=== PATIENT | female | born 1940 | race Caucasian/White ===

== ENCOUNTER → 2016-08-05 | Outpatient (CLI) | payer BC ==
[~2016-08-05] MED LIST: ACETYLCYST PO; ACTNUNK PO; ATOR-24 PO; ATV5 PO; CLTP PO; CNT PO; IMD/2 PO; LOSARTAN-HCTZ PO; METO25TA3 PO; PANT40TA PO; PRED-301 PO; [UNRECOGNIZED DRUG - CODE] PO
[2016-08-05 12:51] LABS: BASO % 0.4 %; BASO ABS # 0.04 K/uL (0-0.2); COMPLETE YES; EOS % 2.9 %; HEMATOCRIT 35.8 % (37-47); IG% 0.2 %; LYMPH % 19.2 %; LYMPH ABS # 1.79 K/uL (1.2-3.4); MEAN CELL VOLUME 85.9 fL (80-100); MEAN CORPUSCULAR HEMOGLOBIN 29.7 pg (25-34); MEAN CORPUSCULAR HGB CONC 34.6 g/dl (32-36); MEAN PLATELET VOLUME 13.8 fL (7.4-10.4); MONO % 13.2 %; NEUT % 64.1 %; PLATELET COUNT 218 K/uL (130-400); RED BLOOD COUNT 4.17 M/uL (4.2-5.4); WHITE BLOOD COUNT 9.31 K/uL (4.8-10.8)
[2016-08-05 13:30] LABS: ESTIMATED AVERAGE GLUCOSE 126 mg/dl; HA1C FLAG Normal (Normal)
[2016-08-05 13:44] LABS: ALT/SGPT 25 U/L (12-78); AST/SGOT 27 U/L (15-37); BLOOD UREA NITROGEN 14 mg/dl (7-18); BUN/CREATININE RATIO 13.7 (10-20); CARBON DIOXIDE 27 mmol/L (21-32); CHLORIDE 94 mmol/L (98-107); CHOLESTEROL 136 mg/dl (0-200); GLUCOSE 96 mg/dl (70-99); SODIUM 132 mmol/L (136-145); TRIGLYCERIDES 71 mg/dl (0-150); VERY LOW DENSITY LIPOPROT CALC 14 mg/dl
[2016-08-05 13:55] LABS: CHOLESTEROL/HDL RATIO 2.2; HDL CHOLESTEROL 62 mg/dl; LDL CHOLESTEROL CALCULATED 60 mg/dl
--- NOTE | 2016-08-11 10:27 | CODING QUERY MEDICAL NECESSITY ---
SUPPORTING DIAGNOSIS NEEDED Young PA, A supporting diagnosis is required for the test/procedure performed on this patient in order for us to be reimbursed by the patient's insurance. Please provide a supporting diagnosis for the following test/procedure listed below next to the test name along with your signature. *If there is no additional diagnosis for this patient that would support the following test/procedure please document that below next to the test/procedure. Test(s)/Procedure(s) that require a supporting diagnosis: * [id number] GLYCATED HEMOGLOBIN DIAGNOSIS: DATE OF SERVICE: 08/05/16 Provider Signature: Date: Thank you Rick Wyatt [facility] Information Management Once completed, please kindly fax back to [phone] For questions please call [phone]
== END | disposition home or self-care (01) ==
LOC: C.LABBFT 08:34
PROVIDERS: ATTEND Physician Assistant
DX: E78.5 Hyperlipidemia, unspecified (principal); Z13.1 Encounter for screening for diabetes mellitus

== ENCOUNTER → 2017-02-06 | Outpatient (CLI) | payer BC ==
[2017-02-06 13:03] LABS: BASO % 0.6 %; BASO ABS # 0.04 K/uL (0-0.2); COMPLETE YES; EOS % 4.8 %; HEMATOCRIT 35.8 % (37-47); IG% 0.1 %; LYMPH % 24.6 %; LYMPH ABS # 1.65 K/uL (1.2-3.4); MEAN CELL VOLUME 90.9 fL (80-100); MEAN CORPUSCULAR HEMOGLOBIN 31.5 pg (25-34); MEAN CORPUSCULAR HGB CONC 34.6 g/dl (32-36); MEAN PLATELET VOLUME 13.1 fL (7.4-10.4); NEUT % 53.9 %; PLATELET COUNT 242 K/uL (130-400); RED BLOOD COUNT 3.94 M/uL (4.2-5.4)
[2017-02-06 13:13] LABS: ALT/SGPT 32 U/L (12-78); AST/SGOT 28 U/L (15-37); BLOOD UREA NITROGEN 17 mg/dl (7-18); BUN/CREATININE RATIO 17.3 (10-20); CALCIUM 8.5 mg/dl (8.5-10.1); CARBON DIOXIDE 25 mmol/L (21-32); CHLORIDE 99 mmol/L (98-107); GLUCOSE 100 mg/dl (70-99); POTASSIUM 3.3 mmol/L (3.5-5.1); SODIUM 134 mmol/L (136-145)
[2017-02-06 13:23] LABS: CHOLESTEROL 125 mg/dl (0-200); CHOLESTEROL/HDL RATIO 2.3; HDL CHOLESTEROL 54 mg/dl; LDL CHOLESTEROL CALCULATED 55 mg/dl; TRIGLYCERIDES 81 mg/dl (0-150); VERY LOW DENSITY LIPOPROT CALC 16 mg/dl
== END | disposition home or self-care (01) ==
LOC: C.LABBFT 08:08
PROVIDERS: ATTEND Physician Assistant
DX: E78.5 Hyperlipidemia, unspecified (principal); N28.9 Disorder of kidney and ureter, unspecified; E03.9 Hypothyroidism, unspecified

== ENCOUNTER → 2017-03-09 | Outpatient (CLI) | payer BC ==
--- NOTE | 2017-03-09 11:24 | DIAGNOSTIC IMAGING REPORT ---
(CHEST) THORAX WITHOUT CLINICAL HISTORY: 77 years-old Female presenting with LUNG CA, follow-up, history of left apical pulmonary nodule stable since 2008. TECHNIQUE: Multidetector CT imaging of the chest was performed without the use of intravenous contrast. IV contrast: None. A dose lowering technique was used consistent with the principles of ALARA (as low as reasonably achievable). COMPARISON: 03/11/2016. CT DOSE (mGy.cm): The estimated cumulative dose is 218.17 mGy.cm. FINDINGS: Brass Reclaimer topogram: Unremarkable. On soft tissue windows, normal thyroid and thoracic inlet. Calcification noted in the breasts. Scattered subcentimeter mediastinal lymph nodes, some of which are calcified. Calcified hilar lymph nodes also noted, evidence of prior granulomatous infection. Evaluation of the dinesh is limited due to lack of intravenous contrast. Atherosclerosis of the aorta. Coronary artery calcification. Top normal heart size. Trace pericardial effusion. No pleural effusion. Moderate pancreatic parenchymal atrophy. Normal liver density. Calcification in the spleen likely suggests prior granulomatous infection. On lung windows, respiratory artifact mildly degrades evaluation of the lungs. Subpleural reticulation and groundglass opacity dependently in the lungs with a basilar predominance, most prominently in the right lower lobe, not significantly changed from most recent prior though slightly increased since 2011. Immediate subpleural sparing also noted. Biapical scarring noted. Calcified granulomas noted. Stable appearance of the solid 4 mm nodule in the left upper lobe (series 4 image 87), unchanged since 2008. Postsurgical changes of left lower lobectomy. Mild bronchial wall thickening suggested. Allowing for respiratory motion, no gross evidence of a new pulmonary nodule or infiltrate. On bone windows, normal osseous structures. IMPRESSION: 1. Stable postsurgical changes of left lower lobectomy and stable 4 mm left upper lobe nodule. No new nodule or new infiltrate. 2. Chronic subpleural fibrotic changes with a basilar predominance and the immediate subpleural sparing, which can be seen in the setting of nonspecific interstitial pneumonia. These findings demonstrate very slow interval progression over time. 3. Evidence of prior granulomatous infection. Electronically signed by: Jon Morris M.D. 03/09/2017 11:23 AM Dictated Date/Time: 03/09/2017 11:10 AM
== END | disposition home or self-care (01) ==
LOC: C.CTS 10:49
PROVIDERS: ATTEND Internal Medicine Hematology
DX: C34.32 Malignant neoplasm of lower lobe, left bronchus or lung (principal); Z90.2 Acquired absence of lung [part of]; R91.1 Solitary pulmonary nodule; R91.8 Other nonspecific abnormal finding of lung field

== ENCOUNTER → 2017-08-12 | Outpatient (CLI) | payer BC ==
[~2017-08-12] MED LIST changes: -METO25TA3 PO; +METO25TA4 PO
[2017-08-12 12:52] LABS: BASO % 0.8 %; BASO ABS # 0.07 K/uL (0-0.2); EOS % 10.1 %; EOS ABS # 0.88 K/uL (0-0.5); HEMATOCRIT 36.9 % (37-47); HEMOGLOBIN 12.4 g/dL (12.0-16.0); IG# 0.02 K/uL (0.00-0.02); LYMPH % 17.7 %; LYMPH ABS # 1.54 K/uL (1.2-3.4); MEAN CELL VOLUME 92.9 fL (80-100); MEAN CORPUSCULAR HEMOGLOBIN 31.2 pg (25-34); MEAN CORPUSCULAR HGB CONC 33.6 g/dl (32-36); MEAN PLATELET VOLUME 12.8 fL (7.4-10.4); MONO % 9.5 %; MONO ABS # 0.83 K/uL (0.11-0.59); NEUT % 61.7 %; NEUT ABS # 5.38 K/uL (1.4-6.5); PLATELET COUNT 222 K/uL (130-400); RED CELL DISTRIBUTION WIDTH CV 15.1 % (11.5-14.5); RED CELL DISTRIBUTION WIDTH SD 50.9 fL (36.4-46.3); WHITE BLOOD COUNT 8.72 K/uL (4.8-10.8)
[2017-08-12 13:15] LABS: HEMOGLOBIN A1C 5.6 % (4.5-5.6)
[2017-08-12 13:29] LABS: ALT/SGPT 38 U/L (12-78); AST/SGOT 31 U/L (15-37); BLOOD UREA NITROGEN 19 mg/dl (7-18); CALCIUM 8.9 mg/dl (8.5-10.1); CARBON DIOXIDE 31 mmol/L (21-32); CHOLESTEROL 139 mg/dl (0-200); CREATININE 1.02 mg/dl (0.60-1.20); GLUCOSE 91 mg/dl (70-99); LDL CHOLESTEROL CALCULATED 65 mg/dl; POTASSIUM 3.8 mmol/L (3.5-5.1); SODIUM 130 mmol/L (136-145)
== END | disposition home or self-care (01) ==
LOC: C.LABBFT 08:31
PROVIDERS: ATTEND Physician Assistant
DX: I10 Essential (primary) hypertension (principal); N28.9 Disorder of kidney and ureter, unspecified; E03.9 Hypothyroidism, unspecified; E78.5 Hyperlipidemia, unspecified

== ENCOUNTER 2024-03-30 20:49 | Inpatient (IN) ==
--- NOTE | 2024-03-30 21:17 | Emergency Department Note ---
Impression & Plan Fall, Closed pelvic fracture, Closed left radial fracture, Multiple skin tears ED Provider Note Provider: Sea Fan MD CHIEF COMPLAINT: Fall HISTORY OF PRESENT ILLNESS: Patient is a 84-year-old female on baby aspirin presenting here today after a fall at home. Patient states that she has fallen in the past and uses a walker. Was going to the bathroom and parked her walker just outside the bathroom and she went and lost her balance and fell and struck her left head on the side of the wall and went to the floor. Could not get up and used her emergency alert button. Patient complains of some pain to her left hand. Had a scrape there as well as on her right knee. Denies significant headache. Denies loss of conscious to recollection. Denies significant chest pain or shortness of breath. Does relay a little bit of nausea but she states that from the ambulance ride. Some soreness to the left leg reported with lifting. Denies new numbness or tingling. PAST MEDICAL HISTORY: As noted above MEDICATIONS:Reviewed home medications includes aspirin SOCIAL HISTORY: Lives by herself PHYSICAL EXAM: GENERAL: alert and oriented in no acute distress on stretcher c-collar in place without midline cervical tenderness Head: Patient with a 6 x 8 cm contusion over the left restoration/forehead region. No crepitus. No bleeding. EYES: No injection, discharge or icterus. PERRL, EOMI. NECK: Trachea midline. Supple no posterior midline tenderness ENT: Mucous membranes pink and moist. LUNGS: Airway patent. No retractions. Breath sounds clear with good air entry bilaterally. HEART: Regular rate and rhythm. No chest wall tenderness ABDOMEN: Soft and non-tender, without guarding or rebound. Stable pelvis. SKIN: Acyanotic, warm, dry, with some scattered various aged ecchymosis on the upper and lower extremities. EXTREMITIES: Without swelling on exam with good passive range of motion of the upper and lower extremities. Some pain with flexion into the left hip and pelvic region however. Some mild tenderness and skin tear the third MCP on the right hand on the dorsal side as well as a skin tear to the right knee just laterally. Some scattered ecchymosis on all extremities again noted. NEUROLOGICAL: No focal deficits. No aphasia. No facial droop or slurred speech. Normal strength and tone in the extremities. Sensation to gross touch normal. EK bpm sinus rhythm with future supraventricular complexes. No ST segment elevation with nonspecific T wave changes. QTc 481. CONTINUOUS CARDIAC MONITORING: was ordered and showed a heart rate of 80s-90s bpm in sinus rhythm occasional PACs GCS 15. Patient's laboratory studies and imaging reviewed. Differential includes Fracture, dislocation, contusion, intra-abdominal, pneumothorax, intrathoracic, intracranial, neurologic, compartment syndrome, rhabdomyolysis, as well as other pathologies. IMPRESSION/MEDICAL DECISION MAKING: Little bit of nausea she states from the ride given some Zofran. Denies severe pain. No confusion or syncope reported. Basic blood work EKG and imaging obtained here. Good range of motion lower suspicion for hip fracture or knee fracture but x-ray of the right knee and left hand are obtained given the small wounds here. Doubt open joints. Skin is very frail and thin and these are not amenable to closure. Cleaned and bandaged Xeroform over the knee as there is a little bit of exposed subcutaneous fat. Patient on aspirin. Ecchymosis to the left head but no LOC. CT beaver scan obtained. Blood work here without significant anemia leukocytosis. Normal platelet count. No significant acute renal dysfunction with mild hypernatremia of 130 and hypokalemia 3.2. No significant transaminitis or lipase elevation. No CK elevation and a normal troponin here. CT scan reports per radiology without evidence of acute intercranial bleed or cervical spine fracture. CT of the chest abdomen pelvis by report with some interstitial lung disease findings but an inferior and superior left pubic rami fracture. X-rays show evidence of a distal right radial fracture. Will place in a short volar splint for support and stabilization here. Will bring in for further care given the pelvic fracture. Given some IV Tylenol initially for pain. DIAGNOSIS: Fall, left head contusion, left hand skin tear, right knee skin tear, left distal radial fracture, pelvic fracture DISPOSITION: Hospitalist will evaluate Patient was agreeable with this plan. PROCEDURE: splint placement Indications for procedure: Distal left radial fracture Description of the procedure: Short Ortho-Glass volar splint was placed on the patient's left upper extremity. Neurovascular status was intact after placement of the splint. PATIENT CONDITION AFTER PROCEDURE: good Past Med/Surg History Problem List (Updated 03/31/24 @ 00:19 by Sea T Mita, M.D.) Multiple skin tears (Acute) Closed left radial fracture (Acute) Closed pelvic fracture (Acute) Fall (Acute) Pre-syncope Anemia (Chronic) Wrist pain, left (Acute) Rheumatoid arthritis (Chronic) Chronic renal insufficiency (Chronic) PAD (peripheral artery disease) (Chronic) Hypertension (Chronic) Medical History Abnormal CT scan, chest Pulmonary nodules Lung cancer, lower lobe Surgical History S/P lobectomy of lung H/O: hysterectomy Family History Other Family history non-contributory Social History Smoking Status: Former smoker Feels Safe at Home: Yes Allergies Allergies Allergy/AdvReac Type Severity Reaction Status Date / Time tetracycline Allergy Severe COULDN'T Verified 01/01/24 15:26 BREATHE Cephalosporins Allergy Intermediate HIVES Verified 01/01/24 15:26 clindamycin Allergy Mild RASH Verified 01/01/24 15:26 Penicillins Allergy Mild HIVES Verified 01/01/24 15:26 Sulfa (Sulfonamide Allergy Mild RED AND Verified 01/01/24 15:26 Antibiotics) SWEATING SILVIA Inhibitors Allergy Unknown Unknown Verified 03/31/24 00:16 aspartame Allergy Unknown Unknown Verified 01/01/24 15:26 cefazolin Allergy Unknown Unknown Verified 01/01/24 15:26 cephalexin Allergy Unknown Unknown Verified 01/01/24 15:26 doxycycline Allergy Unknown Unknown Verified 01/01/24 15:26 hydrochlorothiazide Allergy Unknown Unknown Unverified 01/01/24 15:26 lidocaine Allergy Unknown Unknown Verified 03/31/24 00:16 lisinopril Allergy Unknown Unknown Unverified 01/01/24 15:26 yellow dye Allergy Unknown Unknown Verified 01/01/24 15:26 prednisone AdvReac Mild HIGH BP Verified 01/01/24 15:26 preservatives AdvReac bleeding Uncoded 03/31/24 00:16 bowels Home Meds Home Medications Medication Instructions Recorded Confirmed acetaminophen 500 mg tablet 500 mg PO Q6H PRN Pain 03/29/18 03/31/24 (Tylenol Extra Strength) albuterol sulfate 90 mcg/actuation 2 puff inhalation Q4H PRN 03/29/18 03/31/24 aerosol inhaler (Ventolin HFA) Shortness Of Breath aspirin 81 mg tablet,delayed 81 mg PO QAM 03/29/18 03/31/24 release (Bernie Low Dose Aspirin) folic acid 1 mg tablet 2 mg PO DAILY 03/29/18 01/01/24 furosemide 20 mg tablet 20 mg PO DAILY 03/29/18 01/01/24 metoprolol succinate 50 mg 50 mg PO DAILY 03/29/18 01/01/24 tablet,extended release 24 hr (Toprol XL) famotidine 20 mg tablet 20 mg PO DAILY 10/17/19 01/01/24 levothyroxine 50 mcg tablet 25 mcg PO DAILYBB 10/17/19 03/31/24 methotrexate sodium 2.5 mg tablet 10 mg PO WK 10/17/19 01/01/24 risedronate 150 mg tablet 150 mg PO MONTHLY 08/14/20 01/01/24 losartan 100 mg tablet 100 mg PO QAM 03/31/24 Results & Data (ED) Vital Signs Vital Signs - 24 hr 03/30/24 20:59 03/30/24 21:06 03/30/24 21:27 Temperature 36.5 C Temperature Source Oral Pulse Rate 87 86 Pulse Rate [Apical] 83 Respiratory Rate 22 22 Respiratory Effort / Characteristics Non-Labored Spontaneous Non-Labored Spontaneous Respiratory Depth Normal Normal Blood Pressure 148/89 H Blood Pressure [Left Arm] 147/68 H Blood Pressure Mean 108 Blood Pressure Mean [Left Arm] 94 Blood Pressure Position [Left Arm] Pulse Oximetry 98 98 Oxygen Delivery Method Room Air Room Air Sepsis Recent Fever Within 48 Hours No Sepsis New/Unexplained Change in Mental Status No Sepsis Action Taken by Nursing No Action Required 03/30/24 21:27 03/30/24 23:00 Temperature Temperature Source Pulse Rate Pulse Rate [Apical] 86 Respiratory Rate 18 Respiratory Effort / Characteristics Respiratory Depth Blood Pressure Blood Pressure [Left Arm] 131/96 Blood Pressure Mean Blood Pressure Mean [Left Arm] 107 Blood Pressure Position [Left Arm] Semi-fowlers Pulse Oximetry 97 Oxygen Delivery Method Room Air Room Air Sepsis Recent Fever Within 48 Hours Sepsis New/Unexplained Change in Mental Status Sepsis Action Taken by Nursing Laboratory Data 03/30/24 21:09 03/30/24 21:09 Lab Results 03/30/24 03/30/24 Range/Units 21:09 21:14 WBC 8.21 (4.8-10.8) K/ul RBC 3.85 L (4.20-5.40) M/uL Hgb 12.1 (12.0-16.0) g/dl POC Hgb 12.2 (12.0-16.0) g/dl Hct 35.0 L (37.0-47.0) % POC Hct 36 L (37-47) % MCV 90.9 (80.0-100.0) fL MCH 31.4 (25.0-34.0) pg MCHC 34.6 (32.0-36.0) g/dL RDW Std Deviation 49.7 H (36.4-46.3) fL RDW Coeff of Zee 15.5 H (11.5-14.5) % Plt Count 199 (130-400) K/uL MPV 12.1 (9.4-12.4) fL Immature Gran % (Auto) 2.9 % Neut % (Auto) 60.2 % Lymph % (Auto) 27.3 % [place] % (Auto) 7.8 % Eos % (Auto) 1.3 % Baso % (Auto) 0.5 % Neut # (Auto) 4.94 (1.40-6.50) K/uL Lymph # (Auto) 2.24 (1.20-3.40) K/uL [place] # (Auto) 0.64 H (0.11-0.59) K/uL Eos # (Auto) 0.11 (0.00-0.50) K/uL Baso # (Auto) 0.04 (0.00-0.20) K/uL Immature Gran # (Auto) 0.24 H (0.01-0.20) K/uL PT 10.4 (9.0-12.0) Seconds INR 1.0 (0.9-1.1) APTT 23 (21-31) Seconds PTT Ratio 0.9 POC Sodium 130 L (135-144) mmol/L Sodium 130 L (136-145) mmol/L POC Potassium 3.1 L (3.3-5.0) mmol/L Potassium 3.2 L (3.5-5.1) mmol/L POC Chloride 95 L (101-112) mmol/L Chloride 95 L (98-107) mmol/L Carbon Dioxide 25 (21-32) mmol/L POC Total CO2 22 L (24-31) mmol/L Anion Gap 10 (3-11) POC Anion Gap 18.0 (16-25) mmol/L POC BUN 19 H (7-18) mg/dl BUN 21 (6-23) mg/dl Creatinine 0.85 (0.6-1.2) mg/dl POC Creatinine 1.0 (0.6-1.3) mg/dl Est Cr Clr Drug Dosing 41.6 ml/min eGFR 67.10 BUN/Creatinine Ratio 24.7 H (10-20) Glucose 171 H (70-99(Fasting)) mg/dl POC Glucose (other) 167 H (70-99) mg/dl Calcium 9.0 (8.6-10.3) mg/dl POC Ioniz Calcium Navi 1.06 L (1.12-1.32) mmol/l Total Bilirubin 0.5 (0.2-1.0) mg/dl AST 27 (13-39) U/L ALT 23 (7-52) U/L Alkaline Phosphatase 66 (34-104) U/L Total Creatine Kinase 108 (26-192) U/L Troponin I High Sens 6.8 (0-14) pg/ml Total Protein 6.8 (6.0-8.3) gm/dl Albumin 3.9 (3.4-5.0) gm/dl Globulin 2.9 (2.5-4.0) gm/dl Albumin/Globulin Ratio 1.3 (0.9-2) Lipase 31 (11-82) U/L Administered Medications Discontinued Medications Acetaminophen (Ofirmev) 1,000 mg in 100 mls @ 400 mls/hr IV NOW STA Stop: 03/31/24 00:05 Last Admin: 03/31/24 00:03 Dose: 400 mls/hr Documented By: ELIZABET Ondansetron HCl (Ondansetron Inj 2 Mg/Ml 2 Ml Vial) Confirm Administered Dose 4 mg .ROUTE .STK-MED ONE Stop: 03/30/24 21:22 Last Admin: 03/30/24 21:24 Dose: Not Given Documented By: KAMAR Ondansetron HCl (Ondansetron Inj 2 Mg/Ml 2 Ml Vial) 4 mg IV NOW STA Stop: 03/30/24 21:22 Last Admin: 03/30/24 21:23 Dose: 4 mg Documented By: KAMAR Ondansetron HCl (Ondansetron Inj 2 Mg/Ml 2 Ml Vial) 4 mg IV NOW STA Stop: 03/30/24 22:44 Last Admin: 03/30/24 22:45 Dose: 4 mg Documented By: KAMAR Imaging Data Radiologist's Impression: Abdomen/Pelvis CT 03/30/24 20:59 Exam(s): CT ABDOMEN + PELVIS Without Contrast EXAM: CT Abdomen and Pelvis Without Intravenous Contrast CLINICAL HISTORY: Trauma. TECHNIQUE: Axial computed tomography images of the abdomen and pelvis without intravenous contrast. CTDI is 19.25 mGy and DLP is 415.66 mGy-cm. Automated exposure control was utilized for the study. A dose lowering technique was utilized adhering to the principles of ALARA. COMPARISON: No relevant prior studies available. FINDINGS: Lung bases: Unremarkable. No mass. No consolidation. ABDOMEN: Liver: Unremarkable. Gallbladder and bile ducts: Unremarkable. No calcified stones. No ductal dilation. Pancreas: Unremarkable. No ductal dilation. Spleen: Unremarkable. No splenomegaly. Adrenals: Unremarkable. No mass. Kidneys and ureters: Unremarkable. No obstructing stones. No hydronephrosis. Stomach and bowel: Diverticulosis. No obstruction. No mucosal thickening. PELVIS: Appendix: No findings to suggest acute appendicitis. Bladder: Unremarkable. No stones. Reproductive: Unremarkable as visualized. ABDOMEN and PELVIS: Intraperitoneal space: Unremarkable. No free air. No significant fluid collection. Bones/joints: Age indeterminant severe T11 and L1 compression fracture is in addition to mild T12 and L2 compression fractures. Comminuted mildly displaced fractures of the left inferior and superior pubic rami. 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 No dislocation. Soft tissues: Unremarkable. Vasculature: Moderate atherosclerosis. There are stents of the distal aorta and common iliac arteries. No abdominal aortic aneurysm. Lymph nodes: Unremarkable. No enlarged lymph nodes. IMPRESSION: 1. Comminuted mildly displaced fractures of the left inferior and superior pubic rami. 2. Age indeterminant severe T11 and L1 compression fractures in addition to mild T12 and L2 compression fractures. 3. Diverticulosis. Electronically signed by: Wendi Fabian MD 03/30/24 23:[address] 03/30/24 20:59 Exam(s): CT C SPINE EXAM: CT Cervical Spine Without Intravenous Contrast CLINICAL HISTORY: Trauma. TECHNIQUE: Axial computed tomography images of the cervical spine without intravenous contrast. CTDI is 9.75 mGy and DLP is 602.45 mGy-cm. Automated exposure control was utilized for the study. A dose lowering technique was utilized adhering to the principles of ALARA. COMPARISON: No relevant prior studies available. FINDINGS: Vertebrae: Degenerative changes of the cervical spine are noted. No acute finding of the cervical spine. Discs/spinal canal/neural foramina: No acute findings. No spinal canal stenosis. Soft tissues: Unremarkable. IMPRESSION: No acute finding of the cervical spine. Electronically signed by: Wendi Fabian MD 03/30/24 23:[address] 03/30/24 20:59 Exam(s): CT CHEST Without Contrast EXAM: CT Chest Without Intravenous Contrast CLINICAL HISTORY: Trauma. TECHNIQUE: Axial computed tomography images of the chest without intravenous contrast. CTDI is 19.25 mGy and DLP is 416.55 mGy-cm. Automated exposure control was utilized for the study. A dose lowering technique was utilized adhering to the principles of ALARA. COMPARISON: CT chest 08/07/2020 FINDINGS: Lungs: Bilateral airspace opacities of the lung periphery favor interstitial lung disease. 8 mm left upper lobe pulmonary nodule. This is mildly increased in size, and previously measured 6 mm. Pleural space: Unremarkable. No pneumothorax. No significant effusion. Heart: Coronary artery calcifications are present. No cardiomegaly. No significant pericardial effusion. Bones/joints: Age indeterminant severe T12 compression fracture. Degenerative change of the spine are noted. No dislocation. Soft tissues: Unremarkable. Vasculature: There is ectasia of the ascending aorta measuring 3.6 cm. Moderate atherosclerosis. Lymph nodes: Unremarkable. No enlarged lymph nodes. IMPRESSION: 1. Age indeterminant severe T12 compression fracture. 2. Bilateral airspace opacities of the lung periphery favor interstitial lung disease. Cannot exclude pulmonary edema. 3. There is ectasia of the ascending aorta measuring 3.6 cm. 4. 8 mm left upper lobe pulmonary nodule. This is mildly increased in size, and previously measured 6 mm. Fleischner Society Guidelines for low-risk or high-risk patients suggest a follow-up chest CT at 6-12 months. If unchanged, recommend an additional follow-up CT at 18-24 months due to the morphologic appearance of this nodule. Electronically signed by: Wendi Fabian MD 03/30/24 23:42 PM Chest X-Ray 03/30/24 20:59 Exam(s): XR CXR 1 VIEW EXAM: XR Chest, 1 View CLINICAL HISTORY: Trauma. TECHNIQUE: Frontal view of the chest. COMPARISON: No relevant prior studies available. FINDINGS: Lungs: Bilateral airspace opacities are present. Pleural space: Small left pleural effusion. No pneumothorax. Heart: Unremarkable. No cardiomegaly. Mediastinum: Unremarkable. Normal mediastinal contour. Bones/joints: There are degenerative changes of the spine. No acute fracture. IMPRESSION: 1. Bilateral airspace opacities may represent pulmonary edema and/or atypical infection. 2. Small left pleural effusion. Electronically signed by: Wendi Fabian MD 03/30/24 23:46 PM Hand X-Ray 03/30/24 20:59 Exam(s): XR LEFT HAND, 3 views EXAM: XR Left Hand Complete, 3 or More Views CLINICAL HISTORY: Injury. TECHNIQUE: Frontal, lateral and oblique views of the left hand. COMPARISON: No relevant prior studies available. FINDINGS: Bones/joints: Nondisplaced fracture of the distal radial metaphysis. Degenerative changes are most prominent of the radiocarpal joint, first carpometacarpal joint and interphalangeal joints. No dislocation. Soft tissues: Nonspecific soft tissue swelling of the wrist. No radiopaque foreign body. IMPRESSION: 1. Nondisplaced fracture of the distal radial metaphysis. 2. Nonspecific soft tissue swelling of the wrist. 3. Degenerative changes are most prominent of the radiocarpal joint, first carpometacarpal joint and interphalangeal joints. This favors osteoarthritis. Electronically signed by: Wendi Fabian MD 03/30/24 23:[address] 03/30/24 20:59 Exam(s): CT HEAD Without Contrast EXAM: CT Head Without Intravenous Contrast CLINICAL HISTORY: Trauma. TECHNIQUE: Axial computed tomography images of the head/brain without intravenous contrast. CTDI is 37.87 mGy and DLP is 624.41 mGy-cm. Automated exposure control was utilized for the study. A dose lowering technique was utilized adhering to the principles of ALARA. COMPARISON: MRI brain 08/14/2020 FINDINGS: Brain: No intracranial hemorrhage, mass-effect or midline shift. No abnormal extra axial fluid. No evidence of acute infarct. Mild periventricular white matter hypodensities are most consistent with chronic microangiopathy. Ventricles: Unremarkable. No ventriculomegaly. Bones/joints: Unremarkable. No acute fracture. Soft tissues: Unremarkable. Sinuses: Unremarkable as visualized. No acute sinusitis. Mastoid air cells: Unremarkable as visualized. No mastoid effusion. IMPRESSION: No acute intracranial finding. Electronically signed by: Wendi Fabian MD 03/30/24 23:22 PM Knee X-Ray 03/30/24 21:00 Exam(s): XR RIGHT KNEE, 1-2 views EXAM: XR Right Knee, 1 or 2 Views CLINICAL HISTORY: Fall. TECHNIQUE: Frontal and/or lateral views of the right knee. COMPARISON: No relevant prior studies available. FINDINGS: Bones/joints: Degenerative changes of all three compartments are noted. No acute fracture. No dislocation. Soft tissues: There is edema of Hoffa's fat pad. Nonspecific soft tissue swelling. IMPRESSION: 1. There is edema of Hoffa's fat pad. This could relate occult injury. Consider further evaluation with MRI. 2. Nonspecific soft tissue swelling. Electronically signed by: Wendi Fabian MD 03/30/24 23:48 PM Discharge Plan Visit Data Chief Complaint: Fall Stated Complaint: Fall, Neck Pain, Laceration L Hand ED Provider: Sea Fan Discharge Problem: Fall, Closed pelvic fracture, Closed left radial fracture, Multiple skin tears Patient Disposition: Being Evaluated by Hospitalist Forms Stand Alone Forms: [facility] Prescriptions Prescriptions: No Action famotidine 20 mg tablet 20 mg PO DAILY methotrexate sodium 2.5 mg tablet 10 mg PO WK levothyroxine 50 mcg tablet 25 mcg PO DAILYBB aspirin [Bernie Low Dose Aspirin] 81 mg Tablet,Delayed Release (Dr/Ec) 81 mg PO QAM acetaminophen [Tylenol Extra Strength] 500 mg Tablet 500 mg PO Q6H PRN (Reason: Pain) folic acid 1 mg tablet 2 mg PO DAILY furosemide 20 mg tablet 20 mg PO DAILY albuterol sulfate [Ventolin HFA] 90 mcg/actuation Hfa Aerosol Inhaler 2 puff INHALATION Q4H PRN (Reason: Shortness Of Breath) metoprolol succinate [Toprol XL] 50 mg Tablet Extended Release 24 Hr 50 mg PO DAILY risedronate 150 mg tablet 150 mg PO MONTHLY losartan 100 mg tablet 100 mg PO QAM Referrals Referrals: Edna Neal MD [Primary Care Provider] - Discharge Problem: Fall Qualifiers: Encounter type: initial encounter Qualified Code(s): W19.XXXA - Unspecified fall, initial encounter Closed pelvic fracture Qualifiers: Encounter type: initial encounter Laterality: left Closed left radial fracture Qualifiers: Encounter type: initial encounter Radius location: distal
[2024-03-30] MEDS: ONDANSETRON INJ 2 MG/ML 2 ML VIAL IV STA ×2 (21:23→22:45)
[2024-03-30] MEDS: ONDANSETRON INJ 2 MG/ML 2 ML VIAL ONE (21:24)
[2024-03-30 21:27] LABS: iSTAT Hemoglobin 12.2 g/dl (12.0-16.0); iSTAT Ionized Calcium 1.06 mmol/l (1.12-1.32); iSTAT Potassium 3.1 mmol/L (3.3-5.0)
[2024-03-30 21:30] LABS: Basophils # (auto) 0.04 K/uL (0.00-0.20); Basophils % (auto) 0.5 %; Eosinophils # (auto) 0.11 K/uL (0.00-0.50); Eosinophils % (auto) 1.3 %; Hemoglobin 12.1 g/dl (12.0-16.0); Immature Granulocytes # (auto) 0.24 K/uL (0.01-0.20); Immature Granulocytes % (auto) 2.9 %; Lymphocytes # (auto) 2.24 K/uL (1.20-3.40); Lymphocytes % (auto) 27.3 %; Mean Corpuscular Hemoglobin 31.4 pg (25.0-34.0); Mean Corpuscular Hgb Conc 34.6 g/dL (32.0-36.0); Mean Corpuscular Volume 90.9 fL (80.0-100.0); Mean Platelet Volume 12.1 fL (9.4-12.4); Monocytes # (auto) 0.64 K/uL (0.11-0.59); Monocytes % (auto) 7.8 %; Neutrophils # (auto) 4.94 K/uL (1.40-6.50); Neutrophils % (auto) 60.2 %; Platelet Count 199 K/uL (130-400); RDW Coefficient of Variation 15.5 % (11.5-14.5); RDW Standard Deviation 49.7 fL (36.4-46.3); Red Blood Count 3.85 M/uL (4.20-5.40); White Blood Count 8.21 K/ul (4.8-10.8)
[2024-03-30 21:38] LABS: Albumin Globulin Ratio 1.3 (0.9-2); Albumin Level 3.9 gm/dl (3.4-5.0); BUN Creatinine Ratio 24.7 (10-20); Bilirubin,Total 0.5 mg/dl (0.2-1.0); Creatinine Clr Calc Pharmacy 41.6 ml/min; Globulin 2.9 gm/dl (2.5-4.0); Potassium 3.2 mmol/L (3.5-5.1); Total Protein 6.8 gm/dl (6.0-8.3)
[2024-03-30 21:44] LABS: Troponin I High Sensitivity 6.8 pg/ml (0-14)
[2024-03-30 21:56] LABS: Partial Thromboplastin Ratio 0.9; Partial Thromboplastin Time 23 Seconds (21-31); Prothrombin Time 10.4 Seconds (9.0-12.0)
--- NOTE | 2024-03-30 23:23 | CT Scan Report ---
Exam(s): CT C SPINE EXAM: CT Cervical Spine Without Intravenous Contrast CLINICAL HISTORY: Trauma. TECHNIQUE: Axial computed tomography images of the cervical spine without intravenous contrast. CTDI is 9.75 mGy and DLP is 602.45 mGy-cm. Automated exposure control was utilized for the study. A dose lowering technique was utilized adhering to the principles of ALARA. COMPARISON: No relevant prior studies available. FINDINGS: Vertebrae: Degenerative changes of the cervical spine are noted. No acute finding of the cervical spine. Discs/spinal canal/neural foramina: No acute findings. No spinal canal stenosis. Soft tissues: Unremarkable. IMPRESSION: No acute finding of the cervical spine. Electronically signed by: Wendi Fabian MD 03/30/24 23:22 PM
--- NOTE | 2024-03-30 23:23 | CT Scan Report ---
Exam(s): CT HEAD Without Contrast EXAM: CT Head Without Intravenous Contrast CLINICAL HISTORY: Trauma. TECHNIQUE: Axial computed tomography images of the head/brain without intravenous contrast. CTDI is 37.87 mGy and DLP is 624.41 mGy-cm. Automated exposure control was utilized for the study. A dose lowering technique was utilized adhering to the principles of ALARA. COMPARISON: MRI brain 08/14/2020 FINDINGS: Brain: No intracranial hemorrhage, mass-effect or midline shift. No abnormal extra axial fluid. No evidence of acute infarct. Mild periventricular white matter hypodensities are most consistent with chronic microangiopathy. Ventricles: Unremarkable. No ventriculomegaly. Bones/joints: Unremarkable. No acute fracture. Soft tissues: Unremarkable. Sinuses: Unremarkable as visualized. No acute sinusitis. Mastoid air cells: Unremarkable as visualized. No mastoid effusion. IMPRESSION: No acute intracranial finding. Electronically signed by: Wendi Fabian MD 03/30/24 23:22 PM
--- NOTE | 2024-03-30 23:34 | CT Scan Report ---
Exam(s): CT ABDOMEN + PELVIS Without Contrast EXAM: CT Abdomen and Pelvis Without Intravenous Contrast CLINICAL HISTORY: Trauma. TECHNIQUE: Axial computed tomography images of the abdomen and pelvis without intravenous contrast. CTDI is 19.25 mGy and DLP is 415.66 mGy-cm. Automated exposure control was utilized for the study. A dose lowering technique was utilized adhering to the principles of ALARA. COMPARISON: No relevant prior studies available. FINDINGS: Lung bases: Unremarkable. No mass. No consolidation. ABDOMEN: Liver: Unremarkable. Gallbladder and bile ducts: Unremarkable. No calcified stones. No ductal dilation. Pancreas: Unremarkable. No ductal dilation. Spleen: Unremarkable. No splenomegaly. Adrenals: Unremarkable. No mass. Kidneys and ureters: Unremarkable. No obstructing stones. No hydronephrosis. Stomach and bowel: Diverticulosis. No obstruction. No mucosal thickening. PELVIS: Appendix: No findings to suggest acute appendicitis. Bladder: Unremarkable. No stones. Reproductive: Unremarkable as visualized. ABDOMEN and PELVIS: Intraperitoneal space: Unremarkable. No free air. No significant fluid collection. Bones/joints: Age indeterminant severe T11 and L1 compression fracture is in addition to mild T12 and L2 compression fractures. Comminuted mildly displaced fractures of the left inferior and superior pubic rami. 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 No dislocation. Soft tissues: Unremarkable. Vasculature: Moderate atherosclerosis. There are stents of the distal aorta and common iliac arteries. No abdominal aortic aneurysm. Lymph nodes: Unremarkable. No enlarged lymph nodes. IMPRESSION: 1. Comminuted mildly displaced fractures of the left inferior and superior pubic rami. 2. Age indeterminant severe T11 and L1 compression fractures in addition to mild T12 and L2 compression fractures. 3. Diverticulosis. Electronically signed by: Wendi Fabian MD 03/30/24 23:33 PM
--- NOTE | 2024-03-30 23:44 | CT Scan Report ---
Exam(s): CT CHEST Without Contrast EXAM: CT Chest Without Intravenous Contrast CLINICAL HISTORY: Trauma. TECHNIQUE: Axial computed tomography images of the chest without intravenous contrast. CTDI is 19.25 mGy and DLP is 416.55 mGy-cm. Automated exposure control was utilized for the study. A dose lowering technique was utilized adhering to the principles of ALARA. COMPARISON: CT chest 08/07/2020 FINDINGS: Lungs: Bilateral airspace opacities of the lung periphery favor interstitial lung disease. 8 mm left upper lobe pulmonary nodule. This is mildly increased in size, and previously measured 6 mm. Pleural space: Unremarkable. No pneumothorax. No significant effusion. Heart: Coronary artery calcifications are present. No cardiomegaly. No significant pericardial effusion. Bones/joints: Age indeterminant severe T12 compression fracture. Degenerative change of the spine are noted. No dislocation. Soft tissues: Unremarkable. Vasculature: There is ectasia of the ascending aorta measuring 3.6 cm. Moderate atherosclerosis. Lymph nodes: Unremarkable. No enlarged lymph nodes. IMPRESSION: 1. Age indeterminant severe T12 compression fracture. 2. Bilateral airspace opacities of the lung periphery favor interstitial lung disease. Cannot exclude pulmonary edema. 3. There is ectasia of the ascending aorta measuring 3.6 cm. 4. 8 mm left upper lobe pulmonary nodule. This is mildly increased in size, and previously measured 6 mm. Fleischner Society Guidelines for low-risk or high-risk patients suggest a follow-up chest CT at 6-12 months. If unchanged, recommend an additional follow-up CT at 18-24 months due to the morphologic appearance of this nodule. Electronically signed by: Wendi Fabian MD 03/30/24 23:42 PM
--- NOTE | 2024-03-30 23:47 | XRay Report ---
Exam(s): XR CXR 1 VIEW EXAM: XR Chest, 1 View CLINICAL HISTORY: Trauma. TECHNIQUE: Frontal view of the chest. COMPARISON: No relevant prior studies available. FINDINGS: Lungs: Bilateral airspace opacities are present. Pleural space: Small left pleural effusion. No pneumothorax. Heart: Unremarkable. No cardiomegaly. Mediastinum: Unremarkable. Normal mediastinal contour. Bones/joints: There are degenerative changes of the spine. No acute fracture. IMPRESSION: 1. Bilateral airspace opacities may represent pulmonary edema and/or atypical infection. 2. Small left pleural effusion. Electronically signed by: Wendi Fabian MD 03/30/24 23:46 PM
--- NOTE | 2024-03-30 23:48 | XRay Report ---
Exam(s): XR LEFT HAND, 3 views EXAM: XR Left Hand Complete, 3 or More Views CLINICAL HISTORY: Injury. TECHNIQUE: Frontal, lateral and oblique views of the left hand. COMPARISON: No relevant prior studies available. FINDINGS: Bones/joints: Nondisplaced fracture of the distal radial metaphysis. Degenerative changes are most prominent of the radiocarpal joint, first carpometacarpal joint and interphalangeal joints. No dislocation. Soft tissues: Nonspecific soft tissue swelling of the wrist. No radiopaque foreign body. IMPRESSION: 1. Nondisplaced fracture of the distal radial metaphysis. 2. Nonspecific soft tissue swelling of the wrist. 3. Degenerative changes are most prominent of the radiocarpal joint, first carpometacarpal joint and interphalangeal joints. This favors osteoarthritis. Electronically signed by: Wendi Fabian MD 03/30/24 23:47 PM
--- NOTE | 2024-03-30 23:49 | XRay Report ---
Exam(s): XR RIGHT KNEE, 1-2 views EXAM: XR Right Knee, 1 or 2 Views CLINICAL HISTORY: Fall. TECHNIQUE: Frontal and/or lateral views of the right knee. COMPARISON: No relevant prior studies available. FINDINGS: Bones/joints: Degenerative changes of all three compartments are noted. No acute fracture. No dislocation. Soft tissues: There is edema of Hoffa's fat pad. Nonspecific soft tissue swelling. IMPRESSION: 1. There is edema of Hoffa's fat pad. This could relate occult injury. Consider further evaluation with MRI. 2. Nonspecific soft tissue swelling. Electronically signed by: Wendi Fabian MD 03/30/24 23:48 PM
[2024-03-31] MEDS: ACETAMINOPHEN 1,000 MG/100 ML VIAL IV STA (00:03)
[2024-03-31 01:16] LABS: Thyroid Stimulating Hormone 7.231 uIu/ml (0.300-4.500)
--- NOTE | 2024-03-31 01:18 | History & Physical Report ---
Date of Service March 31, 2024 Assessment & Plan (1) SOB (shortness of breath): Plan: SOB Underlying COPD as per records. Not in acute exacerbation Traumatic pelvic fracture Traumatic left radial fracture Underlying osteoporosis valvular heart disease (moderate MR/AR, borderline MVP) PAF not on anticoagulation secondary to fall risk/PSVT PVD status post surgery hypertension, slight elevated Left lung nodule, some enlargement recent imaging squamous cell lung cancer status post surgery hypothyroidism, TSH slightly elevated prediabetes, hemoglobin A1c of 5.10 May 2023 hx rheumatoid arthritis, on methotrexate chronic hyponatremia past tobacco abuse OBS Medical telemetry Orthopedics consult Re: Traumatic pelvic fracture and left frontal fracture Anticipate nonoperative management Hold aspirin for now given multiple contusions Resume when H&H stable Outpatient pulmonology follow-up for enlarging SPN, history lung cancer PT OT eval DVT prophylaxis. Teds RE multiple contusions, SCDs contraindicated with history PVD Full code Patient requests for daughters to be given updates regarding care. Ms. Marylou Jeter, contact #[phone] Ms. Castro Romelia, [phone]. Text document was generated using [employer] voice recognition software. It may contain grammatical or spelling errors. Kindly contact undersigned for clarification of any documentation item in question. History of Present Illness Chief Complaint: Fall Primary Care Provider: Edna Neal MD History obtained from patient and records. Medical history significant for valvular heart disease (moderate MR/AR, borderline MVP), PAF not on anticoagulation secondary to fall risk, PSVT, PVD status post surgery, hypertension, COPD, squamous cell lung cancer status post surgery, hypothyroidism, prediabetes, rheumatoid arthritis, chronic hyponatremia, migraine, osteoporosis, history of MRSA as per records, past history C. difficile, past tobacco abuse. Last confinement 2007 for C. difficile colitis. Patient fell at home last night after tripping on her walker. Left side of the head hitting a wall before falling down. Achy facial pain, left forearm pain, pelvic pain. No chest pain, no syncope. Some SOB which patient attributes to humidity without unusual cough symptoms. Denies fluid retention. Actually losing weight. Medical History as above Surgical History : Hysterectomy, left lower lobe lobectomy, vascular procedures Family History : Alcoholism, liver cancer, endometrial cancer, heart disease, DM, DVT Personal/Social history : Past tobacco abuse, no EtOH intake, retired [employer] Allergies Allergy/AdvReac Type Severity Reaction Status Date / Time tetracycline Allergy Severe COULDN'T Verified 03/31/24 00:22 BREATHE Cephalosporins Allergy Intermediate HIVES Verified 03/31/24 00:22 clindamycin Allergy Mild RASH Verified 03/31/24 00:22 Penicillins Allergy Mild HIVES Verified 03/31/24 00:22 Sulfa (Sulfonamide Allergy Mild RED AND Verified 03/31/24 00:22 Antibiotics) SWEATING SILVIA Inhibitors Allergy Unknown Unknown Verified 03/31/24 00:22 aspartame Allergy Unknown Unknown Verified 03/31/24 00:22 cefazolin Allergy Unknown Unknown Verified 03/31/24 00:22 cephalexin Allergy Unknown Unknown Verified 03/31/24 00:22 doxycycline Allergy Unknown Unknown Verified 03/31/24 00:22 hydrochlorothiazide Allergy Unknown Unknown Unverified 03/31/24 00:22 lidocaine Allergy Unknown Unknown Verified 03/31/24 00:22 lisinopril Allergy Unknown Unknown Unverified 03/31/24 00:22 yellow dye Allergy Unknown Unknown Verified 03/31/24 00:22 prednisone AdvReac Mild HIGH BP Verified 03/31/24 00:22 Home Medications Medication Instructions Recorded Confirmed Type acetaminophen 500 mg tablet 500 mg PO Q6H PRN Pain 03/29/18 03/31/24 History (Tylenol Extra Strength) albuterol sulfate 90 mcg/actuation 2 puff inhalation Q4H PRN 03/29/18 03/31/24 History aerosol inhaler (Ventolin HFA) Shortness Of Breath aspirin 81 mg tablet,delayed 81 mg PO QAM 03/29/18 03/31/24 History release (Bernie Low Dose Aspirin) folic acid 1 mg tablet 2 mg PO QAM 03/29/18 03/31/24 History furosemide 20 mg tablet 20 mg PO AMPM PRN swelling 03/29/18 03/31/24 History famotidine 20 mg tablet 20 mg PO AMPM 10/17/19 03/31/24 History levothyroxine 50 mcg tablet 25 mcg PO DAILYBB 10/17/19 03/31/24 History methotrexate sodium 2.5 mg tablet 10 mg PO WK 10/17/19 03/31/24 History risedronate 150 mg tablet 150 mg PO MONTHLY 08/14/20 03/31/24 History losartan 100 mg tablet 100 mg PO QAM 03/31/24 03/31/24 History metoprolol succinate 25 mg 25 mg PO QAM 03/31/24 03/31/24 History tablet,extended release 24 hr [id number] 8 mg-folic 400 1 tab PO QAM 03/31/24 03/31/24 History mcg-K 50 mcg-lutein 300 mcg tablet (Centrum Silver Women) prednisone 5 mg tablet 5 mg PO UD PRN arthritis pain 03/31/24 03/31/24 History Past Med/Surg History Problem List (Updated 03/31/24 @ 03:40 by Chin Blair MD) SOB (shortness of breath) Multiple skin tears (Acute) Closed left radial fracture (Acute) Closed pelvic fracture (Acute) Fall (Acute) Pre-syncope Anemia (Chronic) Wrist pain, left (Acute) Rheumatoid arthritis (Chronic) Chronic renal insufficiency (Chronic) PAD (peripheral artery disease) (Chronic) Hypertension (Chronic) Medical History Abnormal CT scan, chest Pulmonary nodules Lung cancer, lower lobe Surgical History S/P lobectomy of lung H/O: hysterectomy Family History Other Family history non-contributory Social History Smoking Status: Former smoker Feels Safe at Home: Yes Review of Systems Review of Systems: As per HPI, all other systems reviewed and negative Physical Exam Physical Exam: GENERAL: Slightly anxious, slightly uncomfortable, slightly hard of hearing, no respiratory distress SKIN: Normal color, warm HEENT: Ecchymosis left face, pink palpebral conjunctivae, no ptosis, dry buccal mucosa NECK : Supple, no tenderness CHEST : Decreased breath sounds, no tenderness HEART : RRR, systolic murmur ABDOMEN: Some distention, nontender EXTREMITIES : LUE splint, minimal LE swelling with tenderness (chronic as per patient), no other conspicuous deformities noted NEUROLOGIC : Coherent, no facial asymmetry, slightly hard of hearing, gait and stance not assessed Results & Data Results & Data Vital Signs (Past 12 Hours) Vital Signs Temp Pulse Pulse Resp BP BP Pulse Ox 03/30/24 23:00 86 18 131/96 03/30/24 21:27 97 03/30/24 21:27 83 22 147/68 H 98 03/30/24 21:06 36.5 C 86 22 148/89 H 98 03/30/24 20:59 87 O2 Del Method 03/30/24 23:00 Room Air 03/30/24 21:27 Room Air 03/30/24 21:27 Room Air 03/30/24 21:06 Room Air 03/30/24 20:59 Laboratory Results Laboratory Results WBC 8.21 K/ul (4.8-10.8) 03/30/24 21:09 RBC 3.85 M/uL (4.20-5.40) L 03/30/24 21:09 Hgb 12.1 g/dl (12.0-16.0) 03/30/24 21:09 POC Hgb 12.2 g/dl (12.0-16.0) 03/30/24 21:14 Hct 35.0 % (37.0-47.0) L 03/30/24 21:09 POC Hct 36 % (37-47) L 03/30/24 21:14 MCV 90.9 fL (80.0-100.0) 03/30/24 21:09 MCH 31.4 pg (25.0-34.0) 03/30/24 21:09 MCHC 34.6 g/dL (32.0-36.0) 03/30/24 21:09 RDW Std Deviation 49.7 fL (36.4-46.3) H 03/30/24 21:09 RDW Coeff of Zee 15.5 % (11.5-14.5) H 03/30/24 21:09 Plt Count 199 K/uL (130-400) 03/30/24 21:09 MPV 12.1 fL (9.4-12.4) 03/30/24 21:09 Immature Gran % (Auto) 2.9 % 03/30/24 21:09 Neut % (Auto) 60.2 % 03/30/24 21:09 Lymph % (Auto) 27.3 % 03/30/24 21:09 [place] % (Auto) 7.8 % 11/27/24 21:09 Eos % (Auto) 1.3 % 03/30/24 21:09 Baso % (Auto) 0.5 % 03/30/24 21:09 Neut # (Auto) 4.94 K/uL (1.40-6.50) 03/30/24 21:09 Lymph # (Auto) 2.24 K/uL (1.20-3.40) 03/30/24 21:09 [place] # (Auto) 0.64 K/uL (0.11-0.59) H 03/30/24 21:09 Eos # (Auto) 0.11 K/uL (0.00-0.50) 03/30/24 21:09 Baso # (Auto) 0.04 K/uL (0.00-0.20) 03/30/24 21:09 Immature Gran # (Auto) 0.24 K/uL (0.01-0.20) H 03/30/24 21:09 PT 10.4 Seconds (9.0-12.0) 03/30/24 21:09 INR 1.0 (0.9-1.1) 03/30/24 21:09 APTT 23 Seconds (21-31) 03/30/24 21:09 PTT Ratio 0.9 03/30/24 21:09 POC Sodium 130 mmol/L (135-144) L 03/30/24 21:14 Sodium 130 mmol/L (136-145) L 03/30/24 21:09 POC Potassium 3.1 mmol/L (3.3-5.0) L 03/30/24 21:14 Potassium 3.2 mmol/L (3.5-5.1) L 03/30/24 21:09 POC Chloride 95 mmol/L (101-112) L 03/30/24 21:14 Chloride 95 mmol/L (98-107) L 03/30/24 21:09 Carbon Dioxide 25 mmol/L (21-32) 03/30/24 21:09 POC Total CO2 22 mmol/L (24-31) L 03/30/24 21:14 Anion Gap 10 (3-11) 03/30/24 21:09 POC Anion Gap 18.0 mmol/L (16-25) 03/30/24 21:14 POC BUN 19 mg/dl (7-18) H 03/30/24 21:14 BUN 21 mg/dl (6-23) 03/30/24 21:09 Creatinine 0.85 mg/dl (0.6-1.2) 03/30/24 21:09 POC Creatinine 1.0 mg/dl (0.6-1.3) 03/30/24 21:14 Est Cr Clr Drug Dosing 41.6 ml/min 03/30/24 21:09 eGFR 67.10 03/30/24 21:09 BUN/Creatinine Ratio 24.7 (10-20) H 03/30/24 21:09 Glucose 171 mg/dl (70-99(Fasting)) H 03/30/24 21:09 POC Glucose (other) 167 mg/dl (70-99) H 03/30/24 21:14 Osmolality 279 mOsm/kg (280-300) L 03/30/24 21:09 Calcium 9.0 mg/dl (8.6-10.3) 03/30/24 21:09 POC Ioniz Calcium Navi 1.06 mmol/l (1.12-1.32) L 03/30/24 21:14 Magnesium 2.0 mg/dl (1.7-2.4) 03/30/24 21:09 Total Bilirubin 0.5 mg/dl (0.2-1.0) 03/30/24 21:09 AST 27 U/L (13-39) 03/30/24 21:09 ALT 23 U/L (7-52) 03/30/24 21:09 Alkaline Phosphatase 66 U/L (34-104) 03/30/24 21:09 Total Creatine Kinase 108 U/L (26-192) 03/30/24 21:09 Troponin I High Sens 6.8 pg/ml (0-14) 03/30/24 21:09 Total Protein 6.8 gm/dl (6.0-8.3) 03/30/24 21:09 Albumin 3.9 gm/dl (3.4-5.0) 03/30/24 21:09 Globulin 2.9 gm/dl (2.5-4.0) 03/30/24 21:09 Albumin/Globulin Ratio 1.3 (0.9-2) 03/30/24 21:09 Lipase 31 U/L (11-82) 03/30/24 21:09 TSH 7.231 uIu/ml (0.300-4.500) H 03/30/24 21:09 Impressions Abdomen/Pelvis CT 03/30/24 20:59 Exam(s): CT ABDOMEN + PELVIS Without Contrast EXAM: CT Abdomen and Pelvis Without Intravenous Contrast CLINICAL HISTORY: Trauma. TECHNIQUE: Axial computed tomography images of the abdomen and pelvis without intravenous contrast. CTDI is 19.25 mGy and DLP is 415.66 mGy-cm. Automated exposure control was utilized for the study. A dose lowering technique was utilized adhering to the principles of ALARA. COMPARISON: No relevant prior studies available. FINDINGS: Lung bases: Unremarkable. No mass. No consolidation. ABDOMEN: Liver: Unremarkable. Gallbladder and bile ducts: Unremarkable. No calcified stones. No ductal dilation. Pancreas: Unremarkable. No ductal dilation. Spleen: Unremarkable. No splenomegaly. Adrenals: Unremarkable. No mass. Kidneys and ureters: Unremarkable. No obstructing stones. No hydronephrosis. Stomach and bowel: Diverticulosis. No obstruction. No mucosal thickening. PELVIS: Appendix: No findings to suggest acute appendicitis. Bladder: Unremarkable. No stones. Reproductive: Unremarkable as visualized. ABDOMEN and PELVIS: Intraperitoneal space: Unremarkable. No free air. No significant fluid collection. Bones/joints: Age indeterminant severe T11 and L1 compression fracture is in addition to mild T12 and L2 compression fractures. Comminuted mildly displaced fractures of the left inferior and superior pubic rami. 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 No dislocation. Soft tissues: Unremarkable. Vasculature: Moderate atherosclerosis. There are stents of the distal aorta and common iliac arteries. No abdominal aortic aneurysm. Lymph nodes: Unremarkable. No enlarged lymph nodes. IMPRESSION: 1. Comminuted mildly displaced fractures of the left inferior and superior pubic rami. 2. Age indeterminant severe T11 and L1 compression fractures in addition to mild T12 and L2 compression fractures. 3. Diverticulosis. Electronically signed by: Wendi Fabian MD 03/30/24 23:[address] 03/30/24 20:59 Exam(s): CT C SPINE EXAM: CT Cervical Spine Without Intravenous Contrast CLINICAL HISTORY: Trauma. TECHNIQUE: Axial computed tomography images of the cervical spine without intravenous contrast. CTDI is 9.75 mGy and DLP is 602.45 mGy-cm. Automated exposure control was utilized for the study. A dose lowering technique was utilized adhering to the principles of ALARA. COMPARISON: No relevant prior studies available. FINDINGS: Vertebrae: Degenerative changes of the cervical spine are noted. No acute finding of the cervical spine. Discs/spinal canal/neural foramina: No acute findings. No spinal canal stenosis. Soft tissues: Unremarkable. IMPRESSION: No acute finding of the cervical spine. Electronically signed by: Wendi Fabian MD 03/30/24 23:[address] 03/30/24 20:59 Exam(s): CT CHEST Without Contrast EXAM: CT Chest Without Intravenous Contrast CLINICAL HISTORY: Trauma. TECHNIQUE: Axial computed tomography images of the chest without intravenous contrast. CTDI is 19.25 mGy and DLP is 416.55 mGy-cm. Automated exposure control was utilized for the study. A dose lowering technique was utilized adhering to the principles of ALARA. COMPARISON: CT chest 08/07/2020 FINDINGS: Lungs: Bilateral airspace opacities of the lung periphery favor interstitial lung disease. 8 mm left upper lobe pulmonary nodule. This is mildly increased in size, and previously measured 6 mm. Pleural space: Unremarkable. No pneumothorax. No significant effusion. Heart: Coronary artery calcifications are present. No cardiomegaly. No significant pericardial effusion. Bones/joints: Age indeterminant severe T12 compression fracture. Degenerative change of the spine are noted. No dislocation. Soft tissues: Unremarkable. Vasculature: There is ectasia of the ascending aorta measuring 3.6 cm. Moderate atherosclerosis. Lymph nodes: Unremarkable. No enlarged lymph nodes. IMPRESSION: 1. Age indeterminant severe T12 compression fracture. 2. Bilateral airspace opacities of the lung periphery favor interstitial lung disease. Cannot exclude pulmonary edema. 3. There is ectasia of the ascending aorta measuring 3.6 cm. 4. 8 mm left upper lobe pulmonary nodule. This is mildly increased in size, and previously measured 6 mm. Fleischner Society Guidelines for low-risk or high-risk patients suggest a follow-up chest CT at 6-12 months. If unchanged, recommend an additional follow-up CT at 18-24 months due to the morphologic appearance of this nodule. Electronically signed by: Wendi Fabian MD 03/30/24 23:42 PM Chest X-Ray 03/30/24 20:59 Exam(s): XR CXR 1 VIEW EXAM: XR Chest, 1 View CLINICAL HISTORY: Trauma. TECHNIQUE: Frontal view of the chest. COMPARISON: No relevant prior studies available. FINDINGS: Lungs: Bilateral airspace opacities are present. Pleural space: Small left pleural effusion. No pneumothorax. Heart: Unremarkable. No cardiomegaly. Mediastinum: Unremarkable. Normal mediastinal contour. Bones/joints: There are degenerative changes of the spine. No acute fracture. IMPRESSION: 1. Bilateral airspace opacities may represent pulmonary edema and/or atypical infection. 2. Small left pleural effusion. Electronically signed by: Wendi Fabian MD 03/30/24 23:46 PM Hand X-Ray 03/30/24 20:59 Exam(s): XR LEFT HAND, 3 views EXAM: XR Left Hand Complete, 3 or More Views CLINICAL HISTORY: Injury. TECHNIQUE: Frontal, lateral and oblique views of the left hand. COMPARISON: No relevant prior studies available. FINDINGS: Bones/joints: Nondisplaced fracture of the distal radial metaphysis. Degenerative changes are most prominent of the radiocarpal joint, first carpometacarpal joint and interphalangeal joints. No dislocation. Soft tissues: Nonspecific soft tissue swelling of the wrist. No radiopaque foreign body. IMPRESSION: 1. Nondisplaced fracture of the distal radial metaphysis. 2. Nonspecific soft tissue swelling of the wrist. 3. Degenerative changes are most prominent of the radiocarpal joint, first carpometacarpal joint and interphalangeal joints. This favors osteoarthritis. Electronically signed by: Wendi Fabian MD 03/30/24 23:[address] 03/30/24 20:59 Exam(s): CT HEAD Without Contrast EXAM: CT Head Without Intravenous Contrast CLINICAL HISTORY: Trauma. TECHNIQUE: Axial computed tomography images of the head/brain without intravenous contrast. CTDI is 37.87 mGy and DLP is 624.41 mGy-cm. Automated exposure control was utilized for the study. A dose lowering technique was utilized adhering to the principles of ALARA. COMPARISON: MRI brain 08/14/2020 FINDINGS: Brain: No intracranial hemorrhage, mass-effect or midline shift. No abnormal extra axial fluid. No evidence of acute infarct. Mild periventricular white matter hypodensities are most consistent with chronic microangiopathy. Ventricles: Unremarkable. No ventriculomegaly. Bones/joints: Unremarkable. No acute fracture. Soft tissues: Unremarkable. Sinuses: Unremarkable as visualized. No acute sinusitis. Mastoid air cells: Unremarkable as visualized. No mastoid effusion. IMPRESSION: No acute intracranial finding. Electronically signed by: Wendi Fabian MD 03/30/24 23:22 PM Knee X-Ray 03/30/24 21:00 Exam(s): XR RIGHT KNEE, 1-2 views EXAM: XR Right Knee, 1 or 2 Views CLINICAL HISTORY: Fall. TECHNIQUE: Frontal and/or lateral views of the right knee. COMPARISON: No relevant prior studies available. FINDINGS: Bones/joints: Degenerative changes of all three compartments are noted. No acute fracture. No dislocation. Soft tissues: There is edema of Hoffa's fat pad. Nonspecific soft tissue swelling. IMPRESSION: 1. There is edema of Hoffa's fat pad. This could relate occult injury. Consider further evaluation with MRI. 2. Nonspecific soft tissue swelling. Electronically signed by: Wendi Fabian MD 03/30/24 23:48 PM Diagnostic Findings EKG as per my interpretation :Rate 80, NSR, LAD, LAFB, T wave abnormalities septal leads
[2024-03-31] MEDS ORDERED: PROMETHAZINE 6.25 MG/50.25 ML BAG IV PRN (01:21)
[2024-03-31] MEDS ORDERED: oxyCODONE HCL IR 5 MG TAB (IMMEDIATE RELEASE) PO PRN (01:21)
[2024-03-31] MEDS: FAMOTIDINE 20 MG TAB PO STA (01:52)
[2024-03-31 01:56] LABS: T4 Free Thyroxine 1.3 ng/dl (0.61-1.60)
[2024-03-31] MEDS: ALBUT/IPRATROP 3MG/0.5MG NEB 3 ML VIAL NEB STA (02:01)
[2024-03-31] MEDS: ALBUTEROL HFA 8 GM INHALER INH ONE (02:14)
[2024-03-31] MEDS: POTASSIUM CHLORIDE CRTAB 20 MEQ TABCR PO STA (03:23)
[2024-03-31] MEDS: SODIUM CHLORIDE 0.9% 1,000 ML IV ONE (03:47)
[2024-03-31 05:10] LABS: Adenovirus PCR Not Detected (NotDetected); Bordetella parapertussis PCR Not Detected (NotDetected); Bordetella pertussis PCR Not Detected (NotDetected); Chlamydia pneumoniae PCR Not Detected (NotDetected); Coronavirus 229E PCR Not Detected (NotDetected); Coronavirus CoV-2 (COVID19)PCR Not Detected (NotDetected); Coronavirus HKU1 PCR Not Detected (NotDetected); Coronavirus NL63 PCR Not Detected (NotDetected); Coronavirus OC43PCR Not Detected (NotDetected); Human Metapneumovirus PCR Not Detected (NotDetected); Influenza A PCR Not Detected (NotDetected); Influenza B PCR Not Detected (NotDetected); Mycoplasma pneumoniae PCR Not Detected (NotDetected); Parainfluenza Virus 1 PCR Not Detected (NotDetected); Parainfluenza Virus 2 PCR Not Detected (NotDetected); Parainfluenza Virus 3 PCR Not Detected (NotDetected); Parainfluenza Virus 4 PCR Not Detected (NotDetected); Respiratory Syncytial VirusPCR Not Detected (NotDetected); Rhinovirus/Enterovirus PCR Not Detected (NotDetected)
[2024-03-31] MEDS: LEVOTHYROXINE SODIUM 25 MCG TABLET PO SCH (06:24)
[2024-03-31 07:24] LABS: Appearance Urine Clear (Clear); Bacteria Urine Automated None Seen (None Seen); Bilirubin Urine Negative (Negative); Blood Urine Negative (Negative); Cast Urine Automated 0-2 /lpf (0-2); Color Urine Yellow; Epithelial Cell Urine Auto 0-2 /hpf (0-2); Glucose Urine UA Negative (Negative); Ketones Urine Negative (Negative); Leukocyte Esterase Urine Trace (Negative); Nitrite Urine Negative (Negative); Protein Urine Negative (Negative); RBC Urine Automated 0-2 /hpf (0-2); Specific Gravity Urine 1.016 (1.000-1.030); Urobilinogen Urine Negative (Negative); WBC Urine Automated 0-5 /hpf (0-5)
[2024-03-31 07:25] LABS: Basophils # (auto) 0.03 K/uL (0.00-0.20); Basophils % (auto) 0.2 %; Eosinophils # (auto) 0.02 K/uL (0.00-0.50); Eosinophils % (auto) 0.1 %; Hematocrit (blood only) 33.3 % (37.0-47.0); Hemoglobin 11.4 g/dl (12.0-16.0); Immature Granulocytes # (auto) 0.06 K/uL (0.01-0.20); Immature Granulocytes % (auto) 0.4 %; Lymphocytes # (auto) 0.67 K/uL (1.20-3.40); Lymphocytes % (auto) 4.5 %; Mean Corpuscular Hemoglobin 31.6 pg (25.0-34.0); Mean Corpuscular Hgb Conc 34.2 g/dL (32.0-36.0); Mean Corpuscular Volume 92.2 fL (80.0-100.0); Mean Platelet Volume 12.4 fL (9.4-12.4); Monocytes % (auto) 5.4 %; Neutrophils # (auto) 13.25 K/uL (1.40-6.50); Neutrophils % (auto) 89.4 %; Platelet Count 164 K/uL (130-400); RDW Coefficient of Variation 15.6 % (11.5-14.5); Red Blood Count 3.61 M/uL (4.20-5.40); White Blood Count 14.83 K/ul (4.8-10.8)
[2024-03-31] MEDS: METOPROLOL SUCC 25MG EXT REL TAB PO SCH (07:28)
[2024-03-31] MEDS: LOSARTAN POTASSIUM 50 MG TAB PO SCH (07:28)
[2024-03-31] MEDS: ALBUTEROL HFA 8 GM INHALER INH PRN (07:28)
[2024-03-31] MEDS: FAMOTIDINE 20 MG TAB PO SCH (07:29)
[2024-03-31 07:37] LABS: Calcium 8.3 mg/dl (8.6-10.3); Creatinine Clr Calc Pharmacy 40.7 ml/min; Potassium 4.2 mmol/L (3.5-5.1)
--- NOTE | 2024-03-31 08:56 | Orthopedic Consultation ---
Date of Service March 31, 2024 Assessment & Plan (1) Closed left radial fracture: 84-year-old female with multiple medical comorbidities status post a fall with: 1. Left mildly angulated distal radius metaphyseal fracture with underlying CMC joint arthritis and a skin tear in her second webspace. 2. Stable left superior and inferior pubic rami fractures. There is no signs of more concerning hip or intertrochanteric fracture on x-ray/CT scan. Plan: I am going to remove the splint and placed a sterile bandage on this skin tear area. We can do a close reduction of her wrist today. Will put her in a short arm plaster cast. She will be in a sling after that. With respect to the pelvis and hip but this is a stable fracture and she can weight-bear as tolerated. Her pain tolerance seems pretty low so I think it is good to be difficult mobilizing her. She will likely need a rehab stay somewhere. She can fully weight-bear as tolerated. I am going to get a single pelvis film and make sure the intertrochanteric region is okay. Any orthopedic questions can be directed to me at 8 1 4-5 so 1-2 040. (2) Closed pelvic fracture: She can weight-bear as tolerated on the stable pelvis fracture. (3) Rheumatoid arthritis: (4) Chronic renal insufficiency: (5) PAD (peripheral artery disease): (6) Hypertension: History of Present Illness Reason for Consultation: . #1 left hip pain with underlying pelvis fracture. 2. Left wrist fracture. Requesting Physician: . Attending Physician: Giuliano Khalil MD . The patient is an 84-year-old [id number] female who sustained a fall yesterday. She uses a walker to ambulate. She kind of stumbled and tripped over her walker last evening and fell. Acute onset of pain and discomfort. She is brought to emergency room. She has been admitted by the medicine service. She has been diagnosed with a pelvis fracture as well as a left distal radius fracture. She denies any head injury. As she is got no pain at all while just resting. As she have significant left hip pain with any type of movement. She is got a bandage on her right knee. She got some pain in her wrist and a splint in place. She got finger swelling. She got bruising throughout including her left orbital area and her left hand. She is got a skin tear of her left hand. Allergies Allergy/AdvReac Type Severity Reaction Status Date / Time tetracycline Allergy Severe COULDN'T Verified 03/31/24 00:22 BREATHE Cephalosporins Allergy Intermediate HIVES Verified 03/31/24 00:22 clindamycin Allergy Mild RASH Verified 03/31/24 00:22 Penicillins Allergy Mild HIVES Verified 03/31/24 00:22 Sulfa (Sulfonamide Allergy Mild RED AND Verified 03/31/24 00:22 Antibiotics) SWEATING SILVIA Inhibitors Allergy Unknown Unknown Verified 03/31/24 00:22 aspartame Allergy Unknown Unknown Verified 03/31/24 00:22 cefazolin Allergy Unknown Unknown Verified 03/31/24 00:22 cephalexin Allergy Unknown Unknown Verified 03/31/24 00:22 doxycycline Allergy Unknown Unknown Verified 03/31/24 00:22 hydrochlorothiazide Allergy Unknown Unknown Unverified 03/31/24 00:22 lidocaine Allergy Unknown Unknown Verified 03/31/24 00:22 lisinopril Allergy Unknown Unknown Unverified 03/31/24 00:22 yellow dye Allergy Unknown Unknown Verified 03/31/24 00:22 prednisone AdvReac Mild HIGH BP Verified 03/31/24 00:22 Home Medications Medication Instructions Recorded Confirmed Type acetaminophen 500 mg tablet 500 mg PO Q6H PRN Pain 03/29/18 03/31/24 History (Tylenol Extra Strength) albuterol sulfate 90 mcg/actuation 2 puff inhalation Q4H PRN 03/29/18 03/31/24 History aerosol inhaler (Ventolin HFA) Shortness Of Breath aspirin 81 mg tablet,delayed 81 mg PO QAM 03/29/18 03/31/24 History release (Bernie Low Dose Aspirin) folic acid 1 mg tablet 2 mg PO QAM 03/29/18 03/31/24 History furosemide 20 mg tablet 20 mg PO AMPM PRN swelling 03/29/18 03/31/24 History famotidine 20 mg tablet 20 mg PO AMPM 10/17/19 03/31/24 History levothyroxine 50 mcg tablet 25 mcg PO DAILYBB 10/17/19 03/31/24 History methotrexate sodium 2.5 mg tablet 10 mg PO WK 10/17/19 03/31/24 History risedronate 150 mg tablet 150 mg PO MONTHLY 08/14/20 03/31/24 History losartan 100 mg tablet 100 mg PO QAM 03/31/24 03/31/24 History metoprolol succinate 25 mg 25 mg PO QAM 03/31/24 03/31/24 History tablet,extended release 24 hr [id number]-[id number] 8 mg-folic 400 1 tab PO QAM 03/31/24 03/31/24 History mcg-K 50 mcg-lutein 300 mcg tablet (Centrum Silver Women) prednisone 5 mg tablet 5 mg PO UD PRN arthritis pain 03/31/24 03/31/24 History Past Med/Surg History Problem List SOB (shortness of breath) Multiple skin tears (Acute) Closed left radial fracture (Acute) Closed pelvic fracture (Acute) Fall (Acute) Pre-syncope Anemia (Chronic) Wrist pain, left (Acute) Rheumatoid arthritis (Chronic) Chronic renal insufficiency (Chronic) PAD (peripheral artery disease) (Chronic) Hypertension (Chronic) Medical History Abnormal CT scan, chest 08/20- notes presence of lung nodules. Pulmonary nodules Lung cancer, lower lobe Surgical History S/P lobectomy of lung LLL H/O: hysterectomy Family History Other Family history non-contributory Social History Smoking Status: Former smoker Smoking End Date: 40 years ago; Hx Alcohol Use: No Hx Substance Use: No Preferred Language: American Communication Ability: Effective Medical Claims Specialist Required: No Beliefs That Will Affect Care: None Current Living Situation: Alone Feels Safe at Home: Yes Safety Concerns: Feels Safe At This Time Assistive Devices: Glasses and Walker Review of Systems All systems reviewed & are unremarkable except as noted in HPI & below. Physical Exam . Physical examination of the left arm with the splint removed reveals a skin tear in the second webspace. Looks clean. She got a minimal deformity to her distal radius. She got some bruising and moderate swelling. She is tender. She got diffuse finger swelling and bruising. No elbow pain. She is neurologically intact. Examination of the pelvis and hip reveals no visible deformity. Her leg lengths are equal. As she got marked pain with any type of hip motion. Describes pain in her groin. She is neurologically intact. Leg lengths are equal. Results & Data Results & Data Laboratory Results . Diagnostic Findings . Multiple imaging studies were reviewed.: X-rays of the left knee were reviewed. Shows diffuse osteopenia. Minimal arthritic change. No signs of fracture. No hemarthrosis or joint effusion. X-rays of the left hand were reviewed. It shows a slightly angulated distal radius fracture in the metaphyseal region. She got advanced CMC joint arthritis. CT scan of the pelvis reveals a superior-inferior pubic rami fracture. There is no signs of fracture in the femoral neck or intertrochanteric area. PG Care Time/CCT Total # of Minutes Spent Total Time Spent with Patient: Total time spent is greater than 50% in coordination of care (as documented) at patient's floor/unit and/or counseling patient: Coding Level of Care Code 75439 OFFICE CONSULT LVL M Diagnoses Closed left radial fracture S52.92XA Encounter type: initial encounter Radius location: distal Closed pelvic fracture S32.9XXA Encounter type: initial encounter Laterality: left Rheumatoid arthritis M06.9 Chronic renal insufficiency N18.9 PAD (peripheral artery disease) I73.9 Hypertension I10 (1) Closed left radial fracture Encounter type: initial encounter Radius location: distal (2) Closed pelvic fracture Encounter type: initial encounter Laterality: left
--- NOTE | 2024-03-31 10:07 | XRay Report ---
EXAM: Radiographs of the Pelvis 1 View INDICATION: Fracture. TECHNIQUE: Frontal view of the pelvis. COMPARISON: No relevant prior studies available. FINDINGS: Limitations: None. Bones/joints: Artifact limits assessment of the superior pubic ramus. Fracture not excluded. Bilateral iliac stents present. The pelvis is rotated slightly to the right. Degenerative changes present in the lower lumbar segments. Soft tissues: No abnormality noted. No radiopaque foreign body noted. IMPRESSION: Artifact limits assessment of the superior pubic ramus. Fracture not excluded. ACT 112: Negative or not required by law. Electronically signed by Jackie Andrews 03-31-2024 10:07 AM
--- NOTE | 2024-03-31 10:10 | XRay Report ---
EXAM: Radiographs of the Left Wrist 2 Views INDICATION: Reduction. TECHNIQUE: Frontal and lateral views of the left wrist. COMPARISON: No relevant prior studies available. FINDINGS: Plaster material significantly obscures underlying bony detail. Gross anatomic alignment. No displaced fracture identified. Degenerative changes noted at the base of the first metacarpal. IMPRESSION: Plaster material limits significantly limits osseous assessment. Alignment anatomic. ACT 112: Negative or not required by law. Electronically signed by Jackie Andrews 03-31-2024 10:09 AM
--- NOTE | 2024-03-31 11:48 | Electrocardiogram Report ---
Test Reason : Blood Pressure : */* mmHG Vent. Rate : 82 BPM Atrial Rate : 82 BPM P-R Int : 186 ms QRS Dur : 88 ms QT Int : 412 ms P-R-T Axes : 73 -20 42 degrees QTcB Int : 481 ms Sinus rhythm with Premature supraventricular complexes Cannot rule out Anterior infarct , age undetermined Abnormal ECG When compared with ECG of 14-Aug-2020 10:34, Premature supraventricular complexes are now Present Questionable change in QRS axis Confirmed by Kendrick Colbert ([id number]) on 03/31/2024 11:48:01 AM Referred By: REFERRED SELF Confirmed By: Kendrick Colbert
--- OUTSIDE RECORDS SUMMARY | 2024-03-31 12:14 | External Medical Summary ---
Author Name Unknown Address Unknown Organization K09:[facility] [address] [place] [address] Laboratory Report Ordering Provider Test Date Status HILARIA LIRIANO 03/02/2024 14:31:31 Final Observation Date Value Abnormality Reference (Units ) Status BUN 03/02/2024 14:31:31 17 6-20 (mg/dL) Final Creatinine 03/02/2024 14:31:31 1.0 0.5-1.0 (mg/dL) Final Glomerular filtration rate/1.73 sq M.predicted [Volume Rate/Area] in Serum, Plasma or Blood by Creatinine-based formula (CKD-EPI) 03/02/2024 14:31:31 56 Below low normal >=60 (mL/min) Final eGFR is calculated based on the CKD-EPI 2020 equation. Sodium 03/02/2024 14:31:31 133 Below low normal 135 -146 (mmol/L) Final Potassium 03/02/2024 14:31:31 4.2 3.5-5.1 (m mol/L) Final Cl 03/02/2024 14:31:31 95 Below low normal 98- 107 (mmol/L) Final CO2 03/02/2024 14:31:31 26 22-32 (mmo l/L) Final Anion gap 03/02/2024 14:31:31 12 7-15 (mmol /L) Final Glucose 03/02/2024 14:31:31 108 70-120 (mg /dL) Final Albumin 03/02/2024 14:31:31 4.0 3.8-5.0 (g /dL) Final AST (Aspartate aminotransferase) 03/02/2024 14:31:31 17 10-35 (U/L) Fin al Alk Phos 03/02/2024 14:31:31 86 35-130 (U/ L) Final Bilirubin, Total 03/02/2024 14:31:31 0.4 <=1 .2 (mg/dL) Final Calcium 03/02/2024 14:31:31 9.3 8.4-10.2 ( mg/dL) Final Protein 03/02/2024 14:31:31 6.6 6.0-8.3 (g /dL) Final ALT (Alanine aminotransferase) 03/02/2024 14:31:31 15 10-35 (U/L) Troy hester Performing Location [facility] [place] [address]
--- OUTSIDE RECORDS SUMMARY | 2024-03-31 12:14 | External Medical Summary ---
Author Name Unknown Address Unknown Organization K09:[facility] [address] [place] [address] Laboratory Report Ordering Provider Test Date Status HILARIA LIRIANO 03/02/2024 14:31:31 Final Observation Date Value Abnormality Reference (Units ) Status SYNC LEUKOCYTES IN BLOOD BY AUTOMATED COUNT 03/02/2024 14:31:31 11.15 Above high normal 4.00-10.80 (K/uL) Final Segs 03/02/2024 14:31:31 63.8 40.0-75.0 (%) Final Lymphs % 03/02/2024 14:31:31 23.6 18.0-42.0 (%) Final Monos 03/02/2024 14:31:31 10.0 1.0-11.0 (%) Final Eosinophils 03/02/2024 14:31:31 2.2 0.0-6.0 (%) Final Basos 03/02/2024 14:31:31 0.4 0.0-2.0 (%) Final Absolute Segs 03/02/2024 14:31:31 7.12 1.80-7.70 (K/uL) Final Lymphs, absolute 03/02/2024 14:31:31 2.63 1.00-4.80 (K/ul) Final Monos, Abs 03/02/2024 14:31:31 1.12 Above high normal 0.00-1.10 (K/uL) Final Eos, Abs 03/02/2024 14:31:31 0.24 0.00-0.70 (K/uL) Final Basos, Abs 03/02/2024 14:31:31 0.04 0.00-0.20 (K/uL) Final Performing Location [facility] [place] [address]
--- OUTSIDE RECORDS SUMMARY | 2024-03-31 12:14 | External Medical Summary | Summary of Care ---
Author Name Unknown Organization [facility] Address [address] [facility] [place] [address] Phone [phone] Care Team Providers Care Orthodontist Assistant Name Role Phone Edna Neal MD Primary Care Provider + Reason for Visit * Reason Onset Date Comments Medication Refill 02/09/2024 Encounter Details Date Type Department Care Team (Late st Contact Info) Description 02/09/2024 Telephone Rheumatology [place] [phone] [place] [id number] Julio César Gunter MD [email or web address] [place] [address] Medication Refill Allergies Active Allergy Reactions Criticality Noted Date Comments Tobin Inhibitors Edema face/lips/tongue High 06/17/2007 Cefazolin Sodium Hives High 02/22/2009 Trouble breathing, red rash Clindamycin Hcl Rash High 01/31/2010 Trouble breathing, red rash Doxycycline Hives High 11/01/1998 Trouble breathing, red rash Iodinated Contrast Media 06/08/2019 Lidocaine 01/08/2012 Injectable, feel funny, makes her spacy, doped, elev BP Panixine Disperdose Hives High 08/11/2007 Trouble breathing, red rash Penicillins Hives High 11/01/1998 Trouble breathing, red rash Sulfa Antibiotics Hives High 11/01/1998 Trouble breathing, red rash documented as of this encounter (statuses as of 02/09/2024) Medications Medication Sig Dispensed Refills Start Date End Date Status Misc. Devices ([employer] ROLLING WALKER PREMIUM) [facility] [place] Rolling walker with seat that folds up 1 Each 02/24/2017 Active Zoster Vac Recomb Adjuvanted 50 MCG/0.5ML Intramuscular Suspension Reconstituted (Shingrix)Indications: Need for vaccination for zoster Inject 0.5 mL into a large muscle now and repeat dose in 60 to 180 days 1 Each 1 03/13/2022 Active Melatonin 5 MG Oral Capsule Take 1 Capsule by mouth at bedtime. Active Aspirin 81 MG Oral Tablet Delayed Release Take 1 Tablet by mouth every other day. Active Losartan Potassium 100 MG Oral Tablet (Cozaar) Take 1 Tablet by mouth in the morning. 90 Tablet 3 01/13/2023 Active Folic Acid 1 MG Oral Tablet TAKE 2 TABLETS DAILY. 180 Tablet 2 06/25/2023 Active Famotidine 20 MG Oral Tablet (Pepcid) TAKE 1 TABLET BY MOUTH IN THE MORNING AND 1 TABLET BEFORE BEDTIME 180 Tablet 3 06/24/2023 Active Albuterol Sulfate HFA 108 (90 Base) MCG/ACT Inhalation Aerosol SolutionIndications:CO PD, mild (HCC) INHALE 2 PUFFS BY MOUTH IN THE MORNING, 2 PUFFS AT NOON, 2 PUFFS IN THE EVENING AND 2 PUFFS BEFORE BEDTIME 25.5 g 1 08/13/2023 Active Levothyroxine Sodium 50 MCG Oral Tablet (Levoxyl)Indications:A cquired hypothyroidism TAKE 1/2 TABLET BY MOUTH; ALTERNATING WITH 1 WHOLE TABLET 68 Tablet 2 09/22/2023 Active Furosemide 20 MG Oral Tablet (Lasix)Indications:Per ipheral vascular disease (HCC),Chronic kidney disease, stage 3a (HCC) Take 2 Tablets by mouth in the morning. May take extra one pill if weight gain of 3 pounds with swealling in legs.. 200 Tablet 3 11/03/2023 Active Risedronate Sodium 150 MG Oral Tablet (Actonel) TAKE 1 TABLET BY MOUTH EVERY 30 DAYS 3 Tablet 2 12/16/2023 Active Methotrexate Sodium 2.5 MG Oral Tablet TAKE 4 TABLETS BY MOUTH ONCE A WEEK 48 Tablet 1 12/16/2023 Active Metoprolol Succinate ER 25 MG Oral Tablet Extended Release 24 Hour (toPROL XL)Indications:PSVT (paroxysmal supraventricular tachycardia) (HCC) TAKE 1 TABLET BY MOUTH DAILY IN THE MORNING 90 Tablet 2 12/16/2023 Active predniSONE 5 MG Oral Tablet (Deltasone) Take 1 to 2 tabs a day for RA flares 60 Tablet 2 02/09/2024 Active documented as of this encounter (statuses as of 02/09/2024) Active Problems Problem Noted Date Diagnosed Date PSVT (paroxysmal supraventricular tachycardia) 0 09/25/2022 History of lung cancer 12/05/2021 COPD, mild 09/05/2021 Compression fracture of L2 lumbar vertebra 07/04 Compression fracture of L1 lumbar vertebra 07/04 Trochanteric bursitis of both hips 06/11/2021 Moderate mitral regurgitation 06/10/2021 Senile osteoporosis 04/04/2021 Chronic kidney disease, stage 3a 03/11/2021 Overview: Per CKD protocol Encounter for long-term (current) use of medicat ions 11/25/2016 Hypothyroidism due to acquired atrophy of thyroi d 10/18/2016 Impingement syndrome of both shoulders 6 Rheumatoid arthritis involvi ng multiple sites with positive rheumatoid factor 12/05/2015 Chronic pain of both shoulders 03/22/2014 Elevated liver enzymes 10/19/2012 HTN, goal below 140/90 12/20/2010 DYSLIPIDEMIA, GOAL LDL BELOW 100 04/12/2009 Overview: Per Lipid Taxonomy. Peripheral vascular disease 01/12/2007 ADVANCE DIRECTIVE INFORMATION 09/17/2006 Overview: Yes, Copy scanned at patient level in the electronic medical record.(Go to Action, Patient File to view) Patient aware they must notify their healthcare provider of changes. CLASSICAL MIGRAINE WITH INTRACTABLE MIGRAINE, SO STATED 01/17/2000 Esophageal reflux 01/17/2000 Diverticulosis of colon Anemia of chronic disease documented as of this encounter (statuses as of 02/09/2024) Resolved Problems Problem Noted Date Diagnosed Date Resolved Date Prediabetes 10/13/2022 10/15/2023 Overview: Per Prediabetes protocol High risk for fracture due t o osteoporosis by DEXA scan 11/16/2017 05/01/2023 Trochanteric bursitis, right hip 08/26/2017 12/01/2023 Prediabetes 06/16/2017 09/24/2017 Overview: Per Prediabetes protocol #1 Impingement syndrome, shoulder 12/05/2015 06/23/2018 Trochanteric bursitis, right hip 12/05/2015 10/18/2016 RA (rheumatoid arthritis) 03/28/2015 Kidney disease, chronic, sta ge III (GFR 30-59 ml/min) 08/14/2014 03/14/2021 Overview: Per CKD protocol #1 Rib pain on left side 03/22/20142016 Renal insufficiency 10/19/2012 04/05/20 21 Edema 10/14/2012 01/23/2014 PALINDROMIC RHEUMATISM SITE UNSPECIFIED 07/14/2011 09/23/2016 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 Need for prophylactic hormon e replacement therapy (postmenopausal) 01/17/2000 01/23/2014 Other osteoporosis without c urrent pathological fracture 12/25/2011 Overview: ICD-10 update of inactive term Rheumatoid arthritis 017 documented as of this encounter (statuses as of 02/09/2024) Immunizations Name Administration Dates Next Due COVID-19 mRNA, LNP-s, No Pre serve, 2-Dose Series ([facility]) 01/02/2021,06/30/2020,06/09/2020 Pneumococcal Conjugate Vacc, 13 Valent (Prevnar) 12/14/2019,09/17/2015 Pneumococcal Polysaccharide PPV23 (Pneumovax) 06/03/2018,12/30/2012,12/01/2005 Seasonal Influenza Vac., MDV , IM, 0.5 mL (Fluzone) 01/12/2020,01/22/2015,01/18/2014,01/21,02/26/2012,01/16/2011,02/13/2010 ,02/02/2009,03/14/2008,02/22/2007,02/02 Seasonal Influenza, Quadriva lent Hd (Fluzone Hd) 03/02/2023,03/13/2022 Seasonal Influenza, Quadriva lent Hd, 65+ Yrs 02/05/2021,01/12/2020 Seasonal Influenza, Quadriva lent, No Preserve, IM 02/26/2018,02/16/2017,01/29/2016 Seasonal Influenza, Trivalen t, Adjuvanted, 65+ YRS, PF, (Fluad) 02/01/2019 TD, Preservative Free 03/24/2022 TDAP (age 10 and older)(Boostrix) 12/25/2011 Varicella Zoster Vaccine (Adult) 11/14/2013 documented as of this encounter Social History Tobacco Use Types Packs/Day Years Used Date Smoking Tobacco: Former Cigarettes 1 30 0 05/04/1976 - 05/04/2006 Smokeless Tobacco: Never Alcohol Use Standard Drinks/Week Comments No 0 (1 standard drink = 0.6 oz pur e alcohol) PHQ-2 Answer Date Recorded PHQ Adult Total Score 0 09/25/2022 Utilities Answer Date Recorded Do you have trouble paying y our heating, water, or electric bill? (Adult - for ages 18 years and over) Not on file 10/20/2023 Is your family able to pay t he heat, water, or electric bill? (Household - for ages 0-17 years) Not on file 10/20/2023 Does your family have access to good internet? (Household - for ages 0-17 years) Not on file 10/20/2023 Social Connections Answer Date Recorded How often do you feel lonely or isolated from those around you? (Adult - for ages 18 years and over) Not on file 10/20/2023 Sex and Gender Information Value Date Recorded Sex Assigned at Female 09/01/2023 12:39 PM EDT Gender Identity Female 09/01/2023 12:39 PM EDT Sexual Orientation Straight 09/01/2023 12 :39 PM EDT Job Start Date Occupation Industry Not on file Not on file Not on file documented as of this encounter Miscellaneous Notes * Telephone Encounter - Julio César Gunter MD - 02/09/2024 2:33 PM EDT I spoke with Karoline - will send in pred to use for flares * Telephone Encounter - Yvette Sims PHARM Tech - 02/09/2024 8:14 AM EDT Patient requesting refills for Prednisone. Upon chart review, medication is listed as discontinued,with discontinuation reason as "03 of 005 fills dispensed". Please advise if you wish to continue this therapy for the patient. Thank you, Yvette Sims Help Desk Assistant [facility] 02/09/2024,8:14 AM documented in this encounter Plan of Treatment Upcoming Encounters Date Type Department Care Team (Late st Contact Info) Description 03/02/2024 3:40 PM EDT Office Visit Rheumatology [place] [phone] [place] [address] Julio César Gunter MD [facility] [address] [place], [place] [address] 05/26/2024 1:40 PM EST Office Visit General Internal Medicine [facility] [place] [address] [place] [address] Edna Neal MD [address] [place] [address] 06/03/2024 10:20 AM EST Office Visit Rheumatology [facility] [address] [place] [address] Julio César Gunter MD [address] [place] [address] 08/30/2024 11:00 AM EDT Office Visit Nephrology, [facility] [address] [place] [address] Luis F Hansen MD [address] [place], [place] [address] 09/05/2024 1:20 PM EDT Office Visit Rheumatology [address] [place], [place] [address] Julio César Gunter MD [facility] [place], [place] [address] 09/07/2024 1:30 PM EDT Office Visit Cardiology, [facility] [address] [facility] [address] Debra Cowart PA-C [address] [facility] [address] 12/14/2024 1:20 PM EDT Office Visit Rheumatology [address] [place], [place] [address] Julio César Gunter MD [facility] [place], [place] [address] Health Maintenance Due Date Last Done Comments Alpha-1 Antitrypsin 1957 Zoster Vaccines (1 of 2) 01/09/2014 11/14/2013 Adult Wellness Visit 11/16/2018 11/16/2017 DXA Scan 01/09/2023 01/09/2021, 12/02, 08/31/2014, Additional history exists Albumin/Creatinine Ratio 03/13/2023 03/13/2022, 07/04 Depression Screening 09/26/2023 09/25/2022 COVID-19 Vaccine ( season) 2024 01/02/2021, 06/30/2020, 06/09/2020 Influenza Vaccine (FLU shot) (#1) 2024 03/02/2023, 03/13/2022, 02/05/2021, Additional history exists GFR 03/17/2024 09/15/2023, 08/04, 06/02/2023, Additional history exists TSH 06/02/2024 06/02/2023, 03/04, 04/04/2021, Additional history exists CKD HGB USE SMARTSET 34788 09/14/202409/14, 09/01/2023, 09/01/2023, Additional history exists CKD PHOS USE SMARTSET 20004 09/14/202409/01, 09/25/2022, 10/09/2021, Additional history exists O2 ASSESSMENT COMPLETED IN PAST YEAR FOR COPD 09/14/2024 09/15/2023 DTap/Tdap Vaccines (3 - Td or Tdap) 03/24/2032 03/24/2022, 12/25/2011, 08/02/1992 Pneumococcal Vaccine: 65+ Years Completed 12/14/2019, 06/03/2018, 09/17/2015, Additional history exists VITAMIN D LEVEL ONCE IN A LIFETIME-USE SMARTSET# 67845 Completed 09/01/2023, 01/24/2022, 11/14/2020, Additional history exists HPV (Gardasil) Vaccine Aged Out No lo nger eligible based on patient's age to complete this topic Hepatitis B Vaccine Aged Out No longe r eligible based on patient's age to complete this topic MENINGOCOCCAL (MENACTRA/MENVEO) Aged Out No longer eligible based on patient's age to complete this topic documented as of this encounter Medical Devices Not on filedocumented as of this encounter Care Teams Orthodontist Assistant Relationship Specialty Start Date End Date Edna Neal MD [address] [place] [address] PCP - General Internal Medicine 03/05/21 documented as of this encounter
--- OUTSIDE RECORDS SUMMARY | 2024-03-31 12:14 | External Medical Summary | Summary of Care ---
Author Name Unknown Organization [facility] Address [address] [facility] [address] Phone [phone] Care Team Providers Care Distribution Engineer Name Role Phone Edna Neal MD Primary Care Provider + Reason for Visit * Reason Comments Outpatient Testing Encounter Details Date Type Department Care Team (Late st Contact Info) Description 03/02/2024 2:30 PM EDT Laboratory Laboratory [facility] Raul Rodrigues [address] [place] [address] [place], [address] [place] [address] Rheumatoid arthritis involving multiple sites with positive rheumatoid factor (HCC); Encounter for long-term (current) use of medications Allergies Active Allergy Reactions Criticality Noted Date [...] as of this encounter (statuses as of 03/02/2024) Medications Medication Sig Dispensed Refills Start Date End Date [place] [facility] [place] RO[employer]ING W[employer] PREMIUM[place] [facility] [place] [...] Tablet by mouth every other day. Active Folic Acid 1 MG Oral Tablet [...] RA flares 60 Tablet 2 02/09/2024 Active Losartan Potassium 100 MG Oral Tablet (Cozaar) TAKE 1 TABLET BY MOUTH IN THE MORNING 90 Tablet 1 02/19/2024 Active documented as of this encounter (statuses as of 03/02/2024) Active Problems Problem Noted Date Diagnosed Date [...] as of this encounter (statuses as of 03/02/2024) Resolved Problems Problem Noted Date Diagnosed Date [...] as of this encounter (statuses as of 03/02/2024) Immunizations Name Administration Dates Next Due COVID-19 mRNA, LNP-s, No Pre serve, 2-Dose Series (Pfizer) 01/02/2021,06/30/2020,06/09/2020 Pneumococcal Conjugate Vacc, 13 Valent (Prevnar) [...] on file documented as of this encounter Plan of Treatment Upcoming Encounters Date Type Department Care Team (Late st Contact Info) Description 03/02/2024 3:40 PM EDT Office Visit Rheumatology [place] [phone] [place] [address] Julio César Gunter MD [facility] [place] [address] 05/26/2024 1:40 PM EST Office Visit General Internal Medicine [facility] [address] [place] [address] Edna Neal MD [address] [place] [address] 06/03/2024 10:20 AM EST Office Visit Rheumatology [place] [phone] [place] [address] Julio César Gunter MD [facility] [address] [place], [place] [address] 08/30/2024 11:00 AM EDT Office Visit Nephrology, [facility] [address] [place], [place] [address] Luis F Hansen MD [address] [place] [address] 09/05/2024 1:20 PM EDT Office Visit Rheumatology [place] [phone] [place], [place] [address] Julio César Gunter MD [facility] [address] [place], [place] [address] 09/20/2024 11:00 AM EDT Office Visit Cardiology, [facility] [address] [place] [phone] Debra Cowart [place]ell [address] [address] 12/14/2024 1:20 PM EDT Office Visit Rheumatology [place] [phone] [place] [address] Julio César Gunter MD [address] [place] [address] Health Maintenance Due Date Last Done Comments [...] Additional history exists CKD HGB USE SMARTSET 56904 09/14/202403/02, 03/02/2024, 09/15/2023, Additional history exists CKD PHOS USE SMARTSET 82232 09/14/202409/01, 09/25/2022, 10/09/2021, Additional history exists O2 ASSESSMENT COMPLETED IN PAST YEAR FOR COPD 09/14/2024 09/15/2023 DTap/Tdap Vaccines (3 - Td or Tdap) 03/24/2032 03/24/2022, 12/25/2011, 08/02/1992 Pneumococcal Vaccine: 65+ Years Completed 12/14/2019, 06/03/2018, 09/17/2015, Additional history exists VITAMIN D LEVEL ONCE IN A LIFETIME-USE SMARTSET# 57048 Completed 09/01/2023, 01/24/2022, 11/14/2020, Additional history exists [...] Not on filedocumented as of this encounter Procedures Procedure Name Priority Date/Time Associated Diagnosis Comments DIFFERENTIAL, AUTOMATED Routine 03/02/2024 2:31 PM EDT Rheumatoid arthritis involving multiple sites with positive rheumatoid factor (HCC) Encounter for long-term (current) use of medications CBC Routine 03/02/2024 2:31 PM EDT Rheumatoid arthritis involving multiple sites with positive rheumatoid factor (HCC) Encounter for long-term (current) use of medications CBC Routine 03/02/2024 2:31 PM EDT Rheumatoid arthritis involving multiple sites with positive rheumatoid factor (HCC) Encounter for long-term (current) use of medications documented in this encounter Results * (ABNORMAL) DIFFERENTIAL, AUTOMATED (03/02/2024 2:31 PM EDT) WBC 11.15(H) 4.00 - 10.80 K/uL 03/02/2024 2:39 PM EDT [facility] 56-02 Neutrophils % 63.8 40.0 - 75.0 % 03/02/2024 2:39 PM EDT [facility] 56-02 Lymphocytes % 23.6 18.0 - 42.0 % 03/02/2024 2:39 PM EDT [facility] 56-02 Monocytes % 10.0 1.0 - 11.0 % 03/02/2024 2:39 PM EDT [facility] 56-02 Eosinophils % 2.2 0.0 - 6.0 % 03/02/2024 2:39 PM EDT [facility] 56-02 Basophils % 0.4 0.0 - 2.0 % 03/02/2024 2:39 PM EDT [facility] Absolute Neutrophils 7.12 1.80 - 7.70 K/uL 03/02/2024 2:39 PM EDT [facility] Absolute Lymphocytes 2.63 1.00 - 4.80 K/ul 03/02/2024 2:39 PM EDT [facility] Absolute Monocytes 1.12(H) 0.00 - 1.10 K/uL 03/02/2024 2:39 PM EDT [facility] Absolute Eosinophils 0.24 0.00 - 0.70 K/uL 03/02/2024 2:39 PM EDT [facility] Absolute Basophils 0.04 0.00 - 0.20 K/uL 03/02/2024 2:39 PM EDT [facility] Blood Venous blood specimen / Unknown Venipuncture / Unknown 03/02/2024 2:31 PM EDT 03/02/2024 2:31 PM EDT Julio César Gunter MD LAB BLOOD ORDERABLE S [facility] [address] [place] [address] * (ABNORMAL) CBC (03/02/2024 2:31 PM EDT) WBC 11.15(H) 4.00 - 10.80 K/uL 03/02/2024 2:39 PM EDT [facility] RBC 3.92 3.85 - 5.15 M/uL 03/02/2024 2:39 PM EDT [facility] HGB 12.3 12.0 - 15.3 g/dL 03/02/2024 2:39 PM EDT [facility] HCT 37.1 36.0 - 45.2 % 03/02/2024 2:39 PM EDT [facility] MCV 94.6 81.5 - 97.5 fL 03/02/2024 2:39 PM EDT [facility] MCH 31.4 27.0 - 34.0 pg 03/02/2024 2:39 PM EDT [facility] MCHC 33.2 32.0 - 36.0 g/dL 03/02/2024 2:39 PM EDT [facility] RDW 16.3 11.5 - 15.5 % 03/02/2024 2:39 PM EDT [facility] PLT 219 140 - 400 K/uL 03/02/2024 2:39 PM EDT [facility] MPV 12.4 6.6 - 11.1 fL 03/02/2024 2:39 PM EDT [facility] Blood Venous blood specimen / Unknown Venipuncture / Unknown 03/02/2024 2:31 PM EDT 03/02/2024 2:31 PM EDT Julio César Gunter MD LAB BLOOD ORDERABLE S [facility] [address] [facility] [address] documented in this encounter Visit Diagnoses Diagnosis Rheumatoid arthritis involving multiple sites with positive rheumatoid factor (HCC) Encounter for long-term (current) use of medications Encounter for long-term (current) use of other medications documented in this encounter Care Teams Distribution Engineer Relationship Specialty Start Date End Date Edna Neal MD [address] [facility] [address] PCP - General Internal Medicine 03/05/21 documented as of this encounter
--- OUTSIDE RECORDS SUMMARY | 2024-03-31 12:14 | External Medical Summary | Summary of Care ---
Author Name Unknown Organization [facility] Address [address] [facility] [place] [address] Phone [phone] Care Team Providers Care Auto Suspension And Steering Mechanic Name Role Phone Edna Neal MD Primary Care Provider + Reason for Visit * Reason Comments eRx-Medication Refill Encounter Details Date Type Department Care Team (Late st Contact Info) Description 02/18/2024 Refill General Internal Medicine [facility] [address] [facility] [place] [address] Edna Neal MD 200 [place] [address] Allergies Active Allergy Reactions Criticality Noted Date [...] as of this encounter (statuses as of 02/19/2024) Medications Medication Sig Dispensed Refills Start Date End Date Status Misc. Devices (AARON ROLLING WALKER PREMIUM) MISC Rolling walker with seat that folds up 1 Each 7 Active Zoster Vac Recomb Adjuvanted 50 MCG/0.5ML Intramuscular Suspension Reconstituted (Shingrix)Indication s:Need for vaccination for zoster Inject 0.5 mL into a large muscle now and repeat dose in 60 to 180 days 1 Each 1 2 Active Melatonin 5 MG Oral Capsule Take 1 Capsule by mouth at bedtime. Active Aspirin 81 MG Oral Tablet Delayed Release Take 1 Tablet by mouth every other day. Active Folic Acid 1 MG Oral Tablet TAKE 2 TABLETS DAILY. 180 Tablet 2 4 Active Famotidine 20 MG Oral Tablet (Pepcid) TAKE 1 TABLET BY MOUTH IN THE MORNING AND 1 TABLET BEFORE BEDTIME 180 Tablet 3 4 Active Albuterol Sulfate HFA 108 (90 Base) MCG/ACT Inhalation Aerosol SolutionIndications: COPD, mild (HCC) INHALE 2 PUFFS BY MOUTH IN THE MORNING, 2 PUFFS AT NOON, 2 PUFFS IN THE EVENING AND 2 PUFFS BEFORE BEDTIME 25.5 g 1 4 Active Levothyroxine Sodium 50 MCG Oral Tablet (Levoxyl)Indications :Acquired hypothyroidism TAKE 1/2 TABLET BY MOUTH; ALTERNATING WITH 1 WHOLE TABLET 68 Tablet 2 4 Active Furosemide 20 MG Oral Tablet (Lasix)Indications:P eripheral vascular disease (HCC),Chronic kidney disease, stage 3a (HCC) Take 2 Tablets by mouth in the morning. May take extra one pill if weight gain of 3 pounds with swealling in legs.. 200 Tablet 3 4 Active Risedronate Sodium 150 MG Oral Tablet (Actonel) TAKE 1 TABLET BY MOUTH EVERY 30 DAYS 3 Tablet 2 4 Active Methotrexate Sodium 2.5 MG Oral Tablet TAKE 4 TABLETS BY MOUTH ONCE A WEEK 48 Tablet 1 4 Active Metoprolol Succinate ER 25 MG Oral Tablet Extended Release 24 Hour (toPROL XL)Indications:PSVT (paroxysmal supraventricular tachycardia) (HCC) TAKE 1 TABLET BY MOUTH DAILY IN THE MORNING 90 Tablet 2 4 Active predniSONE 5 MG Oral Tablet (Deltasone) Take 1 to 2 tabs a day for RA flares 60 Tablet 2 4 Active Losartan Potassium 100 MG Oral Tablet (Cozaar) TAKE 1 TABLET BY MOUTH IN THE MORNING 90 Tablet 1 4 Active Losartan Potassium 100 MG Oral Tablet (Cozaar) Take 1 Tablet by mouth in the morning. 90 Tablet 3 3 024 Discontinued documented as of this encounter (statuses as of 02/19/2024) Active Problems Problem Noted Date Diagnosed Date [...] as of this encounter (statuses as of 02/19/2024) Resolved Problems Problem Noted Date Diagnosed Date [...] as of this encounter (statuses as of 02/19/2024) Immunizations Name Administration Dates Next Due COVID-19 mRNA, LNP-s, No Pre serve, 2-Dose Series (123people) 01/02/2021,06/30/2020,06/09/2020 Pneumococcal Conjugate Vacc, 13 Valent (Prevnar) [...] encounter Miscellaneous Notes * Telephone Encounter - Reymundo Enrique [facility] - 02/19/2024 3:00 PM EDTSigned Prescriptions: Disp Refills Losartan Potassium 100 MG Oral Tablet (Coz*90 Tab*1 Sig: TAKE 1 TABLET BY MOUTH IN THE MORNINGAuthorizing Provider: EDNA NEAL User: [email or web address] ENRIQUE documented in this encounter Plan of Treatment Upcoming Encounters Date Type Department Care Team (Late st Contact Info) Description 03/02/2024 3:40 PM EDT Office Visit Rheumatology [place] [id number] [place] [address] [facility] [address] [facility] [place] [address] 05/26/2024 1:40 PM EST Office Visit General Internal Medicine [facility] [address] [place] [address] Edna Neal MD [address] [facility] [place] [address] 06/03/2024 10:20 AM EST Office Visit Rheumatology [place] [address] [place] [address] Julio César Gunter MD [facility] [place] [address] 08/30/2024 11:00 AM EDT Office Visit Nephrology, [facility] [address] [place] [address] Luis F Hansen MD [address] [place] [address] 09/05/2024 1:20 PM EDT Office Visit Rheumatology [address] [place], [place] [address] Julio César Gunter MD [facility] [place], [place] [address] 09/20/2024 11:00 AM EDT Office Visit Cardiology, [facility] [address] [place] [address] Debra Cowart PA-C [address] [place] [address] 12/14/2024 1:20 PM EDT Office Visit Rheumatology [address] [place], [place] [address] Julio César Gunter MD [address] [place] [address] [place] [address] Health Maintenance Due Date Last Done Comments Alpha-1 Antitrypsin 1957 Zoster Vaccines (1 of 2) 01/09/2014 11/14/2013 Adult Wellness Visit 11/16/2018 11/16/2017 DXA Scan 01/09/2023 01/09/2021, 12/02, 08/31/2014, Additional history exists Albumin/Creatinine Ratio 03/13/2023 03/13/2022, /05/2014 Depression Screening 09/26/2023 09/25/2022 COVID-19 Vaccine ( season) 2024 01/02/2021, 06/30/2020, 06/09/2020 Influenza Vaccine (FLU shot) (#1) 2024 03/02/2023, 03/13/2022, 02/05/2021, Additional history exists GFR 03/17/2024 09/15/2023, 08/04, 06/02/2023, Additional history exists TSH 06/02/2024 06/02/2023, 03/04, 04/04/2021, Additional history exists CKD HGB USE SMARTSET 49075 09/14/202409/14, 09/01/2023, 09/01/2023, Additional history exists CKD PHOS USE SMARTSET 41142 09/14/202409/01, 09/25/2022, 10/09/2021, Additional history exists O2 ASSESSMENT COMPLETED IN PAST YEAR FOR COPD 09/14/2024 09/15/2023 DTap/Tdap Vaccines (3 - Td or Tdap) 03/24/2032 03/24/2022, 12/25/2011, 08/02/1992 Pneumococcal Vaccine: 65+ Years Completed 12/14/2019, 06/03/2018, 09/17/2015, Additional history exists VITAMIN D LEVEL ONCE IN A LIFETIME-USE SMARTSET# 74350 Completed 09/01/2023, 01/24/2022, 11/14/2020, Additional history exists [...] filedocumented as of this encounter Care Teams Auto Suspension And Steering Mechanic Relationship Specialty Start Date End Date Edna Neal MD [address] [place] [address] PCP - General Internal Medicine 03/05/21 documented as of this encounter
--- OUTSIDE RECORDS SUMMARY | 2024-03-31 12:14 | External Medical Summary | Summary of Care ---
Author Name Unknown Organization [facility] Address [address] [facility] [place] [address] Phone [phone] Care Team Providers Care Rn X Ray Name Role Phone Edna Neal MD Primary Care Provider + Reason for Visit * Reason Onset Date Comments Medication Administration 03/02/2024 Flu an d/or Pneumo Inj Rheum Follow Up Follow up - bila teral shoulder, bilateral hips Encounter Details Date Type Department Care Team (Late st Contact Info) Description 03/02/2024 3:40 PM EDT Office Visit Rheumatology [place] [address] [address] [place] [address] Julio César Gunter MD [facility] [place] [address] Impingement syndrome of both shoulders*; Need for prophylactic vaccination and inoculation against influenza; Trochanteric bursitis of both hips Allergies Active Allergy Reactions Criticality Noted Date [...] Dispensed Refills Start Date End Date Status [facility] Devices (AARON ROLLING WALKER PREMIUM) [facility] Rolling walker with seat that folds up [...] 24 Hour (toPROL XL)Indications:PSVT (paroxysmal supraventricular tachycardia) ([facility]) TAKE 1 TABLET BY MOUTH DAILY IN THE MORNING 90 Tablet 2 12/16/2023 Active predniSONE 5 MG Oral Tablet (Deltasone) Take 1 to 2 tabs a day for RA flares 60 Tablet 2 02/09/2024 Active Losartan Potassium 100 MG Oral Tablet (Cozaar) TAKE 1 TABLET BY MOUTH IN THE MORNING 90 Tablet 1 02/19/2024 Active Hospital, Clinic, or Other Facility Administered Medication Ordered Dose Route Frequency Start Date End Date Status methylPREDNISolone acetate (Depo-Medrol) 40 MG/ML inj 40 mgIndications:Impingement syndrome of both shoulders 40 mg IX ONCE 03/02/2024 4 Ended methylPREDNISolone acetate (Depo-Medrol) 40 MG/ML inj 40 mgIndications:Impingement syndrome of both shoulders 40 mg IX ONCE 03/02/2024 4 Ended methylPREDNISolone acetate (Depo-Medrol) 40 MG/ML inj 40 mgIndications:Trochanteric bursitis of both hips 40 mg IX ONCE 03/02/2024 03/02/2024 End ed methylPREDNISolone acetate (Depo-Medrol) 40 MG/ML inj 40 mgIndications:Trochanteric bursitis of both hips 40 mg IX ONCE 03/02/2024 03/02/2024 End ed documented as of this encounter (statuses as [...] 0.5 mL (Fluzone) 01/12/2020,01/22/2015,01/18/2014,01/21,02/26/2012,01/16/2011,02/13/2010 ,02/02/2009,03/14/2008,02/22/2007,02/02 Seasonal Influenza, High Dos e, Trivalent, PF, IM (Fluzone HD) 03/02/2024 Seasonal Influenza, Quadriva lent Hd (Fluzone Hd) [...] 0 05/04/1976 - 05/04/2006 Smokeless Tobacco: Never Tobacco Cessation:Counseling Given: Not Answered Alcohol Use Standard Drinks/Week Comments No 0 [...] on file documented as of this encounter Last Filed Vital Signs Vital Sign Reading Time Taken Comments Blood Pressure - - Pulse - - Temperature 36.5 C (97.7 F) 03/02/2024 3:38 PM ED T Respiratory Rate - - Oxygen Saturation - - Inhaled Oxygen Concentration - - Weight 57.2 kg (126 lb) 03/02/2024 3:38 PM EDT Height - - Body Mass Index 21.63 11/03/2023 1:25 PM EDT documented in this encounter Patient Instructions * Patient Instructions* Yessica Kim LPN - 03/02/2024 3:36 PM EDT ~~PATIENT INSTRUCTIONS FOR FLU SHOT~~ Possible side effects of influenza vaccine, (flu shot), are usually mild and include: 1. Soreness or redness at injection site 2. Low grade fever 3. Body aches You may use Tylenol/Acetaminophen as needed for these symptoms. LET YOUR DOCTOR KNOW IMMEDIATELY IF YOU HAVE DIFFICULTY BREATHING OR SWALLOWING, EXPERIENCE ITCHINGOF FEET OR HANDS, HAVE SWELLING OF EYES, FACE OR INSIDE OF NOSE. documented in this encounter Progress Notes * Julio César Gunter MD - 03/02/2024 3:56 PM EDTAssociated Order(s): LG Joint Inj/Arthro: bilateral subacromial bursa; LG Joint Inj/Arthro: bilateral greater trochanteric bursa Post-Procedure Diagnose(s): Impingement syndrome of both shoulders; Trochanteric bursitis of both hips Karoline León is a 83 year old female patient. ICD-10-CM 1. 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 LG Joint Inj/Arthro: bilateral subacromial bursa on 03/02/2024 3:57 PM Indications: pain Details: 25 G needle, posterior approach Medications (Right): (40 mg of Depo-Medrol) Medications (Left): (40 mg of Depo-Medrol) Outcome: tolerated well, no immediate complications Procedure, treatment alternatives, risks and benefits explained, specific risks discussed. Consent was given by the patient. Immediately prior to procedure a time out was called to verify the correctpatient, procedure, equipment, unit support representative and site/side marked as required. Patient was prepped and draped in the usual sterile fashion. LG Joint Inj/Arthro: bilateral greater trochanteric bursa on 03/02/2024 3:58 PM Indications: pain Details: 25 G needle, lateral approach Medications (Right): (40 mg of Depo-Medrol) Medications (Left): (40 mg of Depo-Medrol) Outcome: tolerated well, no immediate complications Procedure, treatment alternatives, risks and benefits explained, specific risks discussed. Consent was given by the patient. Immediately prior to procedure a time out was called to verify the correctpatient, procedure, equipment, unit support representative and site/side marked as required. Patient was prepped and draped in the usual sterile fashion. Julio César Gunter MD 03/02/2024 * Yessica Kim LPN - 03/02/2024 3:35 PM EDT PRE - ADMINISTRATION DOCUMENTATION Are you experiencing any cold symptoms or fever? No Have you had Guillain-[place] Syndrome (an illness that causes paralysis) within the last 6 weeks? No Have you had the flu shot in the past? YES Have you ever had a reaction to the flu shot? No Yessica Kim LPN, 03/02/2024 3:35 PM Immunization Administration Documentation Time Out Procedure Performed: Yes Patient Identified (Ask Name/Date of ): Yes Does the patient have a fever greater than 101 degrees today? No Patient allergic to latex? No VFC Stock: No Immunization(s) verified: Yes, Immunization Name: Flu, VIS Sheet(s) given: Yes Verified Side and Site: Yes Verified Shot(s) with Parent(s)/Patient: Yes documented in this encounter Nursing Notes * Yessica Kim LPN - 03/02/2024 3:38 PM EDT Chief Complaint Patient presents with Medication Administration Flu and/or Pneumo Inj Rheum Follow Up Follow up - bilateral shoulder, bilateral hips documented in this encounter Plan of Treatment Upcoming Encounters Date Type Department Care Team (Late st Contact Info) Description 05/26/2024 1:40 PM EST Office Visit General Internal Medicine [facility] [address] [place], [place] [address] Edna Neal MD 200 [facility] [place] [address] 06/03/2024 10:20 AM EST Office Visit Rheumatology [address] [place] [address] Julio César Gunter MD [address] [place] [address] [place] [address] 08/30/2024 11:00 AM EDT Office Visit Nephrology, [facility] 200 [facility] [address] Luis F Hansen MD 200 [facility] [address] 09/05/2024 1:20 PM EDT Office Visit Rheumatology [address] [place] [address] Julio César Gunter MD [address] [place] [address], [place] [address] 09/20/2024 11:00 AM EDT Office Visit Cardiology, [facility] [address] [facility] [place] [address] Debra Cowart PA-C [address] [facility] [place] [address] 12/14/2024 1:20 PM EDT Office Visit Rheumatology [address] [place] [address] Julio César Gunter MD [address] [place] [address], [place] [address] Health Maintenance Due Date Last Done Comments Alpha-1 Antitrypsin 1957 Zoster Vaccines (1 of 2) 01/09/2014 11/14/2013 Adult Wellness Visit 11/16/2018 11/16/2017 DXA Scan 01/09/2023 01/09/2021, 12/02, 08/31/2014, Additional history exists Albumin/Creatinine Ratio 03/13/2023 03/13/2022, 07/04 Depression Screening 09/26/2023 09/25/2022 COVID-19 Vaccine ( season) 2024 01/02/2021, 06/30/2020, 06/09/2020 GFR 03/17/2024 09/15/2023, 08/04, 06/02/2023, Additional history exists TSH 06/02/2024 06/02/2023, 03/04, 04/04/2021, Additional history exists CKD PHOS USE SMARTSET 07928 09/14/202409/01, 09/25/2022, 10/09/2021, Additional history exists O2 ASSESSMENT COMPLETED IN PAST YEAR FOR COPD 09/14/2024 09/15/2023 CKD HGB USE SMARTSET 19763 03/02/202503/02, 03/02/2024, 09/15/2023, Additional history exists DTap/Tdap Vaccines (3 - Td or Tdap) 03/24/2032 03/24/2022, 12/25/2011, 08/02/1992 Pneumococcal Vaccine: 65+ Years Completed 12/14/2019, 06/03/2018, 09/17/2015, Additional history exists VITAMIN D LEVEL ONCE IN A LIFETIME-USE SMARTSET# [id number] Completed 09/01/2023, 01/24/2022, 11/14/2020, Additional history exists Influenza Vaccine (FLU shot) Completed , 03/02/2023, 03/13/2022, Additional history exists HPV (Gardasil) Vaccine Aged [...] Procedure Name Priority Date/Time Associated Diagnosis Comments CA ARTHROCENTESIS ASPIR&/INJ MAJOR JT/BURSA W/O US Routine 03/02/2024 3:58 PM EDT Trochanteric bursitis of both hips CA ARTHROCENTESIS ASPIR&/INJ MAJOR JT/BURSA W/O US Routine 03/02/2024 3:57 PM EDT Impingement syndrome of both shoulders documented in this encounter Results * CA ARTHROCENTESIS ASPIR&/INJ MAJOR JT/BURSA W/O US (03/02/2024 3:58 PM EDT) Julio César Centeno MD - 03/02/2024 3:58 PM EDT Julio César Gunter MD 03/02/2024 4:36 PM LG Joint Inj/Arthro: bilateral greater trochanteric bursa on 03/02/2024 3:58 PM Indications: pain Details: 25 G needle, lateral approach Medications (Right): (40 mg of Depo-Medrol) Medications (Left): (40 mg of Depo-Medrol) Outcome: tolerated well, no immediate complications Procedure, treatment alternatives, risks and benefits explained, specific risks discussed. Consent was given by the patient. Immediately prior to procedure a time out was called to verify the correct patient, procedure, equipment, unit support representative and site/side marked as required. Patient was prepped and draped in the usual sterile fashion. Julio César Gunter MD PROCDOC FORM * CA ARTHROCENTESIS ASPIR&/INJ MAJOR JT/BURSA W/O US (03/02/2024 3:57 PM EDT) Julio César Centeno MD - 03/02/2024 3:57 PM EDT Julio César Gunter MD 03/02/2024 4:36 PM LG Joint Inj/Arthro: bilateral subacromial bursa on 03/02/2024 3:57 PM Indications: pain Details: 25 G needle, posterior approach Medications (Right): (40 mg of Depo-Medrol) Medications (Left): (40 mg of Depo-Medrol) Outcome: tolerated well, no immediate complications Procedure, treatment alternatives, risks and benefits explained, specific risks discussed. Consent was given by the patient. Immediately prior to procedure a time out was called to verify the correct patient, procedure, equipment, unit support representative and site/side marked as required. Patient was prepped and draped in the usual sterile fashion. Julio César Gunter MD PROCDOC FORM documented in this encounter Visit Diagnoses Diagnosis Impingement syndrome of both shoulders- Primary Other affections of shoulder region, not elsewhere classified Need for prophylactic vaccination and inoculation against influenza Trochanteric bursitis of both hips Enthesopathy of hip region documented in this encounter Administered Medications Inactive Administered Medications - up to 3 most recent administrations Medication Order MAR Action Action Date Dose Rate Site methylPREDNISolone acetate (Depo-Medrol) 40 MG/ML inj 40 mg 40 mg, Intra-Articular, ONCE, On Thu03/02/24 at 1630, For 1 dose Given 03/02/2024 3:57 PM EDT 40 mg H ip Right methylPREDNISolone acetate (Depo-Medrol) 40 MG/ML inj 40 mg 40 mg, Intra-Articular, ONCE, On Thu03/02/24 at 1630, For 1 dose Given 03/02/2024 3:57 PM EDT 40 mg S iávnulder Left methylPREDNISolone acetate (Depo-Medrol) 40 MG/ML inj 40 mg 40 mg, Intra-Articular, ONCE, On Thu03/02/24 at 1630, For 1 dose Given 03/02/2024 3:58 PM EDT 40 mg S houlder Right methylPREDNISolone acetate (Depo-Medrol) 40 MG/ML inj 40 mg 40 mg, Intra-Articular, ONCE, On Thu03/02/24 at 1630, For 1 dose Given 03/02/2024 3:57 PM EDT 40 mg H ip Left documented in this encounter Care Teams Rn X Ray Relationship Specialty Start Date End Date Edna Neal MD 200 [facility] [place] [address] PCP - General Internal Medicine 03/05/21 documented as of this encounter
--- OUTSIDE RECORDS SUMMARY | 2024-03-31 12:14 | External Medical Summary ---
Author Name Unknown Address Unknown Organization K09[facility] [place] [address] Laboratory Report Ordering Provider Test Date Status HILARIA LIRIANO 03/02/2024 14:31:31 Final Observation Date Value Abnormality Reference (Units ) Status WBC, Total 03/02/2024 14:31:31 11.15 Above high normal 4 .00-10.80 (K/uL) Final RBC 03/02/2024 14:31:31 3.92 3.85-5.15 (M/uL) Final Hemoglobin 03/02/2024 14:31:31 12.3 12.0-15.3 (g/dL) Final HCT 03/02/2024 14:31:31 37.1 36.0-45.2 (%) Final MCV 03/02/2024 14:31:31 94.6 81.5-97.5 (fL) Final MCH 03/02/2024 14:31:31 31.4 27.0-34.0 (pg) Final MCHC 03/02/2024 14:31:31 33.2 32.0-36.0 (g/dL) Final RDW 03/02/2024 14:31:31 16.3 11.5-15.5 (%) Final Platelets 03/02/2024 14:31:31 219 140-400 (K /uL) Final MPV 03/02/2024 14:31:31 12.4 6.6-11.1 ( fL) Final Performing Location [facility] [place] [address]
--- OUTSIDE RECORDS SUMMARY | 2024-03-31 12:15 | External Medical Summary | Summary of Care ---
Author Name Unknown Organization [facility] Address [address] [facility] [place] [address] Phone [phone] Care Team Providers Care Drug Safety Assistant Name Role Phone Edna Neal MD Primary Care Provider + Reason for Visit * Reason Onset Date Comments FYI 01/01/2024 Encounter Details Date Type Department Care Team (Late st Contact Info) Description 01/01/2024 Telephone General Internal Medicine [facility] [place] [address] [place] [address] Edna Neal MD [address] [place] [address] FYI Allergies Active Allergy Reactions Criticality Noted Date [...] as of this encounter (statuses as of 01/02/2024) Medications Medication Sig Dispensed Refills Start Date End Date Status Misc. Devices (AARON ROLLING WALKER PREMIUM) [facility] Rolling walker with seat that folds up [...] THE MORNING 90 Tablet 2 12/16/2023 Active documented as of this encounter (statuses as of 01/02/2024) Active Problems Problem Noted Date Diagnosed Date [...] as of this encounter (statuses as of 01/02/2024) Resolved Problems Problem Noted Date Diagnosed Date [...] as of this encounter (statuses as of 01/02/2024) Immunizations Name Administration Dates Next Due COVID-19 mRNA, LNP-s, No Pre serve, 2-Dose Series (Pfizer) 01/02/2021,06/30/2020,06/09/2020 Pneumococcal Conjugate Vacc, 13 Valent (Prevnar) 12/14/2019,09/17/2015 Pneumococcal Polysaccharide PPV23 (Pneumovax) 06/03/2018,12/30/2012,12/01/2005 Seasonal Influenza, Quadriva lent Hd (Fluzone Hd) 03/02/2023,03/13/2022 Seasonal Influenza, Quadriva lent Hd, 65+ Yrs 02/05/2021,01/12/2020 Seasonal Influenza, Quadriva lent, No Preserve, IM 02/26/2018,02/16/2017,01/29/2016 Seasonal Influenza, Trivalen t, (IIV3), with Preserv, (Fluzone) 01/12/2020,01/22/2015,01/18/2014,01/21,02/26/2012,01/16/2011,02/13/2010 ,02/02/2009,03/14/2008,02/22/2007,02/02 Seasonal Influenza, Trivalen t, Adjuvanted, 65+ YRS, [...] encounter Miscellaneous Notes * Telephone Encounter - Snehal Barr LPN - 01/02/2024 1:50 PM EDT Per other documentation, patient was directed to seek care at a different urgent care. * Telephone Encounter - Rosey Ortez OSA - 01/01/2024 2:35 PM EDT Pt walked in asking if they could be seen for a wound they recently got. They stated the wound needed to be cleaned out & a flap of skin needs to be placed back down as well. (Loose skin from thewound). Then they would like it to be wrapped back up. The wound is currently wrapped w/ gauze & medical tape. The pt went to urgent care but the placed was closed. I made the pt aware we may or may not be able to have a nurse or provider see them due to having a fully booked day. They are a walk in. Let me know thru the chat . I have them in E2 for the time being. Thank you documented in this encounter Plan of Treatment Upcoming Encounters Date Type Department Care Team (Late st Contact Info) Description 01/07/2024 1:30 PM EDT Office Visit Cardiology, [facility] [address] [facility] [place] [address] Debra Cowart PA-C [address] [place] [address] 01/11/2024 11:00 AM EDT Office Visit [place] [address] [place] [address] [address] Luis F Hansen MD [address] [place] [address] [address] 03/02/2024 3:40 PM EDT Office Visit Rheumatology [place] [id number] [facility] [place] [address] Julio César Gunter MD [facility] [place] [address] 05/26/2024 1:40 PM EST Office Visit General Internal Medicine [facility] [address] [place] [address] Edna Neal MD [address] [facility] [place] [address] 06/03/2024 10:20 AM EST Office Visit Rheumatology [place] [address] [place] [address] Julio César Gunter MD [address] [place] [address] [place] [address] 09/05/2024 1:20 PM EDT Office Visit Rheumatology [place] [address] [place] [address] Julio César Gunter MD [facility] [place] [address] 12/14/2024 1:20 PM EDT Office Visit Rheumatology [place] [address] [place] [address] Julio César Gunter MD [address] [place] [address] [place] [address] Health Maintenance Due Date Last Done Comments Alpha-1 Antitrypsin 1958 Zoster Vaccines (1 of 2) 01/09/2014 11/14/2013 Adult Wellness Visit 11/16/2018 11/16/2017 COVID-19 Vaccine ( season) 2023 01/02/2021, 06/30/2020, 06/09/2020 DXA Scan 01/09/2023 01/09/2021, 12/02, 08/31/2014, Additional history exists Albumin/Creatinine Ratio 03/13/2023 03/13/2022, 07/04 Depression Screening 09/26/2023 09/25/2022 Influenza Vaccine (FLU shot) (#1) 2024 03/02/2023, 03/13/2022, 02/05/2021, Additional history exists GFR 03/17/2024 09/15/2023, 08/04, 06/02/2023, Additional history exists TSH 06/02/2024 06/02/2023, 03/04, 04/04/2021, Additional history exists CKD HGB USE SMARTSET 66412 09/14/202409/14, 09/01/2023, 09/01/2023, Additional history exists CKD PHOS USE SMARTSET 10226 09/14/202409/01, 09/25/2022, 10/09/2021, Additional history exists O2 ASSESSMENT COMPLETED IN PAST YEAR FOR COPD 09/14/2024 09/15/2023 DTap/Tdap Vaccines (3 - Td or Tdap) 03/24/2032 03/24/2022, 12/25/2011, 08/02/1992 Pneumococcal Vaccine: 65+ Years Completed 12/14/2019, 06/03/2018, 09/17/2015, Additional history exists VITAMIN D LEVEL ONCE IN A LIFETIME-USE SMARTSET# 64394 Completed 09/01/2023, 01/24/2022, 11/14/2020, Additional history exists [...] filedocumented as of this encounter Care Teams Drug Safety Assistant Relationship Specialty Start Date End Date Edna Neal MD [address] [facility] [place] [address] PCP - General Internal Medicine 03/05/21 documented as of this encounter
--- OUTSIDE RECORDS SUMMARY | 2024-03-31 12:15 | External Medical Summary | Summary of Care ---
Author Name Unknown Organization [facility] Address [address] [facility] [place] [address] Phone [phone] Care Team Providers Care Boiler Inspector Name Role Phone Edna Neal MD Primary Care Provider + Reason for Visit * Reason Onset Date Comments Medication Refill 02/09/2024 Encounter Details Date Type Department Care Team (Late st Contact Info) Description 02/09/2024 Refill Rheumatology [place] [id number] [employer] [place] [address] Julio César Gunter MD [facility] [employer] [place] [address] Allergies Active Allergy Reactions Criticality Noted Date [...] Status Misc. Devices (AARON ROLLING WALKER PREMIUM) [facility] Rolling walker with [...] encounter Miscellaneous Notes * Telephone Encounter - Corazon Daigle, fermenter wine - 02/09/2024 8:12 AM EDT Patient calling for a refill on methotrexate and deltasone. This was last prescribed by rheumatology. Transfer to specialty refill line. Thank you, Corazon Daigle Enterprise Manager [facility] 02/09/2024,8:12 AM documented in this encounter Plan of Treatment Upcoming Encounters Date Type Department Care Team (Late st Contact Info) Description 03/02/2024 3:40 PM EDT Office Visit Rheumatology [place] [address] [place] [address] Julio César Gunter MD [facility] [address] [place] [address] 05/26/2024 1:40 PM EST Office Visit General Internal Medicine [facility] [address] [place] [address] Edna Neal MD [address] [place] [address] 06/03/2024 10:20 AM EST Office Visit Rheumatology [place] [address] [place] [address] Julio César Gunter MD [facility] [place] [address] [place] [address] 08/30/2024 11:00 AM EDT Office Visit Nephrology, [facility] [address] [place] [address] Luis F Hansen MD [address] [place] [address] 09/05/2024 1:20 PM EDT Office Visit Rheumatology [place] [address] [place] [address] Julio César Gunter MD [facility] [address] [place] [address] 09/07/2024 1:30 PM EDT Office Visit Cardiology, [facility] [address] [place] [address] Debra Cowart PA-C [address] [place] [address] 12/14/2024 1:20 PM EDT Office Visit Rheumatology [facility] [address] [employer] [place] [address] Julio César Gunter MD [address] [employer] [place] [address] Health Maintenance Due Date Last Done Comments [...] Additional history exists CKD HGB USE SMARTSET 51563 09/14/202409/14, 09/01/2023, 09/01/2023, Additional history exists CKD PHOS USE SMARTSET 31249 09/14/202409/014, 09/25/2022, 10/09/2021, Additional history exists O2 ASSESSMENT COMPLETED IN PAST YEAR FOR COPD 09/14/2024 09/15/2023 DTap/Tdap Vaccines (3 - Td or Tdap) 03/24/2032 03/24/2022, 12/25/2011, 08/02/1992 Pneumococcal Vaccine: 65+ Years Completed 12/14/2019, 06/03/2018, 09/17/2015, Additional history exists VITAMIN D LEVEL ONCE IN A LIFETIME-USE SMARTSET# 93325 Completed 09/01/2023, 01/24/2022, 11/14/2020, Additional history exists [...] filedocumented as of this encounter Care Teams Boiler Inspector Relationship Specialty Start Date End Date Edna Neal MD [address] [place] [address] PCP - General Internal Medicine 03/05/21 documented as of this encounter
--- OUTSIDE RECORDS SUMMARY | 2024-03-31 12:15 | External Medical Summary | Summary of Care ---
Author Name Unknown Organization [facility] Address [address] [facility] [place] [address] Phone [phone] Care Team Providers Care Air Hole Driller Name Role Phone Edna Neal MD Primary Care Provider + Reason for Visit * Reason Onset Date Comments Test Results 01/21/2024 Encounter Details Date Type Department Care Team (Late st Contact Info) Description 01/21/2024 Telephone Cardiology, [facility] [address] [place] [address] Debra Cowart PA-C [address] [place] [address] Test Results Allergies Active Allergy Reactions Criticality Noted Date [...] as of this encounter (statuses as of 01/21/2024) Medications Medication Sig Dispensed Refills Start Date End Date Status [facility]. Devices (AARON ROLLING WALKER PREMIUM) [facility] Rolling walker with seat that folds up [...] as of this encounter (statuses as of 01/21/2024) Active Problems Problem Noted Date Diagnosed Date [...] as of this encounter (statuses as of 01/21/2024) Resolved Problems Problem Noted Date Diagnosed Date [...] as of this encounter (statuses as of 01/21/2024) Immunizations Name Administration Dates Next Due COVID-19 [...] encounter Miscellaneous Notes * Telephone Encounter - Vasiliy Gomez LPN - 01/21/2024 4:21 PM EDT Called patient and informed of Debra's message. Patient verbalized understanding. ----- Message from Debra Cowart sent at 01/21/2024 4:18 PM EDT ----- Monitor results reviewed. Normal sinus rhythm noted. Short intervals of SVT vs atrial tach possible atrial fib. Longest episode lasted 22 seconds. No symptoms reported. No pauses or high degree AV block that would correlate with syncope. Continue metoprolol 25 mg daily Patient has not been on anticoagulation in the past due to bleeding risks/fall risk documented in this encounter Plan of Treatment Upcoming Encounters Date Type Department Care Team (Late st Contact Info) Description 03/02/2024 3:40 PM EDT Office Visit Rheumatology [place] [address] [place] [address] Julio César Gunter MD [facility] [place] [address] 05/26/2024 1:40 PM EST Office Visit General Internal Medicine [facility] [address] [place] [address] [address] Edna Neal MD [address] [facility] [place] [address] 06/03/2024 10:20 AM EST Office Visit Rheumatology [place] [address] [place] [address] Julio César Gunter MD [facility] [place] [address] 08/30/2024 11:00 AM EDT Office Visit Nephrology, [facility] [address] [place] [address] [address] Luis F Hansen MD [address] [facility] [place] [address] 09/05/2024 1:20 PM EDT Office Visit Rheumatology [address] [place] [address] Julio César Gunter MD [address] [place] [address] [place] [address] 09/07/2024 1:30 PM EDT Office Visit Cardiology, [facility] [address] [place] [address] Debra Cowart PA-C [address] [place] [address] 12/14/2024 1:20 PM EDT Office Visit Rheumatology [address] [place] [address] Julio César Gunter MD [address] [place] [address] [place], [place] [address] Health Maintenance Due Date Last Done Comments [...] Additional history exists CKD HGB USE SMARTSET 95500 09/14/202409/14, 09/01/2023, 09/01/2023, Additional history exists CKD PHOS USE SMARTSET 89675 09/14/202409/01, 09/25/2022, 10/09/2021, Additional history exists O2 ASSESSMENT COMPLETED IN PAST YEAR FOR COPD 09/14/2024 09/15/2023 DTap/Tdap Vaccines (3 - Td or Tdap) 03/24/2032 03/24/2022, 12/25/2011, 08/02/1992 Pneumococcal Vaccine: 65+ Years Completed 12/14/2019, 06/03/2018, 09/17/2015, Additional history exists VITAMIN D LEVEL ONCE IN A LIFETIME-USE SMARTSET# 44184 Completed 09/01/2023, 01/24/2022, 11/14/2020, Additional history exists [...] filedocumented as of this encounter Care Teams Air Hole Driller Relationship Specialty Start Date End Date Edna Neal MD [address] [place] [address] PCP - General Internal Medicine 03/05/21 documented as of this encounter
--- OUTSIDE RECORDS SUMMARY | 2024-03-31 12:15 | External Medical Summary | Summary of Care ---
Author Name Unknown Organization [facility] Address [address] [facility] [place] [address] Phone [phone] Care Team Providers Care Director Public Service Name Role Phone Edna Neal MD Primary Care Provider + Reason for Visit * Reason Comments Follow Up Encounter Details Date Type Department Care Team (Latest Contact Info) Description 01/07/2024 1:30 PM EDT Office Visit Cardiology, [facility] [address] [place] [address] Debra Cowart PA-C [address] [place] [address] PAF (paroxysmal atrial fibrillation) ([facility])*; PSVT (paroxysmal supraventricular tachycardia) ([facility]); Syncope, unspecified syncope type; HTN, goal below 140/90 Allergies Active Allergy Reactions Criticality Noted Date [...] Dispensed Refills Start Date End Date Status [facility]. Devices ([employer] ROLLING W[employer]MIUM) [facility] [...] mRNA, LNP-s, No Pre serve, 2-Dose Series ([employer]) 01/02/2021,06/30/2020,06/09/2020 Pneumococcal Conjugate Vacc, 13 Valent (Prevnar) [...] Sign Reading Time Taken Comments Blood Pressure 168/94 01/07/2024 1:35 PM EDT Pulse 68 01/07/2024 1:35 PM EDT Temperature - - Respiratory Rate 12 01/07/2024 1:35 PM EDT Oxygen Saturation - - Inhaled Oxygen Concentration - - Weight 57.6 kg (127 lb) 01/07/2024 1:35 PM EDT Height - - Body Mass Index 21.8 11/03/2023 1:25 PM EDT documented in this encounter Progress Notes * Debra Cowart PA-C - 01/07/2024 1:42 PM EDT Cardiology F/U: HPI: Patient is an 83 year old female Here today for routine cardiology follow- up. Last clinic evaluation approximately [address] Loco. History includes: 1. PAF on metoprolol. Not anticoagulated in the past due to fall risk and maintaining NSR 2. Remote history of lung cancer and lower lobe lung resection 3. Peripheral vascular disease 4. Treated hypothyroidism 5. Hypertension 6. GERD 7. Dyslipidemia Since last visit patient had a questionable syncopal spell. No injuries. Does not recall events specifically. Currently in the office feeling well. Denies dizziness or lightheadedness. No chest pain or dyspnea. Taking meds as prescribed. BP elevated on arrival but improved on my repeat. No chest pain, shortness of breath, palpitations, dizziness. No orthopnea, PND, or increased lower extremity edema. No fever, chills, cough, hematochezia, melena, or hemoptysis. Review of Systems: See HPI for pertinent positives. All others negative, other than those noted in HPI. Patient Active Problem List Diagnosis CLASSICAL MIGRAINE WITH INTRACTABLE MIGRAINE, SO STATED Esophageal reflux ADVANCE DIRECTIVE INFORMATION Peripheral vascular disease (HCC) Diverticulosis of colon DYSLIPIDEMIA, GOAL LDL BELOW 100 HTN, goal below 140/90 Elevated liver enzymes Chronic pain of both shoulders Rheumatoid arthritis involving multiple sites with positive rheumatoid factor (HCC) Impingement syndrome of both shoulders Anemia of chronic disease Hypothyroidism due to acquired atrophy of thyroid Encounter for long-term (current) use of medications Chronic kidney disease, stage 3a (HCC) Senile osteoporosis Moderate mitral regurgitation Trochanteric bursitis of both hips Compression fracture of L2 lumbar vertebra (HCC) Compression fracture of L1 lumbar vertebra (HCC) COPD, mild (HCC) History of lung cancer PSVT (paroxysmal supraventricular tachycardia) (HCC) Past Surgical History: Procedure Laterality Date COLONOSCOPY W/ BIOPSY (RECTUM) 11/17/06 follow up GI clinic COLONOSCOPY W/ BIOPSY (RECTUM) 05/14/09 diverticulosis & int. hemorrhoids/no inflammation or colitis MISCELLANEOUS ORDER ([facility] ONLY) 02-02-2012 stent placement in bilat groins RADICAL HYSTERECTOMY SINGLE LOBECTOMY, LUNG 2008 left lower lobe Family History Problem Relation Name Age of Onset Cancer Mother 40 endometrial Cancer Father 83 liver Heart Disorder Grandmother (Maternal) 60's Heart Disorder Grandfather (Maternal) 60's Diabetes Brother age 59 Alcohol and Other Disorders Associated Brother age 59 Cancer Brother skin Social History Tobacco Use Smoking status: Former Current packs/day: 0.00 Average packs/day: 1 pack/day for 30.0 years (30.0 ttl pk-yrs) Types: Cigarettes Start date: 05/04/1976 Quit date: 05/04/2006 Years since quittin.6 Smokeless tobacco: Never Vaping Use Vaping status: Never Used Substance Use Topics Alcohol use: No Drug use: No Review of patient's allergies indicates: Allergen Reactions Tobin Inhibitors Edema face/lips/tongue Ancef [Cefazolin Sodium] Hives Trouble breathing, red rash Clindamycin Hcl Rash Trouble breathing, red rash Doxycycline Hives Trouble breathing, red rash Panixine Disperdose Hives Trouble breathing, red rash Penicillins Hives Trouble breathing, red rash Sulfa Antibiotics Hives Trouble breathing, red rash Iodinated Contrast Media Lidocaine Injectable, feel funny, makes her spacy, doped, elev BP Current Outpatient Medications Medication Sig Dispense Refill Melatonin 5 MG Oral Capsule Take 1 Capsule by mouth at bedtime. Aspirin 81 MG Oral Tablet Delayed Release Take 1 Tablet by mouth every other day. Losartan Potassium 100 MG Oral Tablet (Cozaar) Take 1 Tablet by mouth in the morning. 90 Tablet 3 Folic Acid 1 MG Oral Tablet TAKE 2 TABLETS DAILY. 180 Tablet 2 Famotidine 20 MG Oral Tablet (Pepcid) TAKE 1 TABLET BY MOUTH IN THE MORNING AND 1 TABLET BEFORE BEDTIME 180 Tablet 3 Albuterol Sulfate HFA 108 (90 Base) MCG/ACT Inhalation Aerosol Solution INHALE 2 PUFFS BY MOUTH IN THE MORNING, 2 PUFFS AT NOON, 2 PUFFS IN THE EVENING AND 2 PUFFS BEFORE BEDTIME 25.5 g 1 Levothyroxine Sodium 50 MCG Oral Tablet (Levoxyl) TAKE 1/2 TABLET BY MOUTH; ALTERNATING WITH 1 WHOLE TABLET 68 Tablet 2 Furosemide 20 MG Oral Tablet (Lasix) Take 2 Tablets by mouth in the morning. May take extra one pill if weight gain of 3 pounds with swealling in legs.. 200 Tablet 3 Risedronate Sodium 150 MG Oral Tablet (Actonel) TAKE 1 TABLET BY MOUTH EVERY 30 DAYS 3 Tablet 2 Methotrexate Sodium 2.5 MG Oral Tablet TAKE 4 TABLETS BY MOUTH ONCE A WEEK 48 Tablet 1 Metoprolol Succinate ER 25 MG Oral Tablet Extended Release 24 Hour (toPROL XL) TAKE 1 TABLET BY MOUTH DAILY IN THE MORNING 90 Tablet 2 Misc. Devices ([employer]ip ROLLING WALKER PREMIUM) MISC Rolling walker with seat that folds up 1 Each 0 Zoster Vac Recomb Adjuvanted 50 MCG/0.5ML Intramuscular Suspension Reconstituted (Shingrix) Inject 0.5 mL into a large muscle now and repeat dose in 60 to 180 days 1 Each 1 No current facility-administered medications for this visit. PHYSICAL EXAMINATION BP 168/94 | Pulse 68 | Resp 12 | Wt 57.6 kg (127 lb) | BMI 21.80 kg/m | BSA 1.61 m Body mass index is 21.8 kg/m. On my repeat 138/78 General: no acute distress and stated age Head: normocephalic, no masses, lesions, tenderness or abnormalities Eyes: conjunctiva are pink and non-injected, sclera clear Neck: supple, no adenopathy, no bruits, normal jugular venous pulse, no hepatojugular reflux Chest: normal shape and normal respiratory effort Lungs: clear to auscultation and percussion Cardiac Exam: - regular rate & rhythm, no murmurs gallops or rubs - normal S1, normal S2 Pulses: 2(+) throughout Abdomen: abdomen soft, non-tender, no abnormal masses and no hepatosplenomegaly Musculoskeletal: no gait disturbance, no joint inflammation, no deforming arthritis Extremities: no edema and no cyanosis Neuro: grossly normal exam Cardiac studies/labs: EKG performed today and reviewed personally: Normal sinus rhythm Possible Anterior infarct , age undetermined Abnormal ECG When compared with ECG of 15-Jul-2023 13:28, Sinus rhythm has replaced Ectopic atrial rhythm Echo report reviewed dated Jun 2021: Interpretation Summary The examination is adequate to evaluate the referral indication. The left ventricular cavity size is normal. The LV wall thickness is normal. The left ventricular wall motion is normal. The qualitative LV ejection fraction is 65-69% (normal). Moderate aortic valve sclerosis is present. There is focal thickening of the non coronary cusp There is coox-yf-dsfjqoik aortic insufficiency The mitral valve leaflets thickness is mildly increased. There is borderline posterior mitral leaflet prolapse. Moderate mitral regurgitation is present. Impression: 83 year old female ICD-10-CM 1. PAF (paroxysmal atrial fibrillation) ([facility]) I48.0 2. PSVT (paroxysmal supraventricular tachycardia) ([facility]) I47.10 3. Syncope, unspecified syncope type R55 Plan: ZIO monitor requested to R/O arrhythmias BP elevated on arrival but improved on my repeat. The patient is to continue all current medications as listed above. No changes were made at today'svisit. ER for recurrent syncope or near syncope. Further recommendations after review of monitor. Patient to call with new or worsening symptoms Patient is being evaluated in the cardiology office for ongoing care/risk management for PAF; HTN. I spent a total of 30 minutes on the date of service in preparation, delivery, and documentation ofthe care provided to Karoline León excluding any time spent in the performance of separately billed services. The patient agrees to the above plan and will call with additional questions or concerns. ER with all emergencies advised. Follow-up: Return in about 6 months (around 07/06/2024). | Check-out note: 7 day ZIO done today 6 month follow up Debra Cowart PA-C Department of Cardiology This chart was completed in part utilizing [employer] Speech Voice Recognition Software. Grammatical errors, random word insertions, prounoun errors, and incomplete sentences are an occasional consequence of this system due to software limitations, ambient noise, and hardware issues. Any formal questions or concerns about the content, text, or information contained within the body of this dictation should be directly addressed to the provider for clarification. documented in this encounter Nursing Notes * Mita Cervantes CMA - 01/07/2024 1:22 PM EDT Examination Room: 1 Name: Karoline León Date of : (1940). Reason for Visit: Follow up Interim Hospitalization(s): denies Problems/Concerns: denies cardiac concerns, says she knows her limitations pretty well Chest Pain/SOB: denies [facility] Discussed: Yes [facility] is a way you can talk to your provider online through e-mail. Would you like to sign up? I can activate it for you? ALREADY ACTIVE Patient was instructed to not get up on the exam table until directed and assisted by their provider; patient is to remain seated in the chair/ wheelchair/ exam table for fall prevention and safety reasons. Patient is aware to have assistance to step down off exam table with personnel. Patient voiced full comprehension of instructions. documented in this encounter Plan of Treatment Upcoming Encounters Date Type Department Care Team (Late st Contact Info) Description 03/02/2024 3:40 PM EDT Office Visit Rheumatology [facility] [place] [address] Julio César Gunter MD [address] [place] [address] 05/26/2024 1:40 PM EST Office Visit General Internal Medicine [facility] [place] [address] [place] [address] Edna Neal MD [address] [place] [address] 06/03/2024 10:20 AM EST Office Visit Rheumatology [facility] [address] [place] [address] Juli oCésar Gunter MD [address] [place] [address] 08/30/2024 11:00 AM EDT Office Visit Nephrology, [facility] [address] [place] [address] Luis F [place] MD [address] [place] [address] 09/05/2024 1:20 PM EDT Office Visit Rheumatology [place] [address] [facility] [place], [place] [address] Julio César Gunter MD [facility] [place], [place] [address] 09/07/2024 1:30 PM EDT Office Visit Cardiology, [facility] [address] [place] [address] Debra Cowart PA-C [address] [place] [address] 12/14/2024 1:20 PM EDT Office Visit Rheumatology [address] [place], [place] [address] Julio César Gunter MD [address] [place] [address] [place], [place] [address] Health Maintenance Due Date Last Done Comments [...] Additional history exists CKD HGB USE SMARTSET 02754 09/14/202409/14, 09/01/2023, 09/01/2023, Additional history exists CKD PHOS USE SMARTSET 27335 09/14/202409/01, 09/25/2022, 10/09/2021, Additional history exists O2 ASSESSMENT COMPLETED IN PAST YEAR FOR COPD 09/14/2024 09/15/2023 DTap/Tdap Vaccines (3 - Td or Tdap) 03/24/2032 03/24/2022, 12/25/2011, 08/02/1992 Pneumococcal Vaccine: 65+ Years Completed 12/14/2019, 06/03/2018, 09/17/2015, Additional history exists VITAMIN D LEVEL ONCE IN A LIFETIME-USE SMARTSET# [id number] Completed 09/01/2023, 01/24/2022, 11/14/2020, Additional history exists [...] Not on filedocumented as of this encounter Results * EKG (01/07/2024 2:16 PM EDT) 01/07/2024 2:16 PM EDT Narrative Procedure Note Manpreet Henry MD - 01/07/2024 2:16 PM EDT REASON FOR STUDY: syncope; PAF;syncope; PAF CONCLUSIONS: Normal sinus rhythm Possible Anterior infarct , age undetermined Abnormal ECG When compared with ECG of 15-Jul-2023 13:28, Sinus rhythm has replaced Ectopic atrial rhythm Ventricular Rate: 63 Atrial Rate: 63 HI Interval: 160 QRS Duration: 82 QT/QTc: 454/464 ms P-R-T [place]: 39 : 20 : 24 degrees Debra Cowart PA-C EKG Performing Organization Address [facility] de Phone Number [facility] * EXTERNAL EKG 2 TO 7 DAYS (01/07/2024 12:00 AM EDT) 01/07/2024 Narrative Procedure Note Manpreet Henry MD - 01/07/2024 12:00 AM EDT REASON FOR STUDY: PAF; syncope CONCLUSIONS: Final Interpretation Indications: Paroxysmal atrial fibrillation Duration: 6 days CONCLUSIONS: Preliminary Findings Prepared by Gee Neves , 01/18/24 Patient had a min HR of 49 bpm, max HR of 179 bpm, and avg HR of 65 bpm. Predominant underlying rhythm was Sinus Rhythm. 211 Supraventricular Tachycardia /atrial fibrillation runs occurred, the runwith the fastest interval lasting 4 beats with a max rate of 179 bpm, the longest lastingwas atrial fibrillation 22.0 secs with an avg rate of 96 bpm. Isolated SVEs were occasional (4.4%, [id number]), SVE Couplets were rare (<1.0%, 2144), and SVE Triplets were rare (<1.0%, 418). Isolated VEs were rare (<1.0%), and no VE Couplets or VE Triplets were present. No patient marker or diary entries were recorded Impression: Sinus rhythm, average rate of 65 beats per minute withoccasional atrial ectopic beats and short runs of atrial tachycardia aswell as paroxysmal atrial fibrillation. No sustained high rate episodes nopauses Refer to rhythm strips available for review under the MUSE link foradditional detail Debra Cowart PA-C HOLTER Performing Organization Address [facility] Co de Phone Number [facility] documented in this encounter Visit Diagnoses Diagnosis PAF (paroxysmal atrial fibrillation) ([facility])- Primary Atrial fibrillation PSVT (paroxysmal supraventricular tachycardia) (HCC) Paroxysmal supraventricular tachycardia Syncope, unspecified syncope type HTN, goal below 140/90 Unspecified essential hypertension PSVT (paroxysmal supraventricular tachycardia) (HCC) Paroxysmal supraventricular tachycardia PAF (paroxysmal atrial fibrillation) (HCC) Atrial fibrillation Syncope, unspecified syncope type PSVT (paroxysmal supraventricular tachycardia) (HCC) Paroxysmal supraventricular tachycardia PAF (paroxysmal atrial fibrillation) (HCC) Atrial fibrillation Syncope, unspecified syncope type documented in this encounter Care Teams Director Public Service Relationship Specialty Start Date End Date Edna Neal MD [address] [place] [id number] PCP - General Internal Medicine 03/05/21 documented as of this encounter"
--- NOTE | 2024-03-31 12:38 | Hospitalist Progress Note ---
Date of Service March 31, 2024 Assessment & Plan (1) SOB (shortness of breath): Plan: Closed left radial fracture S/P Plaster cast Closed pelvic fracture Nondisplaced fracture of the base of the right long finger Secondary to fall after tripping on her walker Chronic T11, L1 complaints fractures, mild T12, L2 compression fractures Underlying osteoporosis Ambulatory dysfunction --CT Head:No acute intracranial finding. --CT Neck:No acute finding of the cervical spine. --CT:Comminuted mildly displaced fractures of the left inferior and superior pubic rami. --Left Hand X ray:Nondisplaced fracture of the distal radial metaphysis. Nonspecific soft tissue swelling of the wrist. Degenerative changes are most prominent of the radiocarpal joint, first carpometacarpal joint and interphalangeal joints. This favors osteoarthritis. Conservative management Appreciate orthopedics input Fall precautions PT OT as able Pain control May need rehab placement Chronic hyponatremia Hypokalemia Replete electrolytes as needed Monitor Chronic dyspnea intermittently Left upper lobe lung nodule H/O squamous cell lung cancer S/P surgery H/O COPD --CT Chest:Bilateral airspace opacities of the lung periphery favor interstitial lung disease. Cannot exclude pulmonary edema. There is ectasia of the ascending aorta measuring 3.6 cm. 8 mm left upper lobe pulmonary nodule. This is mildly increased in size, and previously measured 6 mm. 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, borderline MVP) PVD status post surgery Prediabetes: HbA1C 5.10 May 2023 H/O Rheumatoid arthritis, on methotrexate Past tobacco abuse Continue home medications as able --Plan to resume aspirin as able DVT Px: Teds for now Consider adding anticoagulation if hemoglobin stable tomorrow Code Status Full code Admission and Anticipated Discharge Date Admission Date: March 31, 2024 Subjective Patient is seen and examined at bedside States having left upper extremity, pelvic pain especially with movement States feeling tired today Reports chronic back pain which she attributes to prior fractures Denies any chest pain, dyspnea, nausea, vomiting, abdominal pain No other complaints Review of Systems Review of Systems: All systems reviewed & are unremarkable except as noted in Subjective Physical Exam Physical Exam: Physical Exam: Vitals signs as noted above General Appearance:Moderately built and nourished, no apparent distress, Elderly Head: normocephalic, Atraumatic Eyes: normal inspection, EOMI Neck: supple, Trachea midline Respiratory/Chest: Decreased breath sounds, CTA, No accessory muscle use Cardiovascular: S1, S2, + murmur Abdomen/GI:Soft, Non tender, Bowel sounds present Extremities/Musculoskeletal:normal inspection, 1+LE edema, Lue in pladter cast Neurologic/Psych:AAOX3, grossly no focal neurological deficits,+decreased hearing Skin: normal color, warm, +Multiple Ecchymosis on extremities, left facial region Results & Data Results & Data Vital Signs (Past 12 Hours) Vital Signs Temp Pulse Pulse Pulse Resp BP BP 03/31/24 11:27 37.0 C 79 18 03/31/24 07:51 36.6 C 84 22 03/31/24 05:45 92 H 03/31/24 03:03 91 H 03/31/24 03:01 03/31/24 03:00 36.6 C 88 16 96/60 L 03/31/24 02:29 89 20 133/65 03/31/24 02:19 84 20 133/65 03/31/24 01:04 89 03/31/24 01:00 90 16 157/66 H BP Pulse Ox Pulse Ox O2 Del Method O2 Del Method 03/31/24 11:27 128/74 94 Room Air 03/31/24 07:51 116/72 99 Room Air 03/31/24 05:45 124/62 03/31/24 03:03 03/31/24 03:01 94 Room Air 03/31/24 03:00 94 Room Air 03/31/24 02:29 93 Room Air 03/31/24 02:19 93 Room Air 03/31/24 01:04 03/31/24 01:00 95 Room Air Laboratory Results Short CBC 03/30/24 03/31/24 Range/Units 21:09 06:44 WBC 8.21 14.83 H (4.8-10.8) K/ul Hgb 12.1 11.4 L (12.0-16.0) g/dl Hct 35.0 L 33.3 L (37.0-47.0) % Plt Count 199 164 (130-400) K/uL BMP 03/30/24 03/31/24 21:09 06:44 Sodium 130 L 132 L Potassium 3.2 L 4.2 D Chloride 95 L 101 Carbon Dioxide 25 25 BUN 21 16 Creatinine 0.85 0.80 Glucose 171 H 124 H Calcium 9.0 8.3 L Cardiac Enzymes 03/30/24 Range/Units 21:09 Total Creatine Kinase 108 (26-192) U/L Liver Function 03/30/24 Range/Units 21:09 Total Bilirubin 0.5 (0.2-1.0) mg/dl AST 27 (13-39) U/L ALT 23 (7-52) U/L Alkaline Phosphatase 66 (34-104) U/L Albumin 3.9 (3.4-5.0) gm/dl Urine 03/31/24 Range/Units 06:30 Urine Color Yellow Urine Appearance Clear (Clear) Urine pH 7.0 (4.5-7.5) Ur Specific Barnhart 1.016 (1.000-1.030) Urine Protein Negative (Negative) Urine Glucose (UA) Negative (Negative)
[2024-03-31] MEDS: CEROVITE ADV FORMULA TAB PO SCH (13:11)
[2024-03-31] MEDS: FOLIC ACID 1 MG TAB PO SCH (13:11)
--- NOTE | 2024-03-31 14:01 | Communication Note ---
Date of Service: March 31, 2024 Patient noted to have urinary retention Will place Sylvester catheter for now
[2024-03-31] MEDS: ACETAMINOPHEN 325 MG TAB PO STA (23:15)
[2024-03-31] MEDS: METOPROLOL TARTRATE 25 MG TAB PO STA (23:31)
[2024-03-31 23:36] LABS: Appearance Urine Clear (Clear); Bacteria Urine Automated 4+ (None Seen); Bilirubin Urine Negative (Negative); Blood Urine Trace (Negative); Cast Urine Automated 0-2 /lpf (0-2); Color Urine Yellow; Epithelial Cell Urine Auto 0-2 /hpf (0-2); Glucose Urine UA Negative (Negative); Ketones Urine 2+ (Negative); Leukocyte Esterase Urine 1+ (Negative); Nitrite Urine Positive (Negative); Protein Urine 1+ (Negative); Specific Gravity Urine 1.021 (1.000-1.030); Urobilinogen Urine Negative (Negative); pH Urine 6.5 (4.5-7.5)
--- NOTE | 2024-04-01 04:36 | Communication Note ---
Date of Service: April 01, 2024 Made aware by RN of paroxysmal atrial tachycardia overnight HR 109, BP 161/112, 98%RA, T 38.9, Patient without abdominal or flank pain complaints. UA WBC esterase, nitrite positive WBC 14 (03/31) AP Sepsis secondary to complicated UTI Changed to full admission Urine CS, Azactam
[2024-04-01] MEDS: AZTREONAM 2,000 MG in DEXTROSE 5% MINI-B 100 ML IV SCH (05:02)
[2024-04-01 06:33] LABS: Hematocrit (blood only) 32.6 % (37.0-47.0); Hemoglobin 10.8 g/dl (12.0-16.0); Mean Corpuscular Hgb Conc 33.1 g/dL (32.0-36.0); Mean Corpuscular Volume 93.7 fL (80.0-100.0); Mean Platelet Volume 12.4 fL (9.4-12.4); Platelet Count 134 K/uL (130-400); RDW Standard Deviation 53.4 fL (36.4-46.3); Red Blood Count 3.48 M/uL (4.20-5.40); White Blood Count 10.19 K/ul (4.8-10.8)
[2024-04-01 07:02] LABS: Calcium 8.1 mg/dl (8.6-10.3); Magnesium 1.9 mg/dl (1.7-2.4); Potassium 3.8 mmol/L (3.5-5.1)
[2024-04-01 07:08] LABS: BUN Creatinine Ratio 18.1 (10-20); Creatinine Clr Calc Pharmacy 45.2 ml/min
--- NOTE | 2024-04-01 07:56 | Orthopedic Progress Note ---
Date of Service April 01, 2024 Assessment & Plan (1) Closed pelvic fracture: Plan: 84-year-old female with stable pelvis fracture, left distal radius fracture status post closed reduction in a cast, and left long finger proximal phalanx fracture nondisplaced. Patient is doing pretty well this morning. The cast feels and a little bit snug but the wrist is well aligned. Moderate swelling but nothing concerning. She can flex extend her fingers appropriately. No signs of compartment issues. Plan: From the orthopedic standpoint she can weight-bear as tolerated. She can be pretty painful weightbearing for the first couple weeks. The cast is fitting well. She does need to elevate her hand. Were just going to treat the finger fracture conservatively due to the surrounding abrasion. A cast will need to be on for 6 weeks. Should elevate is much as possible. He is okay for discharge anytime medically stable.'s likely she will need a rehab stay. I did see her about about a month. Any orthopedic questions can be recommend [phone]. (2) Closed left radial fracture: (3) Phalanx, proximal fracture of finger: Admission and Anticipated Discharge Date Admission Date: April 01, 2024 Subjective 84-year-old female admitted status post a fall with a left distal radius fracture, left long finger proximal phalanx fracture and a stable pelvis fracture. She is doing okay this morning. She feels the cast is a little bit on the snug side. Denies much in way of pain as long she does not move. Physical Exam Physical Exam: Physical nation is a pleasant elderly female. That she is lying in bed looks pretty comfortable. Examination of the hips and pelvis reveals no visible deformity. Leg lengths are equal. She does have pain with any type of hip motion. She is neurologically intact. Examination left arm reveals the cast be fitting well. She does have some moderate digital swelling. No malalignment of the fingers but multiple fingers are swollen. Her abrasion is covered and looks stable. She can flex and extend her fingers appropriately. The cast is not too tight. Results & Data Vital Signs (Past 12 Hours) Vital Signs Temp Pulse Pulse Resp BP Pulse Ox O2 Del Method 04/01/24 07:45 36.5 C 78 18 163/63 H 91 Room Air 04/01/24 07:08 73 04/01/24 03:29 36.6 C 75 18 171/70 H 95 Room Air 03/31/24 22:47 65 03/31/24 22:38 36.6 C 85 18 139/75 91 Room Air (1) Closed pelvic fracture Encounter type: initial encounter Laterality: left (2) Closed left radial fracture Encounter type: initial encounter Radius location: distal
--- NOTE | 2024-04-01 16:08 | Hospitalist Progress Note ---
Date of Service April 01, 2024 Assessment & Plan (1) SOB (shortness of breath): Plan: Closed left radial fracture S/P Plaster cast Closed pelvic fracture Nondisplaced fracture of the base of the right long finger Secondary to fall after tripping on her walker Chronic T11, L1 complaints fractures, mild T12, L2 compression fractures Underlying osteoporosis Ambulatory dysfunction --CT Head:No acute intracranial finding. --CT Neck:No acute finding of the cervical spine. --CT:Comminuted mildly displaced fractures of the left inferior and superior pubic rami. --Left Hand X ray:Nondisplaced fracture of the distal radial metaphysis. Nonspecific soft tissue swelling of the wrist. Degenerative changes are most prominent of the radiocarpal joint, first carpometacarpal joint and interphalangeal joints. This favors osteoarthritis. Conservative management Appreciate orthopedics input Fall precautions PT OT as able Pain control Weightbearing as tolerated per Ortho Elevate hand to help with swelling Plan to continue the cast for 6 weeks Needs follow-up with orthopedics on discharge PT recommends acute rehab Adamantly refuses rehab placement Case management to help with discharge planning Urinary retention UTI Continue Sylvester catheter for now Urine culture growing E. coli Blood culture pending Empirically on IV Azactam Consider voiding trial prior to discharge PATs Asymptomatic Monitor and replete electrolytes as needed Consider increasing metoprolol dose if frequent Chronic hyponatremia Hypokalemia Replete electrolytes as needed Monitor Chronic dyspnea intermittently Left upper lobe lung nodule H/O squamous cell lung cancer S/P surgery H/O COPD --CT Chest:Bilateral airspace opacities of the lung periphery favor interstitial lung disease. Cannot exclude pulmonary edema. There is ectasia of the ascending aorta measuring 3.6 cm. 8 mm left upper lobe pulmonary nodule. This is mildly increased in size, and previously measured 6 mm. 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, borderline MVP) PVD status post surgery Prediabetes: HbA1C 5.10 May 2023 H/O Rheumatoid arthritis, on methotrexate Past tobacco abuse Continue home medications as able --Plan to resume aspirin as able DVT Px: Teds Heparin SQ Code Status Full code Admission and Anticipated Discharge Date Admission Date: April 01, 2024 Subjective Patient is seen and examined at bedside Denies any significant pain today PAT's and monitor Adamantly refuses rehab placement No other complaints today Denies any chest pain, dyspnea, nausea, vomiting, abdominal pain Review of Systems Review of Systems: All systems reviewed & are unremarkable except as noted in Subjective Physical Exam Physical Exam: Physical Exam: Vitals signs as noted above General Appearance:Moderately built and nourished, no apparent distress, Elderly Head: normocephalic, Atraumatic Eyes: normal inspection, EOMI Neck: supple, Trachea midline Respiratory/Chest: Decreased breath sounds, CTA, No accessory muscle use Cardiovascular: S1, S2, + murmur Abdomen/GI:Soft, Non tender, Bowel sounds present Extremities/Musculoskeletal:normal inspection, 1+LE edema, Lue in pladter cast Neurologic/Psych:AAOX3, grossly no focal neurological deficits,+decreased hearing Skin: normal color, warm, +Multiple Ecchymosis on extremities, left facial region Results & Data Results & Data Vital Signs (Past 12 Hours) Vital Signs Temp Pulse Pulse Resp BP Pulse Ox O2 Del Method 04/01/24 16:01 37.3 C 82 18 152/70 H 92 Room Air 04/01/24 13:52 87 04/01/24 11:21 36.5 C 78 18 151/79 H 95 Room Air 04/01/24 07:45 36.5 C 78 18 163/63 H 91 Room Air 04/01/24 07:08 73 Laboratory Results Short CBC 04/01/24 Range/Units 06:04 WBC 10.19 (4.8-10.8) K/ul Hgb 10.8 L (12.0-16.0) g/dl Hct 32.6 L (37.0-47.0) % Plt Count 134 (130-400) K/uL BMP 04/01/24 06:04 Sodium 131 L Potassium 3.8 Chloride 102 Carbon Dioxide 25 BUN 13 Creatinine 0.72 Glucose 115 H Calcium 8.1 L Urine 03/31/24 Range/Units 23:25 Urine Color Yellow Urine Appearance Clear (Clear) Urine pH 6.5 (4.5-7.5) Ur Specific [place] 1.021 (1.000-1.030) Urine Protein 1+ H (Negative) Urine Glucose (UA) Negative (Negative)
[2024-04-01] MEDS: ACETAMINOPHEN 325 MG TAB PO PRN (16:56)
[2024-04-01] MEDS: HEPARIN SOD 5,000 UNIT/0.5 ML VIAL SQ SCH (21:09)
[2024-04-02 06:21] LABS: Hematocrit (blood only) 32.5 % (37.0-47.0); Hemoglobin 11.1 g/dl (12.0-16.0); Mean Corpuscular Hemoglobin 31.7 pg (25.0-34.0); Mean Corpuscular Hgb Conc 34.2 g/dL (32.0-36.0); Mean Corpuscular Volume 92.9 fL (80.0-100.0); Mean Platelet Volume 12.5 fL (9.4-12.4); Platelet Count 133 K/uL (130-400); RDW Coefficient of Variation 15.9 % (11.5-14.5); RDW Standard Deviation 53.5 fL (36.4-46.3); White Blood Count 7.57 K/ul (4.8-10.8)
[2024-04-02 06:42] LABS: BUN Creatinine Ratio 19.4 (10-20); Calcium 8.1 mg/dl (8.6-10.3); Creatinine Clr Calc Pharmacy 45.2 ml/min; Magnesium 1.9 mg/dl (1.7-2.4)
--- NOTE | 2024-04-02 14:26 | Hospitalist Progress Note ---
Date of Service April 02, 2024 Assessment & Plan (1) SOB (shortness of breath): Plan: Closed left radial fracture S/P Plaster cast Closed pelvic fracture Nondisplaced fracture of the base of the right long finger Secondary to fall after tripping on her walker Chronic T11, L1 complaints fractures, mild T12, L2 compression fractures Underlying osteoporosis Ambulatory dysfunction --CT Head:No acute intracranial finding. --CT Neck:No acute finding of the cervical spine. --CT:Comminuted mildly displaced fractures of the left inferior and superior pubic rami. --Left Hand X ray:Nondisplaced fracture of the distal radial metaphysis. Nonspecific soft tissue swelling of the wrist. Degenerative changes are most prominent of the radiocarpal joint, first carpometacarpal joint and interphalangeal joints. This favors osteoarthritis. Conservative management Appreciate orthopedics input Fall precautions PT OT as able Pain control Weightbearing as tolerated per Orth[facility] Elevate hand to help with swelling Plan to continue the cast for 6 weeks Needs follow-up with orthopedics on discharge PT recommends acute rehab Initially refused rehab placement, currently plans to go to rehab Plan to discharge once placement available Urinary retention UTI Continue Sylvester catheter for now Urine culture grew E. coli Blood culture: Negative to date Currently on IV Azactam Consider voiding trial prior inpatient versus at rehab facility Transition to oral antibiotics as able PATs Asymptomatic Monitor and replete electrolytes as needed Consider increasing metoprolol dose if frequent Chronic hyponatremia due to SIADH Hypokalemia Replete electrolytes as needed Continue fluid restriction Monitor Chronic dyspnea intermittently Left upper lobe lung nodule H/O squamous cell lung cancer S/P surgery H/O COPD --CT Chest:Bilateral airspace opacities of the lung periphery favor interstitial lung disease. Cannot exclude pulmonary edema. There is ectasia of the ascending aorta measuring 3.6 cm. 8 mm left upper lobe pulmonary nodule. This is mildly increased in size, and previously measured 6 mm. 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, borderline MVP) PVD status post surgery Prediabetes: HbA1C 5.10 May 2023 H/O Rheumatoid arthritis, on methotrexate Past tobacco abuse Continue home medications as able -- Resume aspirin tomorrow DVT Px: Teds Heparin SQ Code Status Full code Disposition Rehab when accepted Admission and Anticipated Discharge Date Admission Date: April 01, 2024 Subjective Patient is seen and examined at bedside Reports having soreness in multiple sites Otherwise no complaints Denies any chest pain, dyspnea, nausea, vomiting, abdominal pain Initially refused rehab placement currently interested Review of Systems Review of Systems: All systems reviewed & are unremarkable except as noted in Subjective Physical Exam Physical Exam: Physical Exam: Vitals signs as noted above General Appearance:Moderately built and nourished, no apparent distress, Elderly Head: normocephalic, Atraumatic Eyes: normal inspection, EOMI Neck: supple, Trachea midline Respiratory/Chest: Decreased breath sounds, CTA, No accessory muscle use Cardiovascular: S1, S2, + murmur Abdomen/GI:Soft, Non tender, Bowel sounds present Extremities/Musculoskeletal:normal inspection, 1+LE edema, Lue in pladter cast Neurologic/Psych:AAOX3, grossly no focal neurological deficits,+decreased hearing Skin: normal color, warm, +Multiple Ecchymosis on extremities, left facial region Results & Data Results & Data Vital Signs (Past 12 Hours) Vital Signs Temp Pulse Pulse Resp BP Pulse Ox O2 Del Method 04/02/24 11:22 36.7 C 86 17 163/74 H 96 Room Air 04/02/24 08:19 36.6 C 84 18 160/79 H 97 Room Air 04/02/24 07:22 76 04/02/24 04:28 162/89 H 04/02/24 04:00 37 C 72 18 174/74 H 95 Room Air Laboratory Results Short CBC 04/02/24 Range/Units 05:28 WBC 7.57 (4.8-10.8) K/ul Hgb 11.1 L (12.0-16.0) g/dl Hct 32.5 L (37.0-47.0) % Plt Count 133 (130-400) K/uL BMP 04/02/24 05:28 Sodium 131 L Potassium 4.0 Chloride 103 Carbon Dioxide 23 BUN 14 Creatinine 0.72 Glucose 103 H Calcium 8.1 L
[2024-04-03 07:01] LABS: Hematocrit (blood only) 34.2 % (37.0-47.0); Hemoglobin 11.6 g/dl (12.0-16.0); Mean Corpuscular Hemoglobin 31.6 pg (25.0-34.0); Mean Corpuscular Hgb Conc 33.9 g/dL (32.0-36.0); Mean Corpuscular Volume 93.2 fL (80.0-100.0); Mean Platelet Volume 12.5 fL (9.4-12.4); Platelet Count 152 K/uL (130-400); RDW Coefficient of Variation 15.7 % (11.5-14.5); Red Blood Count 3.67 M/uL (4.20-5.40); White Blood Count 7.38 K/ul (4.8-10.8)
[2024-04-03 07:23] LABS: BUN Creatinine Ratio 24.2 (10-20); Calcium 8.3 mg/dl (8.6-10.3); Creatinine Clr Calc Pharmacy 49.3 ml/min; Potassium 3.7 mmol/L (3.5-5.1)
[2024-04-03] MEDS: ASPIRIN 81 MG ECTAB PO SCH (08:51)
[2024-04-03] MEDS ORDERED: OXYMETAZOLINE 0.05% 30 ML BTL PRN (12:53)
[2024-04-03] MEDS: SODIUM CHLORIDE 0.65% NA SOLN 45 ML (OCEAN) PRN (13:01)
--- NOTE | 2024-04-03 13:33 | Hospitalist Progress Note ---
Date of Service April 03, 2024 Assessment & Plan (1) SOB (shortness of breath): Plan: Closed left radial fracture S/P Plaster cast Closed pelvic fracture Nondisplaced fracture of the base of the right long finger Secondary to fall after tripping on her walker Chronic T11, L1 complaints fractures, mild T12, L2 compression fractures Underlying osteoporosis Ambulatory dysfunction --CT Head:No acute intracranial finding. --CT Neck:No acute finding of the cervical spine. --CT:Comminuted mildly displaced fractures of the left inferior and superior pubic rami. --Left Hand X ray:Nondisplaced fracture of the distal radial metaphysis. Nonspecific soft tissue swelling of the wrist. Degenerative changes are most prominent of the radiocarpal joint, first carpometacarpal joint and interphalangeal joints. This favors osteoarthritis. Conservative management Appreciate orthopedics input Fall precautions PT OT as able Pain control Weightbearing as tolerated per [facility] hand to help with swelling Plan to continue the cast for 6 weeks Needs follow-up with orthopedics on discharge PT recommends acute rehab Initially refused rehab placement, currently plans to go to rehab Case management to help with discharge planning Urinary retention UTI Continue Sylvester catheter for now Urine culture grew E. coli Blood culture: Negative to date Currently on IV Azactam Consider voiding trial prior inpatient versus at rehab facility Transition to oral antibiotics as able Transient epistaxis Afrin as needed Hold anticoagulation if recurrent PATs Asymptomatic Monitor and replete electrolytes as needed Consider increasing metoprolol dose if frequent Chronic hyponatremia due to SIADH Hypokalemia Replete electrolytes as needed Continue fluid restriction Monitor Sodium 131 today Chronic dyspnea intermittently Left upper lobe lung nodule H/O squamous cell lung cancer S/P surgery H/O COPD --CT Chest:Bilateral airspace opacities of the lung periphery favor interstitial lung disease. Cannot exclude pulmonary edema. There is ectasia of the ascending aorta measuring 3.6 cm. 8 mm left upper lobe pulmonary nodule. This is mildly increased in size, and previously measured 6 mm. 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/AR, borderline MVP) PVD status post surgery Prediabetes: HbA1C 5.10 May 2023 H/O Rheumatoid arthritis, on methotrexate Past tobacco abuse Continue home medications as able -- Resume aspirin as able DVT Px: Teds Heparin SQ Code Status Full code Disposition Rehab when accepted Admission and Anticipated Discharge Date Admission Date: April 01, 2024 Subjective Patient is seen and examined at bedside Generalized pain improving Had transient epistaxis noted by RN Offers no other complaints today Denies any chest pain, dyspnea, nausea, vomiting, abdominal pain Agrees to go to rehab facility Review of Systems Review of Systems: All systems reviewed & are unremarkable except as noted in Subjective Physical Exam Physical Exam: Physical Exam: Vitals signs as noted above General Appearance:Moderately built and nourished, no apparent distress, Elderly Head: normocephalic, Atraumatic Eyes: normal inspection, EOMI Neck: supple, Trachea midline Respiratory/Chest: Decreased breath sounds, CTA, No accessory muscle use Cardiovascular: S1, S2, + murmur Abdomen/GI:Soft, Non tender, Bowel sounds present Extremities/Musculoskeletal:normal inspection, 1+LE edema, Lue in pladter cast Neurologic/Psych:AAOX3, grossly no focal neurological deficits,+decreased hearing Skin: normal color, warm, +Multiple Ecchymosis on extremities, left facial region Results & Data Results & Data Vital Signs (Past 12 Hours) Vital Signs Temp Pulse Pulse Resp BP BP Pulse Ox 04/03/24 11:41 36.6 C 88 16 181/80 H 92 04/03/24 08:02 36.8 C 74 20 156/82 H 96 04/03/24 06:42 76 04/03/24 03:44 36.6 C 97 H 18 184/73 H 94 O2 Del Method 04/03/24 11:41 Room Air 04/03/24 08:02 Room Air 04/03/24 06:42 04/03/24 03:44 Room Air Laboratory Results Short CBC 04/03/24 Range/Units 06:23 WBC 7.38 (4.8-10.8) K/ul Hgb 11.6 L (12.0-16.0) g/dl Hct 34.2 L (37.0-47.0) % Plt Count 152 (130-400) K/uL BMP 04/03/24 06:23 Sodium 131 L Potassium 3.7 Chloride 100 Carbon Dioxide 24 BUN 16 Creatinine 0.66 Glucose 106 H Calcium 8.3 L
[2024-04-03] MEDS: amLODIPine BESYLATE 5 MG TAB PO SCH (14:37)
--- NOTE | 2024-04-04 13:22 | Hospitalist Progress Note ---
Date of Service April 04, 2024 Assessment & Plan (1) SOB (shortness of breath): Plan: Closed left radial fracture S/P Plaster cast Closed pelvic fracture Nondisplaced fracture of the base of the right long finger Secondary to fall after tripping on her walker Chronic T11, L1 complaints fractures, mild T12, L2 compression fractures Underlying osteoporosis Ambulatory dysfunction --CT Head:No acute intracranial finding. --CT Neck:No acute finding of the cervical spine. --CT:Comminuted mildly displaced fractures of the left inferior and superior pubic rami. --Left Hand X ray:Nondisplaced fracture of the distal radial metaphysis. Nonspecific soft tissue swelling of the wrist. Degenerative changes are most prominent of the radiocarpal joint, first carpometacarpal joint and interphalangeal joints. This favors osteoarthritis. Conservative management Appreciate orthopedics input Fall precautions PT OT as able Pain control Weightbearing as tolerated per [facility] hand to help with swelling Plan to continue the cast for 6 weeks Needs follow-up with orthopedics on discharge PT recommends acute rehab Initially refused rehab placement, currently plans to go to rehab Stable for discharge waiting for placement Urinary retention UTI Continue Sylvester catheter for now Urine culture grew E. coli Blood culture: Negative to date Currently on IV Azactam>> transition to Cipro Consider voiding trial prior inpatient versus at rehab facility Transient epistaxis Afrin as needed Hold anticoagulation if recurrent No recurrence currently PATs Asymptomatic Monitor and replete electrolytes as needed Consider increasing metoprolol dose if frequent Chronic hyponatremia due to SIADH Hypokalemia Replete electrolytes as needed Continue fluid restriction Monitor Sodium 131 today Chronic dyspnea intermittently Left upper lobe lung nodule H/O squamous cell lung cancer S/P surgery H/O COPD --CT Chest:Bilateral airspace opacities of the lung periphery favor interstitial lung disease. Cannot exclude pulmonary edema. There is ectasia of the ascending aorta measuring 3.6 cm. 8 mm left upper lobe pulmonary nodule. This is mildly increased in size, and previously measured 6 mm. -- Saturating well on room air Advised to follow-up with oncology as outpatient for further evaluation Advised to get repeat CT in 6 to 12 months for evaluation of lung nodule Continue home inhalers as needed Paroxysmal atrial fibrillation Continue metoprolol Not on anticoagulation due to fall risk Hypertension Continue losartan, metoprolol Will add amlodipine 2.5 mg daily for better BP control Monitor blood pressure and adjust medications as needed Hypothyroidism Continue levothyroxine Other Chronic conditions: Valvular heart disease (moderate MR/AR, borderline MVP) PVD status post surgery Prediabetes: HbA1C 5.10 May 2023 H/O Rheumatoid arthritis, on methotrexate Past tobacco abuse Continue home medications as able -- Resume aspirin as able DVT Px: Teds Heparin SQ Code Status Full code Disposition Rehab when accepted Admission and Anticipated Discharge Date Admission Date: April 01, 2024 Subjective Patient is seen and examined at bedside Sitting in chair comfortably during my encounter Offers no new complaint Waiting for placement No recurrence of epistaxis Denies any chest pain, dyspnea, nausea, vomiting, abdominal pain Review of Systems Review of Systems: All systems reviewed & are unremarkable except as noted in Subjective Physical Exam Physical Exam: Physical Exam: Vitals signs as noted above General Appearance:Moderately built and nourished, no apparent distress, Elderly Head: normocephalic, Atraumatic Eyes: normal inspection, EOMI Neck: supple, Trachea midline Respiratory/Chest: Decreased breath sounds, CTA, No accessory muscle use Cardiovascular: S1, S2, + murmur Abdomen/GI:Soft, Non tender, Bowel sounds present Extremities/Musculoskeletal:normal inspection, 1+LE edema, Lue in pladter cast Neurologic/Psych:AAOX3, grossly no focal neurological deficits,+decreased hearing Skin: normal color, warm, +Multiple Ecchymosis on extremities, left facial region Results & Data Results & Data Vital Signs (Past 12 Hours) Vital Signs Temp Pulse Pulse Resp BP BP Pulse Ox 04/04/24 11:03 36.7 C 86 18 110/69 97 04/04/24 08:20 04/04/24 07:41 36.5 C 67 18 130/74 04/04/24 07:00 81 04/04/24 04:37 36.4 C L 92 H 18 150/71 H 95 O2 Del Method 04/04/24 11:03 Room Air 04/04/24 08:20 Room Air 04/04/24 07:41 Room Air 04/04/24 07:00 04/04/24 04:37 Room Air
[2024-04-04] MEDS: CIPROFLOXACIN 250 MG TAB PO SCH (13:51)
[2024-04-04] MEDS ORDERED: CALCIUM CARBONATE 500 MG CHEWABLE TAB PO PRN (20:05)
[2024-04-05] MEDS: ADVANCED PROBIOTIC 625 MG CAPSULE PO SCH (13:46)
--- NOTE | 2024-04-05 16:26 | Hospitalist Progress Note ---
Date of Service April 05, 2024 Assessment & Plan (1) SOB (shortness of breath): Plan: Closed left radial fracture S/P Plaster cast Closed pelvic fracture Nondisplaced fracture of the base of the right long finger Secondary to fall after tripping on her walker Chronic T11, L1 complaints fractures, mild T12, L2 compression fractures Underlying osteoporosis Ambulatory dysfunction --CT Head:No acute intracranial finding. --CT Neck:No acute finding of the cervical spine. --CT:Comminuted mildly displaced fractures of the left inferior and superior pubic rami. --Left Hand X ray:Nondisplaced fracture of the distal radial metaphysis. Nonspecific soft tissue swelling of the wrist. Degenerative changes are most prominent of the radiocarpal joint, first carpometacarpal joint and interphalangeal joints. This favors osteoarthritis. Conservative management Appreciate orthopedics input Fall precautions PT OT as able Pain control Weightbearing as tolerated per [facility] hand to help with swelling Plan to continue the cast for 6 weeks Needs follow-up with orthopedics on discharge PT recommends rehab Initially refused rehab placement, currently plans to go to rehab Plan to discharge to rehab facility tomorrow Urinary retention UTI Continue Sylvester catheter for now Urine culture grew E. coli Blood culture: Negative to date Currently on IV Azactam>> transition to Cipro Voiding trial at rehab facility Transient epistaxis Afrin as needed Hold anticoagulation if recurrent No recurrence PATs Asymptomatic Monitor and replete electrolytes as needed Consider increasing metoprolol dose if frequent Chronic hyponatremia due to SIADH Hypokalemia Replete electrolytes as needed Continue fluid restriction Monitor Sodium 131 today Chronic dyspnea intermittently Left upper lobe lung nodule H/O squamous cell lung cancer S/P surgery H/O COPD --CT Chest:Bilateral airspace opacities of the lung periphery favor interstitial lung disease. Cannot exclude pulmonary edema. There is ectasia of the ascending aorta measuring 3.6 cm. 8 mm left upper lobe pulmonary nodule. This is mildly increased in size, and previously measured 6 mm. -- Saturating well on room air Advised to follow-up with oncology as outpatient for further evaluation Advised to get repeat CT in 6 to 12 months for evaluation of lung nodule Continue home inhalers as needed Paroxysmal atrial fibrillation Continue metoprolol Not on anticoagulation due to fall risk Hypertension Continue losartan, metoprolol Will add amlodipine 2.5 mg daily for better BP control Blood pressure stable Adjust medications as needed Hypothyroidism Continue levothyroxine Other Chronic conditions: Valvular heart disease (moderate MR/AR, borderline MVP) PVD status post surgery Prediabetes: HbA1C 5.10 May 2023 H/O Rheumatoid arthritis, on methotrexate Past tobacco abuse Continue home medications as able DVT Px: Teds Heparin SQ Code Status Full code Disposition Rehab tomorrow Admission and Anticipated Discharge Date Admission Date: April 01, 2024 Subjective Patient is seen and examined at bedside Doing well today States having some loose BM today No other complaints Pain is well-controlled Denies any chest pain, dyspnea, nausea, vomiting, abdominal pain Waiting for rehab placement Review of Systems Review of Systems: All systems reviewed & are unremarkable except as noted in Subjective Physical Exam Physical Exam: Physical Exam: Vitals signs as noted above General Appearance:Moderately built and nourished, no apparent distress, Elderly Head: normocephalic, Atraumatic Eyes: normal inspection, EOMI Neck: supple, Trachea midline Respiratory/Chest: Decreased breath sounds, CTA, No accessory muscle use Cardiovascular: S1, S2, + murmur Abdomen/GI:Soft, Non tender, Bowel sounds present Extremities/Musculoskeletal:normal inspection, 1+LE edema, Lue in pladter cast Neurologic/Psych:AAOX3, grossly no focal neurological deficits,+decreased hearing Skin: normal color, warm, +Multiple Ecchymosis on extremities, left facial region Results & Data Results & Data Vital Signs (Past 12 Hours) Vital Signs Temp Pulse Pulse Resp BP BP Pulse Ox 04/05/24 16:02 36.6 C 76 17 112/72 99 04/05/24 15:00 90 04/05/24 11:38 36.2 C L 87 17 117/70 99 04/05/24 08:00 04/05/24 07:54 36.5 C 89 18 130/71 98 04/05/24 07:00 78 O2 Del Method 04/05/24 16:02 Room Air 04/05/24 15:00 04/05/24 11:38 Room Air 04/05/24 08:00 Room Air 04/05/24 07:54 Room Air 04/05/24 07:00
[2024-04-06 06:19] LABS: Hematocrit (blood only) 31.5 % (37.0-47.0); Hemoglobin 10.8 g/dl (12.0-16.0)
[2024-04-06 06:43] LABS: BUN Creatinine Ratio 43.5 (10-20); Calcium 8.6 mg/dl (8.6-10.3); Creatinine Clr Calc Pharmacy 47.1 ml/min; Potassium 4.2 mmol/L (3.5-5.1)
--- NOTE | 2024-04-06 19:55 | Hospitalist Progress Note ---
Date of Service April 06, 2024 Assessment & Plan (1) SOB (shortness of breath): Plan: Closed left radial fracture S/P Plaster cast Closed pelvic fracture Nondisplaced fracture of the base of the right long finger Secondary to fall after tripping on her walker Chronic T11, L1 complaints fractures, mild T12, L2 compression fractures Underlying osteoporosis Ambulatory dysfunction --CT Head:No acute intracranial finding. --CT Neck:No acute finding of the cervical spine. --CT:Comminuted mildly displaced fractures of the left inferior and superior pubic rami. --Left Hand X ray:Nondisplaced fracture of the distal radial metaphysis. Nonspecific soft tissue swelling of the wrist. Degenerative changes are most prominent of the radiocarpal joint, first carpometacarpal joint and interphalangeal joints. This favors osteoarthritis. Conservative management Appreciate orthopedics input Fall precautions PT OT as able Pain control Weightbearing as tolerated per Ortho Elevate hand to help with swelling Plan to continue the cast for 6 weeks Needs follow-up with orthopedics on discharge PT recommends rehab Initially refused rehab placement, currently plans to go to rehab Plan to discharge to rehab/ snf facility Urinary retention UTI Continue Sylvesetr catheter for now Urine culture grew E. coli Blood culture: Negative to date Currently on IV Azactam>> transitioned to Cipro Voiding trial at rehab facility Transient epistaxis Afrin as needed Hold anticoagulation if recurrent No recurrence PATs Asymptomatic Monitor and replete electrolytes as needed Consider increasing metoprolol dose if frequent Chronic hyponatremia due to SIADH Hypokalemia Replete electrolytes as needed Continue fluid restriction Monitor Sodium 132 today Chronic dyspnea intermittently Left upper lobe lung nodule H/O squamous cell lung cancer S/P surgery H/O COPD --CT Chest:Bilateral airspace opacities of the lung periphery favor interstitial lung disease. Cannot exclude pulmonary edema. There is ectasia of the ascending aorta measuring 3.6 cm. 8 mm left upper lobe pulmonary nodule. This is mildly increased in size, and previously measured 6 mm. -- Saturating well on room air Advised to follow-up with oncology as outpatient for further evaluation Advised to get repeat CT in 6 to 12 months for evaluation of lung nodule Continue home inhalers as needed Paroxysmal atrial fibrillation Continue metoprolol Not on anticoagulation due to fall risk Hypertension Continue losartan, metoprolol Will add amlodipine 2.5 mg daily for better BP control Blood pressure stable Adjust medications as needed Hypothyroidism Continue levothyroxine Other Chronic conditions: Valvular heart disease (moderate MR/AR, borderline MVP) PVD status post surgery Prediabetes: HbA1C 5.10 May 2023 H/O Rheumatoid arthritis, on methotrexate Past tobacco abuse Continue home medications as able DVT Px: Teds Heparin SQ Code Status Full code Disposition Rehab/ snf Admission and Anticipated Discharge Date Admission Date: April 01, 2024 Subjective Patient is seen in follow up Doing well today Pain is well-controlled Denies any chest pain, dyspnea, nausea, vomiting, abdominal pain Waiting for snf placement, communicated w/ CM Review of Systems Review of Systems: All systems reviewed & are unremarkable except as noted in Subjective Physical Exam Physical Exam: General Appearance:Moderately built and nourished, no apparent distress, Elderly Head: normocephalic, Atraumatic Eyes: normal inspection, EOMI Neck: supple Respiratory/Chest: Decreased breath sounds, CTA, No accessory muscle use Cardiovascular: S1, S2, + murmur Abdomen/GI:Soft, Non tender, Bowel sounds present Extremities/Musculoskeletal:normal inspection, 1+LE edema, Lue in plaster cast Neurologic/Psych:AAOX3, grossly no focal neurological deficits,+decreased hearing Skin: normal color, warm, +Multiple Ecchymosis on extremities, left facial region Results & Data Results & Data Vital Signs (Past 12 Hours) Vital Signs Temp Pulse Pulse Resp BP BP Pulse Ox 04/06/24 19:18 86 18 124/70 96 04/06/24 15:26 36.8 C 87 18 113/71 94 04/06/24 15:12 87 04/06/24 14:54 86 16 98 04/06/24 14:31 96 04/06/24 11:46 36.5 C 81 18 108/65 97 04/06/24 08:02 36.4 C L 94 H 17 146/79 H 99 O2 Del Method 04/06/24 19:18 Room Air 04/06/24 15:26 Room Air 04/06/24 15:12 04/06/24 14:54 Room Air 04/06/24 14:31 Room Air 04/06/24 11:46 Room Air 04/06/24 08:02 Room Air Laboratory Results 04/06/24 Range/Units 05:32 Hgb 10.8 L (12.0-16.0) g/dl Hct 31.5 L (37.0-47.0) % Sodium 132 L (136-145) mmol/L Potassium 4.2 (3.5-5.1) mmol/L Chloride 104 (98-107) mmol/L Carbon Dioxide 21 (21-32) mmol/L Anion Gap 7 (3-11) BUN 30 H (6-23) mg/dl Creatinine 0.69 (0.6-1.2) mg/dl Est Cr Clr Drug Dosing 47.1 ml/min eGFR 84.99 BUN/Creatinine Ratio 43.5 H (10-20) Glucose 94 (70-99(Fasting)) mg/dl Calcium 8.6 (8.6-10.3) mg/dl Medications Administered Current Inpatient Medications Acetaminophen (Acetaminophen 325 Mg Tab) 650 mg PO QID PRN PRN Reason: pain/fever Stop: 04/30/24 01:20 Last Admin: 04/06/24 15:03 Dose: 650 mg Albuterol (Albuterol Hfa 8 Gm Inhaler) 2 puffs INH Q4H PRN PRN Reason: Shortness Of Breath Stop: 04/30/24 01:57 Last Admin: 04/06/24 14:53 Dose: 2 puffs Amlodipine Besylate (Amlodipine Besylate 5 Mg Tab) 2.5 mg PO [facility] Stop: 05/03/24 13:29 Last Admin: 04/06/24 09:19 Dose: 2.5 mg Aspirin (Aspirin 81 Mg Ectab) [facility] Stop: 05/03/24 08:59 Last Admin: 04/06/24 09:20 Dose: 81 mg Calcium Carbonate (Calcium Carbonate 500 Mg Chewable Tab) 500 mg PO QID PRN PRN Reason: heartburn Stop: 05/04/24 20:04 Ciprofloxacin (Ciprofloxacin 250 Mg Tab) 250 mg PO Q12 [facility]; Protocol Stop: 04/07/24 21:01 Last Admin: 04/06/24 09:20 Dose: 250 mg Famotidine (Famotidine 20 Mg Tab) 20 mg PO BID [facility] Stop: 04/30/24 08:59 Last Admin: 04/06/24 09:20 Dose: 20 mg Folic Acid (Folic Acid 1 Mg Tab) [facility] [place] Stop: 04/30/24 08:59 Last Admin: 04/06/24 09:20 Dose: 2 mg Heparin Sodium (Porcine) (Heparin Sod 5,000 Unit/0.5 Ml Vial) 5,000 units SQ Q12 [facility] Stop: 05/01/24 20:59 Last Admin: 04/06/24 09:28 Dose: 5,000 units Promethazine HCl (Phenergan) 6.25 mg in 50.25 mls @ 201 mls/hr IV Q6H PRN PRN Reason: Nausea And Vomiting Stop: 04/30/24 01:20 Lactobacillus Acidophilus (Advanced Probiotic 625 Mg Capsule) 1,250 mg PO DAILY [facility] Stop: 05/05/24 13:14 Last Admin: 04/06/24 09:20 Dose: 1,250 mg Levothyroxine Sodium (Levothyroxine Sodium 25 Mcg Tablet) [facility] Stop: 04/30/24 06:29 Last Admin: 04/06/24 06:26 Dose: 25 mcg Losartan Potassium (Losartan Potassium 50 Mg Tab) 100 mg PO QAM [facility] Stop: 04/30/24 08:59 Last Admin: 04/06/24 09:20 Dose: 100 mg Metoprolol Succinate (Metoprolol Succ 25mg Ext Rel Tab) [facility] [place] Stop: 04/30/24 08:59 Last Admin: 04/06/24 09:20 Dose: 25 mg Multivitamins/Minerals (Cerovite Adv Formula Tab) 1 tab PO QAM [facility] Stop: 04/30/24 08:59 Last Admin: 04/06/24 09:20 Dose: 1 tab Oxycodone HCl (Oxycodone Hcl Ir 5 Mg Tab (Immediate Release)) 5 mg PO Q4H PRN PRN Reason: Pain Stop: 04/14/24 01:20 Oxymetazoline HCl (Oxymetazoline 0.05% 30 Ml Btl) 1 sprays NA Q6H PRN PRN Reason: epistaxis Stop: 05/03/24 12:52 Sodium Chloride (Sodium Chloride 0.65% Na Soln 45 Ml ([place])) 2 sprays NA NOW PRN PRN Reason: Dryness Stop: 05/03/24 12:37 Last Admin: 04/03/24 13:01 Dose: 2 sprays
[2024-04-07 07:53] LABS: Hematocrit (blood only) 32.3 % (37.0-47.0)
[2024-04-07 08:16] LABS: BUN Creatinine Ratio 40.3 (10-20); Calcium 8.6 mg/dl (8.6-10.3); Creatinine Clr Calc Pharmacy 48.6 ml/min; Phosphorus 3.3 mg/dl (2.5-4.9); Potassium 3.8 mmol/L (3.5-5.1)
[2024-04-07 11:41] VITALS: RESP 18
--- NOTE | 2024-04-07 17:20 | Hospitalist Progress Note ---
Date of Service April 07, 2024 Assessment & Plan (1) SOB (shortness of breath): Plan: Closed left radial fracture S/P Plaster cast Closed pelvic fracture Nondisplaced fracture of the base of the right long finger Secondary to fall after tripping on her walker Chronic T11, L1 complaints fractures, mild T12, L2 compression fractures Underlying osteoporosis Ambulatory dysfunction --CT Head:No acute intracranial finding. --CT Neck:No acute finding of the cervical spine. --CT:Comminuted mildly displaced fractures of the left inferior and superior pubic rami. --Left Hand X ray:Nondisplaced fracture of the distal radial metaphysis. Nonspecific soft tissue swelling of the wrist. Degenerative changes are most prominent of the radiocarpal joint, first carpometacarpal joint and interphalangeal joints. This favors osteoarthritis. Conservative management Appreciate orthopedics input- Fall precautions PT OT as able Pain control Per orthopedic surgeon (Dr. Andres) - From the orthopedic standpoint she can weight-bear as tolerated. She can be pretty painful weightbearing for the first couple weeks. The cast is fitting well. She does need to elevate her hand. Were just going to treat the finger fracture conservatively due to the surrounding abrasion. A cast will need to be on for 6 weeks. Should elevate is much as possible. I will see her in a about a month. Any orthopedic questions can be recommend [phone]. Weightbearing as tolerated per Ortho Elevate hand to help with swelling Plan to continue the cast for 6 weeks Needs follow-up with orthopedics on discharge PT recommends rehab Initially refused rehab placement, currently plans to go to rehab Plan to discharge to rehab/ snf facility Urinary retention UTI Continue Sylvester catheter for now Urine culture grew E. coli Blood culture: Negative to date Currently on IV Azactam>> transitioned to Cipro Voiding trial at rehab facility Transient epistaxis Afrin as needed Hold anticoagulation if recurrent No recurrence PATs Asymptomatic Monitor and replete electrolytes as needed Consider increasing metoprolol dose if frequent Chronic hyponatremia due to SIADH Hypokalemia Replete electrolytes as needed Continue fluid restriction Monitor Sodium 132 today Chronic dyspnea intermittently Left upper lobe lung nodule H/O squamous cell lung cancer S/P surgery H/O COPD --CT Chest:Bilateral airspace opacities of the lung periphery favor interstitial lung disease. Cannot exclude pulmonary edema. There is ectasia of the ascending aorta measuring 3.6 cm. 8 mm left upper lobe pulmonary nodule. This is mildly increased in size, and previously measured 6 mm. -- Saturating well on room air Advised to follow-up with oncology as outpatient for further evaluation Advised to get repeat CT in 6 to 12 months for evaluation of lung nodule Continue home inhalers as needed Paroxysmal atrial fibrillation Continue metoprolol Not on anticoagulation due to fall risk Hypertension Continue losartan, metoprolol added amlodipine 2.5 mg daily for better BP control Blood pressure stable Adjust medications as needed Hypothyroidism Continue levothyroxine Other Chronic conditions: Valvular heart disease (moderate MR/AR, borderline MVP) PVD status post surgery Prediabetes: HbA1C 5.10 May 2023 H/O Rheumatoid arthritis, on methotrexate Past tobacco abuse Continue home medications as able DVT Px:Teds, Heparin SQ Admission and Anticipated Discharge Date Admission Date: April 01, 2024 Subjective Patient is seen in follow up Doing well today Pain is well-controlled Denies any chest pain, dyspnea, nausea, vomiting, abdominal pain Waiting for snf placement, communicated w/ CM Plan was for DC today however because of issues with transportation, will have to wait to DC tmrw instead Review of Systems Review of Systems: All systems reviewed & are unremarkable except as noted in Subjective Physical Exam Physical Exam: General Appearance:Moderately built and nourished, no apparent distress, Elderly Head: normocephalic, Atraumatic Eyes: normal inspection, EOMI Neck: supple Respiratory/Chest: Decreased breath sounds, CTA, No accessory muscle use Cardiovascular: S1, S2, + murmur Abdomen/GI:Soft, Non tender, Bowel sounds present Extremities/Musculoskeletal:normal inspection, 1+LE edema, Lue in plaster cast Neurologic/Psych:AAOX3, grossly no focal neurological deficits,+decreased hearing Skin: normal color, warm, +Multiple Ecchymosis on extremities, left facial region Results & Data Results & Data Vital Signs (Past 12 Hours) Vital Signs Temp Pulse Pulse Resp BP BP Pulse Ox 04/07/24 13:51 36.5 C 88 18 127/74 103/66 97 04/07/24 11:40 36.5 C 88 18 103/66 97 04/07/24 10:25 81 14 96 04/07/24 08:00 04/07/24 08:00 86 04/07/24 07:55 36.7 C 84 18 137/82 96 O2 Del Method 04/07/24 13:51 04/07/24 11:40 Room Air 04/07/24 10:25 Room Air 04/07/24 08:00 Room Air 04/07/24 08:00 04/07/24 07:55 Room Air Laboratory Results 04/07/24 Range/Units 07:33 Hgb 11.0 L (12.0-16.0) g/dl Hct 32.3 L (37.0-47.0) % Sodium 132 L (136-145) mmol/L Potassium 3.8 (3.5-5.1) mmol/L Chloride 102 (98-107) mmol/L Carbon Dioxide 23 (21-32) mmol/L Anion Gap 7 (3-11) BUN 27 H (6-23) mg/dl Creatinine 0.67 (0.6-1.2) mg/dl Est Cr Clr Drug Dosing 48.6 ml/min eGFR 85.60 BUN/Creatinine Ratio 40.3 H (10-20) Glucose 105 H (70-99(Fasting)) mg/dl Calcium 8.6 (8.6-10.3) mg/dl Phosphorus 3.3 (2.5-4.9) mg/dl Magnesium 2.0 (1.7-2.4) mg/dl Medications Administered Current Inpatient Medications Acetaminophen (Acetaminophen 325 Mg Tab) 650 mg PO QID PRN PRN Reason: pain/fever Stop: 04/30/24 01:20 Last Admin: 04/07/24 09:48 Dose: 650 mg Albuterol (Albuterol Hfa 8 Gm Inhaler) 2 puffs INH Q4H PRN PRN Reason: Shortness Of Breath Stop: 04/30/24 01:57 Last Admin: 04/07/24 14:22 Dose: 2 puffs Amlodipine Besylate (Amlodipine Besylate 5 Mg Tab) 2.5 mg PO [facility] Stop: 05/03/24 13:29 Last Admin: 04/07/24 09:50 Dose: 2.5 mg Aspirin (Aspirin 81 Mg Ectab) [facility] Stop: 05/03/24 08:59 Last Admin: 04/07/24 09:51 Dose: 81 mg Calcium Carbonate (Calcium Carbonate 500 Mg Chewable Tab) 500 mg PO QID PRN PRN Reason: heartburn Stop: 05/04/24 20:04 Ciprofloxacin (Ciprofloxacin 250 Mg Tab) 250 mg PO Q12 [facility]; Protocol Stop: 04/07/24 21:01 Last Admin: 04/07/24 09:51 Dose: 250 mg Famotidine (Famotidine 20 Mg Tab) 20 mg PO BID [facility] Stop: 04/30/24 08:59 Last Admin: 04/07/24 09:53 Dose: 20 mg Folic Acid (Folic Acid 1 Mg Tab) 2 mg PO QAM [facility] Stop: 04/30/24 08:59 Last Admin: 04/07/24 09:53 Dose: 2 mg Heparin Sodium (Porcine) (Heparin Sod 5,000 Unit/0.5 Ml Vial) 5,000 units SQ Q12 [facility] Stop: 05/01/24 20:59 Last Admin: 04/07/24 10:36 Dose: 5,000 units Promethazine HCl (Phenergan) 6.25 mg in 50.25 mls @ 201 mls/hr IV Q6H PRN PRN Reason: Nausea And Vomiting Stop: 04/30/24 01:20 Lactobacillus Acidophilus (Advanced Probiotic 625 Mg Capsule) 1,250 mg PO DAILY [facility] Stop: 05/05/24 13:14 Last Admin: 04/07/24 09:54 Dose: 1,250 mg Levothyroxine Sodium (Levothyroxine Sodium 25 Mcg Tablet) [facility] Stop: 04/30/24 06:29 Last Admin: 04/07/24 05:54 Dose: 25 mcg Losartan Potassium (Losartan Potassium 50 Mg Tab) [facility] [place] Stop: 04/30/24 08:59 Last Admin: 04/07/24 09:54 Dose: 100 mg Metoprolol Succinate (Metoprolol Succ 25mg Ext Rel Tab) 25 [facility] [place] Stop: 04/30/24 08:59 Last Admin: 04/07/24 09:54 Dose: 25 mg Multivitamins/Minerals (Cerovite Adv Formula Tab) 1 tab [facility] [place] Stop: 04/30/24 08:59 Last Admin: 04/07/24 09:54 Dose: 1 tab Oxycodone HCl (Oxycodone Hcl Ir 5 Mg Tab (Immediate Release)) 5 mg PO Q4H PRN PRN Reason: Pain Stop: 04/14/24 01:20 Oxymetazoline HCl (Oxymetazoline 0.05% 30 Ml Btl) 1 sprays NA Q6H PRN PRN Reason: epistaxis Stop: 05/03/24 12:52 Sodium Chloride (Sodium Chloride 0.65% Na Soln 45 Ml ([place])) 2 sprays NA NOW PRN PRN Reason: Dryness Stop: 05/03/24 12:37 Last Admin: 04/03/24 13:01 Dose: 2 sprays
[2024-04-08 07:38] VITALS: BP 148/75; PULSE 73; TEMP 97.5; O2SAT 97
--- NOTE | 2024-04-08 08:52 | Discharge Summary ---
Date of Service April 08, 2024 Admission HPI Per Admitting Provider History obtained from patient and records. Medical history significant for valvular heart disease (moderate MR/AR, borderline MVP), PAF not on anticoagulation secondary to fall risk, PSVT, PVD status post surgery, hypertension, COPD, squamous cell lung cancer status post surgery, hypothyroidism, prediabetes, rheumatoid arthritis, chronic hyponatremia, migraine, osteoporosis, history of MRSA as per records, past history C. difficile, past tobacco abuse. Last confinement 2007 for C. difficile colitis. Patient fell at home last night after tripping on her walker. Left side of the head hitting a wall before falling down. Achy facial pain, left forearm pain, pelvic pain. No chest pain, no syncope. Some SOB which patient attributes to humidity without unusual cough symptoms. Denies fluid retention. Actually losing weight. Medical History as above Surgical History : Hysterectomy, left lower lobe lobectomy, vascular procedures Family History : Alcoholism, liver cancer, endometrial cancer, heart disease, DM, DVT Personal/Social history : Past tobacco abuse, no EtOH intake, retired [employer] Admission Exam Per Admitting Provider GENERAL: Slightly anxious, slightly uncomfortable, slightly hard of hearing, no respiratory distress SKIN: Normal color, warm HEENT: Ecchymosis left face, pink palpebral conjunctivae, no ptosis, dry buccal mucosa NECK : Supple, no tenderness CHEST : Decreased breath sounds, no tenderness HEART : RRR, systolic murmur ABDOMEN: Some distention, nontender EXTREMITIES : LUE splint, minimal LE swelling with tenderness (chronic as per patient), no other conspicuous deformities noted NEUROLOGIC : Coherent, no facial asymmetry, slightly hard of hearing, gait and stance not assessed Principal Diagnosis Stable Pelvis Fracture Left Distal Radius Fracture Left Long Finger Fracture UTI, urinary retention Discharge Exam General Appearance:Moderately built and nourished, no apparent distress, Elderly Head: normocephalic, Atraumatic Eyes: normal inspection, EOMI Neck: supple Respiratory/Chest: Decreased breath sounds, CTA, No accessory muscle use Cardiovascular: S1, S2, + murmur Abdomen/GI:Soft, Non tender, Bowel sounds present Extremities/Musculoskeletal:normal inspection, 1+LE edema, Lue in plaster cast Neurologic/Psych:AAOX3, grossly no focal neurological deficits,+decreased hearing Skin: normal color, warm, +Multiple Ecchymosis on extremities, left facial region Discharge Data Allergies Allergy/AdvReac Type Severity Reaction Status Date / Time tetracycline Allergy Severe COULDN'T Verified 03/31/24 00:22 BREATHE Cephalosporins Allergy Intermediate HIVES Verified 03/31/24 00:22 clindamycin Allergy Mild RASH Verified 03/31/24 00:22 Penicillins Allergy Mild HIVES Verified 03/31/24 00:22 Sulfa (Sulfonamide Allergy Mild RED AND Verified 03/31/24 00:22 Antibiotics) SWEATING SILVIA Inhibitors Allergy Unknown Unknown Verified 03/31/24 00:22 aspartame Allergy Unknown Unknown Verified 03/31/24 00:22 cefazolin Allergy Unknown Unknown Verified 03/31/24 00:22 cephalexin Allergy Unknown Unknown Verified 03/31/24 00:22 doxycycline Allergy Unknown Unknown Verified 03/31/24 00:22 hydrochlorothiazide Allergy Unknown Unknown Unverified 03/31/24 00:22 lidocaine Allergy Unknown Unknown Verified 03/31/24 00:22 lisinopril Allergy Unknown Unknown Unverified 03/31/24 00:22 yellow dye Allergy Unknown Unknown Verified 03/31/24 00:22 prednisone AdvReac Mild HIGH BP Verified 03/31/24 00:22 Consultations 03/30/24 23:58 ED Decision to Admit Stat 03/31/24 01:24 Consult Orthopedic Surgery Routine Ordered Studies 03/30/24 20:59 CT abd pelvis wo con Stat IMPRESSION: 1. Comminuted mildly displaced fractures of the left inferior and superior pubic rami. 2. Age indeterminant severe T11 and L1 compression fractures in addition to mild T12 and L2 compression fractures. 3. Diverticulosis. CT cervical spine wo con Stat IMPRESSION: No acute finding of the cervical spine. CT chest diagnostic wo con Stat IMPRESSION: 1. Age indeterminant severe T12 compression fracture. 2. Bilateral airspace opacities of the lung periphery favor interstitial lung disease. Cannot exclude pulmonary edema. 3. There is ectasia of the ascending aorta measuring 3.6 cm. 4. 8 mm left upper lobe pulmonary nodule. This is mildly increased in size, and previously measured 6 mm. Fleischner Society Guidelines for low-risk or high-risk patients suggest a follow-up chest CT at 6-12 months. If unchanged, recommend an additional follow-up CT at 18-24 months due to the morphologic appearance of this nodule. CT head/brain wo con Stat IMPRESSION: No acute intracranial finding. Hospital Course (1) SOB (shortness of breath): Closed left radial fracture S/P Plaster cast Closed pelvic fracture Nondisplaced fracture of the base of the right long finger Secondary to fall after tripping on her walker Chronic T11, L1 complaints fractures, mild T12, L2 compression fractures Underlying osteoporosis Ambulatory dysfunction --CT Head:No acute intracranial finding. --CT Neck:No acute finding of the cervical spine. --CT:Comminuted mildly displaced fractures of the left inferior and superior pubic rami. --Left Hand X ray:Nondisplaced fracture of the distal radial metaphysis. Nonspecific soft tissue swelling of the wrist. Degenerative changes are most prominent of the radiocarpal joint, first carpometacarpal joint and interphalangeal joints. This favors osteoarthritis. Conservative management Appreciate orthopedics input- Fall precautions PT OT as able Pain control Per orthopedic surgeon (Dr. Andres) - From the orthopedic standpoint she can weight-bear as tolerated. She can be pretty painful weightbearing for the first couple weeks. The cast is fitting well. She does need to elevate her hand. Were just going to treat the finger fracture conservatively due to the surrounding abrasion. A cast will need to be on for 6 weeks. Should elevate is much as possible. I will see her in a about a month. Any orthopedic questions can be recommend [phone]. Weightbearing as tolerated per Ortho Elevate hand to help with swelling Plan to continue the cast for 6 weeks Needs follow-up with orthopedics on discharge PT recommends rehab Initially refused rehab placement, currently plans to go to rehab Plan to discharge to rehab/ snf facility Urinary retention UTI Continue Sylvester catheter for now Urine culture grew E. coli Blood culture: Negative to date Currently on IV Azactam>> transitioned to Cipro Voiding trial at rehab facility Transient epistaxis Afrin as needed Hold anticoagulation if recurrent No recurrence PATs Asymptomatic Monitor and replete electrolytes as needed Consider increasing metoprolol dose if frequent Chronic hyponatremia due to SIADH Hypokalemia Replete electrolytes as needed Continue fluid restriction Monitor Sodium 132 today Chronic dyspnea intermittently Left upper lobe lung nodule H/O squamous cell lung cancer S/P surgery H/O COPD --CT Chest:Bilateral airspace opacities of the lung periphery favor interstitial lung disease. Cannot exclude pulmonary edema. There is ectasia of the ascending aorta measuring 3.6 cm. 8 mm left upper lobe pulmonary nodule. This is mildly increased in size, and previously measured 6 mm. -- Saturating well on room air Advised to follow-up with oncology as outpatient for further evaluation Advised to get repeat CT in 6 to 12 months for evaluation of lung nodule Continue home inhalers as needed Paroxysmal atrial fibrillation Continue metoprolol Not on anticoagulation due to fall risk Hypertension Continue losartan, metoprolol added amlodipine 2.5 mg daily for better BP control Blood pressure stable Adjust medications as needed Hypothyroidism Continue levothyroxine Other Chronic conditions: Valvular heart disease (moderate MR/AR, borderline MVP) PVD status post surgery Prediabetes: HbA1C 5.10 May 2023 H/O Rheumatoid arthritis, on methotrexate Past tobacco abuse Continue home medications as able DVT Px:Teds, Heparin SQ Total Time Total Time Spent Total Time Spent (In Minutes): 40 Discharge Plan Discharge Items Patient Disposition: Transfer Senior Living Fac Reason For Visit: COMP UTI,SEPSIS Discharge Diagnosis: Stable Pelvis Fracture Left Distal Radius Fracture Left Long Finger Fracture UTI, urinary retention Activity: Per Instructions section Activity Comment: Weightbear as tolerated. Elevate Left Wrist/Hand as much as possible. Non-emergency contact: Primary Care Provider, Surgeon and Specialist Call non-emergency contact if: you have any medication questions and your symptoms worsen Follow-up/Referrals: Osman Andres MD [Physician] - (Orthopedic Follow-up in 1 month) Edna Neal MD [Primary Care Provider] - Diet: Heart Healthy Fluids: 1500ml (6 cups) Addtl Attending Provider Instructions: Follow up with primary care physician and orthopedic surgeon (Dr. Andres). Finish antibiotic treatment for UTI. Per orthopedic surgeon - Elevate Left Hand at all times. Weight bear as tolerated Follow up with orthopedic surgeon in 1 month. Pending Studies at Discharge: No Stand-Alone Forms: [facility] [email or web address] Skilled Items Patient informed of condition?: Yes DNR: No Discharge Level of Care: Skilled Communicable Disease: No Discharge Prognosis: Stable Lines: None Urinary Catheter: Yes Medications and DC Order Prescriptions: New ciprofloxacin HCl 250 mg Tablet 250 mg PO Q12 2 Days Qty: 4 0RF amlodipine [Norvasc] 5 mg Tablet 2.5 mg PO QAM Qty: 10 0RF Advanced Probiotic 625 mg (10 billion cell) Capsule 1 cap PO DAILY Qty: 10 0RF Continued famotidine 20 mg tablet 20 mg PO AMPM methotrexate sodium 2.5 mg tablet 10 mg PO WK Rx Instructions: fridays levothyroxine 50 mcg tablet 25 mcg PO DAILYBB aspirin [Bernie Low Dose Aspirin] 81 mg Tablet,Delayed Release (Dr/Ec) 81 mg PO QAM acetaminophen [Tylenol Extra Strength] 500 mg Tablet 500 mg PO Q6H PRN (Reason: Pain) folic acid 1 mg tablet 2 mg PO QAM furosemide 20 mg tablet 20 mg PO AMPM PRN (Reason: swelling) albuterol sulfate [Ventolin HFA] 90 mcg/actuation Hfa Aerosol Inhaler 2 puff INHALATION Q4H PRN (Reason: Shortness Of Breath) risedronate 150 mg tablet 150 mg PO MONTHLY losartan 100 mg tablet 100 mg PO QAM metoprolol succinate 25 mg tablet extended release 24 hr 25 mg PO QAM prednisone 5 mg tablet 5 mg PO UD PRN (Reason: arthritis pain) Centrum Silver Women 8 mg iron-400 mcg-50 mcg Tablet 1 tab PO QAM Discharge Orders: Discharge Order (Routine); Ordered 04/08/24 Ordered By: Justo Millan Admission Data Admit Date/Time: 04/01/24 04:48 Attending Provider: Justo Millan Admit Provider: Chin Blair Primary Care Provider: Edna Neal Other Providers: Chin Blair; Osman Andres; [facility]; Elias Romo [facility]; Martin,[facility]; Giuliano Khalil Other Interventions: Discharge Summary Assessment (RN) Last Done: 04/07/24 13:51
--- NOTE | 2024-04-10 16:49 | Coding Query ---
To promote full compliance with coding requirements relating to patient care, provider participation is requested in all cases of database marketing specialist uncertainty. Please assist us with the question(s) below: 04/01-OBS to IP order-comp uti, sepsis 04/01 COMMUNICATION report- sepsis secondary to complicated UTI Coding Question(s): The diagnosis(es) below was documented in the (database marketing specialist fill out source document ie H&P, progress notes, etc.) then subsequently fell off all further documentation. Please indicate if it is still a possible diagnosis or ruled out. Physician's Response(s): SEPSIS ( ) Diagnosed and POA ( x ) Diagnosed and not POA ( ) Ruled out/SIRS only ( ) Other (please specify) Sincerely, Allison Chávez, VLADIMIRP, [facility] Inpatient Mess Attendant [email or web address]
== END 2024-04-08 10:28 | DRG 872 ==
LOC: ED 20:49 → 2N 20:49 → SUATTDRO 04-01 04:48

== ENCOUNTER 2025-01-02 16:46 | Inpatient (IN) ==
--- NOTE | 2025-01-02 17:09 | Emergency Department Note ---
Impression & Plan Severe sepsis, Acute renal failure with oliguria, Acidosis, lactic, Closed loop obstruction of intestine, Atrial fibrillation with rapid ventricular response ED Provider Note NAME: PAXTON MEJIA AGE: 84 SEX: F : 1940 ARRIVES VIA: Ambulance INFORMANT: Patient, EMS, family members ED PROVIDER(S): John Rider DO CHIEF COMPLAINT: abdominal pain HPI: This is a 84-year-old female with the PMHx of HTN, PAD, chronic renal insufficiency, and anemia presenting to [facility] for further evaluation of abdominal pain with significant nausea and vomiting. Patient is accompanied by EMS and family who provide additional history. The patient has been ill over the past 2 to 3 days but has been reluctant to come to the hospital. Patient was evaluated by a neighbor today who recommended that she report to the emergency department. Patient has had significant nausea and vomiting. She has noted that her abdomen is swollen and painful. Patient is unsure of her last bowel movement. When asked if the patient has abdominal surgery, she states that she did not. When I ask her if she has an appendix or gallbladder she reports that these were both removed. Abdominal surgical history is positive for appendectomy, cholecystectomy and total abdominal hysterectomy. They deny fever or chills. No cough or congestion. Denies chest pain or palpitations. No shortness of breath. Noted to have dark urine and decreased output. No recent changes in bowel movements. Patient denies recent changes in medications or OTC supplements. Patient offers no other complaints, today. Discussed with family members outside the room following my initial evaluation. They report that patient is stubborn and has been severely ill over the last few days. They note that she has had significant nausea and vomiting. No appetite since because of her symptoms. They note that she has had some abdominal surgical history. They state that one of their neighbors evaluated her and recommended that she come to the emergency department. ADDITIONAL HISTORY OBTAINED: Per HPI Chronic Medical/Social Conditions Affecting Care: Per HPI PAST MEDICAL HISTORY: See Below PAST SURGICAL HISTORY: See Below FAMILY HISTORY: See Below SOCIAL HISTORY: See Below HOME MEDICATIONS: See Below ALLERGIES: See Below VITALS: See Below PHYSICAL EXAMINATION: GENERAL: Sitting up in bed, alert, well appearing, well nourished, no distress, non-toxic EYE EXAM: normal conjunctiva. PERRL and EOM's grossly intact. OROPHARYNX: no exudate, no erythema, lips, buccal mucosa, and tongue normal and mucous membranes are dry NECK: supple, no nuchal rigidity, no adenopathy, non-tender LUNGS: Clear to auscultation. Normal chest wall mechanics HEART: no murmurs, tachycardic rate, irregular rhythm ABDOMEN: patient has an acute surgical abdomen. She is distended with severe tenderness to palpation as well as rebound and guarding. BACK: Back is symmetrical on inspection and there is no deformity, no midline tenderness, no CVA tenderness. SKIN: Fragile skin with numerous areas of ecchymoses in various stages of healing UPPER EXTREMITIES: upper extremities are grossly normal. LOWER EXTREMITIES: No pitting edema. NEURO EXAM: Normal sensorium, GCS 15, normal speech, no gross weakness of arms, no gross weakness of legs. MEDICAL DECISION MAKING: Differential diagnoses includes but not limited to ischemic bowel, sepsis, bacteremia, appendicitis, bowel obstruction, complicated diverticulitis, malignancy, nephrolithiasis, gastroenteritis, ACS, PNA, pancreatitis, hepatobiliary disease, UTI In summary, this is a 84 year old female who presented with abdominal pain. Differential as above. Nursing notes and pertinent past medical records reviewed. Vital signs reviewed and the patient is borderline hypoxic and hypotensive as well as tachycardic and tachypneic. Patient is afebrile. History and presentation revealed ongoing illness over the last few days now with vital signs concerning for possible sepsis. Physical examination revealed acute surgical abdomen. As a result of my initial evaluation, patient arrives to the ED with nausea and vomiting as well as abdominal pain over the last 2 days. Patient is tachycardic as well as borderline hypotensive. Patient has an acute surgical abdomen on physical examination. Suspect the patient is likely septic from an intra-abdominal source. Patient states that she has had a history of diverticulitis and this is felt similar. Do feel that the patient could have a small bowel obstruction as she has had numerous abdominal surgical history including cholecystectomy, appendectomy and total abdominal hysterectomy. Plan for septic workup as well as CT abdomen/pelvis for further characterization of the patient's peritonitis. Diagnostics interpreted by me include EKG and cardiac monitoring as listed below: -Cardiac Monitoring: An order was placed for continuous cardiac monitoring. The monitor shows a rate of 120-180s with irregular rhythm. -ECG: EKG independently interpreted by me reveals atrial fibrillation with RVR at [address] segment changes to suggest STEMI. Will not aggressively rate control as the patient is likely reactive to her infection and acute surgical abdomen. Patient completed laboratory studies and imaging. CXR independently interpreted by me reveals no evidence of focal consolidation to suggest pna. No large pneumothorax or pleural effusion. The patient was managed with broad-spectrum antibiotics with IV meropenem after discussion with the ED pharmacist. The patient remains borderline hypotensive and tachycardic. Laboratory evaluation shows a leukocytosis. Patient does have a lactic acidosis and acute renal failure. Plan for Borrego placement. Procalcitonin is significantly elevated. Slight elevation in total bilirubin. LFTs are otherwise unremarkable. Slight troponin leak likely secondary to the patient's sepsis. Given patient's acute renal failure, will proceed with dry scan of the abdomen. Urinalysis does not show significant evidence of UTI. Feel that her source is more likely to be intra-abdominal. Given the patient's critical illness, I discussed CODE STATUS with her at the bedside. The patient is to remain a full code. She would only be interested in surgeries if this would be a life or situation. She is agreeable to aggressive measures as well as likely intensive care unit. I independently reviewed the patient's CAT scan that was concerning for small bowel obstruction with ischemia. Patient does have distention of the stomach. I recommended NG tube placement and she was agreeable to this. After placement of NG tube, I independently reviewed the patient's KUB which shows the NG tube tip within the stomach. Patient had NG tube at 2 intermittent suction with approximately 100mL of gastric contents out. SBO present but concerns for closed loop per radiology. Bowels are edematous and concerning for ischemia. Dr. Means paged and discussed. He will be in to see the patient. The patient's BP has remained stable. Her atrial fibrillation with RVR is reactive to her hypoperfusion and severe sepsis with end organ dysfunction. Her YAHIR is oliguric and approximately 150 mL of urine out since borrego placement. Discussed with Dr. Chun at 1927 for admission with ICU consultation. Meche STOUT CCM at 1930 and discussed at 1958. Plan for Albumin and IV Magnesium. Dr. Means agreeable to take to the OR but states patient needs to be further resuscitated by ICU. With surgical plan now in place, I will discuss with hospitalist and CCM team. The patient's lactic acidosis was improving. She was managed with a total of 2 L of crystalloid resuscitation as well as albumin. Ultimately, the decision was made to admit the patient for severe sepsis likely secondary to closed-loop bowel obstruction with ischemia and concerns for possible UTI. I discussed the case with the hospitalist service via telephone/[employer] and they are agreeable to admit the patient to their services. Based on the above, including the patient's age, coexisting illnesses, labs, imaging, and exam findings the decision to treat as an inpatient. I discussed the patient with the hospitalist team who recommended admission to their services. They received the medications, treatments, interventions indicated above and their condition []. I discussed my findings with the patient and their family and they understand and agree with the treatment plan. All patient / family questions were answered to their satisfaction. Consults/Care Managements Discussions: Per MDM ER treatment provided: See above Procedures:none Critical Care: I have personally spent 48 minutes of critical care time in direct management of this patient. This includes bedside care, interpretation of diagnostic studies, and testing, discussion with consultants, patient, and family members, and other require inpatient management activities. This 48 minutes is in excess of all separately billable procedures. The chart was completed utilizing [employer] Speech voice recognition software. Grammatical errors, random word insertions, pronoun errors, and incomplete sentences are an occasional consequence of this system due to software limitations, ambient noise, and hardware issues. Any formal questions or concerns about the content, text, or information contained within the body of this dictation should be directly addressed to the physician for clarification. Past Med/Surg History Problem List (Updated 01/02/25 @ 23:38 by John Rider DO) Atrial fibrillation with rapid ventricular response (Acute) Closed loop obstruction of intestine (Acute) Acidosis, lactic (Acute) Acute renal failure with oliguria (Acute) Severe sepsis (Acute) Encounter for pre-operative examination Abnormal CT scan, chest 08/20- notes presence of lung nodules. Phalanx, proximal fracture of finger SOB (shortness of breath) Multiple skin tears (Acute) Closed left radial fracture (Acute) Closed pelvic fracture (Acute) Fall (Acute) Pre-syncope Wrist pain, left (Acute) PAD (peripheral artery disease) (Chronic) Hypertension (Chronic) Medical History (Updated 01/02/25 @ 23:38 by John Rider DO) Paroxysmal atrial fibrillation with rapid ventricular response Peripheral vascular disease Acute on chronic renal insufficiency Chronic renal insufficiency Anemia Closed loop obstruction of intestine Rheumatoid arthritis Pulmonary nodules Lung cancer, lower lobe Surgical History S/P lobectomy of lung LLL H/O: hysterectomy Family History Other Family history non-contributory Social History Smoking Status: Never smoker Hx Alcohol Use: No Hx Substance Use: No Preferred Language: Malagasy Communication Ability: Effective Engineer Required: No Beliefs That Will Affect Care: None Current Living Situation: Alone Feels Safe at Home: Yes Assistive Devices: Walker Allergies Allergies Allergy/AdvReac Type Severity Reaction Status Date / Time tetracycline Allergy Severe COULDN'T Verified 03/31/24 00:22 BREATHE Cephalosporins Allergy Intermediate HIVES Verified 03/31/24 00:22 clindamycin Allergy Mild RASH Verified 03/31/24 00:22 Penicillins Allergy Mild HIVES Verified 03/31/24 00:22 Sulfa (Sulfonamide Allergy Mild RED AND Verified 03/31/24 00:22 Antibiotics) SWEATING SILVIA Inhibitors Allergy Unknown Unknown Verified 03/31/24 00:22 aspartame Allergy Unknown Unknown Verified 03/31/24 00:22 cefazolin Allergy Unknown Unknown Verified 03/31/24 00:22 cephalexin Allergy Unknown Unknown Verified 03/31/24 00:22 doxycycline Allergy Unknown Unknown Verified 03/31/24 00:22 hydrochlorothiazide Allergy Unknown Unknown Unverified 03/31/24 00:22 lidocaine Allergy Unknown Unknown Verified 03/31/24 00:22 lisinopril Allergy Unknown Unknown Unverified 03/31/24 00:22 yellow dye Allergy Unknown Unknown Verified 03/31/24 00:22 prednisone AdvReac Mild HIGH BP Verified 03/31/24 00:22 Home Meds Home Medications Medication Instructions Recorded Confirmed acetaminophen 500 mg tablet 500 mg PO Q6H PRN Pain 03/29/18 01/02/25 (Tylenol Extra Strength) albuterol sulfate 90 mcg/actuation 2 puff inhalation Q4H PRN 03/29/18 01/02/25 aerosol inhaler (Ventolin HFA) Shortness Of Breath aspirin 81 mg tablet,delayed 81 mg PO QAM 03/29/18 01/02/25 release (Bernie Low Dose Aspirin) folic acid 1 mg tablet 2 mg PO QAM 03/29/18 01/02/25 furosemide 20 mg tablet 20 mg PO AMPM PRN swelling 03/29/18 01/02/25 famotidine 20 mg tablet 20 mg PO AMPM 10/17/19 01/02/25 levothyroxine 50 mcg tablet 25 mcg PO DAILYBB 10/17/19 01/02/25 methotrexate sodium 2.5 mg tablet 10 mg PO WK 10/17/19 01/02/25 risedronate 150 mg tablet 150 mg PO MONTHLY 08/14/20 01/02/25 losartan 100 mg tablet 100 mg PO QAM 03/31/24 01/02/25 metoprolol succinate 25 mg 25 mg PO QAM 03/31/24 01/02/25 tablet,extended release 24 hr [id number] 8 mg-folic 400 1 tab PO QAM 03/31/24 01/02/25 mcg-K 50 mcg-lutein 300 mcg tablet (Centrum Silver Women) prednisone 5 mg tablet 5 mg PO UD PRN arthritis pain 03/31/24 01/02/25 Previous Rx's Medication Instructions Recorded L.acidop,casei,lactis,rham-B.lact,caroline 1 cap PO DAILY #10 caps 04/07/24 625 mg (10 billion cell) capsule (Advanced Probiotic) amlodipine 5 mg tablet (Norvasc) 2.5 mg (1/2 x 5 mg) PO QAM #10 tabs 04/07/24 Results & Data (ED) Vital Signs Vital Signs - 24 hr 01/02/25 16:57 01/02/25 17:05 01/02/25 17:06 Temperature Temperature Source Pulse Rate 178 H 136 H Pulse Rate from SpO2 Sensor 158 H 155 H Respiratory Rate 33 H 27 H Respiratory Effort / Characteristics Respiratory Depth Blood Pressure 110/82 Blood Pressure Mean 87 Pulse Oximetry 88 L 71 L Oxygen Delivery Method Sepsis Recent Fever Within 48 Hours Sepsis New/Unexplained Change in Mental Status Sepsis Action Taken by Nursing 01/02/25 17:10 01/02/25 17:18 01/02/25 17:24 Temperature 36.3 C L Temperature Source Oral Pulse Rate 165 H 125 H 155 H Pulse Rate from SpO2 Sensor Respiratory Rate 20 27 H Respiratory Effort / Characteristics Respiratory Depth Shallow Blood Pressure 94/54 L Blood Pressure Mean 67 Pulse Oximetry 90 Oxygen Delivery Method Room Air Sepsis Recent Fever Within 48 Hours No Sepsis New/Unexplained Change in Mental Status No Sepsis Action Taken by Nursing Physician Notified 01/02/25 17:26 01/02/25 17:26 01/02/25 17:27 Temperature Temperature Source Pulse Rate 164 H Pulse Rate from SpO2 Sensor Respiratory Rate 25 H Respiratory Effort / Characteristics Respiratory Depth Blood Pressure 91/55 L 91/55 L Blood Pressure Mean 66 66 Pulse Oximetry Oxygen Delivery Method Sepsis Recent Fever Within 48 Hours Sepsis New/Unexplained Change in Mental Status Sepsis Action Taken by Nursing 01/02/25 17:30 01/02/25 17:36 01/02/25 17:42 Temperature Temperature Source Pulse Rate 155 H 164 H Pulse Rate from SpO2 Sensor 163 H 157 H Respiratory Rate 25 H 23 Respiratory Effort / Characteristics Respiratory Depth Blood Pressure 111/72 Blood Pressure Mean 78 Pulse Oximetry 95 91 Oxygen Delivery Method Sepsis Recent Fever Within 48 Hours Sepsis New/Unexplained Change in Mental Status Sepsis Action Taken by Nursing 01/02/25 17:45 01/02/25 17:48 01/02/25 18:03 Temperature Temperature Source Pulse Rate 132 H Pulse Rate from SpO2 Sensor 168 H Respiratory Rate 20 Respiratory Effort / Characteristics Respiratory Depth Blood Pressure 87/62 L 90/72 L Blood Pressure Mean 74 83 Pulse Oximetry 93 Oxygen Delivery Method Sepsis Recent Fever Within 48 Hours Sepsis New/Unexplained Change in Mental Status Sepsis Action Taken by Nursing 01/02/25 18:03 01/02/25 18:15 01/02/25 18:30 Temperature Temperature Source Pulse Rate 153 H Pulse Rate from SpO2 Sensor 155 H Respiratory Rate 20 Respiratory Effort / Characteristics Respiratory Depth Blood Pressure 92/65 L 107/74 Blood Pressure Mean 77 78 Pulse Oximetry 97 Oxygen Delivery Method Sepsis Recent Fever Within 48 Hours Sepsis New/Unexplained Change in Mental Status Sepsis Action Taken by Nursing 01/02/25 18:33 01/02/25 18:45 01/02/25 18:45 Temperature Temperature Source Pulse Rate 145 H 131 H Pulse Rate from SpO2 Sensor 154 H 150 H Respiratory Rate 23 23 Respiratory Effort / Characteristics Respiratory Depth Blood Pressure 94/75 L Blood Pressure Mean 87 Pulse Oximetry 95 Oxygen Delivery Method Sepsis Recent Fever Within 48 Hours Sepsis New/Unexplained Change in Mental Status Sepsis Action Taken by Nursing 01/02/25 18:45 01/02/25 18:59 01/02/25 19:00 Temperature Temperature Source Pulse Rate Pulse Rate from SpO2 Sensor Respiratory Rate Respiratory Effort / Characteristics Non-Labored Non-Labored Respiratory Depth Normal Normal Blood Pressure 94/75 L Blood Pressure Mean 87 Pulse Oximetry Oxygen Delivery Method Sepsis Recent Fever Within 48 Hours Sepsis New/Unexplained Change in Mental Status Sepsis Action Taken by Nursing 01/02/25 19:00 01/02/25 19:00 01/02/25 19:06 Temperature Temperature Source Pulse Rate 130 H Pulse Rate from SpO2 Sensor Respiratory Rate 22 Respiratory Effort / Characteristics Respiratory Depth Blood Pressure 112/72 Blood Pressure Mean 86 Pulse Oximetry 93 Oxygen Delivery Method Room Air Sepsis Recent Fever Within 48 Hours Sepsis New/Unexplained Change in Mental Status Sepsis Action Taken by Nursing 01/02/25 19:06 01/02/25 19:07 01/02/25 19:12 Temperature Temperature Source Pulse Rate 126 H Pulse Rate from SpO2 Sensor 139 H Respiratory Rate 21 Respiratory Effort / Characteristics Non-Labored Respiratory Depth Normal Blood Pressure Blood Pressure Mean Pulse Oximetry 96 Oxygen Delivery Method Room Air Sepsis Recent Fever Within 48 Hours Sepsis New/Unexplained Change in Mental Status Sepsis Action Taken by Nursing 01/02/25 19:15 01/02/25 19:15 01/02/25 19:15 Temperature Temperature Source Pulse Rate Pulse Rate from SpO2 Sensor Respiratory Rate Respiratory Effort / Characteristics Respiratory Depth Blood Pressure 84/68 L 84/68 L 84/68 L Blood Pressure Mean 71 71 71 Pulse Oximetry Oxygen Delivery Method Sepsis Recent Fever Within 48 Hours Sepsis New/Unexplained Change in Mental Status Sepsis Action Taken by Nursing 01/02/25 19:15 01/02/25 19:24 01/02/25 19:24 Temperature Temperature Source Pulse Rate Pulse Rate from SpO2 Sensor 133 H 133 H Respiratory Rate 22 22 Respiratory Effort / Characteristics Respiratory Depth Blood Pressure 101/84 Blood Pressure Mean 89 Pulse Oximetry 90 94 Oxygen Delivery Method Sepsis Recent Fever Within 48 Hours Sepsis New/Unexplained Change in Mental Status Sepsis Action Taken by Nursing 01/02/25 19:30 01/02/25 19:30 01/02/25 19:30 Temperature Temperature Source Pulse Rate Pulse Rate from SpO2 Sensor Respiratory Rate Respiratory Effort / Characteristics Respiratory Depth Blood Pressure 81/67 L 81/67 L 81/67 L Blood Pressure Mean 69 69 69 Pulse Oximetry Oxygen Delivery Method Sepsis Recent Fever Within 48 Hours Sepsis New/Unexplained Change in Mental Status Sepsis Action Taken by Nursing 01/02/25 19:30 01/02/25 19:33 01/02/25 19:36 Temperature Temperature Source Pulse Rate Pulse Rate from SpO2 Sensor 143 H Respiratory Rate 25 H 30 H Respiratory Effort / Characteristics Respiratory Depth Blood Pressure 91/56 L Blood Pressure Mean 59 Pulse Oximetry 94 91 Oxygen Delivery Method Sepsis Recent Fever Within 48 Hours Sepsis New/Unexplained Change in Mental Status Sepsis Action Taken by Nursing 01/02/25 19:36 01/02/25 19:36 01/02/25 19:42 Temperature Temperature Source Pulse Rate 125 H Pulse Rate from SpO2 Sensor Respiratory Rate 24 Respiratory Effort / Characteristics Respiratory Depth Blood Pressure 91/56 L 91/56 L Blood Pressure Mean 59 59 Pulse Oximetry 94 Oxygen Delivery Method Sepsis Recent Fever Within 48 Hours Sepsis New/Unexplained Change in Mental Status Sepsis Action Taken by Nursing 01/02/25 19:45 01/02/25 19:45 01/02/25 19:55 Temperature Temperature Source Pulse Rate Pulse Rate from SpO2 Sensor Respiratory Rate Respiratory Effort / Characteristics Non-Labored Respiratory Depth Normal Blood Pressure 90/58 L 96/64 L Blood Pressure Mean 65 78 Pulse Oximetry Oxygen Delivery Method Sepsis Recent Fever Within 48 Hours Sepsis New/Unexplained Change in Mental Status Sepsis Action Taken by Nursing 01/02/25 19:55 01/02/25 19:57 01/02/25 20:00 Temperature Temperature Source Pulse Rate 157 H Pulse Rate from SpO2 Sensor 149 H Respiratory Rate 24 Respiratory Effort / Characteristics Respiratory Depth Blood Pressure 96/64 L 88/64 L Blood Pressure Mean 78 65 Pulse Oximetry 94 Oxygen Delivery Method Sepsis Recent Fever Within 48 Hours Sepsis New/Unexplained Change in Mental Status Sepsis Action Taken by Nursing 01/02/25 20:03 01/02/25 20:12 01/02/25 20:15 Temperature Temperature Source Pulse Rate 150 H 141 H Pulse Rate from SpO2 Sensor 157 H 157 H Respiratory Rate 26 H 24 Respiratory Effort / Characteristics Respiratory Depth Blood Pressure 102/62 Blood Pressure Mean 82 Pulse Oximetry Oxygen Delivery Method Sepsis Recent Fever Within 48 Hours Sepsis New/Unexplained Change in Mental Status Sepsis Action Taken by Nursing 01/02/25 20:15 01/02/25 20:15 01/02/25 20:15 Temperature Temperature Source Pulse Rate 145 H Pulse Rate from SpO2 Sensor 147 H Respiratory Rate 23 Respiratory Effort / Characteristics Respiratory Depth Blood Pressure 102/62 102/62 Blood Pressure Mean 82 82 Pulse Oximetry 95 Oxygen Delivery Method Sepsis Recent Fever Within 48 Hours Sepsis New/Unexplained Change in Mental Status Sepsis Action Taken by Nursing 01/02/25 20:18 Temperature Temperature Source Pulse Rate Pulse Rate from SpO2 Sensor Respiratory Rate Respiratory Effort / Characteristics Respiratory Depth Blood Pressure Blood Pressure Mean Pulse Oximetry Oxygen Delivery Method Room Air Sepsis Recent Fever Within 48 Hours Sepsis New/Unexplained Change in Mental Status Sepsis Action Taken by Nursing Laboratory Data 01/02/25 17:00 01/02/25 17:00 Lab Results 01/02/25 01/02/25 01/02/25 Range/Units 17:00 17:03 17:30 WBC 18.91 H (4.8-10.8) K/ul RBC 3.96 L (4.20-5.40) M/uL Hgb 12.6 (12.0-16.0) g/dl Hct 38.2 (37.0-47.0) % MCV 96.5 (80.0-100.0) fL MCH 31.8 (25.0-34.0) pg MCHC 33.0 (32.0-36.0) g/dL RDW Std Deviation 59.2 H (36.4-46.3) fL RDW Coeff of Zee 17.3 H (11.5-14.5) % Plt Count 209 (130-400) K/uL MPV 13.4 H (9.4-12.4) fL Immature Gran % (Auto) 0.5 % Neut % (Auto) 85.4 % Lymph % (Auto) 4.5 % [place] % (Auto) 9.1 % Eos % (Auto) 0.2 % Baso % (Auto) 0.3 % Neut # (Auto) 16.12 H (1.40-6.50) K/uL Lymph # (Auto) 0.86 L (1.20-3.40) K/uL [place] # (Auto) 1.73 H (0.11-0.59) K/uL Eos # (Auto) 0.04 (0.00-0.50) K/uL Baso # (Auto) 0.06 (0.00-0.20) K/uL Immature Gran # (Auto) 0.10 (0.01-0.20) K/uL Absolute Nucleated RBC 0.02 (0.00-0.12) K/uL Nucleated RBC % (auto) 0.1 % Anisocytosis Present PT 14.3 H (9.0-12.0) Seconds INR 1.4 H (0.9-1.1) APTT 24 (21-31) Seconds PTT Ratio 0.9 VBG pH 7.43 H (7.36-7.41) VBG pCO2 47 (38-50) mmHg VBG pO2 20 mmHg VBG HCO3 31 mmol/L VBG O2 Saturation < 60.0 % VBG Base Excess 5.9 mEq/L Sodium 137 (136-145) mmol/L Potassium 4.7 (3.5-5.1) mmol/L Chloride 94 L (98-107) mmol/L Carbon Dioxide 29 (21-32) mmol/L Anion Gap 14 H (3-11) BUN 49 H (6-23) mg/dl Creatinine 2.34 H (0.6-1.2) mg/dl Est Cr Clr Drug Dosing 13.9 ml/min eGFR 19.90 BUN/Creatinine Ratio 20.9 H (10-20) Glucose 100 H (70-99(Fasting)) mg/dl Lactate 4.3 H* (0.4-2.0) mmol/L Calcium 9.1 (8.6-10.3) mg/dl Magnesium 2.1 (1.7-2.4) mg/dl Total Bilirubin 2.7 H (0.2-1.0) mg/dl Direct Bilirubin 0.7 H (0-0.2) mg/dl AST 25 (13-39) U/L ALT 16 (7-52) U/L Alkaline Phosphatase 63 (34-104) U/L Troponin I High Sens 31.4 H (0-14) pg/ml Total Protein 7.0 (6.0-8.3) gm/dl Albumin 3.4 (3.4-5.0) gm/dl Procalcitonin 15.20 H (0-0.5) ng/ml Urine Color [place] Urine Appearance Clear (Clear) Urine pH 6.5 (4.5-7.5) Ur Specific [place] 1.019 (1.000-1.030) Urine Protein 1+ H (Negative) Urine Glucose (UA) Negative (Negative) Urine Ketones Trace H (Negative) Urine Blood Negative (Negative) Urine Nitrite Positive A (Negative) Urine Bilirubin 1+ H (Negative) Urine Urobilinogen Positive H (Negative) Ur Leukocyte Esterase 1+ H (Negative) Urine WBC (Auto) 0-5 (0-5) /hpf Urine RBC (Auto) 0-2 (0-2) /hpf U Hyaline Cast (Auto) 3-5 H (0-2) /lpf U Epithel Cells (Auto) 0-2 (0-2) /hpf Urine Bacteria (Auto) None Seen (None Seen) Urine Comment Adenovirus (PCR) (NotDetected) B. pertussis DNA (PCR) (NotDetected) B.parapertussis DNA PCR (NotDetected) C. pneumoniae DNA (PCR) (NotDetected) Coronavirus OC43 (PCR) (NotDetected) Coronavirus HKU1 (PCR) (NotDetected) Coronavirus 229E (PCR) (NotDetected) SARS-CoV-2 (PCR) (NotDetected) Coronavirus NL63 (PCR) (NotDetected) Human Metapneumovir PCR (NotDetected) Influenza Type A (PCR) (NotDetected) Influenza Type B (PCR) (NotDetected) M. pneumoniae (PCR) (NotDetected) Parainfluenza 1 (PCR) (NotDetected) Parainfluenza 2 (PCR) (NotDetected) Parainfluenza 3 (PCR) (NotDetected) Parainfluenza 4 (PCR) (NotDetected) RSV (PCR) (NotDetected) Entero/Rhino (PCR) (NotDetected) Blood Type Antibody Screen 01/02/25 01/02/25 01/02/25 Range/Units 17:33 18:00 19:26 WBC (4.8-10.8) K/ul RBC (4.20-5.40) M/uL Hgb (12.0-16.0) g/dl Hct (37.0-47.0) % MCV (80.0-100.0) fL MCH (25.0-34.0) pg MCHC (32.0-36.0) g/dL RDW Std Deviation (36.4-46.3) fL RDW Coeff of Zee (11.5-14.5) % Plt Count (130-400) K/uL MPV (9.4-12.4) fL Immature Gran % (Auto) % Neut % (Auto) % Lymph % (Auto) % [place] % (Auto) % Eos % (Auto) % Baso % (Auto) % Neut # (Auto) (1.40-6.50) K/uL Lymph # (Auto) (1.20-3.40) K/uL [place] # (Auto) (0.11-0.59) K/uL Eos # (Auto) (0.00-0.50) K/uL Baso # (Auto) (0.00-0.20) K/uL Immature Gran # (Auto) (0.01-0.20) K/uL Absolute Nucleated RBC (0.00-0.12) K/uL Nucleated RBC % (auto) % Anisocytosis PT (9.0-12.0) Seconds INR (0.9-1.1) APTT (21-31) Seconds PTT Ratio VBG pH (7.36-7.41) VBG pCO2 (38-50) mmHg VBG pO2 mmHg VBG HCO3 mmol/L VBG O2 Saturation % VBG Base Excess mEq/L Sodium (136-145) mmol/L Potassium (3.5-5.1) mmol/L Chloride (98-107) mmol/L Carbon Dioxide (21-32) mmol/L Anion Gap (3-11) BUN (6-23) mg/dl Creatinine (0.6-1.2) mg/dl Est Cr Clr Drug Dosing ml/min eGFR BUN/Creatinine Ratio (10-20) Glucose (70-99(Fasting)) mg/dl Lactate 2.9 H* (0.4-2.0) mmol/L Calcium (8.6-10.3) mg/dl Magnesium (1.7-2.4) mg/dl Total Bilirubin (0.2-1.0) mg/dl Direct Bilirubin (0-0.2) mg/dl AST (13-39) U/L ALT (7-52) U/L Alkaline Phosphatase (34-104) U/L Troponin I High Sens 21.8 H (0-14) pg/ml Total Protein (6.0-8.3) gm/dl Albumin (3.4-5.0) gm/dl Procalcitonin (0-0.5) ng/ml Urine Color Urine Appearance (Clear) Urine pH (4.5-7.5) Ur Specific [place] (1.000-1.030) Urine Protein (Negative) Urine Glucose (UA) (Negative) Urine Ketones (Negative) Urine Blood (Negative) Urine Nitrite (Negative) Urine Bilirubin (Negative) Urine Urobilinogen (Negative) Ur Leukocyte Esterase (Negative) Urine WBC (Auto) (0-5) /hpf Urine RBC (Auto) (0-2) /hpf U Hyaline Cast (Auto) (0-2) /lpf U Epithel Cells (Auto) (0-2) /hpf Urine Bacteria (Auto) (None Seen) Urine Comment Adenovirus (PCR) Not Detected (NotDetected) B. pertussis DNA (PCR) Not Detected (NotDetected) B.parapertussis DNA PCR Not Detected (NotDetected) C. pneumoniae DNA (PCR) Not Detected (NotDetected) Coronavirus OC43 (PCR) Not Detected (NotDetected) Coronavirus HKU1 (PCR) Not Detected (NotDetected) Coronavirus 229E (PCR) Not Detected (NotDetected) SARS-CoV-2 (PCR) Not Detected (NotDetected) Coronavirus NL63 (PCR) Not Detected (NotDetected) Human Metapneumovir PCR Not Detected (NotDetected) Influenza Type A (PCR) Not Detected (NotDetected) Influenza Type B (PCR) Not Detected (NotDetected) M. pneumoniae (PCR) Not Detected (NotDetected) Parainfluenza 1 (PCR) Not Detected (NotDetected) Parainfluenza 2 (PCR) Not Detected (NotDetected) Parainfluenza 3 (PCR) Not Detected (NotDetected) Parainfluenza 4 (PCR) Not Detected (NotDetected) RSV (PCR) Not Detected (NotDetected) Entero/Rhino (PCR) Not Detected (NotDetected) Blood Type A Positive Antibody Screen NEGATIVE Administered Medications Meropenem 500 mg/ Syringe 10 mls @ 2 mls/min IV Q6H NAWAF; Protocol Stop: 01/04/25 17:14 Last Admin: 01/02/25 18:28 Dose: 2 mls/min Documented By: JASE Discontinued Medications Cefoxitin Sodium (Cefoxitin Sod 1,000 Mg Vial) Confirm Administered Dose 1,000 mg .ROUTE .STK-MED ONE Stop: 01/02/25 20:23 Last Admin: 01/02/25 21:40 Dose: Not Given Documented By: CLAUDETTE Sodium Chloride (Nss) 1,000 mls @ 999 mls/hr IV .Q1H1M NAWAF Stop: 01/02/25 18:00 Last Infusion: 01/02/25 18:32 Dose: Infused Documented By: Admin: 01/02/25 17:21 Dose: 999 mls/hr Documented By: JASE Acetaminophen (Ofirmev) 1,000 mg in 100 mls @ 400 mls/hr IV NOW STA Stop: 01/02/25 17:12 Last Infusion: 01/02/25 17:58 Dose: Infused Documented By: Admin: 01/02/25 17:20 Dose: 400 mls/hr Documented By: JASE Parenteral Electrolytes (Plasma-Lyte A Ph 7.4) 1,000 mls @ 999 mls/hr IV .Q1H1M ONE Stop: 01/02/25 18:51 Last Admin: 01/02/25 18:02 Dose: 999 mls/hr Documented By: JASE Parenteral Electrolytes (Plasma-Lyte A Ph 7.4) 500 mls @ 999 mls/hr IV .Q31M ONE Stop: 01/02/25 19:59 Last Admin: 01/02/25 19:42 Dose: 999 mls/hr Documented By: JESSE Albumin Human (Albumin 5%) 250 mls @ 500 mls/hr IV ONE ONE Stop: 01/02/25 20:28 Last Admin: 01/02/25 20:06 Dose: 500 mls/hr Documented By: JESSE Ondansetron HCl (Ondansetron Inj 2 Mg/Ml 2 Ml Vial) 4 mg IV NOW STA Stop: 01/02/25 16:59 Last Admin: 01/02/25 17:19 Dose: 4 mg Documented By: JASE Imaging Data Radiologist's Impression: Abdomen/Pelvis CT 01/02/25 16:58 CT ABDOMEN and PELVIS without INTRAVENOUS CONTRAST HISTORY: Abdominal pain TECHNIQUE: CT abdomen and pelvis without contrast. IV CONTRAST: None ENTERIC CONTRAST: None. COMPARISON: None FINDINGS: LOWER CHEST: Cardiomegaly. Small pericardial fluid. Chronic interstitial lung changes. LIVER: No focal lesion identified in this noncontrast study. GALLBLADDER/BILIARY: Unremarkable gallbladder. No abnormal biliary dilatation. SPLEEN: Unremarkable. PANCREAS: Unremarkable. ADRENALS: Unremarkable. KIDNEYS: Kidneys are atrophic. No stones or hydronephrosis identified. PERITONEUM/RETROPERITONEUM. No lymphadenopathy by size criteria. No aortic aneurysm. Extensive atherosclerosis. Aortobiiliac stent. GASTROINTESTINAL: Multiple loops of the small bowel and the stomach are significantly fluid distended, through portions of the decompressed large bowel. This is consistent small bowel obstruction. Moreover, there appear to be 2 transition points in the left lower quadrant of the abdomen abutting each other (series 2, image 66) with the intervening loop of small bowel appearing inflamed. Colonic diverticulosis without evidence of diverticulitis. REPRODUCTIVE: Status post hysterectomy BONES: No acute findings. Old fracture of the left superior and inferior right pubic rami and chronic left sacral fractures. Chronic appearing compression fractures of T11-L2 vertebral bodies with mild retropulsion. IMPRESSION: Small bowel obstruction with high suspicion for a closed-loop bowel obstruction with transition points in the left lower quadrant of the abdomen as discussed Notification to clinician of alert: [facility] ED was notified about above findings by phone on January 02, 2025 at 6:50 PM by Dyllan Vicente MD. Electronically signed by Dyllan Vicente 01-02-2025 6:58 PM Chest X-Ray 01/02/25 16:59 Chest radiograph, one view History: Sepsis Comparison: 03/30/2024 Findings: Single AP view of the chest performed. No focal consolidation or pleural effusion. No pneumothorax. Scattered fibrotic changes, similar to prior. The cardiomediastinal silhouette is within normal limits. Prominent pulmonary vascularity. No evidence for lymphadenopathy. No visualized bony or soft tissue abnormality. Impression: Scattered fibrotic changes again seen, without evidence for acute superimposed process Electronically signed by Khai Lindsey 01-02-2025 6:04 PM KUB X-Ray 01/02/25 18:05 Clinical history: NG tube placement One view of the abdomen was obtained Findings: The bowel gas pattern appears unremarkable. No renal or ureteral calculi are seen. There is a feeding tube with its tip and side-port within the stomach. There are iliac vascular stents. There is lumbar scoliosis and degenerative disc disease. There are lumbar compression fractures There is a small left pleural effusion. There are bilateral lung base opacities that may be due to atelectasis Impression: Nasogastric tube with its tip within the stomach Electronically signed by Jeyson Charles 01-02-2025 7:17 PM Discharge Plan Visit Data Chief Complaint: Lethargic ED Provider: John Rider Discharge Problem: Severe sepsis, Acute renal failure with oliguria, Acidosis, lactic, Closed loop obstruction of intestine, Atrial fibrillation with rapid ventricular response Patient Disposition: Admitted As Inpatient Condition: Serious Discharge Instructions Interventions: ED Discharge Assessment Last Done: 01/02/25 20:18
[2025-01-02] MEDS: ONDANSETRON INJ 2 MG/ML 2 ML VIAL IV STA (17:19)
[2025-01-02] MEDS: ACETAMINOPHEN 1,000 MG/100 ML VIAL IV STA (17:20)
[2025-01-02] MEDS: SODIUM CHLORIDE 0.9% 1,000 ML IV SCH (17:21)
[2025-01-02 17:31] LABS: Appearance Urine Clear (Clear); Bacteria Urine Automated None Seen (None Seen); Epithelial Cell Urine Auto 0-2 /hpf (0-2); Glucose Urine UA Negative (Negative); RBC Urine Automated 0-2 /hpf (0-2); WBC Urine Automated 0-5 /hpf (0-5)
[2025-01-02 17:39] LABS: Alanine Aminotransferase 16.0 U/L (7-52); Albumin Level 3.4 gm/dl (3.4-5.0); Alkaline Phosphatase 63.0 U/L (34-104); Anion Gap 14.0 (3-11); Anisocytosis Present; Bilirubin,Total 2.7 mg/dl (0.2-1.0); Blood Urea Nitrogen 49.0 mg/dl (6-23); Calcium 9.1 mg/dl (8.6-10.3); Carbon Dioxide 29.0 mmol/L (21-32); Chloride 94.0 mmol/L (98-107); Creatinine Clr Calc Pharmacy 13.9 ml/min; Glucose 100.0 mg/dl (70-99(Fasting)); Hematocrit (blood only) 38.2 % (37.0-47.0); Hemoglobin 12.6 g/dl (12.0-16.0); Immature Granulocytes # (auto) 0.10 K/uL (0.01-0.20); Immature Granulocytes % (auto) 0.5 %; Magnesium 2.1 mg/dl (1.7-2.4); Mean Corpuscular Hemoglobin 31.8 pg (25.0-34.0); Mean Corpuscular Volume 96.5 fL (80.0-100.0); Platelet Count 209 K/uL (130-400); Potassium 4.7 mmol/L (3.5-5.1); RDW Standard Deviation 59.2 fL (36.4-46.3); Red Blood Count 3.96 M/uL (4.20-5.40); Sodium 137.0 mmol/L (136-145); Total Protein 7.0 gm/dl (6.0-8.3); White Blood Count 18.91 K/ul (4.8-10.8)
[2025-01-02 17:42] LABS: Base Excess VBG 5.9 mEq/L; HCO3 VBG 31 mmol/L; Oxygen Saturation VBG < 60.0 %; PCO2 VBG 47 mmHg (38-50); PO2 VBG 20 mmHg; pH VBG 7.43 (7.36-7.41)
[2025-01-02 17:57] LABS: INR 1.4 (0.9-1.1); Partial Thromboplastin Time 24 Seconds (21-31); Prothrombin Time 14.3 Seconds (9.0-12.0)
[2025-01-02] MEDS: PLASMA-LYTE A 1,000 ML IV ONE ×2 (18:02→23:00)
--- NOTE | 2025-01-02 18:04 | XRay Report ---
Chest radiograph, one view History: Sepsis Comparison: 03/30/2024 Findings: Single AP view of the chest performed. No focal consolidation or pleural effusion. No pneumothorax. Scattered fibrotic changes, similar to prior. The cardiomediastinal silhouette is within normal limits. Prominent pulmonary vascularity. No evidence for lymphadenopathy. No visualized bony or soft tissue abnormality. Impression: Scattered fibrotic changes again seen, without evidence for acute superimposed process Electronically signed by Khai Lindsey 01-02-2025 6:04 PM
[2025-01-02] MEDS: MEROPENEM 500 MG in SYRINGE 0 ML IV SCH (18:28)
--- NOTE | 2025-01-02 18:58 | CT Scan Report ---
CT ABDOMEN and PELVIS without INTRAVENOUS CONTRAST HISTORY: Abdominal pain TECHNIQUE: CT abdomen and pelvis without contrast. IV CONTRAST: None ENTERIC CONTRAST: None. COMPARISON: None FINDINGS: LOWER CHEST: Cardiomegaly. Small pericardial fluid. Chronic interstitial lung changes. LIVER: No focal lesion identified in this noncontrast study. GALLBLADDER/BILIARY: Unremarkable gallbladder. No abnormal biliary dilatation. SPLEEN: Unremarkable. PANCREAS: Unremarkable. ADRENALS: Unremarkable. KIDNEYS: Kidneys are atrophic. No stones or hydronephrosis identified. PERITONEUM/RETROPERITONEUM. No lymphadenopathy by size criteria. No aortic aneurysm. Extensive atherosclerosis. Aortobiiliac stent. GASTROINTESTINAL: Multiple loops of the small bowel and the stomach are significantly fluid distended, through portions of the decompressed large bowel. This is consistent small bowel obstruction. Moreover, there appear to be 2 transition points in the left lower quadrant of the abdomen abutting each other (series 2, image 66) with the intervening loop of small bowel appearing inflamed. Colonic diverticulosis without evidence of diverticulitis. REPRODUCTIVE: Status post hysterectomy BONES: No acute findings. Old fracture of the left superior and inferior right pubic rami and chronic left sacral fractures. Chronic appearing compression fractures of T11-L2 vertebral bodies with mild retropulsion. IMPRESSION: Small bowel obstruction with high suspicion for a closed-loop bowel obstruction with transition points in the left lower quadrant of the abdomen as discussed Notification to clinician of alert: [facility] was notified about above findings by phone on January 02, 2025 at 6:50 PM by Dyllan Vicente MD. Electronically signed by Dyllan Vicente 01-02-2025 6:58 PM
--- NOTE | 2025-01-02 19:17 | XRay Report ---
Clinical history: NG tube placement One view of the abdomen was obtained Findings: The bowel gas pattern appears unremarkable. No renal or ureteral calculi are seen. There is a feeding tube with its tip and side-port within the stomach. There are iliac vascular stents. There is lumbar scoliosis and degenerative disc disease. There are lumbar compression fractures There is a small left pleural effusion. There are bilateral lung base opacities that may be due to atelectasis Impression: Nasogastric tube with its tip within the stomach Electronically signed by Jeyson Charles 01-02-2025 7:17 PM
[2025-01-02 19:30] LABS: Chlamydia pneumoniae PCR Not Detected (NotDetected); Coronavirus 229E PCR Not Detected (NotDetected); Coronavirus CoV-2 (COVID19)PCR Not Detected (NotDetected); Coronavirus HKU1 PCR Not Detected (NotDetected); Coronavirus NL63 PCR Not Detected (NotDetected); Coronavirus OC43PCR Not Detected (NotDetected); Human Metapneumovirus PCR Not Detected (NotDetected); Parainfluenza Virus 1 PCR Not Detected (NotDetected); Parainfluenza Virus 2 PCR Not Detected (NotDetected); Parainfluenza Virus 3 PCR Not Detected (NotDetected); Parainfluenza Virus 4 PCR Not Detected (NotDetected); Respiratory Syncytial VirusPCR Not Detected (NotDetected); Rhinovirus/Enterovirus PCR Not Detected (NotDetected)
[2025-01-02] MEDS: PLASMA-LYTE A 500 ML IV ONE (19:42)
[2025-01-02] MEDS: ALBUMIN 5% 250 ML IV ONE (20:06)
--- NOTE | 2025-01-02 20:12 | Surgery Consultation ---
Date of Consultation January 02, 2025 Assessment & Plan (1) Closed loop obstruction of intestine: 84-year-old woman with multiple medical problems including hypertension, atrial fibrillation, chronic kidney disease, presents with sepsis and closed-loop bowel obstruction. He had a long discussion with her concerning the situation. There is evidence of threatened bowel on the CT scan. I have talked to the ICU and the hospitalist to begin resuscitation measures. She is receiving her second liter of fluid at this time. We will plan to take her to the operating room for exploratory laparotomy, lysis of adhesions, possible bowel resection. She will be in the ICU afterwards. I discussed the risks and benefits of the surgery as well as the expected postoperative course and possible complications stemming from such a grave issue. Will take her to the operating room at the earliest convenience. Consent has been obtained. History of Present Illness Reason for Consultation: Closed-loop small bowel obstruction Requesting Physician: John Downs MD Attending Physician: John Downs MD History of Present Illness 84-year-old woman with multiple medical problems including hypertension, chronic renal insufficiency, presents with 2-day history of nausea, vomiting, abdominal pain, and bloating. She last had a bowel movement 2 days ago. She was becoming lethargic, and was brought to the hospital. She is tachycardic in atrial fibrillation, and blood pressure is in the 80s to 90s systolic. Lactic acid is 4.5. CT scan demonstrates a high-grade small bowel obstruction with closed-loop obstruction in the left lower quadrant and evidence of threatened bowel. She states that she has had chills but no fevers. Allergies Allergy/AdvReac Type Severity Reaction Status Date / Time tetracycline Allergy Severe COULDN'T Verified 03/31/24 00:22 BREATHE Cephalosporins Allergy Intermediate HIVES Verified 03/31/24 00:22 clindamycin Allergy Mild RASH Verified 03/31/24 00:22 Penicillins Allergy Mild HIVES Verified 03/31/24 00:22 Sulfa (Sulfonamide Allergy Mild RED AND Verified 03/31/24 00:22 Antibiotics) SWEATING SILVIA Inhibitors Allergy Unknown Unknown Verified 03/31/24 00:22 aspartame Allergy Unknown Unknown Verified 03/31/24 00:22 cefazolin Allergy Unknown Unknown Verified 03/31/24 00:22 cephalexin Allergy Unknown Unknown Verified 03/31/24 00:22 doxycycline Allergy Unknown Unknown Verified 03/31/24 00:22 hydrochlorothiazide Allergy Unknown Unknown Unverified 03/31/24 00:22 lidocaine Allergy Unknown Unknown Verified 03/31/24 00:22 lisinopril Allergy Unknown Unknown Unverified 03/31/24 00:22 yellow dye Allergy Unknown Unknown Verified 03/31/24 00:22 prednisone AdvReac Mild HIGH BP Verified 03/31/24 00:22 Home Medications Medication Instructions Recorded Confirmed Type acetaminophen 500 mg tablet 500 mg PO Q6H PRN Pain 03/29/18 01/02/25 History (Tylenol Extra Strength) albuterol sulfate 90 mcg/actuation 2 puff inhalation Q4H PRN 03/29/18 01/02/25 History aerosol inhaler (Ventolin HFA) Shortness Of Breath aspirin 81 mg tablet,delayed 81 mg PO QAM 03/29/18 01/02/25 History release (Bernie Low Dose Aspirin) folic acid 1 mg tablet 2 mg PO QAM 03/29/18 01/02/25 History furosemide 20 mg tablet 20 mg PO AMPM PRN swelling 03/29/18 01/02/25 History famotidine 20 mg tablet 20 mg PO AMPM 10/17/19 01/02/25 History levothyroxine 50 mcg tablet 25 mcg PO DAILYBB 10/17/19 01/02/25 History methotrexate sodium 2.5 mg tablet 10 mg PO WK 10/17/19 01/02/25 History risedronate 150 mg tablet 150 mg PO MONTHLY 08/14/20 01/02/25 History losartan 100 mg tablet 100 mg PO QAM 03/31/24 01/02/25 History metoprolol succinate 25 mg 25 mg PO QAM 03/31/24 01/02/25 History tablet,extended release 24 hr igilyjfy-watr-axwm 8 mg-folic 400 1 tab PO QAM 03/31/24 01/02/25 History mcg-K 50 mcg-lutein 300 mcg tablet (Centrum Silver Women) prednisone 5 mg tablet 5 mg PO UD PRN arthritis pain 03/31/24 01/02/25 History L.acidop,casei,lactis,rham-B.lact,caroline 1 cap PO DAILY #10 caps 04/07/24 01/02/25 Rx 625 mg (10 billion cell) capsule (Advanced Probiotic) amlodipine 5 mg tablet (Norvasc) 2.5 mg (1/2 x 5 mg) PO QAM #10 tabs 04/07/24 01/02/25 Rx Patient History Medical History Abnormal CT scan, chest 08/20- notes presence of lung nodules. Pulmonary nodules Lung cancer, lower lobe Surgical History S/P lobectomy of lung LLL H/O: hysterectomy Family History Other Family history non-contributory Social History Smoking Status: Never smoker Hx Alcohol Use: No Hx Substance Use: No Preferred Language: Frisian Communication Ability: Effective Medical Manager Required: No Beliefs That Will Affect Care: None Current Living Situation: Alone Feels Safe at Home: Yes Assistive Devices: Walker Review of Systems Review of Systems: All systems reviewed & are unremarkable except as noted in HPI & below Physical Exam Constitutional: WD/WN, vitals as above Eyes: PERRL, conjunctivae normal, anicteric sclerae Neck: trachea midline, no thyromegaly Respiratory: normal respiratory effort; no respiratory distress and no labored breathing Cardiovascular: Rate/Rhythm: + tachycardic and + irregularly irregular Gastrointestinal (Abdomen): Inspection/Auscultation: + abdomen distended Percussion/Palpation: + abdomen tender ( Diffusely) and abdomen soft; no guarding and abdomen not rigid Skin: no rashes, warm and dry Psychiatric: A+Ox3, euthymic affect Results & Data Vital Signs (Past 12 Hours) Vital Signs Temp Pulse Resp BP Pulse Ox O2 Del Method 01/02/25 19:45 90/58 L 01/02/25 19:42 125 H 24 94 01/02/25 19:36 91/56 L 01/02/25 19:36 91/56 L 01/02/25 19:36 91/56 L 01/02/25 19:33 30 H 91 01/02/25 19:30 25 H 94 01/02/25 19:30 81/67 L 01/02/25 19:30 81/67 L 01/02/25 19:30 81/67 L 01/02/25 19:24 101/84 09/01/25 19:24 22 94 01/02/25 19:15 22 90 01/02/25 19:15 84/68 L 01/02/25 19:15 84/68 L 01/02/25 19:15 84/68 L 01/02/25 19:12 126 H 21 96 01/02/25 19:07 Room Air 01/02/25 19:06 Room Air 01/02/25 19:00 130 H 22 93 01/02/25 19:00 112/72 01/02/25 18:45 94/75 L 01/02/25 18:45 94/75 L 01/02/25 18:45 131 H 23 95 01/02/25 18:33 145 H 23 01/02/25 18:30 107/74 01/02/25 18:15 92/65 L 01/02/25 18:03 153 H 20 97 01/02/25 18:03 90/72 L 01/02/25 17:48 132 H 20 93 01/02/25 17:45 87/62 L 01/02/25 17:42 164 H 23 91 01/02/25 17:36 155 H 25 H 95 01/02/25 17:30 111/72 01/02/25 17:27 164 H 25 H 01/02/25 17:26 91/55 L 01/02/25 17:26 91/55 L 01/02/25 17:24 155 H 27 H 01/02/25 17:18 125 H 01/02/25 17:10 36.3 C L 165 H 20 94/54 L 90 Room Air 01/02/25 17:06 136 H 27 H 71 L 01/02/25 17:05 110/82 01/02/25 16:57 178 H 33 H 88 L Laboratory Results 01/02/25 01/02/25 01/02/25 Range/Units 19:26 18:00 17:33 WBC (4.8-10.8) K/ul RBC (4.20-5.40) M/uL Hgb (12.0-16.0) g/dl Hct (37.0-47.0) % MCV (80.0-100.0) fL MCH (25.0-34.0) pg MCHC (32.0-36.0) g/dL RDW Std Deviation (36.4-46.3) fL RDW Coeff of Zee (11.5-14.5) % Plt Count (130-400) K/uL MPV (9.4-12.4) fL Immature Gran % (Auto) % Neut % (Auto) % Lymph % (Auto) % [place] % (Auto) % Eos % (Auto) % Baso % (Auto) % Neut # (Auto) (1.40-6.50) K/uL Lymph # (Auto) (1.20-3.40) K/uL [place] # (Auto) (0.11-0.59) K/uL Eos # (Auto) (0.00-0.50) K/uL Baso # (Auto) (0.00-0.20) K/uL Immature Gran # (Auto) (0.01-0.20) K/uL Absolute Nucleated RBC (0.00-0.12) K/uL Nucleated RBC % (auto) % Anisocytosis PT (9.0-12.0) Seconds INR (0.9-1.1) APTT (21-31) Seconds PTT Ratio VBG pH (7.36-7.41) VBG pCO2 (38-50) mmHg VBG pO2 mmHg VBG HCO3 mmol/L VBG O2 Saturation % VBG Base Excess mEq/L Sodium (136-145) mmol/L Potassium (3.5-5.1) mmol/L Chloride (98-107) mmol/L Carbon Dioxide (21-32) mmol/L Anion Gap (3-11) BUN (6-23) mg/dl Creatinine (0.6-1.2) mg/dl Est Cr Clr Drug Dosing ml/min eGFR BUN/Creatinine Ratio (10-20) Glucose (70-99(Fasting)) mg/dl Lactate Pending (0.4-2.0) mmol/L Calcium (8.6-10.3) mg/dl Magnesium (1.7-2.4) mg/dl Total Bilirubin (0.2-1.0) mg/dl Direct Bilirubin (0-0.2) mg/dl AST (13-39) U/L ALT (7-52) U/L Alkaline Phosphatase (34-104) U/L Troponin I High Sens Pending (0-14) pg/ml Total Protein (6.0-8.3) gm/dl Albumin (3.4-5.0) gm/dl Procalcitonin (0-0.5) ng/ml Urine Color Urine Appearance (Clear) Urine pH (4.5-7.5) Ur Specific [place] (1.000-1.030) Urine Protein (Negative) Urine Glucose (UA) (Negative) Urine Ketones (Negative) Urine Blood (Negative) Urine Nitrite (Negative) Urine Bilirubin (Negative) Urine Urobilinogen (Negative) Ur Leukocyte Esterase (Negative) Urine WBC (Auto) (0-5) /hpf Urine RBC (Auto) (0-2) /hpf U Hyaline Cast (Auto) (0-2) /lpf U Epithel Cells (Auto) (0-2) /hpf Urine Bacteria (Auto) (None Seen) Urine Comment Adenovirus (PCR) Not Detected (NotDetected) B. pertussis DNA (PCR) Not Detected (NotDetected) B.parapertussis DNA PCR Not Detected (NotDetected) C. pneumoniae DNA (PCR) Not Detected (NotDetected) Coronavirus OC43 (PCR) Not Detected (NotDetected) Coronavirus HKU1 (PCR) Not Detected (NotDetected) Coronavirus 229E (PCR) Not Detected (NotDetected) SARS-CoV-2 (PCR) Not Detected (NotDetected) Coronavirus NL63 (PCR) Not Detected (NotDetected) Human Metapneumovir PCR Not Detected (NotDetected) Influenza Type A (PCR) Not Detected (NotDetected) Influenza Type B (PCR) Not Detected (NotDetected) M. pneumoniae (PCR) Not Detected (NotDetected) Parainfluenza 1 (PCR) Not Detected (NotDetected) Parainfluenza 2 (PCR) Not Detected (NotDetected) Parainfluenza 3 (PCR) Not Detected (NotDetected) Parainfluenza 4 (PCR) Not Detected (NotDetected) RSV (PCR) Not Detected (NotDetected) Entero/Rhino (PCR) Not Detected (NotDetected) Blood Type A Positive Antibody Screen NEGATIVE 09/01/25 09/01/25 09/01/25 Range/Units 17:30 17:03 17:00 WBC 18.91 H (4.8-10.8) K/ul RBC 3.96 L (4.20-5.40) M/uL Hgb 12.6 (12.0-16.0) g/dl Hct 38.2 (37.0-47.0) % MCV 96.5 (80.0-100.0) fL MCH 31.8 (25.0-34.0) pg MCHC 33.0 (32.0-36.0) g/dL RDW Std Deviation 59.2 H (36.4-46.3) fL RDW Coeff of Zee 17.3 H (11.5-14.5) % Plt Count 209 (130-400) K/uL MPV 13.4 H (9.4-12.4) fL Immature Gran % (Auto) 0.5 % Neut % (Auto) 85.4 % Lymph % (Auto) 4.5 % [place] % (Auto) 9.1 % Eos % (Auto) 0.2 % Baso % (Auto) 0.3 % Neut # (Auto) 16.12 H (1.40-6.50) K/uL Lymph # (Auto) 0.86 L (1.20-3.40) K/uL [place] # (Auto) 1.73 H (0.11-0.59) K/uL Eos # (Auto) 0.04 (0.00-0.50) K/uL Baso # (Auto) 0.06 (0.00-0.20) K/uL Immature Gran # (Auto) 0.10 (0.01-0.20) K/uL Absolute Nucleated RBC 0.02 (0.00-0.12) K/uL Nucleated RBC % (auto) 0.1 % Anisocytosis Present PT 14.3 H (9.0-12.0) Seconds INR 1.4 H (0.9-1.1) APTT 24 (21-31) Seconds PTT Ratio 0.9 VBG pH 7.43 H (7.36-7.41) VBG pCO2 47 (38-50) mmHg VBG pO2 20 mmHg VBG HCO3 31 mmol/L VBG O2 Saturation < 60.0 % VBG Base Excess 5.9 mEq/L Sodium 137 (136-145) mmol/L Potassium 4.7 (3.5-5.1) mmol/L Chloride 94 L (98-107) mmol/L Carbon Dioxide 29 (21-32) mmol/L Anion Gap 14 H (3-11) BUN 49 H (6-23) mg/dl Creatinine 2.34 H (0.6-1.2) mg/dl Est Cr Clr Drug Dosing 13.9 ml/min eGFR 19.90 BUN/Creatinine Ratio 20.9 H (10-20) Glucose 100 H (70-99(Fasting)) mg/dl Lactate 4.3 H* (0.4-2.0) mmol/L Calcium 9.1 (8.6-10.3) mg/dl Magnesium 2.1 (1.7-2.4) mg/dl Total Bilirubin 2.7 H (0.2-1.0) mg/dl Direct Bilirubin 0.7 H (0-0.2) mg/dl AST 25 (13-39) U/L ALT 16 (7-52) U/L Alkaline Phosphatase 63 (34-104) U/L Troponin I High Sens 31.4 H (0-14) pg/ml Total Protein 7.0 (6.0-8.3) gm/dl Albumin 3.4 (3.4-5.0) gm/dl Procalcitonin 15.20 H (0-0.5) ng/ml Urine Color [place] Urine Appearance Clear (Clear) Urine pH 6.5 (4.5-7.5) Ur Specific [place] 1.019 (1.000-1.030) Urine Protein 1+ H (Negative) Urine Glucose (UA) Negative (Negative) Urine Ketones Trace H (Negative) Urine Blood Negative (Negative) Urine Nitrite Positive A (Negative) Urine Bilirubin 1+ H (Negative) Urine Urobilinogen Positive H (Negative) Ur Leukocyte Esterase 1+ H (Negative) Urine WBC (Auto) 0-5 (0-5) /hpf Urine RBC (Auto) 0-2 (0-2) /hpf U Hyaline Cast (Auto) 3-5 H (0-2) /lpf U Epithel Cells (Auto) 0-2 (0-2) /hpf Urine Bacteria (Auto) None Seen (None Seen) Urine Comment Adenovirus (PCR) (NotDetected) B. pertussis DNA (PCR) (NotDetected) B.parapertussis DNA PCR (NotDetected) C. pneumoniae DNA (PCR) (NotDetected) Coronavirus OC43 (PCR) (NotDetected) Coronavirus HKU1 (PCR) (NotDetected) Coronavirus 229E (PCR) (NotDetected) SARS-CoV-2 (PCR) (NotDetected) Coronavirus NL63 (PCR) (NotDetected) Human Metapneumovir PCR (NotDetected) Influenza Type A (PCR) (NotDetected) Influenza Type B (PCR) (NotDetected) M. pneumoniae (PCR) (NotDetected) Parainfluenza 1 (PCR) (NotDetected) Parainfluenza 2 (PCR) (NotDetected) Parainfluenza 3 (PCR) (NotDetected) Parainfluenza 4 (PCR) (NotDetected) RSV (PCR) (NotDetected) Entero/Rhino (PCR) (NotDetected) Blood Type Antibody Screen Diagnostic Findings CT ABDOMEN and PELVIS without INTRAVENOUS CONTRAST HISTORY: Abdominal pain TECHNIQUE: CT abdomen and pelvis without contrast. IV CONTRAST: None ENTERIC CONTRAST: None. COMPARISON: None FINDINGS: LOWER CHEST: Cardiomegaly. Small pericardial fluid. Chronic interstitial lung changes. LIVER: No focal lesion identified in this noncontrast study. GALLBLADDER/BILIARY: Unremarkable gallbladder. No abnormal biliary dilatation. SPLEEN: Unremarkable. PANCREAS: Unremarkable. ADRENALS: Unremarkable. KIDNEYS: Kidneys are atrophic. No stones or hydronephrosis identified. PERITONEUM/RETROPERITONEUM. No lymphadenopathy by size criteria. No aortic aneurysm. Extensive atherosclerosis. Aortobiiliac stent. GASTROINTESTINAL: Multiple loops of the small bowel and the stomach are significantly fluid distended, through portions of the decompressed large bowel. This is consistent small bowel obstruction. Moreover, there appear to be 2 transition points in the left lower quadrant of the abdomen abutting each other (series 2, image 66) with the intervening loop of small bowel appearing inflamed. Colonic diverticulosis without evidence of diverticulitis. REPRODUCTIVE: Status post hysterectomy BONES: No acute findings. Old fracture of the left superior and inferior right pubic rami and chronic left sacral fractures. Chronic appearing compression fractures of T11-L2 vertebral bodies with mild retropulsion. IMPRESSION: Small bowel obstruction with high suspicion for a closed-loop bowel obstruction with transition points in the left lower quadrant of the abdomen as discussed Notification to clinician of alert: [facility] was notified about above findings by phone on January 02, 2025 at 6:50 PM by Dyllan Vicente MD. Electronically signed by Dyllan Vicente 01-02-2025 6:58 PM Dictated: 01/02/25 [id number] Transcribed:
[2025-01-02] MEDS: MAGNESIUM SULFATE / D5W 1 GM/100 ML BAG IV STA (20:15)
[2025-01-02] MEDS ORDERED: SUCCINYLCHOLINE 100MG/5ML SYR IV ONE (20:21)
[2025-01-02] MEDS ORDERED: PROPOFOL IV EMULSION 10 MG/ML 20 ML VIAL IV ONE (20:21)
[2025-01-02] MEDS ORDERED: ETOMIDATE 2 MG/ML 20 ML VIAL IV ONE (20:21)
[2025-01-02] MEDS ORDERED: PHENYLEPHRINE HCL 10 MG/ML VIAL ONE (20:39)
--- NOTE | 2025-01-02 20:40 | Anesthesiology Consultation ---
Date of Service January 02, 2025 Assessment & Plan (1) Encounter for pre-operative examination: Chart Review Chart Review: Acceptable Risk for Surgery (emergent) History Surgery Operation Date: 01/02/25 08:30 Proposed Procedures p Laparoscopic Bowel Resection - Luis Daniel Means MD s Exploratory Laparotomy - Luis Daniel Means MD Height/Weight Height: 5 ft Weight: 56.7 kg Allergies Allergy/AdvReac Type Severity Reaction Status Date / Time tetracycline Allergy Severe COULDN'T Verified 03/31/24 00:22 BREATHE Cephalosporins Allergy Intermediate HIVES Verified 03/31/24 00:22 clindamycin Allergy Mild RASH Verified 03/31/24 00:22 Penicillins Allergy Mild HIVES Verified 03/31/24 00:22 Sulfa (Sulfonamide Allergy Mild RED AND Verified 03/31/24 00:22 Antibiotics) SWEATING SILVIA Inhibitors Allergy Unknown Unknown Verified 03/31/24 00:22 aspartame Allergy Unknown Unknown Verified 03/31/24 00:22 cefazolin Allergy Unknown Unknown Verified 03/31/24 00:22 cephalexin Allergy Unknown Unknown Verified 03/31/24 00:22 doxycycline Allergy Unknown Unknown Verified 03/31/24 00:22 hydrochlorothiazide Allergy Unknown Unknown Unverified 03/31/24 00:22 lidocaine Allergy Unknown Unknown Verified 03/31/24 00:22 lisinopril Allergy Unknown Unknown Unverified 03/31/24 00:22 yellow dye Allergy Unknown Unknown Verified 03/31/24 00:22 prednisone AdvReac Mild HIGH BP Verified 03/31/24 00:22 Medications Home Medications Medication Instructions Recorded Confirmed Last Taken acetaminophen 500 mg tablet 500 mg PO Q6H PRN Pain 03/29/18 01/02/25 Unknown (Tylenol Extra Strength) albuterol sulfate 90 mcg/actuation 2 puff inhalation Q4H PRN 03/29/18 01/02/25 08/14/20 aerosol inhaler (Ventolin HFA) Shortness Of Breath aspirin 81 mg tablet,delayed 81 mg PO QAM 03/29/18 01/02/25 03/30/24 release (Bernie Low Dose Aspirin) folic acid 1 mg tablet 2 mg PO QAM 03/29/18 01/02/25 03/30/24 furosemide 20 mg tablet 20 mg PO AMPM PRN swelling 03/29/18 01/02/25 03/30/24 famotidine 20 mg tablet 20 mg PO AMPM 10/17/19 01/02/25 03/30/24 levothyroxine 50 mcg tablet 25 mcg PO DAILYBB 10/17/19 01/02/25 03/30/24 methotrexate sodium 2.5 mg tablet 10 mg PO WK 10/17/19 01/02/25 03/25/24 risedronate 150 mg tablet 150 mg PO MONTHLY 08/14/20 01/02/25 Unknown losartan 100 mg tablet 100 mg PO QAM 03/31/24 01/02/25 03/30/24 metoprolol succinate 25 mg 25 mg PO QAM 03/31/24 01/02/25 03/30/24 tablet,extended release 24 hr hylayncn-rsca-kcdb 8 mg-folic 400 1 tab PO QAM 03/31/24 01/02/25 03/30/24 mcg-K 50 mcg-lutein 300 mcg tablet (Centrum Silver Women) prednisone 5 mg tablet 5 mg PO UD PRN arthritis pain 03/31/24 01/02/25 Unknown L.acidop,casei,lactis,rham-B.lact,caroline 1 cap PO DAILY #10 caps 04/07/24 01/02/25 Unknown 625 mg (10 billion cell) capsule (Advanced Probiotic) amlodipine 5 mg tablet (Norvasc) 2.5 mg (1/2 x 5 mg) PO QAM #10 tabs 04/07/24 01/02/25 Unknown Active Medications Generic Name Dose Route Start Last Admin Trade Name Freq PRN Reason Stop Dose Admin Meropenem 500 mg/ Syringe 10 mls @ 2 mls/min 01/02/25 17:15 01/02/25 18:28 IV 01/04/25 17:14 2 mls/min Q6H NAWAF Administration Protocol Past Medical History Medical History (Updated 01/02/25 @ 20:53 by Rick Mauro MD) Paroxysmal atrial fibrillation with rapid ventricular response Peripheral vascular disease Acute on chronic renal insufficiency Chronic renal insufficiency Anemia Closed loop obstruction of intestine Rheumatoid arthritis Pulmonary nodules Lung cancer, lower lobe Past Family History Family History Other Family history non-contributory Past Surgical History Surgical History S/P lobectomy of lung LLL H/O: hysterectomy Social History Smoking Status: Never smoker Hx Alcohol Use: No Hx Substance Use: No substance use type: does not use Physical Exam Vital Signs Last Vital Signs Temp 36.3 C L 01/02/25 17:10 Pulse 145 H 01/02/25 20:15 Resp 23 01/02/25 20:15 BP 102/62 01/02/25 20:15 Pulse Ox 95 01/02/25 20:15 O2 Del Method Room Air 01/02/25 20:18 Testing Laboratory Results 01/02/25 17:00 01/02/25 17:00 PT 14.3 Seconds (9.0-12.0) H 01/02/25 17:00 INR 1.4 (0.9-1.1) H 01/02/25 17:00 APTT 24 Seconds (21-31) 01/02/25 17:00 Urine Color [place] 01/02/25 17:03 Urine Appearance Clear (Clear) 01/02/25 17:03 Urine pH 6.5 (4.5-7.5) 01/02/25 17:03 Ur Specific [place] 1.019 (1.000-1.030) 01/02/25 17:03 Urine Protein 1+ (Negative) H 01/02/25 17:03 Urine Glucose (UA) Negative (Negative) 01/02/25 17:03 Urine Ketones Trace (Negative) H 01/02/25 17:03 Urine Nitrite Positive (Negative) A 01/02/25 17:03 Ur Leukocyte Esterase 1+ (Negative) H 01/02/25 17:03 Urine WBC (Auto) 0-5 /hpf (0-5) 01/02/25 17:03 Urine RBC (Auto) 0-2 /hpf (0-2) 01/02/25 17:03 U Hyaline Cast (Auto) 3-5 /lpf (0-2) H 01/02/25 17:03 U Epithel Cells (Auto) 0-2 /hpf (0-2) 01/02/25 17:03 Urine Bacteria (Auto) None Seen (None Seen) 01/02/25 17:03 Blood Type A Positive 01/02/25 17:33 Antibody Screen NEGATIVE 01/02/25 17:33 Electrocardiogram Date: 01/02/25 Findings: + AFIB @ (154)
[2025-01-02] MEDS ORDERED: ATROPINE SULFATE 0.1 MG/ML 10ML SYR IV PRN (20:55)
[2025-01-02] MEDS ORDERED: PHENYLEPHRINE 100MCG/ML 5ML SYR IV PRN (20:55)
[2025-01-02] MEDS ORDERED: PROMETHAZINE HCL 6.25 MG in SODIUM CHLORIDE 0.9% 50 ML IV PRN (20:55)
[2025-01-02] MEDS ORDERED: HYDROmorphone INJ 1 MG/ML SYRINGE IV PRN (20:55)
[2025-01-02] MEDS ORDERED: MIDAZOLAM HCL 1 MG/ML 2ML VIAL ONE (21:32)
[2025-01-02] MEDS ORDERED: HYDROCORTISONE SOD SUCCINATE 100 MG/2 ML VIAL ONE (21:32)
[2025-01-02] MEDS: cefOXitin SOD 1,000 MG VIAL ONE (21:40)
[2025-01-02] MEDS ORDERED: PHENYLEPHRINE 100MCG/ML 5ML SYR ONE (21:46)
[2025-01-02] MEDS ORDERED: ROCURONIUM BROMIDE 10 MG/ML 5 ML VIAL IV ONE (21:46)
--- NOTE | 2025-01-02 22:30 | Post Operative Brief Note ---
Immediate Post Op Note Date of Surgery January 02, 2025 Pre & Post Diagnosis Operation Date: 01/02/25 08:30 Preop: Closed-loop obstruction postop: Closed-loop obstruction with ischemic bowel I identified the patient and participated in the time-out.: Yes Procedure Operation Date: 01/02/25 08:30 exploratory laparotomy, lysis of adhesions, small bowel resection and reanastomosis Surgeon Luis Daniel Means MD Lubricating Specialist none Estimated Blood Loss 10 Findings Consistent with Post-Op Diagnosis closed-loop internal hernia of small bowel with ischemic bowel for length of 60 cm Drains Sylvester Catheter
--- NOTE | 2025-01-02 22:35 | Operative Report ---
Post Operative Report Pre & Post Diagnosis Operation Date: 01/02/25 08:30 preop: Closed-loop obstruction Postop: Closed-loop obstruction with ischemic bowel I identified the patient and participated in the time-out.: Yes Procedure Operation Date: 01/02/25 08:30 exploratory laparotomy, lysis of adhesions, small bowel resection and reanastomosis Surgeon Luis Daniel Means MD Music Director none Estimated Blood Loss 10 Findings Consistent with Post-Op Diagnosis 60 cm length of small bowel with irreversible ischemia and necrosis, due to internal hernia from omental adhesions Specimens small bowel segment Drains none Anesthesia Type General Complications none Description of Procedure patient was taken the operating room, placed supine on the operating table. A timeout was performed, perioperative antibiotics were administered, SCD boots were placed. After adequate anesthesia and analgesia was obtained, a Sylvester catheter was placed, and the abdomen was prepped and draped in the normal sterile fashion. A midline incision was made with a 10 blade scalpel was carried into the level of the subcutaneous tissue. The level of fascia was tented was opened with the electrocautery. The fascia was opened to the fullest extent of the incision. Upon entering the abdomen, to the left of midline there was a frozen area of obviously necrotic, bowel torsed on itself. A Bookwalter self-retaining retractor was placed. Adhesions of the omentum were freed up with blunt dissection and the LigaSure device. In freeing the omental adhesions, I was able to free up the small bowel and untorsed the area. This was then run from the ligament of Treitz down to the terminal ileum and back. There is no area of perforation, but there was an approximately 60 cm area of necrotic bowel. This was excised with the СЕРГЕЙ stapler. The mesentery was taken with the LigaSure device. Anastomosis was created using the СЕРГЕЙ stapler. The common channel was then closed with a TA stapler. A stitch was placed at the base of 3-0 silk. The resulting mesenteric defect was reapproximated with 2-0 Vicryl suture. The abdomen was copiously irrigated and suctioned free and again hemostasis was checked and attended there was excellent. The bowel was replaced into the abdominal cavity and was run once more. There were no other areas of necrosis or ischemia. The omentum was replaced on top of the bowel. The fascia was closed with #1 running PDS. The skin was closed with surgical clips. Dressings were applied. She tolerated the procedure without complication was transferred in guarded condition to the ICU. She remains intubated. All instrument, needle, and sponge counts were correct at the end of the case. I attest to the content of the Intraoperative Record and any orders documented therein. Any exceptions are noted below.
--- NOTE | 2025-01-02 22:59 | Anesthesiology Progress Note ---
Date of Service January 02, 2025 Anesthesia Post Procedure Vital Signs Vital Signs: Temp Pulse Pulse Resp BP BP BP 01/02/25 22:42 35.8 C L 117 H 24 110/90 122/64 01/02/25 20:18 01/02/25 20:15 145 H 23 01/02/25 20:15 102/62 01/02/25 20:15 102/62 01/02/25 20:15 102/62 01/02/25 20:12 141 H 24 01/02/25 20:03 150 H 26 H 01/02/25 20:00 88/64 L 01/02/25 19:57 157 H 24 01/02/25 19:55 96/64 L 01/02/25 19:55 96/64 L 01/02/25 19:45 90/58 L 01/02/25 19:42 125 H 24 01/02/25 19:36 91/56 L 01/02/25 19:36 91/56 L 01/02/25 19:36 91/56 L 01/02/25 19:33 30 H 01/02/25 19:30 25 H 01/02/25 19:30 81/67 L 01/02/25 19:30 81/67 L 01/02/25 19:30 81/67 L 01/02/25 19:24 101/84 01/02/25 19:24 22 01/02/25 19:15 22 01/02/25 19:15 84/68 L 01/02/25 19:15 84/68 L 01/02/25 19:15 84/68 L 01/02/25 19:12 126 H 01/02/25 19:07 01/02/25 19:06 01/02/25 19:00 130 H 22 01/02/25 19:00 112/72 01/02/25 18:45 94/75 L 01/02/25 18:45 94/75 L 01/02/25 18:45 131 H 23 01/02/25 18:33 145 H 23 01/02/25 18:30 107/74 01/02/25 18:15 92/65 L 01/02/25 18:03 153 H 20 01/02/25 18:03 90/72 L 01/02/25 17:48 132 H 20 01/02/25 17:45 87/62 L 01/02/25 17:42 164 H 23 01/02/25 17:36 155 H 25 H 01/02/25 17:30 111/72 01/02/25 17:27 164 H 25 H 01/02/25 17:26 91/55 L 01/02/25 17:26 91/55 L 01/02/25 17:24 155 H 27 H 01/02/25 17:18 125 H 01/02/25 17:10 36.3 C L 165 H 20 94/54 L 01/02/25 17:06 136 H 27 H 01/02/25 17:05 110/82 01/02/25 16:57 178 H 33 H Pulse Ox O2 Del Method FiO2 01/02/25 22:42 100 Mechanical Vent 60 01/02/25 20:18 Room Air 01/02/25 20:15 95 01/02/25 20:15 01/02/25 20:15 01/02/25 20:15 01/02/25 20:12 01/02/25 20:03 01/02/25 20:00 01/02/25 19:57 94 01/02/25 19:55 01/02/25 19:55 01/02/25 19:45 01/02/25 19:42 94 01/02/25 19:36 01/02/25 19:36 01/02/25 19:36 01/02/25 19:33 91 01/02/25 19:30 94 01/02/25 19:30 01/02/25 19:30 01/02/25 19:30 01/02/25 19:24 01/02/25 19:24 94 01/02/25 19:15 90 01/02/25 19:15 01/02/25 19:15 01/02/25 19:15 01/02/25 19:12 96 01/02/25 19:07 Room Air 01/02/25 19:06 Room Air 01/02/25 19:00 93 01/02/25 19:00 01/02/25 18:45 01/02/25 18:45 01/02/25 18:45 95 01/02/25 18:33 01/02/25 18:30 01/02/25 18:15 01/02/25 18:03 97 01/02/25 18:03 01/02/25 17:48 93 01/02/25 17:45 01/02/25 17:42 91 01/02/25 17:36 95 01/02/25 17:30 01/02/25 17:27 01/02/25 17:26 01/02/25 17:26 01/02/25 17:24 01/02/25 17:18 01/02/25 17:10 90 Room Air 01/02/25 17:06 71 L 01/02/25 17:05 01/02/25 16:57 88 L Pain Intensity Abdomen: Pain Intensity: 6 Transfer of Care Handoff Completed per policy Notes Mental Status: see notes below Nausea / Vomiting: adequately controlled Pain: adequately controlled Airway Patency, RR, SpO2: see Notes below BP & HR: stable & adequate Hydration State: stable & adequate Anesthetic Complications: no major complications apparent Notes: Patient taken to ICU intubated due to sepsis and likely need for pressors post op - currently stable vitals
[2025-01-02] MEDS ORDERED: VANCOMYCIN CONSULT ACTIVE PRN (23:16)
[2025-01-02] MEDS ORDERED: VANCOMYCIN HCL / NSS 1,000 MG/270 ML BAG IV SCH (23:16)
[2025-01-02] MEDS ORDERED: STAT IV Infusion **Titration per Protocol STA ×3 (23:18→23:38)
[2025-01-02] MEDS ORDERED: PROPOFOL BOLUS FROM BAG IV PRN (23:18)
[2025-01-02] MEDS ORDERED: GLUCOSE 40% GEL 15 GM TUBE PO PRN (23:18)
[2025-01-02] MEDS ORDERED: CARBOHYDRATES FOR HYPOGLYCEMIA PO PRN (23:18)
[2025-01-02] MEDS ORDERED: GLUCAGON FOR INJ 1 MG VIAL SQ PRN (23:18)
[2025-01-02] MEDS ORDERED: GLUCOSE 10 TAB/TUBE PO PRN (23:18)
[2025-01-02] MEDS ORDERED: DEXTROSE 50% 50 ML SYRINGE IV PRN (23:18)
[2025-01-02] MEDS: PLASMA-LYTE A 1,000 ML IV SCH (23:30)
[2025-01-02] MEDS: fentaNYL citrate 2,500 MCG/250 ML BAG IV SCH (23:30)
--- NOTE | 2025-01-02 23:36 | Critical Care Consultation ---
Date of Consultation January 02, 2025 Assessment & Plan (1) Closed loop obstruction of intestine: (2) S/P small bowel resection: (3) Atrial fibrillation with rapid ventricular response: (4) ARF (acute renal failure): Plan Reason Critically Ill: 84 YOF presents with abdominal pain/n/v, noted to have closed loop bowel obstruction, taken urgently to the OR, underwent ex-lap with 60cm of small bowel resection, re-connected and abdomen closed. ICU intubated and sedated. WIll require close hemodynamic monitoring, likely vasopressor support and remain intubated and sedated. Neuro - Sedation for intubation, acute pain from surgical procedure. CAM ICU: ADRIANA- negative prior to intubation and sedation - Sedation with propofol and Fentanyl RASS goal -1 - Daily awakenings when appropriate - Extubation when appropriate Cardiac - Shock, Afib with RVR, - Shock multifactorial - with likely combination of hypovolemia and distributive - Patient received 2L crystalloid and 250ml colloid prior to OR and 2L in OR - case length- 2 hours 40 min- ebl 10ml - Continue with volume as tolerated with carefulness as abdomen is closed- 1L plasmalyte on arrival then 115 ml/hour - APRIL for MAPS >65, Vasopressin if required will be added - Afib with RVR- will replace volume, sedate patient - if remains tachycardia will need attempt at rate control- Esmolol if BP allows and if not- Amiodarone will be given - Patient is not on chronic anticoagulation secondary to falls and bruising- she is on daily asa - Hold on systemic anticoagulation - Appears to have hx of PAF and PAT/SVT - Last ECHO- 2021 - EF 65-69% mild to moderate AI with moderate Aortic sclerosis, Moderate MR with borderline posterior prolapse - ECG is without STEMI- HsCTNI likely demand in relation to tachycardia and shock- follow ECG and telemetry- no complaints of chest pain in ER - Hold Metoprolol Respiratory - Intubation and mechanical ventilation - remained intubated requiring mechanical ventilation secondary to requiring emergent/urgent surgery - ABG - adjust vent per ARDSnet LOW peep, HIGH Fio2 algorithm - daily SBT when appropriate - Follow imaging and fever curve- possibly aspiration pneumonitis/pna evolving RLL GI - Small bowel obstruction s/p 60cm resection with reanastomosis and abd closed. - Appreciate surgical assistance- dressing and wound care per surgery team - NGT in place- keep to LIWS- draining bilious drainage- 2L out prior to surgery - NPO - Follow hemodynamics- can consider trending abdominal pressures as abdomen is closed- follow renal function and hemodynamics RENAL/LYTES - ARF on CKD - Minimal urine output at this time- Acute insult likely secondary to hypovolemia and sepsis with bowel obstruction - Continue with crystalloid and colloid - Hopeful that end organ perfusion will stave off ATN or further RF - ICU electrolyte protocol - Hold ARB - Sylvester to gravity, remove when hemodynamics and renal function are stabilized ENDO - Hx of hypothyroidism, - Can convert to IV in am if warranted as she will likely have extended NPO status- HEME - anemia chronic, RA - Follow HGB levels, transfuse for acute hemorrhage, HGB <7.0, or symptomatic anemia - Likely will have some dilution following volume resuscitation as initial like ly hemoconcentrated ID - Septic shock- GI source or aspiration into airways - Without perforation or sanchez contamination on ex-lap - MRSA nares positive - Continue with Meropenem (allg to PCNS) and Vancomycin - can likely de-escalate pending cultures - Support hemodynamics and perfusion as above LINES/IV ACCESS - PIV, CVL, [place], ETT, NGT, Sylvester Continue use of these lines - CVL backed out 2cm DVT PROPHYLAXIS - SCDS, chemoprophylaxis on hold until hemostasis is ensured. DISPO: ICU until hemodynamics are proven stable I have personally spent 65 minutes of critical care time in the direct management of this patient. This is a life/limb threatening event. This includes time spent evaluating patient, direct bedside care, chart review, placing orders, interpretation of diagnostic studies, discussion with consultants, patient, and family members, as well as other required patient management activities. This time is exclusive of all separately billable procedures, separate from and in addition to any other critical care service time. Thank you for allowing us to participate in the care of this patient. Please refer to my attending physician's documentation for any further recommendations. Supervising Physician Co-Signing Physician Notes Patient seen and examined. EMR reviewed. Discussed with critical care overnight VAUGHN as well as surgeon. Agree with assessment plan as noted. Discussed on multidisciplinary rounds and with bedside critical care nurse. Continue supportive care. Will wait until hemodynamics improve before considering vent liberation. Continue antibiotics and follow culture results. DVT and GI prophylaxis. History of Present Illness Reason for Consultation: s/p bowel resection- shock Requesting Physician: Ruben Chun MD Attending Physician: Rosy Barahona MD History of Present Illness 84 YOF with medical history of: Falls, PAT/PAF, PAD with kissing stents to bilateral illiacs (2011), SIADH, CKD, HTN, HLD, RA (on prednisone 5mg). Patient initially presented to the ER for complaints of abdominal pain with distention, nausea and vomitting. Patient reports symptoms for possible 3 days with maybe a week, however worsening over the past day. She reports having diarrhea earlier in the week and that has stopped and can't remember her last normal BM. In the ER the patient was noted to be tachycardic, had routine labs performed as well as CT abd/pelvis. Routine labs noted Leukocytosis, INR 1.4, lactate 4.3, PCT 15.2, and mild elevation of HsCTNI. ECG was with possilby afib. CT abd/pelvis was concerning for small bowel obstruction with high suspicion for a closed loop bowel obstruction. The surgery team was consulted and evaluated the patient. Following further volume resuscitaiton, she was taken urgently to the operating room for ex-lap- she was noted to have section of ischemic bowel without perforation. 60cm of small bowel was resected, the patient was re-connected and abdomen was closed. Patient returned to the ICU with arterial line in place, remained intubated, HR 130-150, and without vasopressor infusion. She did get 100mg of hydrocortisone prior to induction with hx of chronic prednisone use, stress dose steroids will be continued. Patient will need continued resuscitation, vasopressor support likely and close following of her hemodynamics and renal indicies. Family was updated post operatively by myself and phone consent obtained for CVL from daughter. Discussion with patient prior to operating room, she would like to be full code. CODE: FULL Allergies Allergy/AdvReac Type Severity Reaction Status Date / Time tetracycline Allergy Severe COULDN'T Verified 03/31/24 00:22 BREATHE Cephalosporins Allergy Intermediate HIVES Verified 03/31/24 00:22 clindamycin Allergy Mild RASH Verified 03/31/24 00:22 Penicillins Allergy Mild HIVES Verified 03/31/24 00:22 Sulfa (Sulfonamide Allergy Mild RED AND Verified 03/31/24 00:22 Antibiotics) SWEATING SILVIA Inhibitors Allergy Unknown Unknown Verified 03/31/24 00:22 aspartame Allergy Unknown Unknown Verified 03/31/24 00:22 cefazolin Allergy Unknown Unknown Verified 03/31/24 00:22 cephalexin Allergy Unknown Unknown Verified 03/31/24 00:22 doxycycline Allergy Unknown Unknown Verified 03/31/24 00:22 hydrochlorothiazide Allergy Unknown Unknown Unverified 03/31/24 00:22 lidocaine Allergy Unknown Unknown Verified 03/31/24 00:22 lisinopril Allergy Unknown Unknown Unverified 03/31/24 00:22 yellow dye Allergy Unknown Unknown Verified 03/31/24 00:22 prednisone AdvReac Mild HIGH BP Verified 03/31/24 00:22 Home Medications Medication Instructions Recorded Confirmed Type acetaminophen 500 mg tablet 500 mg PO Q6H PRN Pain 03/29/18 01/02/25 History (Tylenol Extra Strength) albuterol sulfate 90 mcg/actuation 2 puff inhalation Q4H PRN 03/29/18 01/02/25 History aerosol inhaler (Ventolin HFA) Shortness Of Breath aspirin 81 mg tablet,delayed 81 mg PO QAM 03/29/18 01/02/25 History release (Bernie Low Dose Aspirin) folic acid 1 mg tablet 2 mg PO QAM 03/29/18 01/02/25 History furosemide 20 mg tablet 20 mg PO AMPM PRN swelling 03/29/18 01/02/25 History famotidine 20 mg tablet 20 mg PO AMPM 10/17/19 01/02/25 History levothyroxine 50 mcg tablet 25 mcg PO DAILYBB 10/17/19 01/02/25 History methotrexate sodium 2.5 mg tablet 10 mg PO WK 10/17/19 01/02/25 History risedronate 150 mg tablet 150 mg PO MONTHLY 08/14/20 01/02/25 History losartan 100 mg tablet 100 mg PO QAM 03/31/24 01/02/25 History metoprolol succinate 25 mg 25 mg PO QAM 03/31/24 01/02/25 History tablet,extended release 24 hr [id number] 8 mg-folic 400 1 tab PO QAM 03/31/24 01/02/25 History mcg-K 50 mcg-lutein 300 mcg tablet (Centrum Silver Women) prednisone 5 mg tablet 5 mg PO UD PRN arthritis pain 03/31/24 01/02/25 History L.acidop,casei,lactis,rham-B.lact,caroline 1 cap PO DAILY #10 caps 04/07/24 01/02/25 Rx 625 mg (10 billion cell) capsule (Advanced Probiotic) amlodipine 5 mg tablet (Norvasc) 2.5 mg (1/2 x 5 mg) PO QAM #10 tabs 04/07/24 01/02/25 Rx Patient History Medical History Paroxysmal atrial fibrillation with rapid ventricular response Peripheral vascular disease Acute on chronic renal insufficiency Chronic renal insufficiency Anemia Closed loop obstruction of intestine Rheumatoid arthritis Pulmonary nodules Lung cancer, lower lobe Surgical History S/P lobectomy of lung LLL H/O: hysterectomy Family History Other Family history non-contributory Social History Smoking Status: Former smoker Hx Alcohol Use: No Hx Substance Use: No Preferred Language: [place] Communication Ability: Effective Microbiology Professor Required: No Beliefs That Will Affect Care: None Current Living Situation: Family Current Living Situation Comment: lives with granddaughter Feels Safe at Home: Yes Assistive Devices: Wheelchair Review of Systems Review of Systems: REVIEW OF SYSTEMS: Constitutional: No fever, sweats or chills Eyes: No diplopia, no worsening or blurred vision ENT: normal hearing, no trouble swallowing Respiratory: (+) chronic dyspnea, no change in cough, sputum, Cardiovascular: No chest pain, tightness or palpitations Abdomen: (+) pain, nausea, vomiting, diarrhea Musculoskeletal: (+) back pain, Neurologic: (+) walks with a walker due to leg fatigue, Physical Exam Physical Exam: PHYSICAL EXAM: General: intubated and sedated Head: Normocephalic, atraumatic Neuro: moves extremities, gagging against ETT, sedated, prior to intubation patient was aox3 and moving all extremities, Chest: equal rise and fall of the chest, no accessory muscle use, Clear to auscultation, minimal vent settings Cardiac: Regular rate and rhythm, telemetry reviewed, skin warm dry, cap refill <3 seconds, peripheral pulses +2 no JVD, no murmur, no JVD, no edema GI: Abdomen distended taught, now with midline dressing and abdominal binder in place : Sylvester to gravity draining ham urine Skin: multiple areas of bruising and hematomas, easily bruises with removal of telemetry leads and adhesives Results & Data Results & Data Vital Signs (Past 12 Hours) Vital Signs Temp Pulse Pulse Resp BP BP BP 01/02/25 23:00 35.8 C L 144 H 20 108/74 105/59 L 01/02/25 23:00 01/02/25 23:00 01/02/25 22:52 35.8 C L 157 H 24 111/89 106/63 01/02/25 22:45 144 H 20 01/02/25 22:42 35.8 C L 117 H 24 110/90 122/64 01/02/25 20:18 01/02/25 20:15 145 H 23 01/02/25 20:15 102/62 01/02/25 20:15 102/62 01/02/25 20:15 102/62 01/02/25 20:12 141 H 24 01/02/25 20:03 150 H 26 H 01/02/25 20:00 88/64 L 01/02/25 19:57 157 H 24 01/02/25 19:55 96/64 L 01/02/25 19:55 96/64 L 01/02/25 19:45 90/58 L 01/02/25 19:42 125 H 24 01/02/25 19:36 91/56 L 01/02/25 19:36 91/56 L 01/02/25 19:36 91/56 L 01/02/25 19:33 30 H 01/02/25 19:30 25 H 01/02/25 19:30 81/67 L 01/02/25 19:30 81/67 L 01/02/25 19:30 81/67 L 01/02/25 19:24 101/84 01/02/25 19:24 22 01/02/25 19:15 22 01/02/25 19:15 84/68 L 01/02/25 19:15 84/68 L 01/02/25 19:15 84/68 L 01/02/25 19:12 126 H 21 01/02/25 19:07 01/02/25 19:06 01/02/25 19:00 130 H 22 01/02/25 19:00 112/72 01/02/25 18:45 94/75 L 01/02/25 18:45 94/75 L 01/02/25 18:45 131 H 23 01/02/25 18:33 145 H 23 01/02/25 18:30 107/74 01/02/25 18:15 92/65 L 01/02/25 18:03 153 H 20 01/02/25 18:03 90/72 L 01/02/25 17:48 132 H 20 01/02/25 17:45 87/62 L 01/02/25 17:42 164 H 23 01/02/25 17:36 155 H 25 H 01/02/25 17:30 111/72 01/02/25 17:27 164 H 25 H 01/02/25 17:26 91/55 L 01/02/25 17:26 91/55 L 01/02/25 17:24 155 H 27 H 01/02/25 17:18 125 H 01/02/25 17:10 36.3 C L 165 H 20 94/54 L 01/02/25 17:06 136 H 27 H 01/02/25 17:05 110/82 01/02/25 16:57 178 H 33 H Pulse Ox O2 Del Method FiO2 01/02/25 23:00 99 Mechanical Vent 01/02/25 23:00 Mechanical Vent 01/02/25 23:00 60 01/02/25 22:52 100 Mechanical Vent 60 01/02/25 22:45 100 60 01/02/25 22:42 100 Mechanical Vent 60 01/02/25 20:18 Room Air 01/02/25 20:15 95 01/02/25 20:15 01/02/25 20:15 01/02/25 20:15 01/02/25 20:12 01/02/25 20:03 01/02/25 20:00 01/02/25 19:57 94 01/02/25 19:55 01/02/25 19:55 01/02/25 19:45 01/02/25 19:42 94 01/02/25 19:36 01/02/25 19:36 01/02/25 19:36 01/02/25 19:33 91 01/02/25 19:30 94 01/02/25 19:30 01/02/25 19:30 01/02/25 19:30 01/02/25 19:24 01/02/25 19:24 94 01/02/25 19:15 90 01/02/25 19:15 01/02/25 19:15 01/02/25 19:15 01/02/25 19:12 96 01/02/25 19:07 Room Air 01/02/25 19:06 Room Air 01/02/25 19:00 93 01/02/25 19:00 01/02/25 18:45 01/02/25 18:45 01/02/25 18:45 95 01/02/25 18:33 01/02/25 18:30 01/02/25 18:15 01/02/25 18:03 97 01/02/25 18:03 01/02/25 17:48 93 01/02/25 17:45 01/02/25 17:42 91 01/02/25 17:36 95 01/02/25 17:30 01/02/25 17:27 01/02/25 17:26 01/02/25 17:26 01/02/25 17:24 01/02/25 17:18 01/02/25 17:10 90 Room Air 01/02/25 17:06 71 L 01/02/25 17:05 01/02/25 16:57 88 L Laboratory Results Abnormal lab results 01/02/25 01/02/25 01/02/25 Range/Units 17:00 17:03 17:30 WBC 18.91 H (4.8-10.8) K/ul RBC 3.96 L (4.20-5.40) M/uL RDW Std Deviation 59.2 H (36.4-46.3) fL RDW Coeff of Zee 17.3 H (11.5-14.5) % MPV 13.4 H (9.4-12.4) fL Neut # (Auto) 16.12 H (1.40-6.50) K/uL Lymph # (Auto) 0.86 L (1.20-3.40) K/uL Glasscock # (Auto) 1.73 H (0.11-0.59) K/uL PT 14.3 H (9.0-12.0) Seconds INR 1.4 H (0.9-1.1) VBG pH 7.43 H (7.36-7.41) Chloride 94 L (98-107) mmol/L Anion Gap 14 H (3-11) BUN 49 H (6-23) mg/dl Creatinine 2.34 H (0.6-1.2) mg/dl BUN/Creatinine Ratio 20.9 H (10-20) Glucose 100 H (70-99(Fasting)) mg/dl Lactate 4.3 H* (0.4-2.0) mmol/L Total Bilirubin 2.7 H (0.2-1.0) mg/dl Direct Bilirubin 0.7 H (0-0.2) mg/dl Troponin I High Sens 31.4 H (0-14) pg/ml Procalcitonin 15.20 H (0-0.5) ng/ml Urine Protein 1+ H (Negative) Urine Ketones Trace H (Negative) Urine Nitrite Positive A (Negative) Urine Bilirubin 1+ H (Negative) Urine Urobilinogen Positive H (Negative) Ur Leukocyte Esterase 1+ H (Negative) U Hyaline Cast (Auto) 3-5 H (0-2) /lpf 01/02/25 Range/Units 19:26 WBC (4.8-10.8) K/ul RBC (4.20-5.40) M/uL RDW Std Deviation (36.4-46.3) fL RDW Coeff of Zee (11.5-14.5) % MPV (9.4-12.4) fL Neut # (Auto) (1.40-6.50) K/uL Lymph # (Auto) (1.20-3.40) K/uL Glasscock # (Auto) (0.11-0.59) K/uL PT (9.0-12.0) Seconds INR (0.9-1.1) VBG pH (7.36-7.41) Chloride (98-107) mmol/L Anion Gap (3-11) BUN (6-23) mg/dl Creatinine (0.6-1.2) mg/dl BUN/Creatinine Ratio (10-20) Glucose (70-99(Fasting)) mg/dl Lactate 2.9 H* (0.4-2.0) mmol/L Total Bilirubin (0.2-1.0) mg/dl Direct Bilirubin (0-0.2) mg/dl Troponin I High Sens 21.8 H (0-14) pg/ml Procalcitonin (0-0.5) ng/ml Urine Protein (Negative) Urine Ketones (Negative) Urine Nitrite (Negative) Urine Bilirubin (Negative) Urine Urobilinogen (Negative) Ur Leukocyte Esterase (Negative) U Hyaline Cast (Auto) (0-2) /lpf Diagnostic Findings Abdomen/Pelvis CT 01/02/25 16:58 CT ABDOMEN and PELVIS without INTRAVENOUS CONTRAST HISTORY: Abdominal pain TECHNIQUE: CT abdomen and pelvis without contrast. IV CONTRAST: None ENTERIC CONTRAST: None. COMPARISON: None FINDINGS: LOWER CHEST: Cardiomegaly. Small pericardial fluid. Chronic interstitial lung changes. LIVER: No focal lesion identified in this noncontrast study. GALLBLADDER/BILIARY: Unremarkable gallbladder. No abnormal biliary dilatation. SPLEEN: Unremarkable. PANCREAS: Unremarkable. ADRENALS: Unremarkable. KIDNEYS: Kidneys are atrophic. No stones or hydronephrosis identified. PERITONEUM/RETROPERITONEUM. No lymphadenopathy by size criteria. No aortic aneurysm. Extensive atherosclerosis. Aortobiiliac stent. GASTROINTESTINAL: Multiple loops of the small bowel and the stomach are significantly fluid distended, through portions of the decompressed large bowel. This is consistent small bowel obstruction. Moreover, there appear to be 2 transition points in the left lower quadrant of the abdomen abutting each other (series 2, image 66) with the intervening loop of small bowel appearing inflamed. Colonic diverticulosis without evidence of diverticulitis. REPRODUCTIVE: Status post hysterectomy BONES: No acute findings. Old fracture of the left superior and inferior right pubic rami and chronic left sacral fractures. Chronic appearing compression fractures of T11-L2 vertebral bodies with mild retropulsion. IMPRESSION: Small bowel obstruction with high suspicion for a closed-loop bowel obstruction with transition points in the left lower quadrant of the abdomen as discussed Notification to clinician of alert: [facility] was notified about above findings by phone on January 02, 2025 at 6:50 PM by Dyllan Vicente MD. Electronically signed by Dyllan Vicente 01-02-2025 6:58 PM Chest X-Ray 01/02/25 16:59 Chest radiograph, one view History: Sepsis Comparison: 03/30/2024 Findings: Single AP view of the chest performed. No focal consolidation or pleural effusion. No pneumothorax. Scattered fibrotic changes, similar to prior. The cardiomediastinal silhouette is within normal limits. Prominent pulmonary vascularity. No evidence for lymphadenopathy. No visualized bony or soft tissue abnormality. Impression: Scattered fibrotic changes again seen, without evidence for acute superimposed process Electronically signed by Khai Lindsey 01-02-2025 6:04 PM KUB X-Ray 01/02/25 18:05 Clinical history: NG tube placement One view of the abdomen was obtained Findings: The bowel gas pattern appears unremarkable. No renal or ureteral calculi are seen. There is a feeding tube with its tip and side-port within the stomach. There are iliac vascular stents. There is lumbar scoliosis and degenerative disc disease. There are lumbar compression fractures There is a small left pleural effusion. There are bilateral lung base opacities that may be due to atelectasis Impression: Nasogastric tube with its tip within the stomach Electronically signed by Jeyson Charles 01-02-2025 7:17 PM Medications Administered Meropenem 500 mg/ Syringe 10 mls @ 2 mls/min IV Q6H NAWAF; Protocol Stop: 01/04/25 17:14 Last Admin: 01/02/25 18:28 Dose: 2 mls/min Documented By: JASE Discontinued Medications Cefoxitin Sodium (Cefoxitin Sod 1,000 Mg Vial) Confirm Administered Dose 1,000 mg .ROUTE .STK-MED ONE Stop: 01/02/25 20:23 Last Admin: 01/02/25 21:40 Dose: Not Given Documented By: CLAUDETTE Sodium Chloride (Nss) 1,000 mls @ 999 mls/hr IV .Q1H1M NAWAF Stop: 01/02/25 18:00 Last Infusion: 01/02/25 18:32 Dose: Infused Documented By: Admin: 01/02/25 17:21 Dose: 999 mls/hr Documented By: JASE Acetaminophen (Ofirmev) 1,000 mg in 100 mls @ 400 mls/hr IV NOW STA Stop: 01/02/25 17:12 Last Infusion: 01/02/25 17:58 Dose: Infused Documented By: Admin: 01/02/25 17:20 Dose: 400 mls/hr Documented By: JASE Parenteral Electrolytes (Plasma-Lyte A Ph 7.4) 1,000 mls @ 999 mls/hr IV .Q1H1M ONE Stop: 01/02/25 18:51 Last Admin: 01/02/25 18:02 Dose: 999 mls/hr Documented By: JASE Parenteral Electrolytes (Plasma-Lyte A Ph 7.4) 500 mls @ 999 mls/hr IV .Q31M ONE Stop: 01/02/25 19:59 Last Admin: 01/02/25 19:42 Dose: 999 mls/hr Documented By: JESSE Albumin Human (Albumin 5%) 250 mls @ 500 mls/hr IV ONE ONE Stop: 01/02/25 20:28 Last Admin: 01/02/25 20:06 Dose: 500 mls/hr Documented By: JESSE Ondansetron HCl (Ondansetron Inj 2 Mg/Ml 2 Ml Vial) 4 mg IV NOW STA Stop: 01/02/25 16:59 Last Admin: 01/02/25 17:19 Dose: 4 mg Documented By: JASE ECG Additional Comments: Atrial fibrillationwith rapid ventricular response Low voltage QRS Septal infarct(cited on or [id number]) Abnormal ECG When compared with ECG [id number] 21:04, Atrial fibrillationhas replacedSinus rhythm Vent. ratehas increasedby 72bpm QRS durationhas decreased Coding Level of Care Code 50054 CRITICAL CARE 1ST 30-74M Diagnoses Closed loop obstruction of intestine K56.699 S/P small bowel resection Z90.49 Atrial fibrillation with rapid ventricular response I48.91 ARF (acute renal failure) N17.9
--- NOTE | 2025-01-02 23:36 | Procedure Note ---
Procedure Note Date of Service January 02, 2025 INTERNAL JUGULAR CENTRAL LINE PROCEDURE NOTE: Procedure: Internal Jugular Central Line Placement Proceduralist: Anuel STOUT ([facility]) Attending: Dr. JUAREZ Indication: Central Drug Administration, Poor Venous Access, Multiple Lab Draws Necessary, etc. Anesthesia: [x]Lidocaine 1% Consent was obtained via phone from DaughterAldo Hickman, as delegated to me by Dr. Juarez. It is signed and placed on the chart prior to procedure. Indication, risks, and benefits were explained at length to include but not limited to infection, thrombosis, damage to surrounding tissue/vessels, inadvertant arterial placement, pneumothroax, need for further emergent procedures, and . A time-out was completed verifying correct patient, procedure, site, positioning, and implants(s) or special equipment if applicable. Patients LEFT Neck was cleansed and draped in the typical sterile fashion using Chloraprep. The Internal Jugular Vein and Carotid Artery were identified using ultrasound. The superficial tissue was anesthetized using 5 mL of 1% lidocaine without epinephrine under direct visualization with the ultrasound. After adequate anesthetization was achieved, the Internal Jugular vein was cannulated under direct ultrasound guidance using an introducer needle on a syringe. Good venous blood return was maintained prior to removal of syringe from introducer needle. Using Seldinger Technique, a guide wire was advanced through the introducer needle without resistance. The introducer needle was removed and ultrasound images were obtained of the guide wire within the Internal Jugular Vein and saved to the patients medical record. A small incision was made in penetrating fashion at the guide wire insertion site utilizing an 11 blade scalpel. The dilator was advanced to superficial tissues without resistance. The dilator was exchanged for the triple lumen catheter which was advanced into the vessel without resistance. The guide wire was removed intact from the catheter without issue. Claves were placed on each catheter tip with confirmation of good blood flow from each lumen. Each port was easily flushed with sterile saline. The catheter was placed at 20 cm and sut[address] in place. BioPatch was applied to the catheter and a sterile Tegaderm dressing was applied over the catheter with careful attention to sterility. Patient tolerated procedure well. No immediate complications were met. Post procedure x-ray was completed, placement was slightly deep will be withdrawn 2cm- now at 18cm Images obtained are NOT saved for permanent record as this is emergent [facility] [place] Procedure Codes (Charges) Tubes, Drains, and Vasc Access Procedure 1: Tubes, Drains, and Vasc Access: [id number] Insertion Of Non-tunneled Catheter Age 4 Yrs> Coding CPT Codes Tubes, Drains, and Vasc Access - Tubes, Drains, and Vasc Access: [id number] Insertion Of Non-tunneled Catheter Age 4 Yrs> ([id number]) Additional Codes Date of Service ([email or web address])
[2025-01-02] MEDS: PHENYLEPHRINE/NSS 25 MG/250 ML BAG IV SCH (23:45)
[2025-01-03] MEDS ORDERED: AMIODARONE IV BOLUS & DRIP IV STA (00:39)
[2025-01-03] MEDS ORDERED: 0.2 MICRON FILTER SET 1 EACH IV STA (00:39)
[2025-01-03] MEDS ORDERED: STAT IV Infusion **Titration per Protocol STA ×2 (00:39)
[2025-01-03] MEDS: ALBUMIN 5% 250 ML IV ONE (00:45)
[2025-01-03 00:59] LABS: iSTAT Art Bld Gas Base Excess 1.0 meg/L (-9-1.8); iSTAT Art Bld Gas pCO2 Correct 31 mmHg (35-46); iSTAT Art Bld Gas pH Corrected 7.510 (7.35-7.45); iSTAT Arterial Blood Gas pO2 C 246
[2025-01-03] MEDS: VASOPRESSIN 20 UNITS in SODIUM CHLORIDE 0.9% 100 ML IV SCH (01:01)
[2025-01-03] MEDS: HYDROCORTISONE SOD 50 MG in SYRINGE 0 ML IV SCH (01:02)
[2025-01-03 01:04] LABS: Anion Gap 11.0 (3-11); Blood Urea Nitrogen 40.0 mg/dl (6-23); Calcium 7.3 mg/dl (8.6-10.3); Carbon Dioxide 27.0 mmol/L (21-32); Chloride 98.0 mmol/L (98-107); Creatinine Clr Calc Pharmacy 22.9 ml/min; Glucose 138.0 mg/dl (70-99(Fasting)); Magnesium 2.0 mg/dl (1.7-2.4); Potassium 3.4 mmol/L (3.5-5.1); Sodium 136.0 mmol/L (136-145)
[2025-01-03] MEDS: AMIODARONE / D5W 150 MG/100 ML BAG IV STA (01:04)
[2025-01-03] MEDS: AMIODARONE / D5W 360 MG/200 ML BAG IV ONE (01:11)
[2025-01-03] MEDS: NOREPINEPHRINE/D5W 4 MG/250 ML PLCT IV SCH (01:37)
[2025-01-03] MEDS: SODIUM CHLORIDE 0.9% 1,000 ML IV SCH (01:41)
--- NOTE | 2025-01-03 01:44 | XRay Report ---
EXAM: XR chest 1V portable CLINICAL HISTORY: Eval CVL placement, ETT placement. TECHNIQUE: An X-ray image of the chest is obtained in AP projection. COMPARISON: Prior 03/10/2024. FINDINGS: ETT is seen inserted in place with its tip 3.8 cm from the swetha. Left side CVL with its tip at the right atrium. NGT noted inserted with its tip noted at the left side below the diaphragm, likely within the stomach. Pulmonary Parenchyma: Right lung lower zone focal opacity suggesting a pneumonic process. Left lower zone thick atelectatic band with a blunted left costophrenic angle, suggesting mild pleural effusion. Background of interstitial pulmonary changes with reticular infiltration. Heart and Mediastinum: Heart size and shape are normal. No mediastinal widening or masses. No hilar or mediastinal lymphadenopathy. Bony Thorax: Bony thorax appears intact without fractures or deformities. Soft Tissues: Soft tissues overlying the chest wall are unremarkable. IMPRESSION: 1. ETT is seen inserted in place with its tip 3.8 cm from the swetha. 2. Left side CVL with its tip at the right atrium. 3. NGT noted inserted with its tip at the left side below the diaphragm, likely within the stomach. 4. Right lung lower zone focal opacity with left side mild pleural effusion, suggesting a pneumonic process to be clinically correlated. 5. Background of interstitial pulmonary changes with a left lower zone thick atelectatic band. 6. Newly inserted lines and newly developed pneumonic process as compared to the prior study. Electronically signed by Radhames Burch 01-03-2025 01:43 AM
[2025-01-03] MEDS: VANCOMYCIN HCL 1,250 MG in SODIUM CHLORIDE 0.9% 250 ML IV ONE (01:49)
[2025-01-03 02:52] LABS: Hematocrit (blood only) 28.2 % (37.0-47.0); Hemoglobin 9.2 g/dl (12.0-16.0); Mean Corpuscular Hemoglobin 31.3 pg (25.0-34.0); Mean Corpuscular Volume 95.9 fL (80.0-100.0); Platelet Count 159 K/uL (130-400); RDW Standard Deviation 59.1 fL (36.4-46.3); Red Blood Count 2.94 M/uL (4.20-5.40); White Blood Count 7.43 K/ul (4.8-10.8)
[2025-01-03 03:08] LABS: Alanine Aminotransferase 10.0 U/L (7-52); Albumin Level 2.6 gm/dl (3.4-5.0); Alkaline Phosphatase 33.0 U/L (34-104); Anion Gap 10.0 (3-11); Bilirubin,Total 2.4 mg/dl (0.2-1.0); Blood Urea Nitrogen 36.0 mg/dl (6-23); Calcium 7.0 mg/dl (8.6-10.3); Carbon Dioxide 24.0 mmol/L (21-32); Chloride 100.0 mmol/L (98-107); Creatinine Clr Calc Pharmacy 23.7 ml/min; Glucose 186.0 mg/dl (70-99(Fasting)); Magnesium 2.0 mg/dl (1.7-2.4); Potassium 3.2 mmol/L (3.5-5.1); Sodium 134.0 mmol/L (136-145); Total Protein 4.5 gm/dl (6.0-8.3)
--- NOTE | 2025-01-03 04:11 | History & Physical Report ---
Date of Service January 02, 2025 Assessment & Plan (1) Septic shock: Plan: 84-year-old female with past medical history significant for SIADH, dyslipidemia, hypothyroidism, COPD, peripheral vascular disease, paroxysmal atrial fibrillation, hypertension, moderate mitral regurgitation, moderate aortic insufficiency, paroxysmal supraventricular tachycardia, GERD, CKD stage III, compression fraction of T12 vertebra, chronic pain of both shoulders, impingement syndrome of both shoulders, severe osteoporosis, history of pelvic fracture, migraine, anemia of chronic disease, rheumatoid arthritis, history of lung cancer, elevated liver enzymes, lives at home and ambulates with a walker and lives with her grand child was brought in because of nausea vomiting and abdominal pain and found to be in septic shock and found to have small bowel obstruction closed-loop. Patient having abdominal pain in the left lower quadrant with nausea and vomiting for last few days. Patient thought could be the diverticulitis. Abdomen is swollen. States last bowel movement was couple of days ago. Patient denies any chest pain. Afebrile. States micturating okay. No cough. No shortness of breath. No headache. In the ER when she came in she was hypotensive and tachycardic. WBC was 18. Creatinine was 2.3. Initial lactic was 4.3 and repeat was 2.9. Procalcitonin 15. UA was positive. MRSA screen was positive. CT abdomen pelvis showed small bowel obstruction with high suspicion for closed-loop bowel obstruction. After the fluid boluses blood pressure improved. Patient is alert and awake and oriented and able to give her history. Family in the room. Septic shock Presents with abdominal pain and nausea and vomiting Systolic blood pressure in 80s Lactic acid 4.3 Heart rates in 150s, WBC 18 UA is positive. UTI Also possible ischemic bowel closed-loop bowel obstruction After aggressive fluids blood pressure improved Lactic acid improved to 2.9 Received meropenem History of MRSA Will add IV Vanco Continue IV fluids Will follow cultures Surgery consulted and plan for urgent surgery Close monitoring hemodynamics Close monitoring in ICU Appreciate critical care help Valvular heart disease Moderate mitral regurgitation and moderate aortic insufficiency Monitor for volume overload Rapid A-fib holding rate control medication because patient is in septic shock Not on anticoagulation because of fall risk Restart home metoprolol succinate when stable Close monitoring in the ICU Amnio or esmolol if needed per critical care Rheumatoid arthritis Holding home prednisone and methotrexate Stress dose steroids if needed Hypothyroidism Levothyroxine unable to take p.o. Hypertension Holding amlodipine, losartan, metoprolol succinate for now because of septic shock Peripheral vascular disease Status post bilateral femoral stents On aspirin YAHIR on CKD stage III Baseline creatinine 0.8-1 Presented with creatinine of 2.3 Hold nephrotoxic agents Getting fluids Will follow closely repeat labs Elevation of troponin Initial troponin 31 repeat is 21 Mostly demand ischemia Will follow labs History of lung cancer Left lower lobe squamous cell carcinoma Status post left lower lobe lobectomy in 2007 History of SIADH Sodium 137 today DVT prophylaxis SCDs Disposition Close monitoring ICU full code History of Present Illness Chief Complaint: Septic shock and bowel obstruction Primary Care Provider: Edna Neal MD 84-year-old female with past medical history significant for SIADH, dyslipidemia, hypothyroidism, COPD, peripheral vascular disease, paroxysmal atrial fibrillation, hypertension, moderate mitral regurgitation, moderate aortic insufficiency, paroxysmal supraventricular tachycardia, GERD, CKD stage III, compression fraction of T12 vertebra, chronic pain of both shoulders, impingement syndrome of both shoulders, severe osteoporosis, history of pelvic f racture, migraine, anemia of chronic disease, rheumatoid arthritis, history of lung cancer, elevated liver enzymes, lives at home and ambulates with a walker and lives with her grand child was brought in because of nausea vomiting and abdominal pain and found to be in septic shock and found to have small bowel obstruction closed-loop. Patient having abdominal pain in the left lower quadrant with nausea and vomiting for last few days. Patient thought could be the diverticulitis. Abdomen is swollen. States last bowel movement was couple of days ago. Patient denies any chest pain. Afebrile. States micturating okay. No cough. No shortness of breath. No headache. In the ER when she came in she was hypotensive and tachycardic. WBC was 18. Creatinine was 2.3. Initial lactic was 4.3 and repeat was 2.9. Procalcitonin 15. UA was positive. MRSA screen was positive. CT abdomen pelvis showed small bowel obstruction with high suspicion for closed-loop bowel obstruction. After the fluid boluses blood pressure improved. Patient is alert and awake and oriented and able to give her history. Family in the room. Past medical history. As mentioned above Past surgical history. Colonoscopy with biopsy. Bilateral femoral stent placement 2011. Radical hysterectomy. Left lower lobe single lobectomy in 2007. Social history. Quit smoking 2006. Smoked 1 pack a day for 30 years. No alcohol despite no drug use. Family history. Brother alcoholism. Skin cancer. Father had liver cancer. Mother had endometrial cancer. Brother had diabetes. Maternal grandfather had heart disorder. Maternal grandmother had heart disorder. Allergies Allergy/AdvReac Type Severity Reaction Status Date / Time tetracycline Allergy Severe COULDN'T Verified 03/31/24 00:22 BREATHE Cephalosporins Allergy Intermediate HIVES Verified 03/31/24 00:22 clindamycin Allergy Mild RASH Verified 03/31/24 00:22 Penicillins Allergy Mild HIVES Verified 03/31/24 00:22 Sulfa (Sulfonamide Allergy Mild RED AND Verified 03/31/24 00:22 Antibiotics) SWEATING SILVIA Inhibitors Allergy Unknown Unknown Verified 03/31/24 00:22 aspartame Allergy Unknown Unknown Verified 03/31/24 00:22 cefazolin Allergy Unknown Unknown Verified 03/31/24 00:22 cephalexin Allergy Unknown Unknown Verified 03/31/24 00:22 doxycycline Allergy Unknown Unknown Verified 03/31/24 00:22 hydrochlorothiazide Allergy Unknown Unknown Unverified 03/31/24 00:22 lidocaine Allergy Unknown Unknown Verified 03/31/24 00:22 lisinopril Allergy Unknown Unknown Unverified 03/31/24 00:22 yellow dye Allergy Unknown Unknown Verified 03/31/24 00:22 prednisone AdvReac Mild HIGH BP Verified 03/31/24 00:22 Home Medications Medication Instructions Recorded Confirmed Type acetaminophen 500 mg tablet 500 mg PO Q6H PRN Pain 03/29/18 01/02/25 History (Tylenol Extra Strength) albuterol sulfate 90 mcg/actuation 2 puff inhalation Q4H PRN 03/29/18 01/02/25 History aerosol inhaler (Ventolin HFA) Shortness Of Breath aspirin 81 mg tablet,delayed 81 mg PO QAM 03/29/18 01/02/25 History release (Bernie Low Dose Aspirin) folic acid 1 mg tablet 2 mg PO QAM 03/29/18 01/02/25 History furosemide 20 mg tablet 20 mg PO AMPM PRN swelling 03/29/18 01/02/25 History famotidine 20 mg tablet 20 mg PO AMPM 10/17/19 01/02/25 History levothyroxine 50 mcg tablet 25 mcg PO DAILYBB 10/17/19 01/02/25 History methotrexate sodium 2.5 mg tablet 10 mg PO WK 10/17/19 01/02/25 History risedronate 150 mg tablet 150 mg PO MONTHLY 08/14/20 01/02/25 History losartan 100 mg tablet 100 mg PO QAM 03/31/24 01/02/25 History metoprolol succinate 25 mg 25 mg PO QAM 03/31/24 01/02/25 History tablet,extended release 24 hr [id number] 8 mg-folic 400 1 tab PO QAM 03/31/24 01/02/25 History mcg-K 50 mcg-lutein 300 mcg tablet (Centrum Silver Women) prednisone 5 mg tablet 5 mg PO UD PRN arthritis pain 03/31/24 01/02/25 History L.acidop,casei,lactis,rham-B.lact,caroline 1 cap PO DAILY #10 caps 04/07/24 01/02/25 Rx 625 mg (10 billion cell) capsule (Advanced Probiotic) amlodipine 5 mg tablet (Norvasc) 2.5 mg (1/2 x 5 mg) PO QAM #10 tabs 04/07/24 01/02/25 Rx Past Med/Surg History Problem List (Updated 01/03/25 @ 04:21 by Ruben Chun MD) Septic shock ARF (acute renal failure) S/P small bowel resection Atrial fibrillation with rapid ventricular response (Acute) Closed loop obstruction of intestine (Acute) Acidosis, lactic (Acute) Acute renal failure with oliguria (Acute) Severe sepsis (Acute) Encounter for pre-operative examination Abnormal CT scan, chest 08/20- notes presence of lung nodules. Phalanx, proximal fracture of finger SOB (shortness of breath) Multiple skin tears (Acute) Closed left radial fracture (Acute) Closed pelvic fracture (Acute) Fall (Acute) Pre-syncope Wrist pain, left (Acute) PAD (peripheral artery disease) (Chronic) Hypertension (Chronic) Medical History Paroxysmal atrial fibrillation with rapid ventricular response Peripheral vascular disease Acute on chronic renal insufficiency Chronic renal insufficiency Anemia Closed loop obstruction of intestine Rheumatoid arthritis Pulmonary nodules Lung cancer, lower lobe Surgical History S/P lobectomy of lung LLL H/O: hysterectomy Family History Other Family history non-contributory Social History Smoking Status: Former smoker Hx Alcohol Use: No Hx Substance Use: No Preferred Language: Croatian Communication Ability: Effective Building Equipment Inspector Required: No Beliefs That Will Affect Care: None Current Living Situation: Family Current Living Situation Comment: lives with granddaughter Feels Safe at Home: Yes Assistive Devices: Wheelchair Review of Systems Review of Systems: All systems reviewed & are unremarkable except as noted in HPI & below Physical Exam Physical Exam: General- Not in distress Head- atraumatic Eyes- PERRL. ENT- oropharynx clear Neck- supple, no JVD. Lungs- clear to auscultation no wheezing or crackles Heart- irregular rhythm;tachycardia no murmur, no gallop. Abdomen- absent bowel sounds, tense , diffuse tender, distended Extremities- b/l lower extremity edema present with some chronic skin changes Neuro- alert, oriented PERRL, no facial palsy; no dysarthria; moves extremities Results & Data Results & Data Vital Signs (Past 12 Hours) Vital Signs Temp Pulse Resp BP Pulse Ox O2 Del Method 01/02/25 20:18 Room Air 01/02/25 20:15 145 H 23 95 01/02/25 20:15 102/62 01/02/25 20:15 102/62 01/02/25 20:15 102/62 01/02/25 20:12 141 H 24 01/02/25 20:03 150 H 26 H 01/02/25 20:00 88/64 L 01/02/25 19:57 157 H 24 94 01/02/25 19:55 96/64 L 01/02/25 19:55 96/64 L 01/02/25 19:45 90/58 L 01/02/25 19:42 125 H 24 94 01/02/25 19:36 91/56 L 01/02/25 19:36 91/56 L 01/02/25 19:36 91/56 L 01/02/25 19:33 30 H 91 01/02/25 19:30 25 H 94 01/02/25 19:30 81/67 L 01/02/25 19:30 81/67 L 01/02/25 19:30 81/67 L 01/02/25 19:24 101/84 01/02/25 19:24 22 94 01/02/25 19:15 22 90 01/02/25 19:15 84/68 L 01/02/25 19:15 84/68 L 01/02/25 19:15 84/68 L 01/02/25 19:12 126 H 21 96 01/02/25 19:07 Room Air 01/02/25 19:06 Room Air 01/02/25 19:00 130 H 22 93 01/02/25 19:00 112/72 01/02/25 18:45 94/75 L 01/02/25 18:45 94/75 L 01/02/25 18:45 131 H 23 95 01/02/25 18:33 145 H 23 01/02/25 18:30 107/74 01/02/25 18:15 92/65 L 01/02/25 18:03 153 H 20 97 01/02/25 18:03 90/72 L 01/02/25 17:48 132 H 20 93 01/02/25 17:45 87/62 L 01/02/25 17:42 164 H 23 91 01/02/25 17:36 155 H 25 H 95 01/02/25 17:30 111/72 01/02/25 17:27 164 H 25 H 01/02/25 17:26 91/55 L 01/02/25 17:26 91/55 L 01/02/25 17:24 155 H 27 H 01/02/25 17:18 125 H 01/02/25 17:10 36.3 C L 165 H 20 94/54 L 90 Room Air 01/02/25 17:06 136 H 27 H 71 L 01/02/25 17:05 110/82 01/02/25 16:57 178 H 33 H 88 L Diagnostic Findings Laboratory Results WBC 7.43 K/ul (4.8-10.8) D 01/03/25 02:30 RBC 2.94 M/uL (4.20-5.40) L 01/03/25 02:30 Hgb 9.2 g/dl (12.0-16.0) L D 01/03/25 02:30 POC Hgb 9.2 g/dl (12.0-16.0) L 01/03/25 00:45 Hct 28.2 % (37.0-47.0) L 01/03/25 02:30 POC Hct 27 % (37-47) L 01/03/25 00:45 MCV 95.9 fL (80.0-100.0) 01/03/25 02:30 MCH 31.3 pg (25.0-34.0) 01/03/25 02:30 MCHC 32.6 g/dL (32.0-36.0) 01/03/25 02:30 RDW Std Deviation 59.1 fL (36.4-46.3) H 01/03/25 02:30 RDW Coeff of Zee 17.2 % (11.5-14.5) H 01/03/25 02:30 Plt Count 159 K/uL (130-400) 01/03/25 02:30 MPV 12.9 fL (9.4-12.4) H 01/03/25 02:30 Immature Gran % (Auto) 0.5 % 01/02/25 17:00 Neut % (Auto) 85.4 % 01/02/25 17:00 Lymph % (Auto) 4.5 % 01/02/25 17:00 [place] % (Auto) 9.1 % 01/02/25 17:00 Eos % (Auto) 0.2 % 01/02/25 17:00 Baso % (Auto) 0.3 % 01/02/25 17:00 Neut # (Auto) 16.12 K/uL (1.40-6.50) H 01/02/25 17:00 Lymph # (Auto) 0.86 K/uL (1.20-3.40) L 01/02/25 17:00 [place] # (Auto) 1.73 K/uL (0.11-0.59) H 01/02/25 17:00 Eos # (Auto) 0.04 K/uL (0.00-0.50) 01/02/25 17:00 Baso # (Auto) 0.06 K/uL (0.00-0.20) 01/02/25 17:00 Immature Gran # (Auto) 0.10 K/uL (0.01-0.20) 01/02/25 17:00 Absolute Nucleated RBC 0.02 K/uL (0.00-0.12) 01/02/25 17:00 Nucleated RBC % (auto) 0.1 % 01/02/25 17:00 Anisocytosis Present 01/02/25 17:00 PT 14.3 Seconds (9.0-12.0) H 01/02/25 17:00 INR 1.4 (0.9-1.1) H 01/02/25 17:00 APTT 24 Seconds (21-31) 01/02/25 17:00 PTT Ratio 0.9 01/02/25 17:00 Specimen Type Arterial 01/03/25 00:45 Sample Site Art Line 01/03/25 00:45 POC pH 7.51 (7.35-7.45) H* 01/03/25 00:45 POC pCO2 31 mmHg (35-46) L 01/03/25 00:45 POC pO2 246 mmHg (80-95) H 01/03/25 00:45 POC HCO3 25 rodney/L (19-24) H 01/03/25 00:45 POC Total CO2 25 mmol/L (24-31) 01/03/25 00:45 POC Base Excess 1.0 rodney/L (-9-1.8) 01/03/25 00:45 O2 Sat Pulse Oximetry 100 01/03/25 00:45 ABG pH (Temp Correct) 7.510 (7.35-7.45) H* 01/03/25 00:45 ABG pCO2 (Temp Corrct 31 mmHg (35-46) L 01/03/25 00:45 POC ABG pO2 at Pt Temp 246 01/03/25 00:45 POC ABG O2 Sat 100.0 % (90-95) H 01/03/25 00:45 Romel Test NA 01/03/25 00:45 VBG pH 7.43 (7.36-7.41) H 01/02/25 17:30 VBG pCO2 47 mmHg (38-50) 01/02/25 17:30 VBG pO2 20 mmHg 01/02/25 17:30 VBG HCO3 31 mmol/L 01/02/25 17:30 VBG O2 Saturation < 60.0 % 01/02/25 17:30 VBG Base Excess 5.9 mEq/L 01/02/25 17:30 O2 Delivery Device Ventilator 01/03/25 00:45 Vent Mode AC 01/03/25 00:45 POC FiO2 60 % 01/03/25 00:45 End Tidal CO2 24 01/03/25 00:45 POC Sodium 134 mmol/L (135-144) L 01/03/25 00:45 Sodium 134 mmol/L (136-145) L 01/03/25 02:30 POC Potassium 3.1 mmol/L (3.3-5.0) L 01/03/25 00:45 Potassium 3.2 mmol/L (3.5-5.1) L 01/03/25 02:30 Chloride 100 mmol/L (98-107) 01/03/25 02:30 Carbon Dioxide 24 mmol/L (21-32) 01/03/25 02:30 Anion Gap 10 (3-11) 01/03/25 02:30 BUN 36 mg/dl (6-23) H 01/03/25 02:30 Creatinine 1.37 mg/dl (0.6-1.2) H 01/03/25 02:30 Est Cr Clr Drug Dosing 23.7 ml/min 01/03/25 02:30 eGFR 37.84 01/03/25 02:30 BUN/Creatinine Ratio 26.3 (10-20) H 01/03/25 02:30 Glucose 186 mg/dl (70-99(Fasting)) H 01/03/25 02:30 Lactate 2.5 mmol/L (0.4-2.0) H* 01/03/25 02:30 Calcium 7.0 mg/dl (8.6-10.3) L 01/03/25 02:30 Phosphorus 4.4 mg/dl (2.5-4.9) 01/03/25 02:30 Magnesium 2.0 mg/dl (1.7-2.4) 01/03/25 02:30 Total Bilirubin 2.4 mg/dl (0.2-1.0) H 01/03/25 02:30 Direct Bilirubin 1.0 mg/dl (0-0.2) H 01/03/25 02:30 AST 15 U/L (13-39) 01/03/25 02:30 ALT 10 U/L (7-52) 01/03/25 02:30 Alkaline Phosphatase 33 U/L (34-104) L 01/03/25 02:30 Troponin I High Sens 25.7 pg/ml (0-14) H 01/03/25 02:30 Total Protein 4.5 gm/dl (6.0-8.3) L D 01/03/25 02:30 Albumin 2.6 gm/dl (3.4-5.0) L 01/03/25 02:30 Procalcitonin 15.20 ng/ml (0-0.5) H 01/02/25 17:00 Urine Color [place] 01/02/25 17:03 Urine Appearance Clear (Clear) 01/02/25 17:03 Urine pH 6.5 (4.5-7.5) 01/02/25 17:03 Ur Specific [place] 1.019 (1.000-1.030) 01/02/25 17:03 Urine Protein 1+ (Negative) H 01/02/25 17:03 Urine Glucose (UA) Negative (Negative) 01/02/25 17:03 Urine Ketones Trace (Negative) H 01/02/25 17:03 Urine Blood Negative (Negative) 01/02/25 17:03 Urine Nitrite Positive (Negative) A 01/02/25 17:03 Urine Bilirubin 1+ (Negative) H 01/02/25 17:03 Urine Urobilinogen Positive (Negative) H 01/02/25 17:03 Ur Leukocyte Esterase 1+ (Negative) H 01/02/25 17:03 Urine WBC (Auto) 0-5 /hpf (0-5) 01/02/25 17:03 Urine RBC (Auto) 0-2 /hpf (0-2) 01/02/25 17:03 U Hyaline Cast (Auto) 3-5 /lpf (0-2) H 01/02/25 17:03 U Epithel Cells (Auto) 0-2 /hpf (0-2) 01/02/25 17:03 Urine Bacteria (Auto) None Seen (None Seen) 01/02/25 17:03 Urine Comment 01/02/25 17:03 Nasal Screen MRSA (PCR) Positive (Negative) A 01/02/25 23:00 Adenovirus (PCR) Not Detected (NotDetected) 01/02/25 18:00 B. pertussis DNA (PCR) Not Detected (NotDetected) 01/02/25 18:00 B.parapertussis DNA PCR Not Detected (NotDetected) 01/02/25 18:00 C. pneumoniae DNA (PCR) Not Detected (NotDetected) 01/02/25 18:00 Coronavirus OC43 (PCR) Not Detected (NotDetected) 01/02/25 18:00 Coronavirus HKU1 (PCR) Not Detected (NotDetected) 01/02/25 18:00 Coronavirus 229E (PCR) Not Detected (NotDetected) 01/02/25 18:00 SARS-CoV-2 (PCR) Not Detected (NotDetected) 01/02/25 18:00 Coronavirus NL63 (PCR) Not Detected (NotDetected) 01/02/25 18:00 Human Metapneumovir PCR Not Detected (NotDetected) 01/02/25 18:00 Influenza Type A (PCR) Not Detected (NotDetected) 01/02/25 18:00 Influenza Type B (PCR) Not Detected (NotDetected) 01/02/25 18:00 M. pneumoniae (PCR) Not Detected (NotDetected) 01/02/25 18:00 Parainfluenza 1 (PCR) Not Detected (NotDetected) 01/02/25 18:00 Parainfluenza 2 (PCR) Not Detected (NotDetected) 01/02/25 18:00 Parainfluenza 3 (PCR) Not Detected (NotDetected) 01/02/25 18:00 Parainfluenza 4 (PCR) Not Detected (NotDetected) 01/02/25 18:00 RSV (PCR) Not Detected (NotDetected) 01/02/25 18:00 Entero/Rhino (PCR) Not Detected (NotDetected) 01/02/25 18:00 Blood Type A Positive 01/02/25 17:33 Antibody Screen NEGATIVE 01/02/25 17:33 Impressions Abdomen/Pelvis CT 01/02/25 16:58 CT ABDOMEN and PELVIS without INTRAVENOUS CONTRAST HISTORY: Abdominal pain TECHNIQUE: CT abdomen and pelvis without contrast. IV CONTRAST: None ENTERIC CONTRAST: None. COMPARISON: None FINDINGS: LOWER CHEST: Cardiomegaly. Small pericardial fluid. Chronic interstitial lung changes. LIVER: No focal lesion identified in this noncontrast study. GALLBLADDER/BILIARY: Unremarkable gallbladder. No abnormal biliary dilatation. SPLEEN: Unremarkable. PANCREAS: Unremarkable. ADRENALS: Unremarkable. KIDNEYS: Kidneys are atrophic. No stones or hydronephrosis identified. PERITONEUM/RETROPERITONEUM. No lymphadenopathy by size criteria. No aortic aneurysm. Extensive atherosclerosis. Aortobiiliac stent. GASTROINTESTINAL: Multiple loops of the small bowel and the stomach are significantly fluid distended, through portions of the decompressed large bowel. This is consistent small bowel obstruction. Moreover, there appear to be 2 transition points in the left lower quadrant of the abdomen abutting each other (series 2, image 66) with the intervening loop of small bowel appearing inflamed. Colonic diverticulosis without evidence of diverticulitis. REPRODUCTIVE: Status post hysterectomy BONES: No acute findings. Old fracture of the left superior and inferior right pubic rami and chronic left sacral fractures. Chronic appearing compression fractures of T11-L2 vertebral bodies with mild retropulsion. IMPRESSION: Small bowel obstruction with high suspicion for a closed-loop bowel obstruction with transition points in the left lower quadrant of the abdomen as discussed Notification to clinician of alert: [facility] was notified about above findings by phone on January 02, 2025 at 6:50 PM by Dyllan Vicente MD. Electronically signed by Dyllan Vicente 01-02-2025 6:58 PM KUB X-Ray 01/02/25 18:05 Clinical history: NG tube placement One view of the abdomen was obtained Findings: The bowel gas pattern appears unremarkable. No renal or ureteral calculi are seen. There is a feeding tube with its tip and side-port within the stomach. There are iliac vascular stents. There is lumbar scoliosis and degenerative disc disease. There are lumbar compression fractures There is a small left pleural effusion. There are bilateral lung base opacities that may be due to atelectasis Impression: Nasogastric tube with its tip within the stomach Electronically signed by Jeyson Charles 01-02-2025 7:17 PM Chest X-Ray 01/02/25 23:20 EXAM: XR chest 1V portable CLINICAL HISTORY: Eval CVL placement, ETT placement. TECHNIQUE: An X-ray image of the chest is obtained in AP projection. COMPARISON: Prior 03/10/2024. FINDINGS: ETT is seen inserted in place with its tip 3.8 cm from the swetha. Left side CVL with its tip at the right atrium. NGT noted inserted with its tip noted at the left side below the diaphragm, likely within the stomach. Pulmonary Parenchyma: Right lung lower zone focal opacity suggesting a pneumonic process. Left lower zone thick atelectatic band with a blunted left costophrenic angle, suggesting mild pleural effusion. Background of interstitial pulmonary changes with reticular infiltration. Heart and Mediastinum: Heart size and shape are normal. No mediastinal widening or masses. No hilar or mediastinal lymphadenopathy. Bony Thorax: Bony thorax appears intact without fractures or deformities. Soft Tissues: Soft tissues overlying the chest wall are unremarkable. IMPRESSION: 1. ETT is seen inserted in place with its tip 3.8 cm from the swetha. 2. Left side CVL with its tip at the right atrium. 3. NGT noted inserted with its tip at the left side below the diaphragm, likely within the stomach. 4. Right lung lower zone focal opacity with left side mild pleural effusion, suggesting a pneumonic process to be clinically correlated. 5. Background of interstitial pulmonary changes with a left lower zone thick atelectatic band. 6. Newly inserted lines and newly developed pneumonic process as compared to the prior study. Electronically signed by Radhames Burch 01-03-2025 01:43 AM ECG Additional Comments: ECG. Atrial fibrillation with rapid ventricular response at the rate of 154. No acute ST changes seen. QTc 493 Code Status & VTE Plan VTE Prophylaxis Plan VTE Prophylaxis will be ordered: Yes
[2025-01-03 04:25] LABS: Immature Granulocytes # (auto) 0.01 K/uL (0.01-0.20); Immature Granulocytes % (auto) 0.1 %; Polychromasia 1+
--- NOTE | 2025-01-03 05:33 | Pharmacy Report ---
Pharmacy PK ABX Note - Date of Service January 03, 2025 - Assessment and Plan Assessment 84 year old F receiving meropenem/vancomycin for treatment of septic shock suspected GI source (SBO s/p resection) or aspiration into airways. Procalcitonin and lactate elevated upon admission. Pertinent microbiologic data includes: Positive MRSA Nasal Swab, blood and urine cultures pending. Noted multiple antibiotic allergies on file. YAHIR on admission, improved this AM but still above baseline. Day # 1 of antimicrobial therapy. Plan Vancomycin * Loading dose: 1250 mg IV x 1 * Maintenance dose: 500 mg IV every 24 hours starting 01/03/25 at 1600 * Regimen is predicted to achieve target AUC/ADRIANA of 400-600 mg/L.hr * Early 4andom level ordered for 01/04/25 with AM labs to help better guideline dosing Pharmacy will continue to follow and will adjust dose/frequency as necessary. Thank you. Pharmacy has transitioned to AUC monitoring for vancomycin. AUC/ADRIANA is the preferred PK/PD target and is associated with decreased risk of nephrotoxicity compared to traditional trough targets.
[2025-01-03] MEDS: POTASSIUM CHLORIDE / WTR 20 MEQ/100 ML PLCT IV SCH (05:36)
[2025-01-03] MEDS: MEROPENEM 500 MG in SYRINGE 0 ML IV SCH (05:37)
[2025-01-03] MEDS: ICU ELECTROLYTE REPLACEMENT PROTOCOL SCH (05:37)
[2025-01-03] MEDS: AMIODARONE / D5W 360 MG/200 ML BAG IV SCH (06:54)
[2025-01-03] MEDS: PANTOprazole 40 MG/10 ML SYR IV SCH (07:59)
[2025-01-03] MEDS ORDERED: Nursing to Pharmacy Communication SCH (08:45)
--- NOTE | 2025-01-03 09:59 | Hospitalist Progress Note ---
Date of Service January 03, 2025 Assessment & Plan (1) Septic shock: Plan: 84-year-old female with past medical history significant for SIADH, dyslipidemia, hypothyroidism, COPD, peripheral vascular disease, paroxysmal atrial fibrillation, hypertension, moderate mitral regurgitation, moderate aortic insufficiency, paroxysmal supraventricular tachycardia, GERD, CKD stage III, compression fraction of T12 vertebra, chronic pain of both shoulders, impingement syndrome of both shoulders, severe osteoporosis, history of pelvic fracture, migraine, anemia of chronic disease, rheumatoid arthritis, history of lung cancer, elevated liver enzymes, lives at home and ambulates with a walker and lives with her grand child was brought in because of nausea vomiting and abdominal pain for past few days Septic shock Closed loop bowel obstruction with ischemic bowel Found to be in septic shock and found to have small bowel obstruction closed- loop. In the ER when she came in she was hypotensive and tachycardic. WBC was 18. Creatinine was 2.3. Initial lactic was 4.3 and repeat was 2.9. Procalcitonin 15. UA was positive. MRSA screen was positive. CT abdomen pelvis showed small bowel obstruction with high suspicion for closed- loop bowel obstruction. 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 Will consider IV levothyroxine if delayed resumption of oral intake Hypertension Holding amlodipine, losartan, metoprolol succinate for now because of septic shock Peripheral vascular disease Status post bilateral femoral stents On aspirin History of lung cancer Left lower lobe squamous cell carcinoma Status post left lower lobe lobectomy in 2007 History of SIADH DVT prophylaxis- SCDs Full code I spent a total of 50 minutes coordinating, documenting and providing care for this patient excluding time spent in performance of separately billed services Admission and Anticipated Discharge Date Admission Date: January 02, 2025 Subjective Patient seen and examined Currently intubated and sedated Physical Exam Constitutional: Intubated and sedated ENMT: ETT in place Respiratory: On mechanical ventilation, Clear to auscultation Cardiovascular: Rate/Rhythm: + irregularly irregular Gastrointestinal (Abdomen): Soft, normal bowel sounds Musculoskeletal: No pedal edema Neurologic: Intubated and sedated Genitourinary: Sylvester in situ Results & Data Results & Data Vital Signs (Past 12 Hours) Vital Signs Temp Pulse Pulse Resp BP BP BP 01/03/25 09:54 103 H 16 01/03/25 09:15 104 H 16 01/03/25 09:12 118 H 16 01/03/25 09:00 101/72 01/03/25 09:00 116 H 16 01/03/25 08:51 116 H 16 01/03/25 08:30 107 H 16 01/03/25 08:18 102 H 16 01/03/25 08:16 37.5 C 01/03/25 08:15 101/69 01/03/25 08:09 112 H 16 01/03/25 08:00 01/03/25 08:00 01/03/25 08:00 109/77 01/03/25 07:48 113 H 01/03/25 07:46 85/59 L 01/03/25 07:36 104 H 01/03/25 07:30 116 H 16 01/03/25 07:30 105/64 01/03/25 07:18 105 H 01/03/25 07:15 99/67 L 01/03/25 07:12 112 H 01/03/25 07:09 113 H 17 01/03/25 06:57 111 H 01/03/25 06:54 112 H 16 01/03/25 06:45 107/76 01/03/25 06:30 97/74 L 01/03/25 06:21 106 H 16 01/03/25 06:15 96/72 L 01/03/25 06:12 120 H 16 01/03/25 06:00 101/69 01/03/25 06:00 101/69 01/03/25 06:00 101/69 01/03/25 05:57 114 H 16 01/03/25 05:45 110/68 01/03/25 05:45 110/68 09/02/25 05:36 108 H 16 01/03/25 05:30 105/81 01/03/25 05:30 105/81 01/03/25 05:30 105/81 01/03/25 05:24 128 H 16 01/03/25 05:15 108 H 16 01/03/25 05:00 97/70 L 01/03/25 04:57 112 H 01/03/25 04:45 97/76 L 01/03/25 04:45 97/76 L 01/03/25 04:45 97/76 L 01/03/25 04:45 117 H 16 01/03/25 04:30 97/67 L 01/03/25 04:30 97/67 L 01/03/25 04:30 97/67 L 01/03/25 04:29 120 H 16 01/03/25 04:15 102/77 01/03/25 04:15 102/77 01/03/25 04:11 116 H 16 01/03/25 04:02 111 H 16 01/03/25 04:00 97/74 L 01/03/25 04:00 97/74 L 01/03/25 04:00 97/74 L 01/03/25 04:00 01/03/25 03:45 103/75 01/03/25 03:30 95/75 L 01/03/25 03:30 95/75 L 01/03/25 03:30 95/75 L 01/03/25 03:23 110 H 16 01/03/25 03:16 120 H 01/03/25 03:00 130 H 16 01/03/25 03:00 100/79 01/03/25 03:00 100/79 01/03/25 02:48 111 H 16 01/03/25 02:45 113/77 01/03/25 02:45 113/77 01/03/25 02:27 101 H 01/03/25 02:15 113/93 01/03/25 02:15 113/93 01/03/25 02:08 116 H 01/03/25 01:45 112/01/03/25 01:45 112/01/03/25 01:45 112/01/03/25 01:45 112/01/03/25 01:45 114 H 16 01/03/25 01:33 106 H 16 01/03/25 01:31 112/85 01/03/25 01:31 112/85 01/03/25 01:15 88/67 L 01/03/25 01:15 88/67 L 01/03/25 01:06 130 H 16 01/03/25 01:03 16 01/03/25 01:00 107/75 01/03/25 01:00 107/75 01/03/25 01:00 131 H 16 01/03/25 00:57 149 H 16 01/03/25 00:49 81/65 L 01/03/25 00:49 81/65 L 01/03/25 00:42 136 H 01/03/25 00:36 146 H 01/03/25 00:30 86/67 L 01/03/25 00:30 86/67 L 01/03/25 00:15 89/69 L 01/03/25 00:09 143 H 20 01/03/25 00:00 117 H 20 01/03/25 00:00 98/72 L 01/03/25 00:00 98/72 L 01/03/25 00:00 98/72 L 01/03/25 00:00 98/72 L 01/03/25 00:00 98/72 L 01/03/25 00:00 01/02/25 23:51 127 H 20 01/02/25 23:30 104/65 01/02/25 23:18 153 H 20 01/02/25 23:16 01/02/25 23:15 108/74 01/02/25 23:15 108/74 01/02/25 23:07 99/74 L 01/02/25 23:07 99/74 L 01/02/25 23:06 135 H 20 01/02/25 23:00 35.8 C L 144 H 20 108/74 105/59 L 01/02/25 23:00 01/02/25 23:00 01/02/25 22:52 35.8 C L 157 H 24 111/89 106/63 01/02/25 22:45 144 H 20 01/02/25 22:42 35.8 C L 117 H 24 110/90 122/64 Pulse Ox Pulse Ox O2 Del Method O2 Del Method FiO2 01/03/25 09:54 100 Mechanical Vent 30 01/03/25 09:15 100 01/03/25 09:12 100 01/03/25 09:00 01/03/25 09:00 100 01/03/25 08:51 99 01/03/25 08:30 99 01/03/25 08:18 99 01/03/25 08:16 01/03/25 08:15 01/03/25 08:09 99 Mechanical Vent 30 01/03/25 08:00 Mechanical Vent 30 01/03/25 08:00 30 01/03/25 08:00 01/03/25 07:48 96 01/03/25 07:46 01/03/25 07:36 98 01/03/25 07:30 98 01/03/25 07:30 01/03/25 07:18 98 01/03/25 07:15 01/03/25 07:12 01/03/25 07:09 98 30 01/03/25 06:57 99 01/03/25 06:54 98 01/03/25 06:45 01/03/25 06:30 01/03/25 06:21 99 01/03/25 06:15 01/03/25 06:12 99 01/03/25 06:00 01/03/25 06:00 01/03/25 06:00 01/03/25 05:57 99 01/03/25 05:45 01/03/25 05:45 01/03/25 05:36 99 01/03/25 05:30 01/03/25 05:30 01/03/25 05:30 01/03/25 05:24 99 01/03/25 05:15 99 01/03/25 05:00 01/03/25 04:57 99 01/03/25 04:45 01/03/25 04:45 01/03/25 04:45 01/03/25 04:45 99 01/03/25 04:30 01/03/25 04:30 01/03/25 04:30 01/03/25 04:29 99 01/03/25 04:15 01/03/25 04:15 01/03/25 04:11 99 01/03/25 04:02 99 01/03/25 04:00 01/03/25 04:00 01/03/25 04:00 01/03/25 04:00 30 01/03/25 03:45 01/03/25 03:30 01/03/25 03:30 01/03/25 03:30 01/03/25 03:23 99 01/03/25 03:16 100 30 01/03/25 03:00 99 01/03/25 03:00 01/03/25 03:00 01/03/25 02:48 100 01/03/25 02:45 01/03/25 02:45 01/03/25 02:27 100 01/03/25 02:15 01/03/25 02:15 01/03/25 02:08 100 01/03/25 01:45 01/03/25 01:45 01/03/25 01:45 01/03/25 01:45 01/03/25 01:45 100 01/03/25 01:33 100 01/03/25 01:31 01/03/25 01:31 01/03/25 01:15 01/03/25 01:15 01/03/25 01:06 100 01/03/25 01:03 30 01/03/25 01:00 01/03/25 01:00 01/03/25 01:00 99 01/03/25 00:57 99 01/03/25 00:49 01/03/25 00:49 01/03/25 00:42 100 01/03/25 00:36 100 01/03/25 00:30 01/03/25 00:30 01/03/25 00:15 01/03/25 00:09 100 01/03/25 00:00 100 01/03/25 00:00 01/03/25 00:00 01/03/25 00:00 01/03/25 00:00 01/03/25 00:00 01/03/25 00:00 30 01/02/25 23:51 100 01/02/25 23:30 01/02/25 23:18 01/02/25 23:16 94 Mechanical Vent 01/02/25 23:15 01/02/25 23:15 01/02/25 23:07 01/02/25 23:07 01/02/25 23:06 01/02/25 23:00 99 Mechanical Vent 01/02/25 23:00 Mechanical Vent 01/02/25 23:00 60 01/02/25 22:52 100 Mechanical Vent 60 01/02/25 22:45 100 60 01/02/25 22:42 100 Mechanical Vent 60 Laboratory Results Abnormal lab results 01/02/25 01/02/25 01/02/25 Range/Units 17:00 17:03 17:30 WBC 18.91 H (4.8-10.8) K/ul RBC 3.96 L (4.20-5.40) M/uL Hgb (12.0-16.0) g/dl POC Hgb (12.0-16.0) g/dl Hct (37.0-47.0) % POC Hct (37-47) % RDW Std Deviation 59.2 H (36.4-46.3) fL RDW Coeff of Zee 17.3 H (11.5-14.5) % MPV 13.4 H (9.4-12.4) fL Neut # (Auto) 16.12 H (1.40-6.50) K/uL Lymph # (Auto) 0.86 L (1.20-3.40) K/uL Gates # (Auto) 1.73 H (0.11-0.59) K/uL PT 14.3 H (9.0-12.0) Seconds INR 1.4 H (0.9-1.1) POC pH (7.35-7.45) POC pCO2 (35-46) mmHg POC pO2 (80-95) mmHg POC HCO3 (19-24) rodney/L ABG pH (Temp Correct) (7.35-7.45) ABG pCO2 (Temp Corrct (35-46) mmHg POC ABG O2 Sat (90-95) % VBG pH 7.43 H (7.36-7.41) POC Sodium (135-144) mmol/L Sodium (136-145) mmol/L POC Potassium (3.3-5.0) mmol/L Potassium (3.5-5.1) mmol/L Chloride 94 L (98-107) mmol/L Anion Gap 14 H (3-11) BUN 49 H (6-23) mg/dl Creatinine 2.34 H (0.6-1.2) mg/dl BUN/Creatinine Ratio 20.9 H (10-20) Glucose 100 H (70-99(Fasting)) mg/dl POC Glucose (other) (70-99) mg/dl Lactate 4.3 H* (0.4-2.0) mmol/L Calcium (8.6-10.3) mg/dl Total Bilirubin 2.7 H (0.2-1.0) mg/dl Direct Bilirubin 0.7 H (0-0.2) mg/dl Alkaline Phosphatase (34-104) U/L Troponin I High Sens 31.4 H (0-14) pg/ml Total Protein (6.0-8.3) gm/dl Albumin (3.4-5.0) gm/dl Procalcitonin 15.20 H (0-0.5) ng/ml Urine Protein 1+ H (Negative) Urine Ketones Trace H (Negative) Urine Nitrite Positive A (Negative) Urine Bilirubin 1+ H (Negative) Urine Urobilinogen Positive H (Negative) Ur Leukocyte Esterase 1+ H (Negative) U Hyaline Cast (Auto) 3-5 H (0-2) /lpf Nasal Screen MRSA (PCR) (Negative) Streptococcus sp PCR DETECTED A (NotDetected) 01/02/25 01/02/25 01/03/25 Range/Units 19:26 23:00 00:34 WBC (4.8-10.8) K/ul RBC (4.20-5.40) M/uL Hgb (12.0-16.0) g/dl POC Hgb (12.0-16.0) g/dl Hct (37.0-47.0) % POC Hct (37-47) % RDW Std Deviation (36.4-46.3) fL RDW Coeff of Zee (11.5-14.5) % MPV (9.4-12.4) fL Neut # (Auto) (1.40-6.50) K/uL Lymph # (Auto) (1.20-3.40) K/uL Gates # (Auto) (0.11-0.59) K/uL PT (9.0-12.0) Seconds INR (0.9-1.1) POC pH (7.35-7.45) POC pCO2 (35-46) mmHg POC pO2 (80-95) mmHg POC HCO3 (19-24) rodney/L ABG pH (Temp Correct) (7.35-7.45) ABG pCO2 (Temp Corrct (35-46) mmHg POC ABG O2 Sat (90-95) % VBG pH (7.36-7.41) POC Sodium (135-144) mmol/L Sodium (136-145) mmol/L POC Potassium (3.3-5.0) mmol/L Potassium 3.4 L D (3.5-5.1) mmol/L Chloride (98-107) mmol/L Anion Gap (3-11) BUN 40 H (6-23) mg/dl Creatinine 1.42 H D (0.6-1.2) mg/dl BUN/Creatinine Ratio 28.2 H (10-20) Glucose 138 H (70-99(Fasting)) mg/dl POC Glucose (other) (70-99) mg/dl Lactate 2.9 H* 2.5 H* (0.4-2.0) mmol/L Calcium 7.3 L (8.6-10.3) mg/dl Total Bilirubin (0.2-1.0) mg/dl Direct Bilirubin (0-0.2) mg/dl Alkaline Phosphatase (34-104) U/L Troponin I High Sens 21.8 H (0-14) pg/ml Total Protein (6.0-8.3) gm/dl Albumin (3.4-5.0) gm/dl Procalcitonin (0-0.5) ng/ml Urine Protein (Negative) Urine Ketones (Negative) Urine Nitrite (Negative) Urine Bilirubin (Negative) Urine Urobilinogen (Negative) Ur Leukocyte Esterase (Negative) U Hyaline Cast (Auto) (0-2) /lpf Nasal Screen MRSA (PCR) Positive A (Negative) Streptococcus sp PCR (NotDetected) 01/03/25 01/03/25 01/03/25 Range/Units 00:45 02:30 10:33 WBC (4.8-10.8) K/ul RBC 2.94 L (4.20-5.40) M/uL Hgb 9.2 L D (12.0-16.0) g/dl POC Hgb 9.2 L (12.0-16.0) g/dl Hct 28.2 L (37.0-47.0) % POC Hct 27 L (37-47) % RDW Std Deviation 59.1 H (36.4-46.3) fL RDW Coeff of Zee 17.2 H (11.5-14.5) % MPV 12.9 H (9.4-12.4) fL Neut # (Auto) (1.40-6.50) K/uL Lymph # (Auto) 0.42 L (1.20-3.40) K/uL Gates # (Auto) (0.11-0.59) K/uL PT (9.0-12.0) Seconds INR (0.9-1.1) POC pH 7.51 H* (7.35-7.45) POC pCO2 31 L (35-46) mmHg POC pO2 246 H (80-95) mmHg POC HCO3 25 H (19-24) rodney/L ABG pH (Temp Correct) 7.510 H* (7.35-7.45) ABG pCO2 (Temp Corrct 31 L (35-46) mmHg POC ABG O2 Sat 100.0 H (90-95) % VBG pH (7.36-7.41) POC Sodium 134 L (135-144) mmol/L Sodium 134 L (136-145) mmol/L POC Potassium 3.1 L (3.3-5.0) mmol/L Potassium 3.2 L (3.5-5.1) mmol/L Chloride (98-107) mmol/L Anion Gap (3-11) BUN 36 H (6-23) mg/dl Creatinine 1.37 H (0.6-1.2) mg/dl BUN/Creatinine Ratio 26.3 H (10-20) Glucose 186 H (70-99(Fasting)) mg/dl POC Glucose (other) (70-99) mg/dl Lactate 2.5 H* (0.4-2.0) mmol/L Calcium 7.0 L (8.6-10.3) mg/dl Total Bilirubin 2.4 H (0.2-1.0) mg/dl Direct Bilirubin 1.0 H (0-0.2) mg/dl Alkaline Phosphatase 33 L (34-104) U/L Troponin I High Sens 25.7 H 28.2 H (0-14) pg/ml Total Protein 4.5 L D (6.0-8.3) gm/dl Albumin 2.6 L (3.4-5.0) gm/dl Procalcitonin (0-0.5) ng/ml Urine Protein (Negative) Urine Ketones (Negative) Urine Nitrite (Negative) Urine Bilirubin (Negative) Urine Urobilinogen (Negative) Ur Leukocyte Esterase (Negative) U Hyaline Cast (Auto) (0-2) /lpf Nasal Screen MRSA (PCR) (Negative) Streptococcus sp PCR (NotDetected) 01/03/25 Range/Units 11:56 WBC (4.8-10.8) K/ul RBC (4.20-5.40) M/uL Hgb (12.0-16.0) g/dl POC Hgb (12.0-16.0) g/dl Hct (37.0-47.0) % POC Hct (37-47) % RDW Std Deviation (36.4-46.3) fL RDW Coeff of Zee (11.5-14.5) % MPV (9.4-12.4) fL Neut # (Auto) (1.40-6.50) K/uL Lymph # (Auto) (1.20-3.40) K/uL Gates # (Auto) (0.11-0.59) K/uL PT (9.0-12.0) Seconds INR (0.9-1.1) POC pH (7.35-7.45) POC pCO2 (35-46) mmHg POC pO2 (80-95) mmHg POC HCO3 (19-24) rodney/L ABG pH (Temp Correct) (7.35-7.45) ABG pCO2 (Temp Corrct (35-46) mmHg POC ABG O2 Sat (90-95) % VBG pH (7.36-7.41) POC Sodium (135-144) mmol/L Sodium (136-145) mmol/L POC Potassium (3.3-5.0) mmol/L Potassium (3.5-5.1) mmol/L Chloride (98-107) mmol/L Anion Gap (3-11) BUN (6-23) mg/dl Creatinine (0.6-1.2) mg/dl BUN/Creatinine Ratio (10-20) Glucose (70-99(Fasting)) mg/dl POC Glucose (other) 146 H (70-99) mg/dl Lactate (0.4-2.0) mmol/L Calcium (8.6-10.3) mg/dl Total Bilirubin (0.2-1.0) mg/dl Direct Bilirubin (0-0.2) mg/dl Alkaline Phosphatase (34-104) U/L Troponin I High Sens (0-14) pg/ml Total Protein (6.0-8.3) gm/dl Albumin (3.4-5.0) gm/dl Procalcitonin (0-0.5) ng/ml Urine Protein (Negative) Urine Ketones (Negative) Urine Nitrite (Negative) Urine Bilirubin (Negative) Urine Urobilinogen (Negative) Ur Leukocyte Esterase (Negative) U Hyaline Cast (Auto) (0-2) /lpf Nasal Screen MRSA (PCR) (Negative) Streptococcus sp PCR (NotDetected)
[2025-01-03 10:03] LABS: A calco-baum cmplx NotReported Not Detected (NotDetected); Bact fragilis Not Reported Not Detected (NotDetected); Blood Culture Id Panel See PCR Comment (NotDetected); C auris Not Reported Not Detected (NotDetected); Calbicans Not Reported Not Detected (NotDetected); Candida glabrata Not Reported Not Detected (NotDetected); Candida krusei Not Reported Not Detected (NotDetected); Cneoformans/gatti Not Reported Not Detected (NotDetected); Cparapsilosis Not Reported Not Detected (NotDetected); Ctropicalis Not Reported Not Detected (NotDetected); E cloacae compx Not Reported Not Detected (NotDetected); Efaecalis Not Reported Not Detected (NotDetected); Efaecium Not Reported Not Detected (NotDetected); Enterobacterales Not Reported Not Detected (NotDetected); Escherichia coli Not Reported Not Detected (NotDetected); H influenzae Not Reported Not Detected (NotDetected); K aerogenes Not Reported Not Detected (NotDetected); Koxytoca Not Reported Not Detected (NotDetected); Kpneumoniae grp Not Reported Not Detected (NotDetected); Lmonocyt Not Reported Not Detected (NotDetected); N meningitidis Not Reported Not Detected (NotDetected); P aeruginosa Not Reported Not Detected (NotDetected); Proteus spp Not Reported Not Detected (NotDetected); Salmonella spp Not Reported Not Detected (NotDetected); Staph lugdunensis Not Reported Not Detected (NotDetected); Staph spp. Not Reported Not Detected (NotDetected); Staphaureus Not Reported Not Detected (NotDetected); Staphepi Not Reported Not Detected (NotDetected); Stenmaltophilia Not Reported Not Detected (NotDetected); Strep agal(GrpB) Not Reported Not Detected (NotDetected); Strep pneum Not Reported Not Detected (NotDetected); Strep pyog (GrpA) Not Reported Not Detected (NotDetected); Strep spp Not Reported DETECTED (NotDetected)
[2025-01-03 10:40] LABS: Streptococcus spp DETECTED (NotDetected)
--- NOTE | 2025-01-03 11:39 | Electrocardiogram Report ---
Test Reason : Blood Pressure : */* mmHG Vent. Rate : 154 BPM Atrial Rate : * BPM P-R Int : * ms QRS Dur : 64 ms QT Int : 308 ms P-R-T Axes : * 55 49 degrees QTcB Int : 493 ms Atrial fibrillation with rapid ventricular response Low voltage QRS Abnormal ECG When compared with ECG of 30-Mar-2024 21:04, Atrial fibrillation has replaced Sinus rhythm Vent. rate has increased by 72 bpm QRS duration has decreased Confirmed by Khai Castañeda ([id number] on 01/03/2025 11:39:03 AM Referred By: Confirmed By: Khai Castañeda
[2025-01-03] MEDS: CALCIUM CHLORIDE 10% 1,000 MG in DEXTROSE 5% 50 ML IV ONE (13:58)
[2025-01-03] MEDS: ALBUMIN 25% 25 GM/100 ML VIAL IV SCH (13:59)
[2025-01-03] MEDS ORDERED: VANCOMYCIN 500 MG in NSS 100mL IV SCH (16:00)
--- NOTE | 2025-01-03 17:33 | Surgery Progress Note ---
Date of Service January 03, 2025 Assessment & Plan (1) Closed loop obstruction of intestine: (2) Atrial fibrillation with rapid ventricular response: (3) S/P small bowel resection: (4) ARF (acute renal failure): (5) Septic shock: Plan POD #1 s/p ex laparotomy with sb resection for closed loop obstruction/ischemic bowel intubated/sedated, on pressors NPO/NGT appreciate ICU team medical management Admission and Anticipated Discharge Date Admission Date: January 02, 2025 Subjective POD #1 s/p ex laparotomy with small bowel resection for closed loop obstruction/ischemic bowel intubated sedated not in visible pain on Levo and Vasopressin UOP about 40/hr Physical Exam Physical Exam: intubated/sedated abdomen soft, nontender dressing C/D/I Results & Data Vital Signs (Past 12 Hours) Vital Signs Temp Pulse Resp BP Pulse Ox O2 Del Method FiO2 01/03/25 17:21 89 16 100 01/03/25 17:00 91/65 L 01/03/25 17:00 91/65 L 01/03/25 16:57 95 H 16 99 01/03/25 16:48 96 H 16 100 01/03/25 16:34 36.6 C 01/03/25 16:30 98 H 16 99 01/03/25 16:18 98 H 16 99 01/03/25 16:00 108/70 01/03/25 16:00 98 H 16 99 01/03/25 15:54 30 01/03/25 15:45 93 H 16 99 Mechanical Vent 30 01/03/25 15:30 101 H 16 100 01/03/25 15:21 105 H 16 99 01/03/25 15:12 104 H 17 100 30 01/03/25 15:09 105 H 17 100 01/03/25 14:48 100 H 16 99 Mechanical Vent 30 01/03/25 14:33 98 H 16 100 01/03/25 14:18 110 H 16 100 01/03/25 14:12 100 H 17 100 01/03/25 14:00 88/65 L 01/03/25 14:00 88/65 L 01/03/25 14:00 88/65 L 01/03/25 13:54 98 H 16 100 01/03/25 13:45 90 16 100 01/03/25 13:33 90 16 99 01/03/25 13:21 97 H 16 100 01/03/25 13:09 96 H 16 100 01/03/25 13:01 89/65 L 01/03/25 13:01 89/65 L 01/03/25 12:51 100 H 16 100 01/03/25 12:03 114 H 16 98 01/03/25 12:00 30 01/03/25 12:00 94/67 L 01/03/25 12:00 94/67 L 01/03/25 12:00 94/67 L 01/03/25 11:36 100 H 16 98 01/03/25 11:06 103 H 18 97 30 01/03/25 11:03 103 H 16 96 01/03/25 11:00 83/60 L 01/03/25 11:00 83/60 L 01/03/25 11:00 83/60 L 01/03/25 10:45 112 H 16 99 01/03/25 10:30 107 H 16 99 01/03/25 10:27 98 H 16 100 01/03/25 10:03 114 H 16 100 01/03/25 10:00 95/72 L 01/03/25 10:00 95/72 L 01/03/25 09:54 103 H 16 100 Mechanical Vent 30 01/03/25 09:15 104 H 16 100 01/03/25 09:12 118 H 16 100 01/03/25 09:00 101/72 01/03/25 09:00 116 H 16 100 01/03/25 08:51 116 H 16 99 01/03/25 08:30 107 H 16 99 01/03/25 08:18 102 H 16 99 01/03/25 08:16 37.5 C 01/03/25 08:15 101/69 01/03/25 08:09 112 H 16 99 Mechanical Vent 30 01/03/25 08:00 Mechanical Vent 30 01/03/25 08:00 30 01/03/25 08:00 109/77 01/03/25 07:48 113 H 16 96 01/03/25 07:46 85/59 L 01/03/25 07:36 104 H 16 98 01/03/25 07:30 116 H 16 98 01/03/25 07:30 105/64 01/03/25 07:18 105 H 16 98 01/03/25 07:15 99/67 L 01/03/25 07:12 112 H 01/03/25 07:09 113 H 17 98 30 01/03/25 06:57 111 H 16 99 01/03/25 06:54 112 H 16 98 01/03/25 06:45 107/76 01/03/25 06:30 97/74 L 01/03/25 06:21 106 H 16 99 01/03/25 06:15 96/72 L 01/03/25 06:12 120 H 16 99 01/03/25 06:00 101/69 01/03/25 06:00 101/69 01/03/25 06:00 101/69 01/03/25 05:57 114 H 16 99 01/03/25 05:45 110/68 01/03/25 05:45 110/68 01/03/25 05:36 108 H 16 99 Laboratory Results 01/03/25 01/03/25 01/03/25 Range/Units 16:25 11:56 10:33 WBC (4.8-10.8) K/ul RBC (4.20-5.40) M/uL Hgb (12.0-16.0) g/dl POC Hgb (12.0-16.0) g/dl Hct (37.0-47.0) % POC Hct (37-47) % MCV (80.0-100.0) fL MCH (25.0-34.0) pg MCHC (32.0-36.0) g/dL RDW Std Deviation (36.4-46.3) fL RDW Coeff of Zee (11.5-14.5) % Plt Count (130-400) K/uL MPV (9.4-12.4) fL Immature Gran % (Auto) % Neut % (Auto) % Lymph % (Auto) % [place]oca % (Auto) % Eos % (Auto) % Baso % (Auto) % Neut # (Auto) (1.40-6.50) K/uL Lymph # (Auto) (1.20-3.40) K/uL [place] # (Auto) (0.11-0.59) K/uL Eos # (Auto) (0.00-0.50) K/uL Baso # (Auto) (0.00-0.20) K/uL Immature Gran # (Auto) (0.01-0.20) K/uL Absolute Nucleated RBC (0.00-0.12) K/uL Nucleated RBC % (auto) % Polychromasia Anisocytosis PT (9.0-12.0) Seconds INR (0.9-1.1) APTT (21-31) Seconds PTT Ratio Specimen Type Sample Site POC pH (7.35-7.45) POC pCO2 (35-46) mmHg POC pO2 (80-95) mmHg POC HCO3 (19-24) rodney/L POC Total CO2 (24-31) mmol/L POC Base Excess (-9-1.8) rodney/L O2 Sat Pulse Oximetry ABG pH (Temp Correct) (7.35-7.45) ABG pCO2 (Temp Corrct (35-46) mmHg POC ABG pO2 at Pt Temp POC ABG O2 Sat (90-95) % Romel Test VBG pH (7.36-7.41) VBG pCO2 (38-50) mmHg VBG pO2 mmHg VBG HCO3 mmol/L VBG O2 Saturation % VBG Base Excess mEq/L O2 Delivery Device Vent Mode POC FiO2 % End Tidal CO2 POC Sodium (135-144) mmol/L Sodium (136-145) mmol/L POC Potassium (3.3-5.0) mmol/L Potassium (3.5-5.1) mmol/L Chloride (98-107) mmol/L Carbon Dioxide (21-32) mmol/L Anion Gap (3-11) BUN (6-23) mg/dl Creatinine (0.6-1.2) mg/dl Est Cr Clr Drug Dosing ml/min eGFR BUN/Creatinine Ratio (10-20) Glucose (70-99(Fasting)) mg/dl POC Glucose (other) 146 H (70-99) mg/dl Lactate (0.4-2.0) mmol/L Calcium (8.6-10.3) mg/dl Phosphorus (2.5-4.9) mg/dl Magnesium (1.7-2.4) mg/dl Total Bilirubin (0.2-1.0) mg/dl Direct Bilirubin (0-0.2) mg/dl AST (13-39) U/L ALT (7-52) U/L Alkaline Phosphatase (34-104) U/L Troponin I High Sens 25.0 H 28.2 H (0-14) pg/ml Total Protein (6.0-8.3) gm/dl Albumin (3.4-5.0) gm/dl Procalcitonin (0-0.5) ng/ml Urine Color Urine Appearance (Clear) Urine pH (4.5-7.5) Ur Specific [place] (1.000-1.030) Urine Protein (Negative) Urine Glucose (UA) (Negative) Urine Ketones (Negative) Urine Blood (Negative) Urine Nitrite (Negative) Urine Bilirubin (Negative) Urine Urobilinogen (Negative) Ur Leukocyte Esterase (Negative) Urine WBC (Auto) (0-5) /hpf Urine RBC (Auto) (0-2) /hpf U Hyaline Cast (Auto) (0-2) /lpf U Epithel Cells (Auto) (0-2) /hpf Urine Bacteria (Auto) (None Seen) Nasal Screen MRSA (PCR) (Negative) Adenovirus (PCR) (NotDetected) B. pertussis DNA (PCR) (NotDetected) B.parapertussis DNA PCR (NotDetected) C. pneumoniae DNA (PCR) (NotDetected) Coronavirus OC43 (PCR) (NotDetected) Coronavirus HKU1 (PCR) (NotDetected) Coronavirus 229E (PCR) (NotDetected) SARS-CoV-2 (PCR) (NotDetected) Coronavirus NL63 (PCR) (NotDetected) Human Metapneumovir PCR (NotDetected) Influenza Type A (PCR) (NotDetected) Influenza Type B (PCR) (NotDetected) M. pneumoniae (PCR) (NotDetected) Parainfluenza 1 (PCR) (NotDetected) Parainfluenza 2 (PCR) (NotDetected) Parainfluenza 3 (PCR) (NotDetected) Parainfluenza 4 (PCR) (NotDetected) RSV (PCR) (NotDetected) Entero/Rhino (PCR) (NotDetected) Streptococcus sp PCR (NotDetected) Bld Cult ID Panel PCR (NotDetected) Blood Type Antibody Screen 01/03/25 01/03/2501/03/25 Range/Units 02:30 00:45 00:34 WBC 7.43 D (4.8-10.8) K/ul RBC 2.94 L (4.20-5.40) M/uL Hgb 9.2 L D (12.0-16.0) g/dl POC Hgb 9.2 L (12.0-16.0) g/dl Hct 28.2 L (37.0-47.0) % POC Hct 27 L (37-47) % MCV 95.9 (80.0-100.0) fL MCH 31.3 (25.0-34.0) pg MCHC 32.6 (32.0-36.0) g/dL RDW Std Deviation 59.1 H (36.4-46.3) fL RDW Coeff of Zee 17.2 H (11.5-14.5) % Plt Count 159 (130-400) K/uL MPV 12.9 H (9.4-12.4) fL Immature Gran % (Auto) 0.1 % Neut % (Auto) 86.2 % Lymph % (Auto) 5.7 % Moca % (Auto) 7.7 % Eos % (Auto) 0.0 % Baso % (Auto) 0.3 % Neut # (Auto) 6.41 (1.40-6.50) K/uL Lymph # (Auto) 0.42 L (1.20-3.40) K/uL Moca # (Auto) 0.57 (0.11-0.59) K/uL Eos # (Auto) 0.00 (0.00-0.50) K/uL Baso # (Auto) 0.02 (0.00-0.20) K/uL Immature Gran # (Auto) 0.01 (0.01-0.20) K/uL Absolute Nucleated RBC (0.00-0.12) K/uL Nucleated RBC % (auto) % Polychromasia 1+ Anisocytosis PT (9.0-12.0) Seconds INR (0.9-1.1) APTT (21-31) Seconds PTT Ratio Specimen Type Arterial Sample Site Art Line POC pH 7.51 H* (7.35-7.45) POC pCO2 31 L (35-46) mmHg POC pO2 246 H (80-95) mmHg POC HCO3 25 H (19-24) rodney/L POC Total CO2 25 (24-31) mmol/L POC Base Excess 1.0 (-9-1.8) rodney/L O2 Sat Pulse Oximetry 100 ABG pH (Temp Correct) 7.510 H* (7.35-7.45) ABG pCO2 (Temp Corrct 31 L (35-46) mmHg POC ABG pO2 at Pt Temp 246 POC ABG O2 Sat 100.0 H (90-95) % Romel Test NA VBG pH (7.36-7.41) VBG pCO2 (38-50) mmHg VBG pO2 mmHg VBG HCO3 mmol/L VBG O2 Saturation % VBG Base Excess mEq/L O2 Delivery Device Ventilator Vent Mode AC POC FiO2 60 % End Tidal CO2 24 POC Sodium 134 L (135-144) mmol/L Sodium 134 L 136 (136-145) mmol/L POC Potassium 3.1 L (3.3-5.0) mmol/L Potassium 3.2 L 3.4 L D (3.5-5.1) mmol/L Chloride 100 98 (98-107) mmol/L Carbon Dioxide 24 27 (21-32) mmol/L Anion Gap 10 11 (3-11) BUN 36 H 40 H (6-23) mg/dl Creatinine 1.37 H 1.42 H D (0.6-1.2) mg/dl Est Cr Clr Drug Dosing 23.7 22.9 ml/min eGFR 37.84 36.25 BUN/Creatinine Ratio 26.3 H 28.2 H (10-20) Glucose 186 H 138 H (70-99(Fasting)) mg/dl POC Glucose (other) (70-99) mg/dl Lactate 2.5 H* 2.5 H* (0.4-2.0) mmol/L Calcium 7.0 L 7.3 L (8.6-10.3) mg/dl Phosphorus 4.4 (2.5-4.9) mg/dl Magnesium 2.0 2.0 (1.7-2.4) mg/dl Total Bilirubin 2.4 H (0.2-1.0) mg/dl Direct Bilirubin 1.0 H (0-0.2) mg/dl AST 15 (13-39) U/L ALT 10 (7-52) U/L Alkaline Phosphatase 33 L (34-104) U/L Troponin I High Sens 25.7 H (0-14) pg/ml Total Protein 4.5 L D (6.0-8.3) gm/dl Albumin 2.6 L (3.4-5.0) gm/dl Procalcitonin (0-0.5) ng/ml Urine Color Urine Appearance (Clear) Urine pH (4.5-7.5) Ur Specific [place] (1.000-1.030) Urine Protein (Negative) Urine Glucose (UA) (Negative) Urine Ketones (Negative) Urine Blood (Negative) Urine Nitrite (Negative) Urine Bilirubin (Negative) Urine Urobilinogen (Negative) Ur Leukocyte Esterase (Negative) Urine WBC (Auto) (0-5) /hpf Urine RBC (Auto) (0-2) /hpf U Hyaline Cast (Auto) (0-2) /lpf U Epithel Cells (Auto) (0-2) /hpf Urine Bacteria (Auto) (None Seen) Nasal Screen MRSA (PCR) (Negative) Adenovirus (PCR) (NotDetected) B. pertussis DNA (PCR) (NotDetected) B.parapertussis DNA PCR (NotDetected) C. pneumoniae DNA (PCR) (NotDetected) Coronavirus OC43 (PCR) (NotDetected) Coronavirus HKU1 (PCR) (NotDetected) Coronavirus 229E (PCR) (NotDetected) SARS-CoV-2 (PCR) (NotDetected) Coronavirus NL63 (PCR) (NotDetected) Human Metapneumovir PCR (NotDetected) Influenza Type A (PCR) (NotDetected) Influenza Type B (PCR) (NotDetected) M. pneumoniae (PCR) (NotDetected) Parainfluenza 1 (PCR) (NotDetected) Parainfluenza 2 (PCR) (NotDetected) Parainfluenza 3 (PCR) (NotDetected) Parainfluenza 4 (PCR) (NotDetected) RSV (PCR) (NotDetected) Entero/Rhino (PCR) (NotDetected) Streptococcus sp PCR (NotDetected) Bld Cult ID Panel PCR (NotDetected) Blood Type Antibody Screen 01/02/25 01/02/25 01/02/25 Range/Units 23:00 19:26 18:00 WBC (4.8-10.8) K/ul RBC (4.20-5.40) M/uL Hgb (12.0-16.0) g/dl POC Hgb (12.0-16.0) g/dl Hct (37.0-47.0) % POC Hct (37-47) % MCV (80.0-100.0) fL MCH (25.0-34.0) pg MCHC (32.0-36.0) g/dL RDW Std Deviation (36.4-46.3) fL RDW Coeff of Zee (11.5-14.5) % Plt Count (130-400) K/uL MPV (9.4-12.4) fL Immature Gran % (Auto) % Neut % (Auto) % Lymph % (Auto) % Moca % (Auto) % Eos % (Auto) % Baso % (Auto) % Neut # (Auto) (1.40-6.50) K/uL Lymph # (Auto) (1.20-3.40) K/uL Moca # (Auto) (0.11-0.59) K/uL Eos # (Auto) (0.00-0.50) K/uL Baso # (Auto) (0.00-0.20) K/uL Immature Gran # (Auto) (0.01-0.20) K/uL Absolute Nucleated RBC (0.00-0.12) K/uL Nucleated RBC % (auto) % Polychromasia Anisocytosis PT (9.0-12.0) Seconds INR (0.9-1.1) APTT (21-31) Seconds PTT Ratio Specimen Type Sample Site POC pH (7.35-7.45) POC pCO2 (35-46) mmHg POC pO2 (80-95) mmHg POC HCO3 (19-24) rodney/L POC Total CO2 (24-31) mmol/L POC Base Excess (-9-1.8) rodney/L O2 Sat Pulse Oximetry ABG pH (Temp Correct) (7.35-7.45) ABG pCO2 (Temp Corrct (35-46) mmHg POC ABG pO2 at Pt Temp POC ABG O2 Sat (90-95) % Romel Test VBG pH (7.36-7.41) VBG pCO2 (38-50) mmHg VBG pO2 mmHg VBG HCO3 mmol/L VBG O2 Saturation % VBG Base Excess mEq/L O2 Delivery Device Vent Mode POC FiO2 % End Tidal CO2 POC Sodium (135-144) mmol/L Sodium (136-145) mmol/L POC Potassium (3.3-5.0) mmol/L Potassium (3.5-5.1) mmol/L Chloride (98-107) mmol/L Carbon Dioxide (21-32) mmol/L Anion Gap (3-11) BUN (6-23) mg/dl Creatinine (0.6-1.2) mg/dl Est Cr Clr Drug Dosing ml/min eGFR BUN/Creatinine Ratio (10-20) Glucose (70-99(Fasting)) mg/dl POC Glucose (other) (70-99) mg/dl Lactate 2.9 H* (0.4-2.0) mmol/L Calcium (8.6-10.3) mg/dl Phosphorus (2.5-4.9) mg/dl Magnesium (1.7-2.4) mg/dl Total Bilirubin (0.2-1.0) mg/dl Direct Bilirubin (0-0.2) mg/dl AST (13-39) U/L ALT (7-52) U/L Alkaline Phosphatase (34-104) U/L Troponin I High Sens 21.8 H (0-14) pg/ml Total Protein (6.0-8.3) gm/dl Albumin (3.4-5.0) gm/dl Procalcitonin (0-0.5) ng/ml Urine Color Urine Appearance (Clear) Urine pH (4.5-7.5) Ur Specific [place] (1.000-1.030) Urine Protein (Negative) Urine Glucose (UA) (Negative) Urine Ketones (Negative) Urine Blood (Negative) Urine Nitrite (Negative) Urine Bilirubin (Negative) Urine Urobilinogen (Negative) Ur Leukocyte Esterase (Negative) Urine WBC (Auto) (0-5) /hpf Urine RBC (Auto) (0-2) /hpf U Hyaline Cast (Auto) (0-2) /lpf U Epithel Cells (Auto) (0-2) /hpf Urine Bacteria (Auto) (None Seen) Nasal Screen MRSA (PCR) Positive A (Negative) Adenovirus (PCR) Not Detected (NotDetected) B. pertussis DNA (PCR) Not Detected (NotDetected) B.parapertussis DNA PCR Not Detected (NotDetected) C. pneumoniae DNA (PCR) Not Detected (NotDetected) Coronavirus OC43 (PCR) Not Detected (NotDetected) Coronavirus HKU1 (PCR) Not Detected (NotDetected) Coronavirus 229E (PCR) Not Detected (NotDetected) SARS-CoV-2 (PCR) Not Detected (NotDetected) Coronavirus NL63 (PCR) Not Detected (NotDetected) Human Metapneumovir PCR Not Detected (NotDetected) Influenza Type A (PCR) Not Detected (NotDetected) Influenza Type B (PCR) Not Detected (NotDetected) M. pneumoniae (PCR) Not Detected (NotDetected) Parainfluenza 1 (PCR) Not Detected (NotDetected) Parainfluenza 2 (PCR) Not Detected (NotDetected) Parainfluenza 3 (PCR) Not Detected (NotDetected) Parainfluenza 4 (PCR) Not Detected (NotDetected) RSV (PCR) Not Detected (NotDetected) Entero/Rhino (PCR) Not Detected (NotDetected) Streptococcus sp PCR (NotDetected) Bld Cult ID Panel PCR (NotDetected) Blood Type Antibody Screen 01/02/25 01/02/25 01/02/25 Range/Units 17:33 17:30 17:03 WBC (4.8-10.8) K/ul RBC (4.20-5.40) M/uL Hgb (12.0-16.0) g/dl POC Hgb (12.0-16.0) g/dl Hct (37.0-47.0) % POC Hct (37-47) % MCV (80.0-100.0) fL MCH (25.0-34.0) pg MCHC (32.0-36.0) g/dL RDW Std Deviation (36.4-46.3) fL RDW Coeff of Zee (11.5-14.5) % Plt Count (130-400) K/uL MPV (9.4-12.4) fL Immature Gran % (Auto) % Neut % (Auto) % Lymph % (Auto) % Moca % (Auto) % Eos % (Auto) % Baso % (Auto) % Neut # (Auto) (1.40-6.50) K/uL Lymph # (Auto) (1.20-3.40) K/uL Moca # (Auto) (0.11-0.59) K/uL Eos # (Auto) (0.00-0.50) K/uL Baso # (Auto) (0.00-0.20) K/uL Immature Gran # (Auto) (0.01-0.20) K/uL Absolute Nucleated RBC (0.00-0.12) K/uL Nucleated RBC % (auto) % Polychromasia Anisocytosis PT (9.0-12.0) Seconds INR (0.9-1.1) APTT (21-31) Seconds PTT Ratio Specimen Type Sample Site POC pH (7.35-7.45) POC pCO2 (35-46) mmHg POC pO2 (80-95) mmHg POC HCO3 (19-24) rodney/L POC Total CO2 (24-31) mmol/L POC Base Excess (-9-1.8) rodney/L O2 Sat Pulse Oximetry ABG pH (Temp Correct) (7.35-7.45) ABG pCO2 (Temp Corrct (35-46) mmHg POC ABG pO2 at Pt Temp POC ABG O2 Sat (90-95) % Romel Test VBG pH 7.43 H (7.36-7.41) VBG pCO2 47 (38-50) mmHg VBG pO2 20 mmHg VBG HCO3 31 mmol/L VBG O2 Saturation < 60.0 % VBG Base Excess 5.9 mEq/L O2 Delivery Device Vent Mode POC FiO2 % End Tidal CO2 POC Sodium (135-144) mmol/L Sodium (136-145) mmol/L POC Potassium (3.3-5.0) mmol/L Potassium (3.5-5.1) mmol/L Chloride (98-107) mmol/L Carbon Dioxide (21-32) mmol/L Anion Gap (3-11) BUN (6-23) mg/dl Creatinine (0.6-1.2) mg/dl Est Cr Clr Drug Dosing ml/min eGFR BUN/Creatinine Ratio (10-20) Glucose (70-99(Fasting)) mg/dl POC Glucose (other) (70-99) mg/dl Lactate 4.3 H* (0.4-2.0) mmol/L Calcium (8.6-10.3) mg/dl Phosphorus (2.5-4.9) mg/dl Magnesium (1.7-2.4) mg/dl Total Bilirubin (0.2-1.0) mg/dl Direct Bilirubin (0-0.2) mg/dl AST (13-39) U/L ALT (7-52) U/L Alkaline Phosphatase (34-104) U/L Troponin I High Sens (0-14) pg/ml Total Protein (6.0-8.3) gm/dl Albumin (3.4-5.0) gm/dl Procalcitonin (0-0.5) ng/ml Urine Color [place] Urine Appearance Clear (Clear) Urine pH 6.5 (4.5-7.5) Ur Specific [place] 1.019 (1.000-1.030) Urine Protein 1+ H (Negative) Urine Glucose (UA) Negative (Negative) Urine Ketones Trace H (Negative) Urine Blood Negative (Negative) Urine Nitrite Positive A (Negative) Urine Bilirubin 1+ H (Negative) Urine Urobilinogen Positive H (Negative) Ur Leukocyte Esterase 1+ H (Negative) Urine WBC (Auto) 0-5 (0-5) /hpf Urine RBC (Auto) 0-2 (0-2) /hpf U Hyaline Cast (Auto) 3-5 H (0-2) /lpf U Epithel Cells (Auto) 0-2 (0-2) /hpf Urine Bacteria (Auto) None Seen (None Seen) Nasal Screen MRSA (PCR) (Negative) Adenovirus (PCR) (NotDetected) B. pertussis DNA (PCR) (NotDetected) B.parapertussis DNA PCR (NotDetected) C. pneumoniae DNA (PCR) (NotDetected) Coronavirus OC43 (PCR) (NotDetected) Coronavirus HKU1 (PCR) (NotDetected) Coronavirus 229E (PCR) (NotDetected) SARS-CoV-2 (PCR) (NotDetected) Coronavirus NL63 (PCR) (NotDetected) Human Metapneumovir PCR (NotDetected) Influenza Type A (PCR) (NotDetected) Influenza Type B (PCR) (NotDetected) M. pneumoniae (PCR) (NotDetected) Parainfluenza 1 (PCR) (NotDetected) Parainfluenza 2 (PCR) (NotDetected) Parainfluenza 3 (PCR) (NotDetected) Parainfluenza 4 (PCR) (NotDetected) RSV (PCR) (NotDetected) Entero/Rhino (PCR) (NotDetected) Streptococcus sp PCR DETECTED A (NotDetected) Bld Cult ID Panel PCR See PCR Comment (NotDetected) Blood Type A Positive Antibody Screen NEGATIVE 01/02/25 Range/Units 17:00 WBC 18.91 H (4.8-10.8) K/ul RBC 3.96 L (4.20-5.40) M/uL Hgb 12.6 (12.0-16.0) g/dl POC Hgb (12.0-16.0) g/dl Hct 38.2 (37.0-47.0) % POC Hct (37-47) % MCV 96.5 (80.0-100.0) fL MCH 31.8 (25.0-34.0) pg MCHC 33.0 (32.0-36.0) g/dL RDW Std Deviation 59.2 H (36.4-46.3) fL RDW Coeff of Zee 17.3 H (11.5-14.5) % Plt Count 209 (130-400) K/uL MPV 13.4 H (9.4-12.4) fL Immature Gran % (Auto) 0.5 % Neut % (Auto) 85.4 % Lymph % (Auto) 4.5 % Moca % (Auto) 9.1 % Eos % (Auto) 0.2 % Baso % (Auto) 0.3 % Neut # (Auto) 16.12 H (1.40-6.50) K/uL Lymph # (Auto) 0.86 L (1.20-3.40) K/uL Moca # (Auto) 1.73 H (0.11-0.59) K/uL Eos # (Auto) 0.04 (0.00-0.50) K/uL Baso # (Auto) 0.06 (0.00-0.20) K/uL Immature Gran # (Auto) 0.10 (0.01-0.20) K/uL Absolute Nucleated RBC 0.02 (0.00-0.12) K/uL Nucleated RBC % (auto) 0.1 % Polychromasia Anisocytosis Present PT 14.3 H (9.0-12.0) Seconds INR 1.4 H (0.9-1.1) APTT 24 (21-31) Seconds PTT Ratio 0.9 Specimen Type Sample Site POC pH (7.35-7.45) POC pCO2 (35-46) mmHg POC pO2 (80-95) mmHg POC HCO3 (19-24) rodney/L POC Total CO2 (24-31) mmol/L POC Base Excess (-9-1.8) rodney/L O2 Sat Pulse Oximetry ABG pH (Temp Correct) (7.35-7.45) ABG pCO2 (Temp Corrct (35-46) mmHg POC ABG pO2 at Pt Temp POC ABG O2 Sat (90-95) % Romel Test VBG pH (7.36-7.41) VBG pCO2 (38-50) mmHg VBG pO2 mmHg VBG HCO3 mmol/L VBG O2 Saturation % VBG Base Excess mEq/L O2 Delivery Device Vent Mode POC FiO2 % End Tidal CO2 POC Sodium (135-144) mmol/L Sodium 137 (136-145) mmol/L POC Potassium (3.3-5.0) mmol/L Potassium 4.7 (3.5-5.1) mmol/L Chloride 94 L (98-107) mmol/L Carbon Dioxide 29 (21-32) mmol/L Anion Gap 14 H (3-11) BUN 49 H (6-23) mg/dl Creatinine 2.34 H (0.6-1.2) mg/dl Est Cr Clr Drug Dosing 13.9 ml/min eGFR 19.90 BUN/Creatinine Ratio 20.9 H (10-20) Glucose 100 H (70-99(Fasting)) mg/dl POC Glucose (other) (70-99) mg/dl Lactate (0.4-2.0) mmol/L Calcium 9.1 (8.6-10.3) mg/dl Phosphorus (2.5-4.9) mg/dl Magnesium 2.1 (1.7-2.4) mg/dl Total Bilirubin 2.7 H (0.2-1.0) mg/dl Direct Bilirubin 0.7 H (0-0.2) mg/dl AST 25 (13-39) U/L ALT 16 (7-52) U/L Alkaline Phosphatase 63 (34-104) U/L Troponin I High Sens 31.4 H (0-14) pg/ml Total Protein 7.0 (6.0-8.3) gm/dl Albumin 3.4 (3.4-5.0) gm/dl Procalcitonin 15.20 H (0-0.5) ng/ml Urine Color Urine Appearance (Clear) Urine pH (4.5-7.5) Ur Specific [place] (1.000-1.030) Urine Protein (Negative) Urine Glucose (UA) (Negative) Urine Ketones (Negative) Urine Blood (Negative) Urine Nitrite (Negative) Urine Bilirubin (Negative) Urine Urobilinogen (Negative) Ur Leukocyte Esterase (Negative) Urine WBC (Auto) (0-5) /hpf Urine RBC (Auto) (0-2) /hpf U Hyaline Cast (Auto) (0-2) /lpf U Epithel Cells (Auto) (0-2) /hpf Urine Bacteria (Auto) (None Seen) Nasal Screen MRSA (PCR) (Negative) Adenovirus (PCR) (NotDetected) B. pertussis DNA (PCR) (NotDetected) B.parapertussis DNA PCR (NotDetected) C. pneumoniae DNA (PCR) (NotDetected) Coronavirus OC43 (PCR) (NotDetected) Coronavirus HKU1 (PCR) (NotDetected) Coronavirus 229E (PCR) (NotDetected) SARS-CoV-2 (PCR) (NotDetected) Coronavirus NL63 (PCR) (NotDetected) Human Metapneumovir PCR (NotDetected) Influenza Type A (PCR) (NotDetected) Influenza Type B (PCR) (NotDetected) M. pneumoniae (PCR) (NotDetected) Parainfluenza 1 (PCR) (NotDetected) Parainfluenza 2 (PCR) (NotDetected) Parainfluenza 3 (PCR) (NotDetected) Parainfluenza 4 (PCR) (NotDetected) RSV (PCR) (NotDetected) Entero/Rhino (PCR) (NotDetected) Streptococcus sp PCR (NotDetected) Bld Cult ID Panel PCR (NotDetected) Blood Type Antibody Screen
[2025-01-04] MEDS: ALBUMIN 5% 250 ML IV ONE (04:41)
[2025-01-04 05:13] LABS: Hematocrit (blood only) 24.0 % (37.0-47.0); Hemoglobin 7.9 g/dl (12.0-16.0); Mean Corpuscular Hemoglobin 31.5 pg (25.0-34.0); Mean Corpuscular Volume 95.6 fL (80.0-100.0); Platelet Count 120 K/uL (130-400); RDW Standard Deviation 58.7 fL (36.4-46.3); Red Blood Count 2.51 M/uL (4.20-5.40); White Blood Count 10.62 K/ul (4.8-10.8)
[2025-01-04 05:15] LABS: Immature Granulocytes # (auto) 0.06 K/uL (0.01-0.20); Immature Granulocytes % (auto) 0.6 %; Ovalocytes 1+
[2025-01-04 05:21] LABS: Alanine Aminotransferase 12.0 U/L (7-52); Albumin Level 3.1 gm/dl (3.4-5.0); Alkaline Phosphatase 43.0 U/L (34-104); Anion Gap 8.0 (3-11); Bilirubin,Total 1.2 mg/dl (0.2-1.0); Blood Urea Nitrogen 35.0 mg/dl (6-23); Calcium 7.8 mg/dl (8.6-10.3); Carbon Dioxide 25.0 mmol/L (21-32); Chloride 101.0 mmol/L (98-107); Creatinine Clr Calc Pharmacy 30.7 ml/min; Glucose 126.0 mg/dl (70-99(Fasting)); Magnesium 2.6 mg/dl (1.7-2.4); Potassium 3.0 mmol/L (3.5-5.1); Sodium 134.0 mmol/L (136-145); Total Protein 5.1 gm/dl (6.0-8.3)
[2025-01-04] MEDS: POTASSIUM CHLORIDE / WTR 20 MEQ/100 ML PLCT IV SCH (05:53)
--- NOTE | 2025-01-04 08:05 | Critical Care Progress Note ---
Date of Service January 04, 2025 Assessment & Plan (1) Closed loop obstruction of intestine: (2) S/P small bowel resection: (3) Atrial fibrillation with rapid ventricular response: (4) ARF (acute renal failure): Plan Reason Critically Ill: 84 YOF presents with abdominal pain/n/v, noted to have closed loop bowel obstruction, taken urgently to the OR, underwent ex-lap with 60cm of small bowel resection, re-connected and abdomen closed. ICU intubated and sedated. WIll require close hemodynamic monitoring, likely vasopressor support and remain intubated and sedated. 24-hour events: Patient has had significant improvement in her vasopressor requirement. Vent settings are minimal. She remains neurologically intact. Currently undergoing sedation break with SBT Recommendations Neuro -propofol on pause for SBT. Continue as needed fentanyl pushes for pain control. Will need PT and OT once extubated and out of bed to chair as tolerated. Cardiac - Shock, Afib with RVR. Significantly improved currently. Remains in A-fib but appropriately rate controlled currently. Continue amiodarone and consider transition to oral once p.o. is possible. Continue to wean [place]- Synephrine. Will need to readdress anticoagulation once clinically stable. The patient has had systemic anticoagulation discontinued previously due to falls. Risk-benefit will need to be discussed with patient and family when appropriate. Holding metoprolol and ARB currently. Respiratory -intubated for surgery. Minimal vent settings currently. Will proceed with SBT and trial of vent liberation. Will need pulmonary toilet and weaning supplemental oxygen. GI - Small bowel obstruction s/p 60cm resection with reanastomosis and abd closed. Bowel rest per surgery. Defer diet to surgery. Wound management per surgery. Continue PPI RENAL/LYTES - ARF on CKD. Significant improvement in serum creatinine this morning. Hypokalemia which will be replaced. Hyponatremia stable. - Sylvester to gravity, remove when hemodynamics and renal function are stabilized ENDO - Hx of hypothyroidism, Can convert to IV in am if warranted as she will likely have extended NPO status. On stress dose steroids. Will taper once hemo dynamics have stabilized. HEME - anemia chronic, RA. Mild decrease in hemoglobin today. No indication for transfusion. Continue to follow. Slight decrease in platelet count today. Continue to follow. No suspicion for HIT and will start DVT prophylaxis ID -probable septic/distributive shock. Blood cultures showed gram-positive cocci in chains 1 out of 2, possible contaminant. Day #2 meropenem, continue for 72 hours empiric. Obtain surveillance cultures LINES/IV ACCESS - PIV, CVL, [place], ETT, NGT, Sylvester Continue use of these lines DVT PROPHYLAXIS - SCDS, start subcu heparin today DISPO: ICU I have personally spent 25 minutes of critical care time in the direct management of this patient. This is a life/limb threatening event. This includes time spent evaluating patient, direct bedside care, chart review, placing orders, interpretation of diagnostic studies, discussion with consultants, patient, and family members, as well as other required patient management activities. This time is exclusive of all separately billable procedures, separate from and in addition to any other critical care service time. Thank you for allowing us to participate in the care of this patient. Admission and Anticipated Discharge Date Admission Date: January 02, 2025 Subjective Patient seen and examined. EMR reviewed. Discussed with bedside critical care nurse in a multidisciplinary rounds. The patient is currently intubated and sedated. She is able to follow commands and moves all 4 extremities. Her hemodynamics are improved. She remains on propofol. Minimal vent settings. Review of Systems Review of Systems: Unobtainable due to endotracheal tube Physical Exam Constitutional: + thin and + frail appearing; no acute d istress Neck: trachea midline, no thyromegaly Respiratory: normal respiratory effort, lungs clear to auscultation Cardiovascular: RRR, no murmur, no edema Gastrointestinal (Abdomen): Abdominal binder present. Bowel sounds diminished. Musculoskeletal: Extremities: extremities normal to inspection Skin: no rashes, warm and dry Neurologic: Nonfocal exam Lymphatic: no cervical lymphadenopathy Results & Data Results & Data Vital Signs (Past 12 Hours) Vital Signs Temp Pulse Resp BP Pulse Ox Pulse Ox O2 Del Method 01/04/25 07:11 85 16 98 01/04/25 05:51 91 H 29 H 93 01/04/25 05:45 90/73 L 01/04/25 05:39 96 H 16 96 01/04/25 05:36 86 16 96 01/04/25 05:18 91 H 16 94 01/04/25 05:15 86/62 L 01/04/25 05:09 83 16 94 01/04/25 05:00 86 16 91 01/04/25 05:00 89/64 L 01/04/25 04:30 93 H 16 98 01/04/25 04:15 92/63 L 01/04/25 04:03 86 16 97 01/04/25 04:00 93/64 L 01/04/25 04:00 01/04/25 03:57 83 16 98 01/04/25 03:48 87 16 98 01/04/25 03:45 90/63 L 01/04/25 03:42 87 16 98 01/04/25 03:30 92/57 L 01/04/25 03:30 97 H 16 98 01/04/25 03:15 97 H 16 99 01/04/25 03:15 90/64 L 01/04/25 03:05 80 16 99 01/04/25 03:03 90 16 98 01/04/25 03:00 91/67 L 01/04/25 02:57 91 H 16 98 01/04/25 02:54 87 16 98 01/04/25 02:45 91/64 L 01/04/25 02:42 108 H 12 98 01/04/25 02:40 92/62 L 01/04/25 02:36 96 H 16 98 01/04/25 02:18 102 H 16 97 01/04/25 02:15 101/65 01/04/25 02:15 101/65 01/04/25 02:12 94 H 16 97 01/04/25 01:54 109 H 16 97 01/04/25 01:45 101/71 01/04/25 01:36 97 H 16 97 01/04/25 01:30 101/64 01/04/25 01:03 36.4 C 01/04/25 00:45 104/72 01/04/25 00:42 79 16 98 01/04/25 00:30 81 16 98 01/04/25 00:22 102 H 01/04/25 00:15 105/69 01/04/25 00:15 90 16 98 01/04/25 00:00 98/71 L 01/04/25 00:00 100 H 16 98 01/04/25 00:00 01/04/25 00:00 102 H 01/03/25 23:56 103/65 01/03/25 23:45 96 H 16 98 01/03/25 23:42 91 H 16 98 01/03/25 23:18 93 H 16 98 01/03/25 23:16 98 Mechanical Vent 01/03/25 23:15 102 H 16 100 01/03/25 23:09 96 H 16 98 01/03/25 23:00 91/58 L 01/03/25 22:33 124 H 16 98 01/03/25 22:12 89 16 98 01/03/25 22:00 103/66 01/03/25 21:48 103 H 17 100 01/03/25 21:30 100 H 16 99 01/03/25 21:24 104 H 16 99 01/03/25 21:00 105/73 01/03/25 21:00 105/73 01/03/25 21:00 92 H 16 99 01/03/25 20:45 101 H 16 99 01/03/25 20:33 103 H 16 90 01/03/25 20:21 122 H 16 99 FiO2 01/04/25 07:11 30 01/04/25 05:51 01/04/25 05:45 01/04/25 05:39 01/04/25 05:36 01/04/25 05:18 01/04/25 05:15 01/04/25 05:09 01/04/25 05:00 01/04/25 05:00 01/04/25 04:30 01/04/25 04:15 01/04/25 04:03 01/04/25 04:00 01/04/25 04:00 30 01/04/25 03:57 01/04/25 03:48 01/04/25 03:45 01/04/25 03:42 01/04/25 03:30 01/04/25 03:30 01/04/25 03:15 01/04/25 03:15 01/04/25 03:05 30 01/04/25 03:03 01/04/25 03:00 01/04/25 02:57 01/04/25 02:54 01/04/25 02:45 01/04/25 02:42 01/04/25 02:40 01/04/25 02:36 01/04/25 02:18 01/04/25 02:15 01/04/25 02:15 01/04/25 02:12 01/04/25 01:54 01/04/25 01:45 01/04/25 01:36 01/04/25 01:30 01/04/25 01:03 01/04/25 00:45 01/04/25 00:42 01/04/25 00:30 01/04/25 00:22 01/04/25 00:15 01/04/25 00:15 01/04/25 00:00 01/04/25 00:00 01/04/25 00:00 01/04/25 00:00 01/03/25 23:56 01/03/25 23:45 01/03/25 23:42 01/03/25 23:18 01/03/25 23:16 01/03/25 23:15 30 01/03/25 23:09 01/03/25 23:00 01/03/25 22:33 01/03/25 22:12 01/03/25 22:00 01/03/25 21:48 01/03/25 21:30 01/03/25 21:24 01/03/25 21:00 01/03/25 21:00 01/03/25 21:00 01/03/25 20:45 01/03/25 20:33 01/03/25 20:21 Critical Care Results & Data Vital Signs (Past 12 Hours) Vital Signs Temp Pulse Resp BP Pulse Ox Pulse Ox O2 Del Method 01/04/25 07:11 85 16 98 01/04/25 05:51 91 H 29 H 93 01/04/25 05:45 90/73 L 01/04/25 05:39 96 H 16 96 01/04/25 05:36 86 16 96 01/04/25 05:18 91 H 16 94 01/04/25 05:15 86/62 L 01/04/25 05:09 83 16 94 01/04/25 05:00 86 16 91 01/04/25 05:00 89/64 L 01/04/25 04:30 93 H 16 98 01/04/25 04:15 92/63 L 01/04/25 04:03 86 16 97 01/04/25 04:00 93/64 L 01/04/25 04:00 01/04/25 03:57 83 16 98 01/04/25 03:48 87 16 98 01/04/25 03:45 90/63 L 01/04/25 03:42 87 16 98 01/04/25 03:30 92/57 L 01/04/25 03:30 97 H 16 98 01/04/25 03:15 97 H 16 99 01/04/25 03:15 90/64 L 01/04/25 03:05 80 16 99 01/04/25 03:03 90 16 98 01/04/25 03:00 91/67 L 01/04/25 02:57 91 H 16 98 01/04/25 02:54 87 16 98 01/04/25 02:45 91/64 L 01/04/25 02:42 108 H 12 98 01/04/25 02:40 92/62 L 01/04/25 02:36 96 H 16 98 01/04/25 02:18 102 H 16 97 01/04/25 02:15 101/65 01/04/25 02:15 101/65 01/04/25 02:12 94 H 16 97 01/04/25 01:54 109 H 16 97 01/04/25 01:45 101/71 01/04/25 01:36 97 H 16 97 01/04/25 01:30 101/64 01/04/25 01:03 36.4 C 01/04/25 00:45 104/72 01/04/25 00:42 79 16 98 01/04/25 00:30 81 16 98 01/04/25 00:22 102 H 01/04/25 00:15 105/69 01/04/25 00:15 90 16 98 01/04/25 00:00 98/71 L 01/04/25 00:00 100 H 16 98 01/04/25 00:00 01/04/25 00:00 102 H 01/03/25 23:56 103/65 01/03/25 23:45 96 H 16 98 01/03/25 23:42 91 H 16 98 01/03/25 23:18 93 H 16 98 01/03/25 23:16 98 Mechanical Vent 01/03/25 23:15 102 H 16 100 01/03/25 23:09 96 H 16 98 01/03/25 23:00 91/58 L 01/03/25 22:33 124 H 16 98 01/03/25 22:12 89 16 98 01/03/25 22:00 103/66 01/03/25 21:48 103 H 17 100 01/03/25 21:30 100 H 16 99 01/03/25 21:24 104 H 16 99 01/03/25 21:00 105/73 01/03/25 21:00 105/73 01/03/25 21:00 92 H 16 99 01/03/25 20:45 101 H 16 99 01/03/25 20:33 103 H 16 90 01/03/25 20:21 122 H 16 99 FiO2 01/04/25 07:11 30 01/04/25 05:51 01/04/25 05:45 01/04/25 05:39 01/04/25 05:36 01/04/25 05:18 01/04/25 05:15 01/04/25 05:09 01/04/25 05:00 01/04/25 05:00 01/04/25 04:30 01/04/25 04:15 01/04/25 04:03 01/04/25 04:00 01/04/25 04:00 01/04/25 03:57 01/04/25 03:48 01/04/25 03:45 01/04/25 03:42 01/04/25 03:30 01/04/25 03:30 01/04/25 03:15 01/04/25 03:15 01/04/25 03:05 30 01/04/25 03:03 01/04/25 03:00 01/04/25 02:57 01/04/25 02:54 01/04/25 02:45 01/04/25 02:42 01/04/25 02:40 01/04/25 02:36 01/04/25 02:18 01/04/25 02:15 01/04/25 02:15 01/04/25 02:12 01/04/25 01:54 01/04/25 01:45 01/04/25 01:36 01/04/25 01:30 01/04/25 01:03 01/04/25 00:45 01/04/25 00:42 01/04/25 00:30 01/04/25 00:22 01/04/25 00:15 01/04/25 00:15 01/04/25 00:00 01/04/25 00:00 01/04/25 00:00 30 01/04/25 00:00 01/03/25 23:56 01/03/25 23:45 01/03/25 23:42 01/03/25 23:18 01/03/25 23:16 01/03/25 23:15 30 01/03/25 23:09 01/03/25 23:00 01/03/25 22:33 01/03/25 22:12 01/03/25 22:00 01/03/25 21:48 01/03/25 21:30 01/03/25 21:24 01/03/25 21:00 01/03/25 21:00 01/03/25 21:00 01/03/25 20:45 01/03/25 20:33 01/03/25 20:21 Lab & Micro Results (Past 24 Hours) RBC 2.51 M/uL (4.20-5.40) L 01/04/25 WBC 10.62 K/ul (4.8-10.8) 01/04/25 Hgb 7.9 g/dl (12.0-16.0) L 01/04/25 Hct 24.0 % (37.0-47.0) L 01/04/25 MCV 95.6 fL (80.0-100.0) 01/04/25 MCH 31.5 pg (25.0-34.0) 01/04/25 MCHC 32.9 g/dL (32.0-36.0) 01/04/25 RDW Standard Deviation 58.7 fL (36.4-46.3) H 01/04/25 RDW Coefficient of Variation 17.0 % (11.5-14.5) H 01/04/25 Plt Count 120 K/uL (130-400) L 01/04/25 MPV 13.8 fL (9.4-12.4) H 01/04/25 Neutrophils (%) (Auto) 85.7 % 01/04/25 Lymphocytes (%) (Auto) 4.7 % 01/04/25 Monocytes # (Auto) 0.94 K/uL (0.11-0.59) H 01/04/25 Eosinophils # (Auto) 0.00 K/uL (0.00-0.50) 01/04/25 Immature Granulocyte % (Auto) 0.6 % 01/04/25 Neutrophils # (Auto) 9.11 K/uL (1.40-6.50) H 01/04/25 Lymphocytes # (Auto) 0.50 K/uL (1.20-3.40) L 01/04/25 Monocytes # (Auto) 0.94 K/uL (0.11-0.59) H 01/04/25 Eosinophils # (Auto) 0.00 K/uL (0.00-0.50) 01/04/25 Basophils # (Auto) 0.01 K/uL (0.00-0.20) 01/04/25 Immature Granulocyte # (Auto) 0.06 K/uL (0.01-0.20) 5 Echinocytes 1+ 01/04/25 Ovalocytes 1+ 01/04/25 Na 134 mmol/L (136-145) L 01/04/25 K 3.0 mmol/L (3.5-5.1) L 01/04/25 Cl 101 mmol/L (98-107) 01/04/25 CO2 25 mmol/L (21-32) 01/04/25 Anion Gap 8 (3-11) 01/04/25 BUN 35 mg/dl (6-23) H 01/04/25 Creatinine 1.07 mg/dl (0.6-1.2) 01/04/25 BUN/Creatinine Ratio 32.7 (10-20) H 01/04/25 Glu 126 mg/dl (70-99(Fasting)) H 01/04/25 Ca 7.8 mg/dl (8.6-10.3) L 01/04/25 Phosphorus Level 3.6 mg/dl (2.5-4.9) 01/04/25 Total Bilirubin 1.2 mg/dl (0.2-1.0) H 01/04/25 Direct Bilirubin 0.6 mg/dl (0-0.2) H 01/04/25 AST 21 U/L (13-39) 01/04/25 ALT 12 U/L (7-52) 01/04/25 Alkaline Phosphatase 43 U/L (34-104) 01/04/25 TP 5.1 gm/dl (6.0-8.3) L 01/04/25 Albumin 3.1 gm/dl (3.4-5.0) L 01/04/25 Mg 2.6 mg/dl (1.7-2.4) H 01/04/25 04:29 Calcium Level 7.8 mg/dl (8.6-10.3) L 01/04/25 04:29 Microbiology 01/02/25 17:30 Aerobic Blood Culture - Preliminary Blood Gram positive cocci in chains Anaerobic Blood Culture - Final 01/02/25 17:25 Aerobic Blood Culture - Preliminary Blood No growth in Aerobic bottle after 24 hours. Anaerobic Blood Culture - Preliminary No growth in Anaerobic bottle after 24 hours. 01/02/25 17:03 Urine Culture - Preliminary Urine,Clean Catch No growth - Less than 1,000 colonies/mL, Final report to follow. I & O Totals 24 Hours 01/03/25 01/04/25 01/05/25 06:59 06:59 06:59 Intake Total 4626.697 / 4626.697 4802.757 / 4802.757 7.083 / 7.083 Output Total 665 / 665 800 / 800 Balance 3961.697 / 3961.697 4002.757 / 4002.757 7.083 / 7.083 Cumulative 01/02/25 16:33 thru 01/04/25 07:06 Intake Total 9436.537 Output Total 1465 Balance 7971.537 RT Ventilator Mngmt (Last Documented) Ventilator Ordered Settings Ventilator Support Mode Assist Control 01/04/25 07:11 Respiratory Rate 16 01/04/25 07:11 Ventilator Tidal Volume 320 01/04/25 07:11 Setting Minute Ventilation 5 01/04/25 07:11 Positive End Expiratory 5 01/04/25 0 7:11 Pressure Fraction of Inspired Oxygen 30 01/04/25 07:11 Ventilator - PT Measurements Respiratory Rate 16 Exhaled Tidal Volume 320 Minute Ventilation 5 Peak Inspiratory Airway 24 Pressure Plateau Pressure 21 Respiratory Cycle Inspiratory: 1:3.2 Expiratory Ratio Inspiratory Phase Time 0.9 End-Tidal CO2 28 Static Lung Compliance 20.00 Dynamic Lung Compliance 16.84 Normal Static Lung Compliance 45.00 Patient Measurements Comment Vent changes made after obtaining ABG results. Luis martini Coding Level of Care Code 59662 CRITICAL CARE 1ST 30-74M Diagnoses Closed loop obstruction of intestine K56.699 S/P small bowel resection Z90.49 Atrial fibrillation with rapid ventricular response I48.91 ARF (acute renal failure) N17.9
[2025-01-04] MEDS: PANTOprazole 40 MG/10 ML SYR IV SCH (08:14)
[2025-01-04] MEDS: HEPARIN SOD 5,000 UNIT/0.5 ML VIAL SQ SCH (08:27)
--- NOTE | 2025-01-04 11:32 | Hospitalist Progress Note ---
Date of Service January 04, 2025 Assessment & Plan (1) Septic shock: Plan: 84-year-old female with past medical history significant for SIADH, dyslipidemia, hypothyroidism, COPD, peripheral vascular disease, paroxysmal atrial fibrillation, hypertension, moderate mitral regurgitation, moderate aortic insufficiency, paroxysmal supraventricular tachycardia, GERD, CKD stage III, compression fraction of T12 vertebra, chronic pain of both shoulders, impingement syndrome of both shoulders, severe osteoporosis, history of pelvic fracture, migraine, anemia of chronic disease, rheumatoid arthritis, history of lung cancer, elevated liver enzymes, lives at home and ambulates with a walker and lives with her grand child was brought in because of nausea vomiting and abdominal pain for past few days #Septic shock Closed loop bowel obstruction with ischemic bowel -Found to be in septic shock and found to have small bowel obstruction -S/p Exploratory laparotomy, lysis of adhesions, small bowel resection and reanastomosis on 01/02/25 -Currently on pressors and empiric abx -Blood culture 01/02 growing Strep Mitis Plan -Appreciate ICU management -Continue empiric Vanc and Meropenem -Continue pressor support. wean as tolerated -Follow blood culture #Acute Hypoxic Resp Failure -Requiring intubation -Management per ICU #Acute kidney injury Baseline creatinine 0.8-1 Presented with creatinine of 2.3 Cr Improving Plan Monitor volume status, IOs, renal function Avoid nephrotoxic agents Continue IVF #Atral Fibrillation With RVR Valvular heart disease Moderate mitral regurgitation and moderate aortic insufficiency Plan -Rates controlled on amio drip -Not on anticoagulation because of fall risk Rheumatoid arthritis Holding home prednisone and methotrexate Currently on IV hydrocortisone Hypothyroidism Currently NPO. 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 alert following commands. Physical Exam Physical Exam: Vitals and labs reviewed General: Chronically ill appearing in NAD HEENT: EOMI, PERRLA Neck: Supple Cardiac: RRR no rubs gallops or murmurs Lungs: CTA no rhonchi wheezing or rales Abd: bandaged. hypoactive BS : Sylvester MSK: Full ROM. No obvious deformities Ext: No Edema cyanosis Skin: Warm, Dry Neuro: Alert following commands Psych: calm Results & Data Results & Data Vital Signs (Past 12 Hours) Vital Signs Temp Pulse Resp BP Pulse Ox O2 Del Method FiO2 01/04/25 09:42 92 H 25 H 98 01/04/25 09:30 102/73 01/04/25 09:24 92 H 19 97 01/04/25 09:06 97 H 24 97 01/04/25 09:00 94/70 L 01/04/25 08:45 111 H 29 H 96 01/04/25 08:45 92/59 L 01/04/25 08:33 106 H 24 96 01/04/25 08:30 96/69 L 01/04/25 08:24 92 H 25 H 96 01/04/25 08:15 94/68 L 01/04/25 08:09 88 21 94 01/04/25 08:03 85 23 93 01/04/25 08:00 89/62 L 01/04/25 08:00 89/62 L 01/04/25 08:00 Mechanical Vent 01/04/25 08:00 30 01/04/25 07:57 81 16 98 01/04/25 07:45 93/70 L 01/04/25 07:42 84 15 98 01/04/25 07:30 91/65 L 01/04/25 07:15 92/62 L 01/04/25 07:11 85 16 98 30 01/04/25 07:03 85 16 97 01/04/25 07:00 89/67 L 01/04/25 05:51 91 H 29 H 93 01/04/25 05:45 90/73 L 01/04/25 05:39 96 H 16 96 01/04/25 05:36 86 16 96 01/04/25 05:18 91 H 16 94 01/04/25 05:15 86/62 L 01/04/25 05:09 83 16 94 01/04/25 05:00 86 16 91 01/04/25 05:00 89/64 L 01/04/25 04:30 93 H 16 98 01/04/25 04:15 92/63 L 01/04/25 04:03 86 16 97 09/03/25 04:00 93/64 L 01/04/25 04:00 30 01/04/25 03:57 83 16 98 01/04/25 03:48 87 16 98 01/04/25 03:45 90/63 L 01/04/25 03:42 87 16 98 01/04/25 03:30 92/57 L 01/04/25 03:30 97 H 16 98 01/04/25 03:15 97 H 16 99 01/04/25 03:15 90/64 L 01/04/25 03:05 80 16 99 30 01/04/25 03:03 90 16 98 01/04/25 03:00 91/67 L 01/04/25 02:57 91 H 16 98 01/04/25 02:54 87 16 98 01/04/25 02:45 91/64 L 01/04/25 02:42 108 H 12 98 01/04/25 02:40 92/62 L 01/04/25 02:36 96 H 16 98 01/04/25 02:18 102 H 16 97 01/04/25 02:15 101/65 01/04/25 02:15 101/65 01/04/25 02:12 94 H 16 97 01/04/25 01:54 109 H 16 97 01/04/25 01:45 101/71 01/04/25 01:36 97 H 16 97 01/04/25 01:30 101/64 01/04/25 01:03 36.4 C 01/04/25 00:45 104/72 01/04/25 00:42 79 16 98 01/04/25 00:30 81 16 98 01/04/25 00:22 102 H 01/04/25 00:15 105/69 01/04/25 00:15 90 16 98 01/04/25 00:00 98/71 L 01/04/25 00:00 100 H 16 98 01/04/25 00:00 30 01/04/25 00:00 102 H 01/03/25 23:56 103/65 01/03/25 23:45 96 H 16 98 01/03/25 23:42 91 H 16 98 Laboratory Results Abnormal lab results 01/03/25 01/03/25 01/03/25 Range/Units 05:39 10:33 11:56 RBC (4.20-5.40) M/uL Hgb (12.0-16.0) g/dl Hct (37.0-47.0) % RDW Std Deviation (36.4-46.3) fL RDW Coeff of Zee (11.5-14.5) % Plt Count (130-400) K/uL MPV (9.4-12.4) fL Neut # (Auto) (1.40-6.50) K/uL Lymph # (Auto) (1.20-3.40) K/uL [place] # (Auto) (0.11-0.59) K/uL Sodium (136-145) mmol/L Potassium (3.5-5.1) mmol/L BUN (6-23) mg/dl BUN/Creatinine Ratio (10-20) Glucose (70-99(Fasting)) mg/dl POC Glucose (other) 102 H 146 H (70-99) mg/dl Calcium (8.6-10.3) mg/dl Magnesium (1.7-2.4) mg/dl Total Bilirubin (0.2-1.0) mg/dl Direct Bilirubin (0-0.2) mg/dl Troponin I High Sens 28.2 H (0-14) pg/ml Total Protein (6.0-8.3) gm/dl Albumin (3.4-5.0) gm/dl Random Vancomycin (10-20) mcg/ml 01/03/25 01/03/25 01/04/25 Range/Units 12:27 16:25 04:29 RBC 2.51 L (4.20-5.40) M/uL Hgb 7.9 L (12.0-16.0) g/dl Hct 24.0 L (37.0-47.0) % RDW Std Deviation 58.7 H (36.4-46.3) fL RDW Coeff of Zee 17.0 H (11.5-14.5) % Plt Count 120 L (130-400) K/uL MPV 13.8 H (9.4-12.4) fL Neut # (Auto) 9.11 H (1.40-6.50) K/uL Lymph # (Auto) 0.50 L (1.20-3.40) K/uL [place] # (Auto) 0.94 H (0.11-0.59) K/uL Sodium 134 L (136-145) mmol/L Potassium 3.0 L (3.5-5.1) mmol/L BUN 35 H (6-23) mg/dl BUN/Creatinine Ratio 32.7 H (10-20) Glucose 126 H (70-99(Fasting)) mg/dl POC Glucose (other) 125 H (70-99) mg/dl Calcium 7.8 L (8.6-10.3) mg/dl Magnesium 2.6 H (1.7-2.4) mg/dl Total Bilirubin 1.2 H (0.2-1.0) mg/dl Direct Bilirubin 0.6 H (0-0.2) mg/dl Troponin I High Sens 25.0 H (0-14) pg/ml Total Protein 5.1 L (6.0-8.3) gm/dl Albumin 3.1 L (3.4-5.0) gm/dl Random Vancomycin 6.4 L (10-20) mcg/ml
[2025-01-04] MEDS: MEROPENEM 500 MG in SYRINGE 0 ML IV SCH (12:45)
--- NOTE | 2025-01-04 12:52 | Electrocardiogram Report ---
Test Reason : Blood Pressure : */* mmHG Vent. Rate : 89 BPM Atrial Rate : * BPM P-R Int : * ms QRS Dur : 88 ms QT Int : 440 ms P-R-T Axes : * 29 27 degrees QTcB Int : 535 ms Atrial fibrillation Low voltage QRS Nonspecific T wave abnormality Prolonged QT Abnormal ECG When compared with ECG of 02-Jan-2025 16:59, Vent. rate has decreased by 65 bpm QRS duration has increased Criteria for Septal infarct are no longer Present Nonspecific T wave abnormality now evident in Anterior leads Confirmed by Khai Castañeda ([id number]) on 01/04/2025 12:51:58 PM Referred By: REFERRED SELF Confirmed By: Khai Castañeda
[2025-01-04] MEDS: FUROSEMIDE INJ 20 MG/2 ML VIAL IV SCH (13:31)
--- NOTE | 2025-01-04 15:03 | Surgery Progress Note ---
Date of Service January 04, 2025 Assessment & Plan (1) S/P small bowel resection: Plan POD #2 s/p ex laparotomy with sb resection for closed loop obstruction/ischemic bowel Extubated, no acute distress. Patient is comfortable seems to be at her baseline level of mentation. Continue NPO/NGT until passing flatus appreciate ICU team medical management Surgery will continue to follow Admission and Anticipated Discharge Date Admission Date: January 02, 2025 Subjective Patient has been extubated, her pain is well-controlled, NGT in place denies nausea is not yet passing flatus Physical Exam Constitutional: average body habitus; not in distress and not diaphoretic Respiratory: normal respiratory effort; no respiratory distress, no labored breathing and does not use accessory muscles Gastrointestinal (Abdomen): Abdominal binder surgical dressings in place and dry. Appropriate postop abdomen. Musculoskeletal: Edema bilateral upper extremities Neurologic: awake; not confused Results & Data Vital Signs (Past 12 Hours) Vital Signs Pulse Resp BP Pulse Ox O2 Del Method FiO2 01/04/25 14:06 97 H 16 01/04/25 14:00 100/77 01/04/25 13:51 103 H 25 H 01/04/25 13:06 105 H 19 99 01/04/25 13:01 93/78 L 01/04/25 13:00 98 H 26 H 79 L 01/04/25 12:45 104/67 01/04/25 12:33 108 H 21 82 L 01/04/25 12:30 102/58 L 01/04/25 12:27 96 H 19 100 01/04/25 12:15 101/69 01/04/25 12:12 102 H 21 98 01/04/25 12:00 107/68 01/04/25 12:00 105 H 21 97 01/04/25 11:45 105/75 01/04/25 11:36 100 H 30 H 01/04/25 11:15 102 H 23 100 01/04/25 11:15 112/71 01/04/25 11:00 99 H 21 94 01/04/25 11:00 98/71 L 01/04/25 10:45 99/75 L 01/04/25 10:42 111 H 21 99 01/04/25 10:30 102/67 01/04/25 10:30 93 H 22 95 01/04/25 10:15 96 H 24 98 01/04/25 10:15 107/77 01/04/25 10:00 98/72 L 01/04/25 10:00 95 H 23 98 01/04/25 09:42 92 H 25 H 98 01/04/25 09:30 102/73 01/04/25 09:24 92 H 19 97 01/04/25 09:06 97 H 24 97 01/04/25 09:00 94/70 L 01/04/25 08:45 111 H 29 H 96 01/04/25 08:45 92/59 L 01/04/25 08:33 106 H 24 96 01/04/25 08:30 96/69 L 01/04/25 08:24 92 H 25 H 96 01/04/25 08:15 94/68 L 01/04/25 08:09 88 21 94 01/04/25 08:03 85 23 93 01/04/25 08:00 89/62 L 01/04/25 08:00 89/62 L 01/04/25 08:00 Mechanical Vent 01/04/25 08:00 30 01/04/25 07:57 81 16 98 01/04/25 07:45 93/70 L 01/04/25 07:42 84 15 98 01/04/25 07:30 91/65 L 01/04/25 07:15 92/62 L 01/04/25 07:11 85 16 98 30 01/04/25 07:03 85 16 97 01/04/25 07:00 89/67 L 01/04/25 05:51 91 H 29 H 93 01/04/25 05:45 90/73 L 01/04/25 05:39 96 H 16 96 01/04/25 05:36 86 16 96 01/04/25 05:18 91 H 16 94 01/04/25 05:15 86/62 L 01/04/25 05:09 83 16 94 01/04/25 05:00 86 16 91 01/04/25 05:00 89/64 L 01/04/25 04:30 93 H 16 98 01/04/25 04:15 92/63 L 01/04/25 04:03 86 16 97 01/04/25 04:00 93/64 L 01/04/25 04:00 30 09/03/25 03:57 83 16 98 01/04/25 03:48 87 16 98 01/04/25 03:45 90/63 L 01/04/25 03:42 87 16 98 01/04/25 03:30 92/57 L 01/04/25 03:30 97 H 16 98 01/04/25 03:15 97 H 16 99 01/04/25 03:15 90/64 L 01/04/25 03:05 80 16 99 30 01/04/25 03:03 90 16 98 PG Care Time/CCT Total # of Minutes Spent Total Time Spent with Patient: Total time spent is greater than 50% in coordination of care (as documented) at patient's floor/unit and/or counseling patient: Coding Level of Care Code 53024 Post Operative Follow-Up Diagnoses S/P small bowel resection Z90.49
[2025-01-04 16:24] LABS: Anion Gap 9.0 (3-11); Blood Urea Nitrogen 34.0 mg/dl (6-23); Calcium 7.6 mg/dl (8.6-10.3); Carbon Dioxide 25.0 mmol/L (21-32); Chloride 104.0 mmol/L (98-107); Creatinine Clr Calc Pharmacy 31.5 ml/min; Glucose 109.0 mg/dl (70-99(Fasting)); Potassium 4.1 mmol/L (3.5-5.1); Sodium 138.0 mmol/L (136-145)
[2025-01-04] MEDS: HYDROCORTISONE SOD 50 MG in SYRINGE 0 ML IV SCH (16:52)
[2025-01-04] MEDS: FUROSEMIDE INJ 20 MG/2 ML VIAL IV ONE (21:59)
[2025-01-05 04:49] LABS: Hematocrit (blood only) 26.0 % (37.0-47.0); Hemoglobin 8.3 g/dl (12.0-16.0); Immature Granulocytes # (auto) 0.11 K/uL (0.01-0.20); Immature Granulocytes % (auto) 1.0 %; Mean Corpuscular Hemoglobin 31.1 pg (25.0-34.0); Mean Corpuscular Volume 97.4 fL (80.0-100.0); Platelet Count 128 K/uL (130-400); RDW Standard Deviation 60.0 fL (36.4-46.3); Red Blood Count 2.67 M/uL (4.20-5.40); White Blood Count 11.46 K/ul (4.8-10.8)
[2025-01-05 05:03] LABS: Alanine Aminotransferase 19.0 U/L (7-52); Albumin Level 3.0 gm/dl (3.4-5.0); Alkaline Phosphatase 60.0 U/L (34-104); Anion Gap 7.0 (3-11); Bilirubin,Total 0.7 mg/dl (0.2-1.0); Blood Urea Nitrogen 37.0 mg/dl (6-23); Calcium 7.6 mg/dl (8.6-10.3); Carbon Dioxide 26.0 mmol/L (21-32); Chloride 105.0 mmol/L (98-107); Creatinine Clr Calc Pharmacy 30.4 ml/min; Glucose 111.0 mg/dl (70-99(Fasting)); Magnesium 2.7 mg/dl (1.7-2.4); Potassium 3.6 mmol/L (3.5-5.1); Sodium 138.0 mmol/L (136-145); Total Protein 5.2 gm/dl (6.0-8.3)
[2025-01-05] MEDS: ACETAMINOPHEN 1,000 MG/100 ML VIAL IV PRN (07:01)
[2025-01-05] MEDS: POTASSIUM CHLORIDE / WTR 20 MEQ/100 ML PLCT IV SCH (07:33)
--- NOTE | 2025-01-05 07:42 | Critical Care Progress Note ---
Date of Service January 05, 2025 Assessment & Plan (1) Closed loop obstruction of intestine: (2) S/P small bowel resection: (3) Atrial fibrillation with rapid ventricular response: (4) ARF (acute renal failure): Plan Reason Critically Ill: 84 YOF presents with abdominal pain/n/v, noted to have closed loop bowel obstruction, taken urgently to the OR, underwent ex-lap with 60cm of small bowel resection, re-connected and abdomen closed. ICU intubated and sedated. WIll require close hemodynamic monitoring, likely vasopressor support and remain intubated and sedated. 24-hour events: Patient extubated after successful SBT. Hemodynamics improved and she is now off pressors. She has been up to bed to chair. She is doing well clinically and working on incentive spirometry Recommendations Neuro -continue PT and OT. Continue pain management Cardiac - Shock, Afib with RVR. Remains in A-fib but appropriately rate controlled currently. Continue amiodarone and consider transition to oral once p.o. is possible. Start IV metoprolol until able to take p.o. Will need to readdress anticoagulation once clinically stable. The patient has had systemic anticoagulation discontinued previously due to falls. Risk-benefit will need to be discussed with patient and family when appropriate. Continue gentle diuresis with attention to kidney function Respiratory -successfully extubated and doing well clinically. Continue incentive spirometry. GI - Small bowel obstruction s/p 60cm resection with reanastomosis and abd closed. wound management per surgery. Continue PPI. Await resumption of bowel function RENAL/LYTES - ARF on CKD. Significant improvement in serum creatinine this morning. Hypokalemia which will be replaced. Hyponatremia stable. Continue Plasma-Lyte for now until taking p.o. - Sylvester to gravity, remove when hemodynamics and renal function are stabilized ENDO - Hx of hypothyroidism, continue IV Synthroid pending restart of oral medications. On stress dose steroids. Initiate taper HEME - anemia chronic, RA. Hemoglobin stable today. No indication for transfusion. Continue to follow. Platelet count stable. Continue to follow. Continue DVT prophylaxis ID -probable septic/distributive shock. Blood cultures showed gram-positive cocci in chains 1 out of 2, possible contaminant. Day #3 meropenem, surveillance cultures pending. LINES/IV ACCESS - PIV, CVL, ETT, NGT, Sylvester Continue use of these lines DVT PROPHYLAXIS - SCDS, start subcu heparin today DISPO: Okay to transfer to floor. Critical care services will sign off. Feel free to contact us with questions or concerns Admission and Anticipated Discharge Date Admission Date: January 02, 2025 Subjective Patient seen and examined. EMR reviewed. Discussed with surgery and bedside critical care nurse as well as overnight critical care VAUGHN. The patient is up in the chair. She states she feels great. She denies any chest pain or shortness of breath. No significant abdominal pain. She is not yet passing flatus. She has no new concerns today Review of Systems Review of Systems: All systems reviewed & are unremarkable except as noted in Subjective Physical Exam Constitutional: + thin and + frail appearing; no acute d istress Neck: trachea midline, no thyromegaly Respiratory: normal respiratory effort, lungs clear to auscultation Cardiovascular: RRR, no murmur, no edema Gastrointestinal (Abdomen): Inspection/Auscultation: + abdominal surgical incision; + abnormal bowel sounds Bowel sounds diminished Musculoskeletal: Extremities: extremities normal to inspection Skin: no rashes, warm and dry Lymphatic: no cervical lymphadenopathy Results & Data Results & Data Vital Signs (Past 12 Hours) Vital Signs Temp Pulse Resp BP Pulse Ox 01/05/25 06:03 126 H 28 H 01/05/25 06:00 36.6 C 01/05/25 05:33 100 H 33 H 01/05/25 05:00 118 H 24 100 01/05/25 05:00 135/82 01/05/25 04:30 117 H 22 100 01/05/25 04:06 110 H 30 H 100 01/05/25 03:00 111/83 01/05/25 02:54 116 H 26 H 100 01/05/25 02:36 95 H 24 100 01/05/25 02:18 36.6 C 01/05/25 02:00 105 H 26 H 100 01/05/25 02:00 109/68 01/05/25 02:00 109/68 01/05/25 01:42 105 H 25 H 100 01/05/25 01:00 106/86 01/05/25 01:00 108 H 25 H 100 01/05/25 00:30 101 H 25 H 100 01/05/25 00:04 110 H 01/05/25 00:03 108 H 27 H 100 01/05/25 00:00 112/81 01/04/25 23:57 102 H 25 H 100 01/04/25 23:33 110 H 25 H 100 01/04/25 23:09 107 H 19 100 01/04/25 23:00 112/80 01/04/25 22:54 110 H 18 100 01/04/25 22:36 113 H 23 100 01/04/25 22:00 109/74 01/04/25 22:00 116 H 24 100 01/04/25 22:00 36.6 C 01/04/25 21:30 101 H 26 H 100 01/04/25 21:12 98 H 20 100 01/04/25 20:57 111 H 26 H 115/78 100 01/04/25 20:30 108 H 28 H 100 01/04/25 20:18 109 H 29 H 97 01/04/25 20:00 100 H 24 100 Critical Care Results & Data Vital Signs (Past 12 Hours) Vital Signs Temp Pulse Resp BP Pulse Ox 01/05/25 06:03 126 H 28 H 01/05/25 06:00 36.6 C 01/05/25 05:33 100 H 33 H 01/05/25 05:00 118 H 24 100 01/05/25 05:00 135/82 01/05/25 04:30 117 H 22 100 01/05/25 04:06 110 H 30 H 100 01/05/25 03:00 111/83 01/05/25 02:54 116 H 26 H 100 01/05/25 02:36 95 H 24 100 01/05/25 02:18 36.6 C 01/05/25 02:00 105 H 26 H 100 01/05/25 02:00 109/68 01/05/25 02:00 109/68 01/05/25 01:42 105 H 25 H 100 01/05/25 01:00 106/86 01/05/25 01:00 108 H 25 H 100 01/05/25 00:30 101 H 25 H 100 01/05/25 00:04 110 H 01/05/25 00:03 108 H 27 H 100 01/05/25 00:00 112/81 01/04/25 23:57 102 H 25 H 100 01/04/25 23:33 110 H 25 H 100 01/04/25 23:09 107 H 19 100 01/04/25 23:00 112/80 01/04/25 22:54 110 H 18 100 01/04/25 22:36 113 H 23 100 01/04/25 22:00 109/74 01/04/25 22:00 116 H 24 100 01/04/25 22:00 36.6 C 01/04/25 21:30 101 H 26 H 100 01/04/25 21:12 98 H 20 100 01/04/25 20:57 111 H 26 H 115/78 100 01/04/25 20:30 108 H 28 H 100 01/04/25 20:18 109 H 29 H 97 01/04/25 20:00 100 H 24 100 Lab & Micro Results (Past 24 Hours) RBC 2.67 M/uL (4.20-5.40) L 01/05/25 WBC 11.46 K/ul (4.8-10.8) H 01/05/25 Hgb 8.3 g/dl (12.0-16.0) L 01/05/25 Hct 26.0 % (37.0-47.0) L 01/05/25 MCV 97.4 fL (80.0-100.0) 01/05/25 MCH 31.1 pg (25.0-34.0) 01/05/25 MCHC 31.9 g/dL (32.0-36.0) L 01/05/25 RDW Standard Deviation 60.0 fL (36.4-46.3) H 01/05/25 RDW Coefficient of Variation 17.1 % (11.5-14.5) H 01/05/25 Plt Count 128 K/uL (130-400) L 01/05/25 MPV 13.4 fL (9.4-12.4) H 01/05/25 Neutrophils (%) (Auto) 84.4 % 01/05/25 Lymphocytes (%) (Auto) 5.2 % 01/05/25 Monocytes # (Auto) 1.05 K/uL (0.11-0.59) H 01/05/25 Eosinophils # (Auto) 0.00 K/uL (0.00-0.50) 01/05/25 Immature Granulocyte % (Auto) 1.0 % 01/05/25 Neutrophils # (Auto) 9.68 K/uL (1.40-6.50) H 01/05/25 Lymphocytes # (Auto) 0.60 K/uL (1.20-3.40) L 01/05/25 Monocytes # (Auto) 1.05 K/uL (0.11-0.59) H 01/05/25 Eosinophils # (Auto) 0.00 K/uL (0.00-0.50) 01/05/25 Basophils # (Auto) 0.02 K/uL (0.00-0.20) 01/05/25 Immature Granulocyte # (Auto) 0.11 K/uL (0.01-0.20) 5 Na 138 mmol/L (136-145) 01/05/25 K 3.6 mmol/L (3.5-5.1) 01/05/25 Cl 105 mmol/L (98-107) 01/05/25 CO2 26 mmol/L (21-32) 01/05/25 Anion Gap 7 (3-11) 01/05/25 BUN 37 mg/dl (6-23) H 01/05/25 Creatinine 1.11 mg/dl (0.6-1.2) 01/05/25 BUN/Creatinine Ratio 33.3 (10-20) H 01/05/25 Glu 111 mg/dl (70-99(Fasting)) H 01/05/25 Ca 7.6 mg/dl (8.6-10.3) L 01/05/25 Phosphorus Level 3.2 mg/dl (2.5-4.9) 01/05/25 Total Bilirubin 0.7 mg/dl (0.2-1.0) 01/05/25 Direct Bilirubin 0.4 mg/dl (0-0.2) H 01/05/25 AST 26 U/L (13-39) 01/05/25 ALT 19 U/L (7-52) 01/05/25 Alkaline Phosphatase 60 U/L (34-104) 01/05/25 TP 5.2 gm/dl (6.0-8.3) L 01/05/25 Albumin 3.0 gm/dl (3.4-5.0) L 01/05/25 Mg 2.7 mg/dl (1.7-2.4) H 01/05/25 04:31 Calcium Level 7.6 mg/dl (8.6-10.3) L 01/05/25 04:31 Microbiology 01/02/25 17:25 Aerobic Blood Culture - Preliminary Blood No growth in Aerobic bottle after 48 hours. Anaerobic Blood Culture - Preliminary No growth in Anaerobic bottle after 48 hours. 01/02/25 17:03 Urine Culture - Final Urine,Clean Catch No growth - less than 1,000 colonies/mL. 01/02/25 17:30 Aerobic Blood Culture - Preliminary Blood Streptococcus mitis/oralis grp Anaerobic Blood Culture - Final I & O Totals 24 Hours 01/04/25 01/05/25 01/06/25 06:59 06:59 06:59 Intake Total 4802.757 / 4802.757 2745.370 / 2745.370 100 / 100 Output Total 800 / 800 1200 / 1200 Balance 4002.757 / 4002.757 1545.370 / 1545.370 100 / 100 Cumulative 01/02/25 16:33 thru 01/05/25 07:20 Intake Total 51962.824 Output Total 2665 Balance 9609.824 RT Ventilator Mngmt (Last Documented) Ventilator Ordered Settings Ventilator Support Mode Assist Control 01/04/25 08:00 Respiratory Rate 28 01/05/25 06:03 Ventilator Tidal Volume 320 01/04/25 08:00 Setting Minute Ventilation 5 01/04/25 07:11 Positive End Expiratory 5 01/04/25 08:00 Pressure Fraction of Inspired Oxygen 30 01/04/25 08:00 Ventilator - PT Measurements Respiratory Rate 28 Exhaled Tidal Volume 320 Minute Ventilation 5 Peak Inspiratory Airway 24 Pressure Plateau Pressure 21 Respiratory Cycle Inspiratory: 1:3.2 Expiratory Ratio Inspiratory Phase Time 0.9 End-Tidal CO2 27 Static Lung Compliance 20.00 Dynamic Lung Compliance 16.84 Normal Static Lung Compliance 45.00 Patient Measurements Comment Vent changes made after obtaining ABG results. Luis martini Coding Level of Care Code 44203 SUB INP/OBS CARE 3/50MIN Diagnoses Closed loop obstruction of intestine K56.699 S/P small bowel resection Z90.49 Atrial fibrillation with rapid ventricular response I48.91 ARF (acute renal failure) N17.9
[2025-01-05] MEDS: CALCIUM GLUCONATE 1,000 MG/60 ML BAG IV SCH (07:57)
[2025-01-05] MEDS: METOPROLOL TARTRATE 1 MG/ML VIAL IV SCH ×2 (07:58→15:42)
[2025-01-05] MEDS: HYDROCORTISONE SOD 50 MG in SYRINGE 0 ML IV SCH (08:30)
[2025-01-05] MEDS: LEVOTHYROXINE SODIUM 25 MCG in SYRINGE 0 ML IV SCH (09:32)
[2025-01-05] MEDS: POTASSIUM CHLORIDE / WTR 20 MEQ/100 ML PLCT IV STA (09:33)
--- NOTE | 2025-01-05 12:04 | Hospitalist Progress Note ---
Date of Service January 05, 2025 Assessment & Plan (1) Septic shock: Plan: 84-year-old female with past medical history significant for SIADH, dyslipidemia, hypothyroidism, COPD, peripheral vascular disease, paroxysmal atrial fibrillation, hypertension, moderate mitral regurgitation, moderate aortic insufficiency, paroxysmal supraventricular tachycardia, GERD, CKD stage III, compression fraction of T12 vertebra, chronic pain of both shoulders, impingement syndrome of both shoulders, severe osteoporosis, history of pelvic fracture, migraine, anemia of chronic disease, rheumatoid arthritis, history of lung cancer, elevated liver enzymes, lives at home and ambulates with a walker and lives with her grand child was brought in because of nausea vomiting and abdominal pain for past few days #Septic shock -Secondary to intraabdominal infection/gut translocation, possible peritonitis -Off pressors -Transferred out of ICU 01/05 -Blood culture 05/07 on 01/02 grew Strep mitis, likely contamination since all ot hers are negative -Furthermore, she is afebrile without leukocytosis and clinically improving without coverage Plan -Continue merrem for now given her beta lactam allergies -Begin steroid taper per ICU recommendations -Follow culture data #Closed loop bowel obstruction with ischemic bowel -Found to be in septic shock and found to have small bowel obstruction -S/p Exploratory laparotomy, lysis of adhesions, small bowel resection and reanastomosis on 01/02/25 -No bowel function yet Plan -Remains NPO with NG tube. -Appreciate surgical management -Continue mIVF while NPO. -Keep borrego in until she is more ambulatory -PT/OT if ok by surgery #Acute Hypoxic Resp Failure -Requiring intubation -Management per ICU -Resolved. extubated 01/04 #Acute kidney injury Baseline creatinine 0.8-1 Presented with creatinine of 2.3 Cr Improving YAHIR resolved Plan Monitor volume status, IOs, renal function Avoid nephrotoxic agents Continue IVF #Atrial Fibrillation With RVR Plan -Rates controlled on amio drip. IV lopressor added -Resume home metoprolol when tolerating PO -Not on anticoagulation because of fall risk Rheumatoid arthritis Holding home prednisone (PRN) and methotrexate Currently on IV hydrocortisone Hypothyroidism Currently NPO. 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 answering questions appropriately she is hungry. not yet passing gas. no SOB cough fever chest pain Updated daughter on phone Physical Exam Physical Exam: Vitals and labs reviewed General: elderly appearing, NAD HEENT: EOMI, PERRLA Neck: Supple Cardiac: irregular, tachy Lungs: CTA no rhonchi wheezing or rales Abd:NG tube. BS absent. incision clean : Borrego MSK: Full ROM. No obvious deformities Ext: No Edema cyanosis Skin: Warm, Dry Neuro: AOx3 No focal deficits. Psych: Normal Mood Results & Data Results & Data Vital Signs (Past 12 Hours) Vital Signs Temp Pulse Resp BP Pulse Ox O2 Del Method 01/05/25 11:39 102 H 121/89 01/05/25 08:22 126/91 01/05/25 08:21 99 H 125/91 01/05/25 08:18 120 H 31 H 95 01/05/25 08:00 119 H 20 93 01/05/25 08:00 142/98 H 01/05/25 08:00 Room Air 01/05/25 08:00 36.8 C 01/05/25 07:58 116 H 143/92 H 01/05/25 07:03 120 H 25 H 92 01/05/25 06:57 118 H 26 H 95 01/05/25 06:03 126 H 28 H 01/05/25 06:00 36.6 C 01/05/25 05:33 100 H 33 H 01/05/25 05:00 118 H 24 100 01/05/25 05:00 135/82 01/05/25 04:30 117 H 22 100 01/05/25 04:06 110 H 30 H 100 01/05/25 03:00 111/83 01/05/25 02:54 116 H 26 H 100 01/05/25 02:36 95 H 24 100 01/05/25 02:18 36.6 C 01/05/25 02:00 105 H 26 H 100 01/05/25 02:00 109/68 01/05/25 02:00 109/01/05/25 01:42 105 H 25 H 100 01/05/25 01:00 106/86 01/05/25 01:00 108 H 25 H 100 01/05/25 00:30 101 H 25 H 100 01/05/25 00:04 110 H 01/05/25 00:03 108 H 27 H 100 01/05/25 00:00 112/81 01/04/25 23:57 102 H 25 H 100 Laboratory Results Abnormal lab results 01/04/25 01/04/25 01/05/25 Range/Units 15:51 18:08 00:09 WBC (4.8-10.8) K/ul RBC (4.20-5.40) M/uL Hgb (12.0-16.0) g/dl Hct (37.0-47.0) % MCHC (32.0-36.0) g/dL RDW Std Deviation (36.4-46.3) fL RDW Coeff of Zee (11.5-14.5) % Plt Count (130-400) K/uL MPV (9.4-12.4) fL Neut # (Auto) (1.40-6.50) K/uL Lymph # (Auto) (1.20-3.40) K/uL Crane # (Auto) (0.11-0.59) K/uL BUN 34 H (6-23) mg/dl BUN/Creatinine Ratio 31.8 H (10-20) Glucose 109 H (70-99(Fasting)) mg/dl POC Glucose 113 H 119 H (70-99) mg/dl Calcium 7.6 L (8.6-10.3) mg/dl Magnesium (1.7-2.4) mg/dl Direct Bilirubin (0-0.2) mg/dl Total Protein (6.0-8.3) gm/dl Albumin (3.4-5.0) gm/dl 01/05/25 01/05/25 Range/Units 04:31 11:35 WBC 11.46 H (4.8-10.8) K/ul RBC 2.67 L (4.20-5.40) M/uL Hgb 8.3 L (12.0-16.0) g/dl Hct 26.0 L (37.0-47.0) % MCHC 31.9 L (32.0-36.0) g/dL RDW Std Deviation 60.0 H (36.4-46.3) fL RDW Coeff of Zee 17.1 H (11.5-14.5) % Plt Count 128 L (130-400) K/uL MPV 13.4 H (9.4-12.4) fL Neut # (Auto) 9.68 H (1.40-6.50) K/uL Lymph # (Auto) 0.60 L (1.20-3.40) K/uL Crane # (Auto) 1.05 H (0.11-0.59) K/uL BUN 37 H (6-23) mg/dl BUN/Creatinine Ratio 33.3 H (10-20) Glucose 111 H (70-99(Fasting)) mg/dl POC Glucose 102 H (70-99) mg/dl Calcium 7.6 L (8.6-10.3) mg/dl Magnesium 2.7 H (1.7-2.4) mg/dl Direct Bilirubin 0.4 H (0-0.2) mg/dl Total Protein 5.2 L (6.0-8.3) gm/dl Albumin 3.0 L (3.4-5.0) gm/dl
[2025-01-05] MEDS: D5W AND NSS 1,000 ML IV SCH (13:01)
--- NOTE | 2025-01-05 16:30 | Surgery Progress Note ---
Date of Service January 05, 2025 Assessment & Plan (1) Closed loop obstruction of intestine: Plan: POD#2 doing well OOB to chair PT/OT evaluation awaiting bowel fxn - cont. NGT for now appreciate medicine and ICU input Admission and Anticipated Discharge Date Admission Date: January 02, 2025 Subjective doing well. extubated and off pressors. no bowel fxn yet Physical Exam Physical Exam: NAD A&Ox3 sitting in chair NCAT NGT in place; minimal drainage Abd soft, mod TTP; incision C/D/I with alireza Results & Data Vital Signs (Past 12 Hours) Vital Signs Temp Pulse Resp BP Pulse Ox O2 Del Method 01/05/25 15:42 98 H 133/95 01/05/25 11:54 100 H 118/92 01/05/25 11:39 102 H 121/89 01/05/25 09:30 Room Air 01/05/25 08:22 126/91 01/05/25 08:21 99 H 125/91 01/05/25 08:18 120 H 31 H 95 01/05/25 08:00 119 H 20 93 01/05/25 08:00 142/98 H 01/05/25 08:00 Room Air 01/05/25 08:00 36.8 C 01/05/25 07:58 116 H 143/92 H 01/05/25 07:03 120 H 25 H 92 01/05/25 06:57 118 H 26 H 95 01/05/25 06:03 126 H 28 H 01/05/25 06:00 36.6 C 01/05/25 05:33 100 H 33 H 01/05/25 05:00 118 H 24 100 01/05/25 05:00 135/82 01/05/25 04:30 117 H 22 100 Laboratory Results 01/05/25 01/05/25 01/05/25 Range/Units 11:35 04:31 00:09 WBC 11.46 H (4.8-10.8) K/ul RBC 2.67 L (4.20-5.40) M/uL Hgb 8.3 L (12.0-16.0) g/dl Hct 26.0 L (37.0-47.0) % MCV 97.4 (80.0-100.0) fL MCH 31.1 (25.0-34.0) pg MCHC 31.9 L (32.0-36.0) g/dL RDW Std Deviation 60.0 H (36.4-46.3) fL RDW Coeff of Zee 17.1 H (11.5-14.5) % Plt Count 128 L (130-400) K/uL MPV 13.4 H (9.4-12.4) fL Immature Gran % (Auto) 1.0 % Neut % (Auto) 84.4 % Lymph % (Auto) 5.2 % [place] % (Auto) 9.2 % Eos % (Auto) 0.0 % Baso % (Auto) 0.2 % Neut # (Auto) 9.68 H (1.40-6.50) K/uL Lymph # (Auto) 0.60 L (1.20-3.40) K/uL [place] # (Auto) 1.05 H (0.11-0.59) K/uL Eos # (Auto) 0.00 (0.00-0.50) K/uL Baso # (Auto) 0.02 (0.00-0.20) K/uL Immature Gran # (Auto) 0.11 (0.01-0.20) K/uL Sodium 138 (136-145) mmol/L Potassium 3.6 (3.5-5.1) mmol/L Chloride 105 (98-107) mmol/L Carbon Dioxide 26 (21-32) mmol/L Anion Gap 7 (3-11) BUN 37 H (6-23) mg/dl Creatinine 1.11 (0.6-1.2) mg/dl Est Cr Clr Drug Dosing 30.4 ml/min eGFR 48.71 BUN/Creatinine Ratio 33.3 H (10-20) Glucose 111 H (70-99(Fasting)) mg/dl POC Glucose 102 H 119 H (70-99) mg/dl Calcium 7.6 L (8.6-10.3) mg/dl Phosphorus 3.2 (2.5-4.9) mg/dl Magnesium 2.7 H (1.7-2.4) mg/dl Total Bilirubin 0.7 D (0.2-1.0) mg/dl Direct Bilirubin 0.4 H (0-0.2) mg/dl AST 26 (13-39) U/L ALT 19 (7-52) U/L Alkaline Phosphatase 60 (34-104) U/L Total Protein 5.2 L (6.0-8.3) gm/dl Albumin 3.0 L (3.4-5.0) gm/dl 01/04/25 Range/Units 18:08 WBC (4.8-10.8) K/ul RBC (4.20-5.40) M/uL Hgb (12.0-16.0) g/dl Hct (37.0-47.0) % MCV (80.0-100.0) fL MCH (25.0-34.0) pg MCHC (32.0-36.0) g/dL RDW Std Deviation (36.4-46.3) fL RDW Coeff of Zee (11.5-14.5) % Plt Count (130-400) K/uL MPV (9.4-12.4) fL Immature Gran % (Auto) % Neut % (Auto) % Lymph % (Auto) % [place] % (Auto) % Eos % (Auto) % Baso % (Auto) % Neut # (Auto) (1.40-6.50) K/uL Lymph # (Auto) (1.20-3.40) K/uL [place] # (Auto) (0.11-0.59) K/uL Eos # (Auto) (0.00-0.50) K/uL Baso # (Auto) (0.00-0.20) K/uL Immature Gran # (Auto) (0.01-0.20) K/uL Sodium (136-145) mmol/L Potassium (3.5-5.1) mmol/L Chloride (98-107) mmol/L Carbon Dioxide (21-32) mmol/L Anion Gap (3-11) BUN (6-23) mg/dl Creatinine (0.6-1.2) mg/dl Est Cr Clr Drug Dosing ml/min eGFR BUN/Creatinine Ratio (10-20) Glucose (70-99(Fasting)) mg/dl POC Glucose 113 H (70-99) mg/dl Calcium (8.6-10.3) mg/dl Phosphorus (2.5-4.9) mg/dl Magnesium (1.7-2.4) mg/dl Total Bilirubin (0.2-1.0) mg/dl Direct Bilirubin (0-0.2) mg/dl AST (13-39) U/L ALT (7-52) U/L Alkaline Phosphatase (34-104) U/L Total Protein (6.0-8.3) gm/dl Albumin (3.4-5.0) gm/dl
[2025-01-05] MEDS ORDERED: METOPROLOL TARTRATE 25 MG TAB NG SCH (21:00)
[2025-01-06 05:23] LABS: Hematocrit (blood only) 30.1 % (37.0-47.0); Hemoglobin 9.7 g/dl (12.0-16.0); Immature Granulocytes # (auto) 0.37 K/uL (0.01-0.20); Immature Granulocytes % (auto) 2.7 %; Mean Corpuscular Hemoglobin 31.3 pg (25.0-34.0); Mean Corpuscular Volume 97.1 fL (80.0-100.0); Platelet Count 188 K/uL (130-400); RDW Standard Deviation 60.0 fL (36.4-46.3); Red Blood Count 3.10 M/uL (4.20-5.40); White Blood Count 13.65 K/ul (4.8-10.8)
[2025-01-06 05:37] LABS: Anion Gap 9.0 (3-11); Blood Urea Nitrogen 42.0 mg/dl (6-23); Calcium 7.9 mg/dl (8.6-10.3); Carbon Dioxide 25.0 mmol/L (21-32); Chloride 107.0 mmol/L (98-107); Creatinine Clr Calc Pharmacy 30.2 ml/min; Glucose 133.0 mg/dl (70-99(Fasting)); Magnesium 2.7 mg/dl (1.7-2.4); Potassium 3.5 mmol/L (3.5-5.1); Sodium 141.0 mmol/L (136-145)
[2025-01-06] MEDS: HYDROCORTISONE SOD 50 MG in SYRINGE 0 ML IV SCH (08:57)
--- NOTE | 2025-01-06 09:37 | Hospitalist Progress Note ---
Date of Service January 06, 2025 Assessment & Plan (1) Septic shock: Plan: 84-year-old female with past medical history significant for SIADH, dyslipidemia, hypothyroidism, COPD, peripheral vascular disease, paroxysmal atrial fibrillation, hypertension, moderate mitral regurgitation, moderate aortic insufficiency, paroxysmal supraventricular tachycardia, GERD, CKD stage III, compression fraction of T12 vertebra, chronic pain of both shoulders, impingement syndrome of both shoulders, severe osteoporosis, history of pelvic fracture, migraine, anemia of chronic disease, rheumatoid arthritis, history of lung cancer, elevated liver enzymes, lives at home and ambulates with a walker and lives with her grand child was brought in because of nausea vomiting and abdominal pain for past few days #Septic shock -Secondary to intraabdominal infection/gut translocation, possible peritonitis -Off pressors -Transferred out of ICU 01/05 -Blood culture 05/07 on 01/02 grew Strep mitis, likely contamination since all ot hers are negative -Furthermore, she is afebrile and clinically improving without gram positive coverage Plan -WBC slightly elevated today. recheck in AM -Continue merrem for now given her beta lactam allergies -Continue steroid taper per ICU recommendations -Follow culture data. Repeat Bcx NGTD #Closed loop bowel obstruction with ischemic bowel -Found to be in septic shock and found to have small bowel obstruction -S/p Exploratory laparotomy, lysis of adhesions, small bowel resection and reanastomosis on 01/02/25 -Multiple BM on 01/06 Plan -NG tube removed -Begin trial of CLD -Appreciate surgical management -Continue mIVF for today. DC tomorrow if tolerating PO -Keep borrego in until she is more ambulatory -PT/OT #Acute Hypoxic Resp Failure -Requiring intubation -Management per ICU -Resolved. extubated 01/04 #Acute kidney injury Baseline creatinine 0.8-1 Presented with creatinine of 2.3 Cr Improving YAHIR resolved Plan Monitor volume status, IOs, renal function Avoid nephrotoxic agents #Atrial Fibrillation With RVR Plan -Rates controlled on amio drip. IV lopressor added 01/05 -Resume home metoprolol when tolerating PO, likely tomorrow -Not on anticoagulation because of fall risk Rheumatoid arthritis Holding home prednisone (PRN) and methotrexate Currently on IV hydrocortisone COnfirmed with daughter she very infrequently takes prednisone Hypothyroidism Currently NPO. Begin IV synthroid at 50% dose Hypertension Holding amlodipine, losartan, metoprolol succinate for now because of septic shock Peripheral vascular disease Status post bilateral femoral stents On aspirin History of lung cancer Left lower lobe squamous cell carcinoma Status post left lower lobe lobectomy in 2007 History of SIADH DVT prophylaxis- sq heparin Full code I spent a total of 38 minutes coordinating, documenting and providing care for this patient excluding time spent in performance of separately billed services Admission and Anticipated Discharge Date Admission Date: January 02, 2025 Subjective Feeling well today. had multipel BM overnight. Patient denies F/C, CP, palpitations, SOB, dyspnea, abd pain, N/V/D Physical Exam Physical Exam: Vitals and labs reviewed General: elderly appearing, NAD HEENT: EOMI, PERRLA Neck: Supple Cardiac: irregular, tachy Lungs: CTA no rhonchi wheezing or rales Abd:NG tube. BS present incision clean : Borrego MSK: Full ROM. No obvious deformities Ext: No Edema cyanosis Skin: Warm, Dry Neuro: AOx3 No focal deficits. Psych: Normal Mood Results & Data Results & Data Vital Signs (Past 12 Hours) Vital Signs Temp Pulse Pulse Resp BP BP BP 01/06/25 08:01 36.4 C L 110 H 21 133/80 01/06/25 04:33 107 H 131/97 01/06/25 04:18 102 H 134/95 01/06/25 04:00 134/95 01/06/25 04:00 102 H 27 H 01/06/25 03:42 120 H 41 H 01/06/25 03:30 110 H 27 H 01/06/25 02:42 112 H 50 H 01/06/25 02:09 113 H 25 H 01/06/25 02:00 128/89 01/06/25 01:57 115 H 28 H 01/06/25 01:54 107 H 29 H 01/06/25 01:42 101 H 34 H 01/06/25 01:39 109 H 27 H 01/06/25 01:24 93 H 29 H 01/06/25 01:12 103 H 26 H 01/06/25 01:08 97 H 01/06/25 01:05 124/82 01/06/25 01:05 124/82 01/06/25 01:05 124/82 01/06/25 01:04 144/109 H 01/06/25 01:03 99 H 32 H 01/06/25 00:57 102 H 24 01/06/25 00:53 106 H 124/82 01/06/25 00:45 117 H 25 H 01/06/25 00:38 113 H 150/117 H 01/06/25 00:36 113 H 18 150/117 H 01/06/25 00:30 94 H 18 01/06/25 00:27 103 H 23 01/06/25 00:09 113 H 31 H 01/05/25 23:24 105 H 22 01/05/25 23:12 113 H 19 01/05/25 23:09 120 H 22 01/05/25 23:03 36.5 C 01/05/25 22:54 113 H 30 H 01/05/25 22:33 106 H 27 H 01/05/25 22:21 109 H 23 01/05/25 22:00 109 H 29 H 01/05/25 22:00 120/89 01/05/25 21:51 97 H 26 H 01/05/25 21:42 109 H 22 Pulse Ox O2 Del Method 01/06/25 08:01 92 Room Air 01/06/25 04:33 01/06/25 04:18 01/06/25 04:00 01/06/25 04:00 01/06/25 03:42 94 01/06/25 03:30 79 L 01/06/25 02:42 96 01/06/25 02:09 95 01/06/25 02:00 01/06/25 01:57 93 01/06/25 01:54 93 01/06/25 01:42 95 01/06/25 01:39 95 01/06/25 01:24 91 01/06/25 01:12 94 01/06/25 01:08 01/06/25 01:05 01/06/25 01:05 01/06/25 01:05 01/06/25 01:04 01/06/25 01:03 91 01/06/25 00:57 94 01/06/25 00:53 01/06/25 00:45 94 01/06/25 00:38 01/06/25 00:36 95 Room Air 01/06/25 00:30 93 01/06/25 00:27 91 01/06/25 00:09 82 L 01/05/25 23:24 91 01/05/25 23:12 92 01/05/25 23:09 90 01/05/25 23:03 01/05/25 22:54 94 01/05/25 22:33 96 01/05/25 22:21 88 L 01/05/25 22:00 91 01/05/25 22:00 01/05/25 21:51 94 01/05/25 21:42 92 Laboratory Results Abnormal lab results 01/05/25 01/06/25 Range/Units 11:35 04:50 WBC 13.65 H (4.8-10.8) K/ul RBC 3.10 L (4.20-5.40) M/uL Hgb 9.7 L (12.0-16.0) g/dl Hct 30.1 L (37.0-47.0) % RDW Std Deviation 60.0 H (36.4-46.3) fL RDW Coeff of Zee 17.3 H (11.5-14.5) % MPV 13.2 H (9.4-12.4) fL Neut # (Auto) 10.80 H (1.40-6.50) K/uL Lymph # (Auto) 0.87 L (1.20-3.40) K/uL [place] # (Auto) 1.58 H (0.11-0.59) K/uL Immature Gran # (Auto) 0.37 H (0.01-0.20) K/uL BUN 42 H (6-23) mg/dl BUN/Creatinine Ratio 37.2 H (10-20) Glucose 133 H (70-99(Fasting)) mg/dl POC Glucose 102 H (70-99) mg/dl Calcium 7.9 L (8.6-10.3) mg/dl Magnesium 2.7 H (1.7-2.4) mg/dl
[2025-01-06] MEDS: METOPROLOL SUCC 25MG EXT REL TAB PO SCH (16:22)
[2025-01-07] MEDS: LEVOTHYROXINE SODIUM 50 MCG TABLET PO SCH (05:14)
[2025-01-07 06:37] LABS: Hematocrit (blood only) 29.5 % (37.0-47.0); Hemoglobin 9.7 g/dl (12.0-16.0); Mean Corpuscular Hemoglobin 31.5 pg (25.0-34.0); Mean Corpuscular Volume 95.8 fL (80.0-100.0); Platelet Count 223 K/uL (130-400); RDW Standard Deviation 58.9 fL (36.4-46.3); Red Blood Count 3.08 M/uL (4.20-5.40); White Blood Count 13.60 K/ul (4.8-10.8)
[2025-01-07 06:57] LABS: Immature Granulocytes # (auto) 0.98 K/uL (0.01-0.20); Immature Granulocytes % (auto) 7.2 %
[2025-01-07 07:05] LABS: Anion Gap 7.0 (3-11); Blood Urea Nitrogen 38.0 mg/dl (6-23); Calcium 8.0 mg/dl (8.6-10.3); Carbon Dioxide 28.0 mmol/L (21-32); Chloride 109.0 mmol/L (98-107); Creatinine Clr Calc Pharmacy 33.4 ml/min; Glucose 105.0 mg/dl (70-99(Fasting)); Magnesium 2.5 mg/dl (1.7-2.4); Potassium 3.0 mmol/L (3.5-5.1); Sodium 144.0 mmol/L (136-145)
[2025-01-07] MEDS: LINEZOLID 600 MG TAB PO SCH (08:07)
[2025-01-07] MEDS: POTASSIUM CHLORIDE CRTAB 20 MEQ TABCR PO SCH (08:51)
[2025-01-07] MEDS: METOPROLOL SUCC 50MG EXT REL TAB PO SCH (08:55)
--- NOTE | 2025-01-07 09:13 | Surgery Progress Note ---
Date of Service January 07, 2025 Assessment & Plan (1) Closed loop obstruction of intestine: Plan: POD#5 doing well Denies pain. Abdominal incision is healing well. NG tube removed and she is tolerating clear liquids. Does not feel hungry. Encouraged out of bed to chair. Sylvester still in place- ok from surgical perspective to remove. Admission and Anticipated Discharge Date Admission Date: January 02, 2025 Supervising Physician Co-Signing Physician Notes Doing well status post ex lap and small bowel resection Will give her full liquids today Her Sylvester catheter can be removed from a surgical standpoint Encourage ambulation and incentive spirometry Surgery will follow Subjective Karoline is doing well this AM- reports that she has started to move her bowels. She denies any pain. Doing well overall. Physical Exam Physical Exam: NAD A&Ox3 sitting in chair NCAT Abd soft, mod TTP; incision C/D/I with alireza in place. No signs of infection on exam today. Results & Data Vital Signs (Past 12 Hours) Vital Signs Temp Pulse Resp BP Pulse Ox O2 Del Method 01/07/25 07:49 36.9 C 72 18 138/82 96 Room Air 01/07/25 03:03 36.5 C 100 H 19 136/93 95 Room Air 01/06/25 23:25 36.3 C L 114 H 19 141/99 H 97 Room Air PG Care Time/CCT Total # of Minutes Spent Total Time Spent with Patient: Total time spent is greater than 50% in coordination of care (as documented) at patient's floor/unit and/or counseling patient: Coding Level of Care Code 65576 Post Operative Follow-Up Diagnoses Closed loop obstruction of intestine K56.699
[2025-01-07] MEDS: ALBUTEROL HFA 8 GM INHALER INH PRN (09:16)
--- NOTE | 2025-01-07 10:43 | Hospitalist Progress Note ---
Date of Service January 07, 2025 Assessment & Plan (1) Septic shock: Plan: 84-year-old female with past medical history significant for SIADH, dyslipidemia, hypothyroidism, COPD, peripheral vascular disease, paroxysmal atrial fibrillation, hypertension, moderate mitral regurgitation, moderate aortic insufficiency, paroxysmal supraventricular tachycardia, GERD, CKD stage III, compression fraction of T12 vertebra, chronic pain of both shoulders, impingement syndrome of both shoulders, severe osteoporosis, history of pelvic fracture, migraine, anemia of chronic disease, rheumatoid arthritis, history of lung cancer, elevated liver enzymes, lives at home and ambulates with a walker and lives with her grand child was brought in because of nausea vomiting and abdominal pain for past few days #Septic shock -Secondary to intraabdominal infection/gut translocation, possible peritonitis -Off pressors -Transferred out of ICU 01/05 -Blood culture 05/07 on 01/02 grew Strep mitis, likely contamination since all ot hers are negative -Completed Merrem 01/06 Plan -D/w ID pharmacy, recommending switching to linezolid through 01/09 -Follow culture data. Repeat Bcx NGTD #Closed loop bowel obstruction with ischemic bowel -Found to be in septic shock and found to have small bowel obstruction -S/p Exploratory laparotomy, lysis of adhesions, small bowel resection and reanastomosis on 01/02/25 -Multiple BM on 01/06 -NG removed 01/06 and started on CLD Plan -Diet advanced to fulls -Appreciate surgical management -Remove borrego -PT/OT #Atrial Fibrillation With RVR Plan -Amio drip DC now that she is tolerating PO -Increase home Toprol to 50mg daily -Should HR not be controlled by tomorrow, will consider cardio consult -Not on AC due patient preference from risks of falls/bleeding #Acute Hypoxic Resp Failure -Requiring intubation -Management per ICU -Resolved. extubated 01/04 #Acute kidney injury Baseline creatinine 0.8-1 Presented with creatinine of 2.3 Cr Improving YAHIR resolved Plan Monitor volume status, IOs, renal function Avoid nephrotoxic agents Rheumatoid arthritis Holding home prednisone (PRN) and methotrexate Currently on IV hydrocortisone Confirmed with daughter she very infrequently takes prednisone Hypothyroidism Resume home PO synthroid Hypertension Holding amlodipine, losartan for now because of septic shock Peripheral vascular disease Status post bilateral femoral stents On aspirin History of lung cancer Left lower lobe squamous cell carcinoma Status post left lower lobe lobectomy in 2007 History of SIADH DVT prophylaxis- sq heparin Full code I spent a total of 42 minutes coordinating, documenting and providing care for this patient excluding time spent in performance of separately billed services Admission and Anticipated Discharge Date Admission Date: January 02, 2025 Subjective SHe is feeling well today. she tolerated CLD yesterday. she refused PT/OT yesterday and advised her of the importance of working with them. she agreed. Called daughter Marylou to update but no answer. Physical Exam Physical Exam: Vitals and labs reviewed General: Well appearing, NAD HEENT: EOMI, PERRLA Neck: Supple Cardiac: irregular and mildly tachy Lungs: CTA no rhonchi wheezing or rales Abd: S ND BS positive : borrego MSK: Full ROM. No obvious deformities Ext: No Edema cyanosis Skin: Warm, Dry Neuro: AOx3 No focal deficits. Psych: Normal Mood Results & Data Results & Data Vital Signs (Past 12 Hours) Vital Signs Temp Pulse Pulse Resp BP Pulse Ox O2 Del Method 01/07/25 08:00 Room Air 01/07/25 08:00 124 H 01/07/25 07:49 36.9 C 72 18 138/82 96 Room Air 01/07/25 03:03 36.5 C 100 H 19 136/93 95 Room Air 01/06/25 23:25 36.3 C L 114 H 19 141/99 H 97 Room Air Laboratory Results Abnormal lab results 01/07/25 Range/Units 05:56 WBC 13.60 H (4.8-10.8) K/ul RBC 3.08 L (4.20-5.40) M/uL Hgb 9.7 L (12.0-16.0) g/dl Hct 29.5 L (37.0-47.0) % RDW Std Deviation 58.9 H (36.4-46.3) fL RDW Coeff of Zee 17.1 H (11.5-14.5) % MPV 13.1 H (9.4-12.4) fL Neut # (Auto) 8.76 H (1.40-6.50) K/uL [place] # (Auto) 1.78 H (0.11-0.59) K/uL Immature Gran # (Auto) 0.98 H (0.01-0.20) K/uL Potassium 3.0 L (3.5-5.1) mmol/L Chloride 109 H (98-107) mmol/L BUN 38 H (6-23) mg/dl BUN/Creatinine Ratio 38.0 H (10-20) Glucose 105 H (70-99(Fasting)) mg/dl Calcium 8.0 L (8.6-10.3) mg/dl Magnesium 2.5 H (1.7-2.4) mg/dl
--- NOTE | 2025-01-07 12:45 | XRay Report ---
XR chest 1V portable CLINICAL HISTORY: Shortness of breath. COMPARISON STUDY: Chest radiograph January 03, 2025. FINDINGS: Left internal jugular central line remains in place. Tip projects over the distal left brac hiocephalic vein. There is no pneumothorax. Small right pleural effusion has increased in size. Small left pleural effusion is unchanged. Associated bibasilar opacities have slightly increased. Pulmonar y edema persists. Endotracheal and nasogastric tubes have been removed. Cardiomegaly is again noted. IMPRESSION: Cardiomegaly with persistent pulmonary edema. Increase in a small right pleural effusion . Persistent small left pleural effusion. Associated bibasilar opacities have increased. These favor atelectasis although pneumonia could appear similar. Radiographic follow-up is recommended. ACT 112: Negative or not required by law. Electronically signed by: Hadley Guajardo M.D. 01/07/2025 12:44 PM
[2025-01-07] MEDS: FUROSEMIDE 40 MG/4 ML VIAL IV ONE (14:54)
[2025-01-07] MEDS ORDERED: STAT IV Infusion **Titration per Protocol STA (15:09)
[2025-01-07] MEDS ORDERED: 0.2 MICRON FILTER SET 1 EACH IV STA (15:09)
[2025-01-07] MEDS: AMIODARONE / D5W 150 MG/100 ML BAG IV STA (15:27)
[2025-01-07] MEDS: AMIODARONE / D5W 360 MG/200 ML BAG IV ONE (16:06)
[2025-01-07] MEDS: CHLORASEPTIC (PHENOL) 1.4% SOLN 180 ML BTL MT PRN (17:24)
[2025-01-07] MEDS: AMIODARONE IV BOLUS & DRIP IV STA (19:34)
[2025-01-07] MEDS: AMIODARONE / D5W 360 MG/200 ML BAG IV SCH (21:01)
[2025-01-08 06:37] LABS: Hematocrit (blood only) 30.7 % (37.0-47.0); Hemoglobin 10.3 g/dl (12.0-16.0); Mean Corpuscular Hemoglobin 32.3 pg (25.0-34.0); Mean Corpuscular Volume 96.2 fL (80.0-100.0); Platelet Count 205 K/uL (130-400); RDW Standard Deviation 59.0 fL (36.4-46.3); Red Blood Count 3.19 M/uL (4.20-5.40); White Blood Count 11.95 K/ul (4.8-10.8)
[2025-01-08 06:52] LABS: Anion Gap 6.0 (3-11); Blood Urea Nitrogen 30.0 mg/dl (6-23); Calcium 7.7 mg/dl (8.6-10.3); Carbon Dioxide 28.0 mmol/L (21-32); Chloride 108.0 mmol/L (98-107); Creatinine Clr Calc Pharmacy 41.7 ml/min; Glucose 91.0 mg/dl (70-99(Fasting)); Magnesium 2.1 mg/dl (1.7-2.4); Potassium 3.6 mmol/L (3.5-5.1); Sodium 142.0 mmol/L (136-145)
[2025-01-08 08:01] LABS: ALC (manual) 1.55 K/uL (1.2-3.4); ANC (manual) 8.60 K/uL (1.4-6.5); Polychromasia 1+
--- NOTE | 2025-01-08 08:20 | Cardiology Consultation ---
Date of Consultation January 08, 2025 Assessment & Plan (1) Atrial fibrillation with rapid ventricular response: (2) Closed loop obstruction of intestine: (3) S/P small bowel resection: (4) Septic shock: Plan Assessment: 84 year old female admitted for 3 days of N/V and abd pain. Found to have a small bowel obstruction, septic shock and was taken emergently to the OR for surgical intervention. Patient with known P. A-fib, found in rapid A-fib at time of admission. Cardiology consulted for further assessment and recommendations. Plan: -Patient with known history of P. a-fib presents in acute distress with a SBO and determined septic shock. She was found to in A-fib with RVR at that time in the setting of an acute process, dehydration and several day of missed medications due to Nausea and vomiting. -Patient is resting comfortably OOB in chair with no acute concerns. -Review of telemetry shows A-fib rates 130-140bpm. Amiodarone gtt has been restarted. Continue as per current protocol. -Increase Toprol xl from 50mg QD to 50mg PO BID. Give an extra 25mg PO x1 dose now. -BP Controlled -Euvolemic on exam -Continue to monitor closely on telemetry, obtain resting echocardiogram -Pain management per primary team Case has been discussed with Dr. Leal. Further recommendations regarding plan of care as per her assessment. I spent a total of 50 minutes on the date of service in preparation, delivery, documentation of the care provided to the patient excluding any time spent in the performance of separately billed services. ARGELIA Gallego [facility] Cardiology [facility] Supervising Physician Co-Signing Physician Notes I have reviewed the advanced practitioner's documentation on the date of service referenced in note, and I agree with, and take responsibility for the plan of care. I spent a total of [30] minutes coordinating, documenting, and providing care for this patient excluding time spent in the performance of separately billed services or time spent by another provider. 84 year old admitted with small bowel obstruction , septic shock , with afib with rVR post Afib on amiodarone drip continue with it on metoprolol for rate control not on on anticoagulation prior to admission reasses in am for need of IV lasix History of Present Illness Reason for Consultation: "RVR requiring Amio gtt" Requesting Physician: [facility] Attending Physician: Matthew Marcos DO History of Present Illness HPI: patient is a 84 year old female with PMHx as outlined below that presented to the ER on 01/02/2025 with acute N/V and abdominal pain. patient was found to be in septic shock along with a SBO closed-loop. +MRSA screening. She was taken to the OR by Dr. Luis Daniel Means urgently on 01/02/25 for an exploratory laparotomy, lysis of adhesions, small bowel obstruction and reanastomsis. EKG upon arrival demonstrated A-fib with RVR rates 154bpm. Cardiology has been consulted as patient has continued with A-fib, varying rates. She was initially placed on Amiodarone gtt, which was discontinued, had resulting RVR, restarted and have asked for further assessment and recommendations. History includes: 1. PAF on metoprolol. Not anticoagulated in the past due to fall risk and maintaining NSR 2. Remote history of lung cancer and lower lobe lung resection 3. Peripheral vascular disease 4. Treated hypothyroidism 5. Hypertension 6. GERD 7. Dyslipidemia Last seen in OP Cardiology Jan 2024 by Vivi Cowart PA-C Patient was sitting out in chair resting comfortably at time of my examination. She is currently on an IV amiodarone infusion. Denies any chest pain, pressure or palpitations. She does endorses a cough which then gives her incisional pain. No shortness of breath, PND, pres-syncope, syncope or edema. Review of telemetry shows A-fib rates 130-140bpm Allergies Allergy/AdvReac Type Severity Reaction Status Date / Time tetracycline Allergy Severe COULDN'T Verified 03/31/24 00:22 BREATHE Cephalosporins Allergy Intermediate HIVES Verified 03/31/24 00:22 clindamycin Allergy Mild RASH Verified 03/31/24 00:22 Penicillins Allergy Mild HIVES Verified 03/31/24 00:22 Sulfa (Sulfonamide Allergy Mild RED AND Verified 03/31/24 00:22 Antibiotics) SWEATING SILVIA Inhibitors Allergy Unknown Unknown Verified 03/31/24 00:22 aspartame Allergy Unknown Unknown Verified 03/31/24 00:22 cefazolin Allergy Unknown Unknown Verified 03/31/24 00:22 cephalexin Allergy Unknown Unknown Verified 03/31/24 00:22 doxycycline Allergy Unknown Unknown Verified 03/31/24 00:22 hydrochlorothiazide Allergy Unknown Unknown Unverified 03/31/24 00:22 lidocaine Allergy Unknown Unknown Verified 03/31/24 00:22 lisinopril Allergy Unknown Unknown Unverified 03/31/24 00:22 yellow dye Allergy Unknown Unknown Verified 03/31/24 00:22 prednisone AdvReac Mild HIGH BP Verified 03/31/24 00:22 Home Medications Medication Instructions Recorded Confirmed Type acetaminophen 500 mg tablet 500 mg PO Q6H PRN Pain 03/29/18 01/02/25 History (Tylenol Extra Strength) albuterol sulfate 90 mcg/actuation 2 puff inhalation Q4H PRN 03/29/18 01/02/25 History aerosol inhaler (Ventolin HFA) Shortness Of Breath aspirin 81 mg tablet,delayed 81 mg PO QAM 03/29/18 01/02/25 History release (Bernie Low Dose Aspirin) folic acid 1 mg tablet 2 mg PO QAM 03/29/18 01/02/25 History furosemide 20 mg tablet 20 mg PO AMPM PRN swelling 03/29/18 01/02/25 History famotidine 20 mg tablet 20 mg PO AMPM 10/17/19 01/02/25 History levothyroxine 50 mcg tablet 25 mcg PO DAILYBB 10/17/19 01/02/25 History methotrexate sodium 2.5 mg tablet 10 mg PO WK 10/17/19 01/02/25 History risedronate 150 mg tablet 150 mg PO MONTHLY 08/14/20 01/02/25 History losartan 100 mg tablet 100 mg PO QAM 03/31/24 01/02/25 History metoprolol succinate 25 mg 25 mg PO QAM 03/31/24 01/02/25 History tablet,extended release 24 hr [id number]-[id number]-gcvm 8 mg-folic 400 1 tab PO QAM 03/31/24 01/02/25 History mcg-K 50 mcg-lutein 300 mcg tablet (Centrum Silver Women) prednisone 5 mg tablet 5 mg PO UD PRN arthritis pain 03/31/24 01/02/25 History L.acidop,casei,lactis,rham-B.lact,caroline 1 cap PO DAILY #10 caps 04/07/24 01/02/25 Rx 625 mg (10 billion cell) capsule (Advanced Probiotic) amlodipine 5 mg tablet (Norvasc) 2.5 mg (1/2 x 5 mg) PO QAM #10 tabs 04/07/24 01/02/25 Rx Patient History Medical History Paroxysmal atrial fibrillation with rapid ventricular response Peripheral vascular disease Acute on chronic renal insufficiency Chronic renal insufficiency Anemia Closed loop obstruction of intestine Rheumatoid arthritis Pulmonary nodules Lung cancer, lower lobe Surgical History S/P lobectomy of lung LLL H/O: hysterectomy Family History Other Family history non-contributory Social History Smoking Status: Former smoker Hx Alcohol Use: No Hx Substance Use: No Preferred Language: Yoruba Communication Ability: Impaired Director Utilization Management Required: No Beliefs That Will Affect Care: None Current Living Situation: Family Current Living Situation Comment: lives with granddaughter Feels Safe at Home: Yes Assistive Devices: Walker and Wheelchair Review of Systems Review of Systems: All systems reviewed & are unremarkable except as noted in HPI & below Physical Exam Constitutional: well developed and well nourished; no acute distress and not ill appearing Neck: normal visual inspection and trachea midline Respiratory: normal respiratory effort, lungs clear to auscultation Auscultation: no crackles, no rales, no rhonchi and no wheezes Cardiovascular: Rate/Rhythm: + tachycardic and + irregularly irregular Heart Sounds: normal S1 and normal S2 Vessels: dorsalis pedis pulses present; no JVD Extremities: no edema Skin: no rashes, warm and dry surgical incision to abdominal area. DSG in place Psychiatric: A+Ox3, euthymic affect Results & Data Vital Signs (Past 12 Hours) Vital Signs Temp Pulse Resp BP Pulse Ox O2 Del Method 01/08/25 07:19 36.6 C 133 H 20 123/94 100 Room Air 01/08/25 02:50 36.7 C 118 H 18 122/81 96 Room Air 01/07/25 23:10 Room Air 01/07/25 22:46 36.5 C 126 H 19 122/79 99 Room Air Laboratory Results CBC 01/08/25 Range/Units 06:04 WBC 11.95 H (4.8-10.8) K/ul RBC 3.19 L (4.20-5.40) M/uL Hgb 10.3 L (12.0-16.0) g/dl Hct 30.7 L (37.0-47.0) % Plt Count 205 (130-400) K/uL Comprehensive Metabolic Panel 01/08/25 Range/Units 06:04 Sodium 142 (136-145) mmol/L Potassium 3.6 (3.5-5.1) mmol/L Chloride 108 H (98-107) mmol/L Carbon Dioxide 28 (21-32) mmol/L BUN 30 H (6-23) mg/dl Creatinine 0.81 (0.6-1.2) mg/dl Glucose 91 (70-99(Fasting)) mg/dl Calcium 7.7 L (8.6-10.3) mg/dl Intake and Output 01/07/25 01/08/25 01/08/25 22:59 06:59 14:59 Intake Total 365 / 2222.84 700 / 2222.84 Output Total 885 / 1385 400 / 1385 Balance -520 / 837.84 300 / 837.84 Intake: IV 100 / 1537.84 400 / 1537.84 Amiodarone / D5w 150 mg In 100 100 / 100 ml @ 600 mls/hr IV NOW STA Rx#: [id number] Amiodarone / D5w 360 mg In 200 400 / 400 ml @ 1 MG/MIN 33.333 mls/hr IV 1515 ONE Rx#:[id number] Oral 265 / 685 300 / 685 Output: Urine 885 / 885 Urine Amount (Catheter) 400 / 500 Sylvester/Indwelling 400 / 500 Other: Weight 61.9 kg PG Care Time/CCT Total # of Minutes Spent Total Time Spent with Patient: Total time spent is greater than 50% in coordination of care (as documented) at patient's floor/unit and/or counseling patient: [place] [address] IN/OBS CONSULT LVL 5,80M Patient Type New Diagnoses Atrial fibrillation with rapid ventricular response I48.91 Closed loop obstruction of intestine K56.699 S/P small bowel resection Z90.49 Septic shock A41.9; R65.21 Time Spent (min) 50
[2025-01-08] MEDS ORDERED: LEVOTHYROXINE SODIUM 12.5 MCG in SYRINGE 0 ML IV SCH (09:00)
--- NOTE | 2025-01-08 09:03 | Surgery Progress Note ---
Date of Service January 08, 2025 Assessment & Plan (1) Closed loop obstruction of intestine: Plan: POD#6 doing well Denies pain. Abdominal incision is healing well. Tolerating full liquid diet, would like to move to low fiber diet. Was advised to go slow. Encouraged out of bed to chair. Plan for discharge to [facility] in the next few days. Pt seen and examined with Dr. Dalton. Admission and Anticipated Discharge Date Admission Date: January 02, 2025 Supervising Physician Co-Signing Physician Notes Advance to low fiber diet If she tolerates this she will be stable for discharge from a surgical standpoint Will follow Subjective She is doing well this morning, denies any abdominal pain, would like to advance diet. Physical Exam Physical Exam: NAD A&Ox3 sitting in chair Abd soft, non-tender; incision C/D/I with alireza in place. No signs of infection on exam today. Results & Data Vital Signs (Past 12 Hours) Vital Signs Temp Pulse Resp BP Pulse Ox O2 Del Method 01/08/25 07:19 36.6 C 133 H 20 123/94 100 Room Air 01/08/25 02:50 36.7 C 118 H 18 122/81 96 Room Air 01/07/25 23:10 Room Air 01/07/25 22:46 36.5 C 126 H 19 122/79 99 Room Air PG Care Time/CCT Total # of Minutes Spent Total Time Spent with Patient: Total time spent is greater than 50% in coordination of care (as documented) at patient's floor/unit and/or counseling patient: Coding Level of Care Code 10939 Post Operative Follow-Up Diagnoses Closed loop obstruction of intestine K56.699
--- NOTE | 2025-01-08 10:19 | Hospitalist Progress Note ---
Date of Service January 08, 2025 Assessment & Plan (1) Septic shock: Plan: 84-year-old female with past medical history significant for SIADH, dyslipidemia, hypothyroidism, COPD, peripheral vascular disease, paroxysmal atrial fibrillation, hypertension, moderate mitral regurgitation, moderate aortic insufficiency, paroxysmal supraventricular tachycardia, GERD, CKD stage III, compression fraction of T12 vertebra, chronic pain of both shoulders, impingement syndrome of both shoulders, severe osteoporosis, history of pelvic fracture, migraine, anemia of chronic disease, rheumatoid arthritis, history of lung cancer, elevated liver enzymes, lives at home and ambulates with a walker and lives with her grand child was brought in because of nausea vomiting and abdominal pain for past few days #Septic shock -Secondary to intraabdominal infection/gut translocation, possible peritonitis -Off pressors -Transferred out of ICU 01/05 -Blood culture 05/07 on 01/02 grew Strep mitis, likely contamination since all ot hers are negative -Completed Merrem 01/06 Plan -D/w ID pharmacy, recommending switching to linezolid through 01/09 -Follow culture data. Repeat Bcx NGTD -Dispo: SNF when afib is controlled and tolerating solids #Closed loop bowel obstruction with ischemic bowel -Found to be in septic shock and found to have small bowel obstruction -S/p Exploratory laparotomy, lysis of adhesions, small bowel resection and reanastomosis on 01/02/25 -Multiple BM on 01/06 -NG removed 01/06 and started on CLD Plan -Diet advanced to solids -Appreciate surgical management -PT/OT #Atrial Fibrillation With RVR -RVR persisted after stopping amio drip -Home Metoprolol dose was increased to 50 without much effect -BP on softer side, not sure she would tolerate cardizem drip -Placed back on amio drip 01/07 Plan -Appreciate cardio input -Continue amio drip for now -Continue toprol 50 -Not on AC previously due to patient preference/fall risk -Cardiac monitoring #Acute Hypoxic Resp Failure -Requiring intubation -Management per ICU -Resolved. extubated 01/04 -CXR reviewed 01/07, pulm edema s/p IV lasix -Now back on room air #Acute kidney injury Baseline creatinine 0.8-1 Presented with creatinine of 2.3 Cr Improving YAHIR resolved Plan Monitor volume status, IOs, renal function Avoid nephrotoxic agents Rheumatoid arthritis Holding home prednisone (PRN) and methotrexate Completed steroid taper Confirmed with daughter she very infrequently takes prednisone Hypothyroidism Resume home PO synthroid Hypertension Holding amlodipine, losartan for now because of septic shock Peripheral vascular disease Status post bilateral femoral stents On aspirin History of lung cancer 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 Physical Exam Physical Exam: Vitals and labs reviewed General: Well appearing, NAD HEENT: EOMI, PERRLA Neck: Supple Cardiac: irregular and mildly tachy Lungs: CTA no rhonchi wheezing or rales Abd: S ND BS positive : borrego out MSK: Full ROM. No obvious deformities Ext: No Edema cyanosis Skin: Warm, Dry Neuro: AOx3 No focal deficits. Psych: Normal Mood Results & Data Results & Data Vital Signs (Past 12 Hours) Vital Signs Temp Pulse Resp BP Pulse Ox O2 Del Method 01/08/25 07:19 36.6 C 133 H 20 123/94 100 Room Air 01/08/25 02:50 36.7 C 118 H 18 122/81 96 Room Air 01/07/25 23:10 Room Air 01/07/25 22:46 36.5 C 126 H 19 122/79 99 Room Air Laboratory Results Abnormal lab results 01/08/25 Range/Units 06:04 WBC 11.95 H (4.8-10.8) K/ul RBC 3.19 L (4.20-5.40) M/uL Hgb 10.3 L (12.0-16.0) g/dl Hct 30.7 L (37.0-47.0) % RDW Std Deviation 59.0 H (36.4-46.3) fL RDW Coeff of Zee 17.1 H (11.5-14.5) % MPV 13.0 H (9.4-12.4) fL Neutrophils # (Manual) 8.60 H (1.40-6.50) K/uL Total Absolute Neuts 8.60 H (1.4-6.5) K/uL Metamyelocytes # (Man) 0.84 H (0-0) K/uL Myelocytes # (Manual) 0.60 H (0-0) K/uL Chloride 108 H (98-107) mmol/L BUN 30 H (6-23) mg/dl BUN/Creatinine Ratio 37.0 H (10-20) Calcium 7.7 L (8.6-10.3) mg/dl
[2025-01-08] MEDS: METOPROLOL SUCC 25MG EXT REL TAB PO STA (12:04)
[2025-01-08] MEDS: ACETAMINOPHEN 500 MG TAB PO PRN (13:40)
[2025-01-08] MEDS ORDERED: Nursing to Pharmacy Communication SCH ×2 (15:15→16:30)
[2025-01-08] MEDS: METOPROLOL SUCC 50MG EXT REL TAB PO SCH (19:40)
[2025-01-09 07:01] LABS: Anion Gap 8.0 (3-11); Calcium 7.8 mg/dl (8.6-10.3); Carbon Dioxide 24.0 mmol/L (21-32); Chloride 109.0 mmol/L (98-107); Potassium 4.7 mmol/L (3.5-5.1); Sodium 141.0 mmol/L (136-145)
[2025-01-09 07:05] LABS: Blood Urea Nitrogen 24.0 mg/dl (6-23); Creatinine Clr Calc Pharmacy 45.5 ml/min; Glucose 64.0 mg/dl (70-99(Fasting))
--- NOTE | 2025-01-09 07:18 | Surgery Progress Note ---
Date of Service January 09, 2025 Assessment & Plan (1) Closed loop obstruction of intestine: Plan: POD#6 doing well OOB to chair PT/OT continue diet as tolerated appreciate medicine and ICU input to SNF when appropriate from medical standpoint Admission and Anticipated Discharge Date Admission Date: January 02, 2025 Subjective She is doing well this morning, denies any abdominal pain,wants to do therapy to "get out of here and get home" Physical Exam Physical Exam: NAD A&Ox3 NCAT Abd soft, mod TTP incision C/D/I with alireza Results & Data Vital Signs (Past 12 Hours) Vital Signs Temp Pulse Resp BP Pulse Ox O2 Del Method 01/09/25 02:55 36.6 C 115 H 22 134/106 H 01/08/25 23:04 36.8 C 105 H 20 132/82 100 Room Air 01/08/25 19:28 36.8 C 115 H 18 134/86 97 Room Air Laboratory Results 01/09/25 01/08/25 Range/Units 05:52 06:04 Neutrophils % (Manual) 72 % Lymphocytes % (Manual) 13 % Monocytes % (Manual) 2 % Eosinophils % (Manual) 1 % Metamyelocytes % (Man) 7 % Myelocytes % (Man) 5 % Neutrophils # (Manual) 8.60 H (1.40-6.50) K/uL Total Absolute Neuts 8.60 H (1.4-6.5) K/uL Lymphocytes # (Manual) 1.55 (1.2-3.4) K/uL Total Abs Lymphocytes 1.55 (1.2-3.4) K/uL Monocytes # (Manual) 0.24 (0.11-0.59) K/uL Eosinophils # (Manual) 0.12 (0-0.50) K/uL Metamyelocytes # (Man) 0.84 H (0-0) K/uL Myelocytes # (Manual) 0.60 H (0-0) K/uL Polychromasia 1+ Sodium 141 (136-145) mmol/L Potassium 4.7 D (3.5-5.1) mmol/L Chloride 109 H (98-107) mmol/L Carbon Dioxide 24 (21-32) mmol/L Anion Gap 8 (3-11) BUN 24 H (6-23) mg/dl Creatinine 0.76 (0.6-1.2) mg/dl Est Cr Clr Drug Dosing 45.5 ml/min eGFR 76.74 BUN/Creatinine Ratio 31.6 H (10-20) Glucose 64 L (70-99(Fasting)) mg/dl Calcium 7.8 L (8.6-10.3) mg/dl
--- NOTE | 2025-01-09 08:59 | Cardiology Progress Note ---
Date of Service January 09, 2025 Assessment & Plan (1) Atrial fibrillation with rapid ventricular response: (2) Closed loop obstruction of intestine: (3) S/P small bowel resection: (4) Septic shock: Plan Assessment: 84 year old female admitted for 3 days of N/V and abd pain. Found to have a small bowel obstruction, septic shock and was taken emergently to the OR for surgical intervention. Patient with known P. A-fib, found in rapid A-fib at time of admission. Cardiology consulted for further assessment and recommendations. Plan: -Patient with known history of P. a-fib presents in acute distress with a SBO and determined septic shock. She was found to in A-fib with RVR at that time in the setting of an acute process, dehydration and several day of missed medications due to Nausea and vomiting. -Patient is resting in bed without acute complaints at this time. She does endorse a cough which she says is relieved with albuterol. -Review of telemetry shows A-fib rates 110-120bpm. patient denies any feelings of palpitations. Amiodarone gtt remains on. Continue as per current protocol. -Continue increased dose of Toprol xl. -Will discuss current telemetry findings with Dr. Donnelly. May consider single dose of IV digoxin for rate control. Not a snf solution and should be closely monitored while receiving amiodarone. -BP Controlled -Euvolemic on exam -Continue to monitor closely on telemetry -Resting echo shows LVEF 50-55%, moderate MR. No pericardial effusion. -Pain management per primary team Case has been discussed with Dr. Donnelly. Further recommendations regarding plan of care as per his assessment. I spent a total of 30 minutes on the date of service in preparation, delivery, documentation of the care provided to the patient excluding any time spent in the performance of separately billed services. ARGELIA Gallego [facility] Admission and Anticipated Discharge Date Admission Date: January 02, 2025 Supervising Physician Co-Signing Physician Notes Attending attestation: Case reviewed with the advanced practitioner. I have personally performed a history and physical examination on the patient. I have reviewed the advanced practitioner's documentation on the date of service referenced in note, and I agree with, and take responsibility for the plan of care. Patient with coarse wet cough, based on previous chest x-ray, and physical exam, likely has ongoing volume overload. Proceed with furosemide 20 mg x 1 IV. Continue metoprolol succinate 50 mg twice daily, continue amiodarone infusion for now. Patient is not anticoagulated on a chronic basis due to fall risk. Reassess the benefits/risks of short-term anticoagulation tomorrow. At present, favor holding off on systemic anticoagulation given recent intra-abdominal surgery, frailty, bleeding risk. I spent a total of 30 minutes coordinating, documenting, and providing care for this patient excluding time spent in the performance of separately billed services or time spent by another provider. Osman Donnelly DO Subjective 01/09/2025: Patient seen and examined in follow up today. Feeling fair. She denies any chest pain, pressure or palpitations, No shortness of breath, but does endorse a cough which makes her incisional area hurt. She states the is tolerating soft foods, but eats small amounts. States that she is tolerating her oral meds. Labs, vitals, diagnostics, telemetry and documentation reviewed. Telemetry reviewed showing A-fib rates 110-120's. No acute events overnight. Review of Systems Review of Systems: All systems reviewed & are unremarkable except as noted in HPI & below Physical Exam Constitutional: well developed and well nourished; no acute distress and not ill appearing Neck: normal visual inspection and trachea midline Respiratory: normal respiratory effort, lungs clear to auscultation Auscultation: no crackles, no rales, no rhonchi and no wheezes Cardiovascular: Rate/Rhythm: + tachycardic and + irregularly irregular Heart Sounds: normal S1 and normal S2 Vessels: dorsalis pedis pulses present; no JVD Extremities: no edema Skin: no rashes, warm and dry Psychiatric: A+Ox3, euthymic affect Results & Data Vital Signs (Past 12 Hours) Vital Signs Temp Pulse Resp BP Pulse Ox O2 Del Method 01/09/25 07:40 36.3 C L 121 H 19 127/85 97 Room Air 01/09/25 02:55 36.6 C 115 H 22 134/106 H 01/08/25 23:04 36.8 C 105 H 20 132/82 100 Room Air Laboratory Results Comprehensive Metabolic Panel 01/09/25 Range/Units 05:52 Sodium 141 (136-145) mmol/L Potassium 4.7 D (3.5-5.1) mmol/L Chloride 109 H (98-107) mmol/L Carbon Dioxide 24 (21-32) mmol/L BUN 24 H (6-23) mg/dl Creatinine 0.76 (0.6-1.2) mg/dl Glucose 64 L (70-99(Fasting)) mg/dl Calcium 7.8 L (8.6-10.3) mg/dl Intake and Output 01/08/25 01/09/25 01/09/25 22:59 06:59 14:59 Intake Total 429.803 / 729.803 71.253 / 71.253 Output Total 350 / 350 Balance 79.803 / 379.803 71.253 / 71.253 Intake: IV 179.803 / 379.803 71.253 / 71.253 Amiodarone / D5w 360 mg In 200 179.803 / 379.803 71.253 / 71.253 ml @ 0.5 MG/MIN 16.667 mls/hr IV .Q12H NAWAF Rx#:[id number] Oral 250 / 350 Output: Urine Amount (Catheter) 350 / 350 External 350 / 350 Other: Weight 65 kg Weight Measurement Method Built in [facility] Diagnostic Findings Echocardiogram 01/08/25 LVEF 50-55% RV mildly dilated Moderate MR PG Care Time/CCT Total # of Minutes Spent Total Time Spent with Patient: Total time spent is greater than 50% in coordination of care (as documented) at patient's floor/unit and/or counseling patient: C[place] [address] SUB INP/OBS CARE 3/50MIN Patient Type Established Diagnoses Atrial fibrillation with rapid ventricular response I48.91 Closed loop obstruction of intestine K56.699 S/P small bowel resection Z90.49 Septic shock A41.9; R65.21 Time Spent (min) 30
[2025-01-09 10:22] LABS: Hematocrit (blood only) 29.2 % (37.0-47.0); Hemoglobin 9.3 g/dl (12.0-16.0); Mean Corpuscular Hemoglobin 31.0 pg (25.0-34.0); Mean Corpuscular Volume 97.3 fL (80.0-100.0); Platelet Count 200 K/uL (130-400); RDW Standard Deviation 60.7 fL (36.4-46.3); Red Blood Count 3.00 M/uL (4.20-5.40); White Blood Count 12.35 K/ul (4.8-10.8)
--- NOTE | 2025-01-09 10:50 | Hospitalist Progress Note ---
Date of Service January 09, 2025 Assessment & Plan (1) Septic shock: Plan: 84-year-old female with past medical history significant for SIADH, dyslipidemia, hypothyroidism, COPD, peripheral vascular disease, paroxysmal atrial fibrillation, hypertension, moderate mitral regurgitation, moderate aortic insufficiency, paroxysmal supraventricular tachycardia, GERD, CKD stage III, compression fraction of T12 vertebra, chronic pain of both shoulders, impingement syndrome of both shoulders, severe osteoporosis, history of pelvic fracture, migraine, anemia of chronic disease, rheumatoid arthritis, history of lung cancer, elevated liver enzymes, lives at home and ambulates with a walker and lives with her grand child was brought in because of nausea vomiting and abdominal pain for past few days #Septic shock -Secondary to intraabdominal infection/gut translocation, possible peritonitis -Off pressors -Transferred out of ICU 01/05 -Blood culture 05/07 on 01/02 grew Strep mitis, likely contamination since all ot hers are negative -Completed Merrem 01/06 Plan -Completed linezolid 01/09 -Dispo: SNF when afib is controlled and tolerating solids #Closed loop bowel obstruction with ischemic bowel -Found to be in septic shock and found to have small bowel obstruction -S/p Exploratory laparotomy, lysis of adhesions, small bowel resection and reanastomosis on 01/02/25 -Multiple BM on 01/06 -NG removed 01/06 and started on CLD Plan -Diet advanced to solids, tolerating -Appreciate surgical management -PT/OT #Atrial Fibrillation With RVR -RVR persisted after stopping amio drip -Home Metoprolol dose was increased to 50 without much effect -BP on softer side, not sure she would tolerate cardizem drip -Placed back on amio drip 01/07 Plan -Appreciate cardio input -Continue amio drip for now -Toprol increased to 50 BID by cardio -Not on AC previously due to patient preference/fall risk -Cardiac monitoring #Acute Hypoxic Resp Failure -Requiring intubation -Management per ICU -Resolved. extubated 01/04 -CXR reviewed 01/07, pulm edema s/p IV lasix -Now back on room air #Acute kidney injury Baseline creatinine 0.8-1 Presented with creatinine of 2.3 Cr Improving YAHIR resolved Plan Monitor volume status, IOs, renal function Avoid nephrotoxic agents Rheumatoid arthritis Holding home prednisone (PRN) and methotrexate Completed steroid taper Confirmed with daughter she very infrequently takes prednisone Hypothyroidism Resume home PO synthroid Hypertension Holding amlodipine, losartan for now because of septic shock Peripheral vascular disease Status post bilateral femoral stents On aspirin History of lung cancer 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 tired with low energy. she was encouraged to work with PT/OT. she reluctantly agreed Physical Exam Physical Exam: Vitals and labs reviewed General: Well appearing, NAD HEENT: EOMI, PERRLA Neck: Supple Cardiac: irregular and mildly tachy Lungs: CTA no rhonchi wheezing or rales Abd: S ND BS positive : borrego out MSK: Full ROM. No obvious deformities Ext: No Edema cyanosis Skin: Warm, Dry Neuro: AOx3 No focal deficits. Psych: Normal Mood Results & Data Results & Data Vital Signs (Past 12 Hours) Vital Signs Temp Pulse Resp BP Pulse Ox O2 Del Method 01/09/25 07:40 36.3 C L 121 H 19 127/85 97 Room Air 01/09/25 02:55 36.6 C 115 H 22 134/106 H 01/08/25 23:04 36.8 C 105 H 20 132/82 100 Room Air Laboratory Results Abnormal lab results 01/09/25 01/09/25 Range/Units 05:52 09:39 WBC 12.35 H (4.8-10.8) K/ul RBC 3.00 L (4.20-5.40) M/uL Hgb 9.3 L (12.0-16.0) g/dl Hct 29.2 L (37.0-47.0) % MCHC 31.8 L (32.0-36.0) g/dL RDW Std Deviation 60.7 H (36.4-46.3) fL RDW Coeff of Zee 17.3 H (11.5-14.5) % MPV 13.1 H (9.4-12.4) fL Chloride 109 H (98-107) mmol/L BUN 24 H (6-23) mg/dl BUN/Creatinine Ratio 31.6 H (10-20) Glucose 64 L (70-99(Fasting)) mg/dl Calcium 7.8 L (8.6-10.3) mg/dl
[2025-01-09 12:11] LABS: Immature Granulocytes # (auto) 0.96 K/uL (0.01-0.20); Immature Granulocytes % (auto) 7.8 %; Ovalocytes 1+; Polychromasia 1+
[2025-01-09] MEDS: FUROSEMIDE INJ 20 MG/2 ML VIAL IV ONE (14:49)
[2025-01-10] MEDS: LEVALBUTEROL 0.31MG/3 ML VIAL NEB PRN (00:15)
[2025-01-10 07:20] LABS: Anion Gap 6.0 (3-11); Calcium 7.4 mg/dl (8.6-10.3); Carbon Dioxide 26.0 mmol/L (21-32); Chloride 106.0 mmol/L (98-107); Potassium 3.9 mmol/L (3.5-5.1); Sodium 138.0 mmol/L (136-145)
[2025-01-10 07:26] LABS: Blood Urea Nitrogen 19.0 mg/dl (6-23); Creatinine Clr Calc Pharmacy 42.7 ml/min; Glucose 74.0 mg/dl (70-99(Fasting))
--- NOTE | 2025-01-10 08:32 | Cardiology Progress Note ---
Date of Service January 10, 2025 Assessment & Plan (1) Atrial fibrillation with rapid ventricular response: (2) Closed loop obstruction of intestine: (3) S/P small bowel resection: (4) Septic shock: Plan Assessment: 84 year old female admitted for 3 days of N/V and abd pain. Found to have a small bowel obstruction, septic shock and was taken emergently to the OR for surgical intervention. Patient with known P. A-fib, found in rapid A-fib at time of admission. Cardiology consulted for further assessment and recommendations. Plan: -Patient continues with elevated heart rates although slightly improved. Discontinue Amiodarone gtt. Switch Toprol xl to metoprolol tartrate 50mg PO BID. Give one time dose of Digoxin 125mcg IV now. -Patient with known history of P. a-fib presents in acute distress with a SBO and determined septic shock. She was found to in A-fib with RVR at that time in the setting of an acute process, dehydration and several day of missed medications due to Nausea and vomiting. -Patient is resting in bed without acute complaints at this time. She does endorse a cough which she says is relieved with albuterol. -Received 1 time dose of IV lasix with over 1 L of urine output. Continue to monitor volume status closely. -Strict I&O with daily weights. Closely monitor renal function, and serum electrolytes. Goal Serum K> 4.0 and Serum Mag 2.0 -BP Controlled -Continue to monitor closely on telemetry -Resting echo shows LVEF 50-55%, moderate MR. No pericardial effusion. -Pain management per primary team Case has been discussed with Dr. Donnelly. Further recommendations regarding plan of care as per his assessment. I spent a total of 30 minutes on the date of service in preparation, delivery, documentation of the care provided to the patient excluding any time spent in the performance of separately billed services. ARGELIA Gallego [facility] Cardiology [facility] Admission and Anticipated Discharge Date Admission Date: January 02, 2025 Supervising Physician Co-Signing Physician Notes Attending attestation: Case reviewed with the advanced practitioner. I have personally performed a history and physical examination on the patient. I have reviewed the advanced practitioner's documentation on the date of service referenced in note, and I agree with, and take responsibility for the plan of care. Proceed with another dose of IV furosemide today for ongoing mild volume overload. IV amiodarone discontinued. Uncertain as to whether or not the patient is absorbing the oral metoprolol succinate. Will transition to short acting metoprolol to tartrate and proceed with a dose of IV digoxin today. As previously noted, patient is not anticoagulated at baseline due to bleeding risk. Continue subcutaneous heparin for DVT prophylaxis. I spent a total of 20 minutes coordinating, documenting, and providing care for this patient excluding time spent in the performance of separately billed services or time spent by another provider. Osman Donnelly DO Subjective 01/10/2025: Patient seen and examined in follow up today. Feeling well from a cardiac perspective. Offers no acute concerns. Continues to endorse a cough, but appears less frequent. Labs, vitals, diagnostics, telemetry and documentation reviewed. Telemetry reviewed showing A-fib, rates 110-120 bpm. No acute events overnight. Review of Systems Review of Systems: All systems reviewed & are unremarkable except as noted in HPI & below Physical Exam Constitutional: well developed and well nourished; no acute distress and not ill appearing Neck: normal visual inspection and trachea midline Respiratory: normal respiratory effort and + cough; no respiratory distress and no labored breathing Auscultation: + diminished lung sounds (bilateral bases ); no crackles, no rales, no rhonchi and no wheezes Cardiovascular: Rate/Rhythm: + tachycardic and + irregularly irregular Heart Sounds: normal S1 and normal S2 Vessels: dorsalis pedis pulses present; no JVD Extremities: no edema Skin: no rashes, warm and dry Psychiatric: A+Ox3, euthymic affect Results & Data Vital Signs (Past 12 Hours) Vital Signs Temp Pulse Pulse Resp BP Pulse Ox O2 Del Method 01/10/25 07:20 36.8 C 122 H 25 H 127/81 96 Room Air 01/10/25 02:54 36.7 C 120 H 24 118/75 95 Room Air 01/10/25 00:15 110 H 18 99 Room Air 01/09/25 23:18 36.7 C 105 H 28 H 115/81 95 Room Air 01/09/25 22:03 105 H Laboratory Results CBC 01/09/25 Range/Units 09:39 WBC 12.35 H (4.8-10.8) K/ul RBC 3.00 L (4.20-5.40) M/uL Hgb 9.3 L (12.0-16.0) g/dl Hct 29.2 L (37.0-47.0) % Plt Count 200 (130-400) K/uL Neut # (Auto) 9.19 H (1.40-6.50) K/uL Lymph # (Auto) 1.17 L (1.20-3.40) K/uL [place] # (Auto) 0.87 H (0.11-0.59) K/uL Eos # (Auto) 0.12 (0.00-0.50) K/uL Baso # (Auto) 0.04 (0.00-0.20) K/uL Comprehensive Metabolic Panel 01/10/25 Range/Units 05:43 Sodium 138 (136-145) mmol/L Potassium 3.9 (3.5-5.1) mmol/L Chloride 106 (98-107) mmol/L Carbon Dioxide 26 (21-32) mmol/L BUN 19 (6-23) mg/dl Creatinine 0.81 (0.6-1.2) mg/dl Glucose 74 (70-99(Fasting)) mg/dl Calcium 7.4 L (8.6-10.3) mg/dl Intake and Output 01/09/25 01/10/25 01/10/25 22:59 06:59 14:59 Intake Total 75.707 / 965.000 449.293 / 965.000 Output Total 800 / 1050 200 / 1050 Balance -724.293 / -85.000 249.293 / -85.000 Intake: IV 75.707 / 400.000 124.293 / 400.000 Amiodarone / D5w 360 mg In 200 75.707 / 400.000 124.293 / 400.000 ml @ 0.5 MG/MIN 16.667 mls/hr IV .Q12H NAW[facility] Rx#:[id number] Oral 325 / 565 Output: Urine Amount (Catheter) 800 / 1050 200 / 1050 External 800 / 1050 200 / 1050 Other: Weight 64.8 kg Weight Measurement Method Built in [facility] Coding Level of Care Code 45027 SUB INP/OBS CARE 3/50MIN Diagnoses Atrial fibrillation with rapid ventricular response I48.91 Closed loop obstruction of intestine K56.699 S/P small bowel resection Z90.49 Septic shock A41.9; R65.21 Time Spent (min) 50 Comment 30 minutes by Maryellen Montelongo, and [address] Donnelly
[2025-01-10] MEDS: DIGOXIN 125 MCG in SYRINGE 9.5 ML IV STA (08:41)
[2025-01-10] MEDS: METOPROLOL TARTRATE 50 MG TAB PO SCH (08:54)
--- NOTE | 2025-01-10 09:30 | Surgery Progress Note ---
Date of Service January 10, 2025 Assessment & Plan (1) S/P small bowel resection: Plan: cardiac and respiratory issues being optimized good progress post ex lap eating OK bowel function OK Admission and Anticipated Discharge Date Admission Date: January 02, 2025 Subjective off amiodarone drip still a little out of breath eating well good bowel function Review of Systems Constitutional: no fever and no chills Respiratory: + dyspnea Cardiovascular: no chest pain Gastrointestinal: no abdominal pain, no nausea and no vomiting Neurologic: + generalized weakness; no localized wea kness Psychiatric: no behavioral changes Hematologic / Lymphatic: + easy bruising Physical Exam Constitutional: + thin Respiratory: + labored breathing Cardiovascular: Rate/Rhythm: + tachycardic and + irregularly irregular Gastrointestinal (Abdomen): Inspection/Auscultation: + abdominal surgical incision (clean and dry); abdomen not distended Percussion/Palpation: abdomen soft; abdomen nontender Skin: no rashes, warm and dry + ecchymosis Results & Data Vital Signs (Past 12 Hours) Vital Signs Temp Pulse Pulse Resp BP Pulse Ox O2 Del Method 01/10/25 08:41 119 H 01/10/25 07:20 36.8 C 122 H 25 H 127/81 96 Room Air 01/10/25 02:54 36.7 C 120 H 24 118/75 95 Room Air 01/10/25 00:15 110 H 18 99 Room Air 01/09/25 23:18 36.7 C 105 H 28 H 115/81 95 Room Air 01/09/25 22:03 105 H
[2025-01-10] MEDS: POTASSIUM CHLORIDE CRTAB 20 MEQ TABCR PO STA (11:54)
[2025-01-10] MEDS: FUROSEMIDE INJ 20 MG/2 ML VIAL IV ONE (11:54)
--- NOTE | 2025-01-10 11:57 | Hospitalist Progress Note ---
Date of Service January 10, 2025 Assessment & Plan (1) Septic shock: Plan: 84-year-old female with past medical history significant for SIADH, dyslipidemia, hypothyroidism, COPD, peripheral vascular disease, paroxysmal atrial fibrillation, hypertension, moderate mitral regurgitation, moderate aortic insufficiency, paroxysmal supraventricular tachycardia, GERD, CKD stage III, compression fraction of T12 vertebra, chronic pain of both shoulders, impingement syndrome of both shoulders, severe osteoporosis, history of pelvic fracture, migraine, anemia of chronic disease, rheumatoid arthritis, history of lung cancer, elevated liver enzymes, lives at home and ambulates with a walker and lives with her grand child was brought in because of nausea vomiting and abdominal pain. Found to have SBO #Septic shock -Secondary to intraabdominal infection/gut translocation, possible peritonitis -Off pressors -Transferred out of ICU 01/05 -Blood culture 05/07 on 01/02 grew Strep mitis, likely contamination since all o thers are negative -Completed Merrem 01/06 -Completed linezolid 01/09 Plan -Dispo: SNF when afib is controlled #Closed loop bowel obstruction with ischemic bowel -Found to be in septic shock and found to have small bowel obstruction -S/p Exploratory laparotomy, lysis of adhesions, small bowel resection and reanastomosis on 01/02/25 -Multiple BM on 01/06 -NG removed 01/06 and started on CLD Plan -Diet advanced to solids, tolerating -Appreciate surgical management -PT/OT #Atrial Fibrillation With RVR -RVR persisted after stopping amio drip -Home Metoprolol dose was increased to 50 without much effect -BP on softer side, not sure she would tolerate cardizem drip -Placed back on amio drip 01/07 Plan -Appreciate cardio input -Amio drip DC today -S/p 1x dose of digoxin -Toprol changed to lopressor 50 BID -Not on AC previously due to patient preference/fall risk -Cardiac monitoring #Acute Hypoxic Resp Failure -Requiring intubation -Management per ICU -Resolved. extubated 01/04 -CXR reviewed 01/07, pulm edema s/p IV lasix -Now back on room air #Acute kidney injury Baseline creatinine 0.8-1 Presented with creatinine of 2.3 Cr Improving YAHIR resolved Plan Monitor volume status, IOs, renal function Avoid nephrotoxic agents Rheumatoid arthritis Holding home prednisone (PRN) and methotrexate Completed steroid taper Confirmed with daughter she very infrequently takes prednisone Hypothyroidism Resume home PO synthroid Hypertension Holding amlodipine, losartan for now because of septic shock Peripheral vascular disease Status post bilateral femoral stents On aspirin History of lung cancer 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 still c/o fatigue, lack of energy. eating ok. intermittent wheezing. no SOB or chest pain. moving bowels and urinating without issue. Physical Exam Physical Exam: Vitals and labs reviewed General: Well appearing, NAD HEENT: EOMI, PERRLA Neck: Supple Cardiac: irregular and mildly tachy Lungs: CTA no rhonchi wheezing or rales Abd: S ND BS positive : borrego out MSK: Full ROM. No obvious deformities Ext: No Edema cyanosis Skin: Warm, Dry Neuro: AOx3 No focal deficits. Psych: Normal Mood Results & Data Results & Data Vital Signs (Past 12 Hours) Vital Signs Temp Pulse Pulse Resp BP Pulse Ox O2 Del Method 01/10/25 10:55 36.6 C 115 H 25 H 126/86 94 Room Air 01/10/25 08:41 119 H 01/10/25 08:00 114 H 01/10/25 07:20 36.8 C 122 H 25 H 127/81 96 Room Air 01/10/25 02:54 36.7 C 120 H 24 118/75 95 Room Air 01/10/25 00:15 110 H 18 99 Room Air Laboratory Results Abnormal lab results 01/09/25 01/10/25 Range/Units 09:39 05:43 Neut # (Auto) 9.19 H (1.40-6.50) K/uL Lymph # (Auto) 1.17 L (1.20-3.40) K/uL [place] # (Auto) 0.87 H (0.11-0.59) K/uL Immature Gran # (Auto) 0.96 H (0.01-0.20) K/uL BUN/Creatinine Ratio 23.5 H (10-20) Calcium 7.4 L (8.6-10.3) mg/dl
[2025-01-11 06:26] LABS: Hematocrit (blood only) 31.2 % (37.0-47.0); Hemoglobin 9.7 g/dl (12.0-16.0); Immature Granulocytes # (auto) 0.32 K/uL (0.01-0.20); Immature Granulocytes % (auto) 1.9 %; Mean Corpuscular Hemoglobin 30.2 pg (25.0-34.0); Mean Corpuscular Volume 97.2 fL (80.0-100.0); Platelet Count 234 K/uL (130-400); RDW Standard Deviation 60.2 fL (36.4-46.3); Red Blood Count 3.21 M/uL (4.20-5.40); White Blood Count 16.45 K/ul (4.8-10.8)
[2025-01-11 07:15] LABS: Anion Gap 6.0 (3-11); Calcium 7.4 mg/dl (8.6-10.3); Carbon Dioxide 26.0 mmol/L (21-32); Chloride 104.0 mmol/L (98-107); Potassium 4.0 mmol/L (3.5-5.1); Sodium 136.0 mmol/L (136-145)
[2025-01-11 07:32] LABS: Blood Urea Nitrogen 18.0 mg/dl (6-23); Creatinine Clr Calc Pharmacy 46.4 ml/min; Glucose 52.0 mg/dl (70-99(Fasting))
[2025-01-11] MEDS ORDERED: DEXTROSE 50% 50 ML SYRINGE IV PRN (08:18)
[2025-01-11] MEDS: DEXTROSE 50% 50 ML SYRINGE IV STA (08:29)
--- NOTE | 2025-01-11 08:52 | Cardiology Progress Note ---
Date of Service January 11, 2025 Assessment & Plan (1) Atrial fibrillation with rapid ventricular response: (2) Closed loop obstruction of intestine: (3) S/P small bowel resection: (4) Septic shock: Plan Assessment: 84 year old female admitted for 3 days of N/V and abd pain. Found to have a small bowel obstruction, septic shock and was taken emergently to the OR for surgical intervention. Patient with known P. A-fib, found in rapid A-fib at time of admission. Cardiology consulted for further assessment and recommendations. Plan 01/11/2025: -Patient shows clinical improvement from a cardiac perspective. offers no acute complaints. -Review of telemetry shows heart rates continue to trend down. Will continue PO Lopressor, and will give 1 time dose of IV digoxin 250mcg now. -Appears euvolemic on today's exam -Renal function stable. low blood sugars noted with small intake. Primary team concerned about adrenal insufficiency and will likely start steroids. -Maintain strict I&O and daily weights. Close monitoring of renal function and serum electrolytes. Goal serum K > 4.0 and Serum mag > 2.0 - Negative 2.6kg per chart review -BP remains stable Case has been discussed with Dr. Donnelly. Further recommendations regarding plan of care as per his assessment. I spent a total of 30 minutes on the date of service in preparation, delivery, documentation of the care provided to the patient excluding any time spent in the performance of separately billed services. ARGELIA Gallego [facility] Admission and Anticipated Discharge Date Admission Date: January 02, 2025 Supervising Physician Co-Signing Physician Notes Attending attestation: Case reviewed with the advanced practitioner. I have personally performed a history and physical examination on the patient. I have reviewed the advanced practitioner's documentation on the date of service referenced in note, and I agree with, and take responsibility for the plan of care. Hold further Lasix today 01/11/2025. Repeat portable chest x-ray. Continue oral metoprolol tartrate, IV digoxin for rate control. Proceed with a chest x-ray for reassessment of pulmonary edema. As previously noted, patient is not anticoagulated at baseline due to bleeding risk. Continue subcutaneous heparin for DVT prophylaxis. I spent a total of 20 minutes coordinating, documenting, and providing care for this patient excluding time spent in the performance of separately billed services or time spent by another provider. Osman Donnelly DO Subjective 01/11/2025: Patient seen and examined in follow up today. Feeling fair from a cardiac perspective. Offers no acute cardiac complaints. She reports limited PO intake, drinking a good amount, but becomes too full before she can consume much of her meal. Denies chest pain, pressure, palpitations, no shortness of breath, PND, pre-syncope, syncope or edema. Labs, vitals, diagnostics, telemetry and documentation reviewed. Telemetry reviewed showing A-fib 90-120bpm Review of Systems Review of Systems: All systems reviewed & are unremarkable except as noted in HPI & below Physical Exam Constitutional: well developed and well nourished; no acute distress and not ill appearing Neck: normal visual inspection and trachea midline Respiratory: normal respiratory effort, lungs clear to auscultation normal respiratory effort and + cough; no respiratory distress and no labored breathing Auscultation: + diminished lung sounds (bilateral bases ); no crackles, no rales, no rhonchi and no wheezes Cardiovascular: Rate/Rhythm: + tachycardic and + irregularly irregular Heart Sounds: normal S1 and normal S2 Vessels: dorsalis pedis pulses present; no JVD Extremities: no edema Skin: no rashes, warm and dry Psychiatric: A+Ox3, euthymic affect Results & Data Vital Signs (Past 12 Hours) Vital Signs Temp Pulse Pulse Resp BP BP Pulse Ox 01/11/25 07:48 36.6 C 106 H 20 122/78 93 01/11/25 05:23 115 H 24 97 01/11/25 03:04 36.8 C 108 H 20 125/79 98 01/10/25 22:56 36.4 C L 118 H 23 112/84 96 01/10/25 21:58 108 H O2 Del Method 01/11/25 07:48 Room Air 01/11/25 05:23 Room Air 01/11/25 03:04 Room Air 01/10/25 22:56 Room Air 01/10/25 21:58 Laboratory Results CBC 01/11/25 Range/Units 05:48 WBC 16.45 H (4.8-10.8) K/ul RBC 3.21 L (4.20-5.40) M/uL Hgb 9.7 L (12.0-16.0) g/dl Hct 31.2 L (37.0-47.0) % Plt Count 234 (130-400) K/uL Neut # (Auto) 13.35 H (1.40-6.50) K/uL Lymph # (Auto) 1.76 (1.20-3.40) K/uL [place] # (Auto) 0.87 H (0.11-0.59) K/uL Eos # (Auto) 0.13 (0.00-0.50) K/uL Baso # (Auto) 0.02 (0.00-0.20) K/uL Comprehensive Metabolic Panel 01/11/25 Range/Units 05:48 Sodium 136 (136-145) mmol/L Potassium 4.0 (3.5-5.1) mmol/L Chloride 104 (98-107) mmol/L Carbon Dioxide 26 (21-32) mmol/L BUN 18 (6-23) mg/dl Creatinine 0.73 (0.6-1.2) mg/dl Glucose 52 L* (70-99(Fasting)) mg/dl Calcium 7.4 L (8.6-10.3) mg/dl Intake and Output 01/10/25 01/11/25 01/11/25 22:59 06:59 14:59 Intake Total 200 / 623.53 325 / 623.53 Output Total 426 / 527 101 / 527 Balance -226 / 96.53 224 / 96.53 Intake: Oral 200 / 525 325 / 525 Output: Urine 425 / 525 100 / 525 # Bowel Movements 1 / 2 1 / 2 Other: # Unmeasured Voids 1 Weight 62.2 kg Coding [place] [address] SUB INP/OBS CARE 3/50MIN Patient Type Established Diagnoses Atrial fibrillation with rapid ventricular response I48.91 Closed loop obstruction of intestine K56.699 S/P small bowel resection Z90.49 Septic shock A41.9; R65.21 Time Spent (min) 50 Comment 30 minutes were spent by ARGELIA Farris, [address] Donnelly
[2025-01-11] MEDS: D5W AND NSS 1,000 ML IV SCH (10:31)
--- NOTE | 2025-01-11 11:04 | Surgery Progress Note ---
Date of Service January 11, 2025 Assessment & Plan (1) S/P small bowel resection: Plan: POD # 9 ex lap , small bowel resection for ischemic bowel afebrile, tachycardic leukocytosis increasing to 16k today (12k yesterday) Abdominal incision looks great with no signs of infection, abdomen soft with tenderness in lower abdomen bilaterally Plan: Continue pain management as needed continue low fiber diet continue antiemetic as needed follow labs continue medical management Discussed with Dr. Gilbert who agrees with above. Admission and Anticipated Discharge Date Admission Date: January 02, 2025 Subjective feeling better each day but still gets fatigued with movement or activity working with PT Cough with phlegm production no shortness of breath this am, no chest pain. Breathing treatment last night moving bowel and passing gas urinating without difficulty no severe abdominal pain, pain with movement Physical Exam Constitutional: WD/WN, vitals as above cooperative and comfortable; no acute distress and not ill appearing Respiratory: + cough; no respiratory distress and no retractions Auscultation: + rhonchi Cardiovascular: Rate/Rhythm: + tachycardic Heart Sounds: normal S1 and normal S2 Gastrointestinal (Abdomen): Inspection/Auscultation: abdomen normal to inspection and + abdominal surgical incision (c/d/i with alireza, no erythema or drainage); abdomen not distended Percussion/Palpation: + abdomen tender (at midline incision and lower abdomen bilaterally) and abdomen soft; no guarding, abdomen not rigid and abdomen not firm Skin: no rashes, warm and dry Psychiatric: Orientation: alert and oriented x 3 Results & Data Vital Signs (Past 12 Hours) Vital Signs Temp Pulse Resp BP BP Pulse Ox O2 Del Method 01/11/25 07:48 36.6 C 106 H 20 122/78 93 Room Air 01/11/25 05:23 115 H 24 97 Room Air 01/11/25 03:04 36.8 C 108 H 20 125/79 98 Room Air Laboratory Results 01/11/25 01/11/25 01/11/25 Range/Units 08:53 08:51 08:04 WBC (4.8-10.8) K/ul RBC (4.20-5.40) M/uL Hgb (12.0-16.0) g/dl Hct (37.0-47.0) % MCV (80.0-100.0) fL MCH (25.0-34.0) pg MCHC (32.0-36.0) g/dL RDW Std Deviation (36.4-46.3) fL RDW Coeff of Zee (11.5-14.5) % Plt Count (130-400) K/uL MPV (9.4-12.4) fL Immature Gran % (Auto) % Neut % (Auto) % Lymph % (Auto) % [place] % (Auto) % Eos % (Auto) % Baso % (Auto) % Neut # (Auto) (1.40-6.50) K/uL Lymph # (Auto) (1.20-3.40) K/uL [place] # (Auto) (0.11-0.59) K/uL Eos # (Auto) (0.00-0.50) K/uL Baso # (Auto) (0.00-0.20) K/uL Immature Gran # (Auto) (0.01-0.20) K/uL Sodium (136-145) mmol/L Potassium (3.5-5.1) mmol/L Chloride (98-107) mmol/L Carbon Dioxide (21-32) mmol/L Anion Gap (3-11) BUN (6-23) mg/dl Creatinine (0.6-1.2) mg/dl Est Cr Clr Drug Dosing ml/min eGFR BUN/Creatinine Ratio (10-20) Glucose (70-99(Fasting)) mg/dl POC Glucose 75 44 L* 47 L* (70-99) mg/dl Calcium (8.6-10.3) mg/dl Random Cortisol mcg/dl 01/11/25 01/11/25 Range/Units 08:02 05:48 WBC 16.45 H (4.8-10.8) K/ul RBC 3.21 L (4.20-5.40) M/uL Hgb 9.7 L (12.0-16.0) g/dl Hct 31.2 L (37.0-47.0) % MCV 97.2 (80.0-100.0) fL MCH 30.2 (25.0-34.0) pg MCHC 31.1 L (32.0-36.0) g/dL RDW Std Deviation 60.2 H (36.4-46.3) fL RDW Coeff of Zee 17.2 H (11.5-14.5) % Plt Count 234 (130-400) K/uL MPV 12.6 H (9.4-12.4) fL Immature Gran % (Auto) 1.9 % Neut % (Auto) 81.2 % Lymph % (Auto) 10.7 % [place] % (Auto) 5.3 % Eos % (Auto) 0.8 % Baso % (Auto) 0.1 % Neut # (Auto) 13.35 H (1.40-6.50) K/uL Lymph # (Auto) 1.76 (1.20-3.40) K/uL [place] # (Auto) 0.87 H (0.11-0.59) K/uL Eos # (Auto) 0.13 (0.00-0.50) K/uL Baso # (Auto) 0.02 (0.00-0.20) K/uL Immature Gran # (Auto) 0.32 H (0.01-0.20) K/uL Sodium 136 (136-145) mmol/L Potassium 4.0 (3.5-5.1) mmol/L Chloride 104 (98-107) mmol/L Carbon Dioxide 26 (21-32) mmol/L Anion Gap 6 (3-11) BUN 18 (6-23) mg/dl Creatinine 0.73 (0.6-1.2) mg/dl Est Cr Clr Drug Dosing 46.4 ml/min eGFR 80.54 BUN/Creatinine Ratio 24.7 H (10-20) Glucose 52 L* (70-99(Fasting)) mg/dl POC Glucose 28 L* (70-99) mg/dl Calcium 7.4 L (8.6-10.3) mg/dl Random Cortisol 13.43 mcg/dl
[2025-01-11] MEDS: HYDROCORTISONE SOD 50 MG in SYRINGE 0 ML IV SCH (11:05)
[2025-01-11] MEDS: DIGOXIN 250 MCG in SYRINGE 9 ML IV STA (11:05)
[2025-01-11] MEDS: PROMETHAZINE 12.5 MG/50.5 ML BAG IV STA (11:06)
--- NOTE | 2025-01-11 12:25 | Hospitalist Progress Note ---
Date of Service January 11, 2025 Assessment & Plan (1) Septic shock: Plan: 84-year-old female with past medical history significant for SIADH, dyslipidemia, hypothyroidism, COPD, peripheral vascular disease, paroxysmal atrial fibrillation, hypertension, moderate mitral regurgitation, moderate aortic insufficiency, paroxysmal supraventricular tachycardia, GERD, CKD stage III, compression fraction of T12 vertebra, chronic pain of both shoulders, impingement syndrome of both shoulders, severe osteoporosis, history of pelvic fracture, migraine, anemia of chronic disease, rheumatoid arthritis, history of lung cancer, elevated liver enzymes, lives at home and ambulates with a walker and lives with her grand child was brought in because of nausea vomiting and abdominal pain. Found to have SBO #Septic shock -Secondary to intraabdominal infection/gut translocation, possible peritonitis -Off pressors -Transferred out of ICU 01/05 -Blood culture 05/07 on 01/02 grew Strep mitis, likely contamination since all others are negative -Completed Merrem 01/06 -Completed linezolid 01/09 #Closed loop bowel obstruction with ischemic bowel -Found to be in septic shock and found to have small bowel obstruction -S/p Exploratory laparotomy, lysis of adhesions, small bowel resection and reanastomosis on 01/02/25 -Multiple BM on 01/06 -NG removed 01/06 and started on CLD Plan -Diet advanced to solids, tolerating -Appreciate surgical management -PT/OT #Atrial Fibrillation With RVR Currently on metoprolol tartrate 50 mg twice daily; given digoxin 250 mcg. Monitor on telemetry #Acute Hypoxic Resp Failure -Requiring intubation -Management per ICU -Resolved. extubated 01/04 -CXR reviewed 01/07, pulm edema s/p IV lasix -Now back on room air #Acute kidney injury Baseline creatinine 0.8-1 Presented with creatinine of 2.3 Cr Improving YAHIR resolved Rheumatoid arthritis Chronic steroid use Relative adrenal insufficiency As per patient's prescription history; she has been prescribed prednisone 5 mg once a day for rheumatoid arthritis for several months. Patient had period of hypoglycemia on 01/11, has nausea; random cortisol was 13.43 mcg per DL. started on hydrocortisone 50 mg Q6; plan to taper down to prednisone 5 mg at discharge. 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 It may contain grammatical, syntax or spelling errors. Any formal questions or concerns about the content, text or information contained within the body of this dictation should be directly addressed to the provider for clarification Admission and Anticipated Discharge Date Admission Date: January 02, 2025 Subjective Patient had episode of hypoglycemia requiring D50. She reports she feels nausea as well; reports tolerating diet well. No significant events overnight Review of Systems Review of Systems: All systems reviewed & are unremarkable except as noted in Subjective Physical Exam Physical Exam: Constitutional: Alert oriented x 3; not in distress. Respiratory: normal respiratory effort, lungs clear to auscultation, no wheeze, rales, rhonchi. Normal insp/exp effort, no accessory muscle use Cardiovascular: Irregular, no murmur, no edema Vessels: no JVD or carotid bruit Chest: normal inspection of chest Abdomen: Incision intact; no soakage. Musculoskeletal: no cyanosis or clubbing, extremities motor strength 5/5 Skin: no rashes, warm and dry normal turgor Neurologic: PERRL, EOMI, accommodation nl, no face palsy, no dysarthria CN's II- XI intact bilaterally and moves all extremities Psychiatric: A+Ox3, euthymic affect Results & Data Results & Data Vital Signs (Past 12 Hours) Vital Signs Temp Pulse Pulse Resp BP BP Pulse Ox 01/11/25 11:24 36.4 C L 103 H 25 H 102/70 93 01/11/25 11:05 110 H 01/11/25 08:00 123 H 01/11/25 07:48 36.6 C 106 H 20 122/78 93 01/11/25 05:23 115 H 24 97 01/11/25 03:04 36.8 C 108 H 20 125/79 98 O2 Del Method 01/11/25 11:24 Room Air 01/11/25 11:05 01/11/25 08:00 01/11/25 07:48 Room Air 01/11/25 05:23 Room Air 01/11/25 03:04 Room Air
--- NOTE | 2025-01-11 15:55 | XRay Report ---
XR chest 1V portable CLINICAL HISTORY: CHF COMPARISON STUDY: 01/07/2025 FINDINGS: Stable cardiomegaly with mild pulmonary vascular congestion. There are small bilateral pleu ral effusions and lung base consolidation, mildly improved. No pneumothorax. IMPRESSION: CHF with small pleural effusions, mildly improved. ACT 112: Negative or not required by law. Electronically signed by: Cali Schaefer M.D. 01/11/2025 3:54 PM
[2025-01-12 05:55] LABS: Hematocrit (blood only) 30.0 % (37.0-47.0); Hemoglobin 9.5 g/dl (12.0-16.0); Immature Granulocytes # (auto) 0.12 K/uL (0.01-0.20); Immature Granulocytes % (auto) 1.0 %; Mean Corpuscular Hemoglobin 30.0 pg (25.0-34.0); Mean Corpuscular Volume 94.6 fL (80.0-100.0); Platelet Count 240 K/uL (130-400); RDW Standard Deviation 57.5 fL (36.4-46.3); Red Blood Count 3.17 M/uL (4.20-5.40); White Blood Count 11.51 K/ul (4.8-10.8)
[2025-01-12 06:26] LABS: Anion Gap 6.0 (3-11); Calcium 7.2 mg/dl (8.6-10.3); Carbon Dioxide 25.0 mmol/L (21-32); Chloride 107.0 mmol/L (98-107); Potassium 3.8 mmol/L (3.5-5.1); Sodium 138.0 mmol/L (136-145)
[2025-01-12 06:32] LABS: Blood Urea Nitrogen 18.0 mg/dl (6-23); Creatinine Clr Calc Pharmacy 55.5 ml/min; Glucose 138.0 mg/dl (70-99(Fasting))
--- NOTE | 2025-01-12 08:28 | Cardiology Progress Note ---
Date of Service January 12, 2025 Assessment & Plan (1) Atrial fibrillation with rapid ventricular response: (2) Closed loop obstruction of intestine: (3) S/P small bowel resection: (4) Septic shock: Plan Assessment: 84 year old female admitted for 3 days of N/V and abd pain. Found to have a small bowel obstruction, septic shock and was taken emergently to the OR for surgical intervention. Patient with known P. A-fib, found in rapid A-fib at time of admission. Cardiology consulted for further assessment and recommendations. Plan 01/11/2025: -Patient is resting comfortably in bed, No new cardiac concerns. -Heart rates continue to trend down. -notation of increased edema in bilateral lower extremities. Give furosemide 20mg IV x 1 dose now, and repeat 20mg IV in AM. Plan will be to tentatively transition to Furosemide 20mg PO Daily starting Thursday. -Continue PO Lopressor, but will increase to change back to succinate formulation and increase dose to 75mg PO BID, first increased dose tonight. Give Digoxin 125mcg PO at 4pm today -Check serum Digoxin level in AM of 01/13 -Renal function stable. Blood sugars improved today. Primary team concerned about adrenal insufficiency and will likely start steroids. -Maintain strict I&O and daily weights. Close monitoring of renal function and serum electrolytes. Goal serum K > 4.0 and Serum mag > 2.0 - Negative 2026 ml fluid balance. -BP remains stable Case has been discussed with Dr. Donnelly. Further recommendations regarding plan of care as per his assessment. I spent a total of 30 minutes on the date of service in preparation, delivery, documentation of the care provided to the patient excluding any time spent in the performance of separately billed services. ARGELIA Gallego [facility] Cardiology [facility] Admission and Anticipated Discharge Date Admission Date: January 02, 2025 Supervising Physician Co-Signing Physician Notes Attending attestation: Case reviewed with the advanced practitioner. I have personally performed a history and physical examination on the patient. I have reviewed the advanced practitioner's documentation on the date of service referenced in note, and I agree with, and take responsibility for the plan of care. I spent a total of 20 minutes coordinating, documenting, and providing care for this patient excluding time spent in the performance of separately billed services or time spent by another provider. Osman Donnelly DO Subjective 01/12/2025: Patient seen and examined in follow up today. Feeling well. she tolerated breakfast this morning without concern. Resting comfortably in bed. Offers no acute cardiac concerns. Labs, vitals, diagnostics, telemetry and documentation reviewed. Telemetry reviewed showing A-fib with rates 80-102bpm. No acute events overnight. Review of Systems Review of Systems: All systems reviewed & are unremarkable except as noted in HPI & below Physical Exam Constitutional: well developed and well nourished; no acute distress and not ill appearing Neck: normal visual inspection and trachea midline Respiratory: normal respiratory effort, lungs clear to auscultation normal respiratory effort and + cough; no respiratory distress and no labored breathing Auscultation: + diminished lung sounds (bilateral bases ); no crackles, no rales, no rhonchi and no wheezes Cardiovascular: Rate/Rhythm: + tachycardic and + irregularly irregular Heart Sounds: normal S1 and normal S2 Vessels: dorsalis pedis pulses present; no JVD Extremities: + edema (+1 BLE) Skin: no rashes, warm and dry Psychiatric: A+Ox3, euthymic affect Results & Data Vital Signs (Past 12 Hours) Vital Signs Temp Pulse Pulse Resp BP BP Pulse Ox 01/12/25 07:25 36.5 C 112 H 18 133/86 97 01/12/25 02:57 36.3 C L 97 H 20 121/72 94 01/12/25 00:00 100 H 01/11/25 22:30 36.5 C 105 H 21 114/86 96 O2 Del Method 01/12/25 07:25 Room Air 01/12/25 02:57 Room Air 01/12/25 00:00 01/11/25 22:30 Room Air Laboratory Results CBC 01/12/25 Range/Units 05:24 WBC 11.51 H (4.8-10.8) K/ul RBC 3.17 L (4.20-5.40) M/uL Hgb 9.5 L (12.0-16.0) g/dl Hct 30.0 L (37.0-47.0) % Plt Count 240 (130-400) K/uL Neut # (Auto) 10.08 H (1.40-6.50) K/uL Lymph # (Auto) 0.85 L (1.20-3.40) K/uL Bent # (Auto) 0.44 (0.11-0.59) K/uL Eos # (Auto) 0.00 (0.00-0.50) K/uL Baso # (Auto) 0.02 (0.00-0.20) K/uL Comprehensive Metabolic Panel 01/12/25 Range/Units 05:24 Sodium 138 (136-145) mmol/L Potassium 3.8 (3.5-5.1) mmol/L Chloride 107 (98-107) mmol/L Carbon Dioxide 25 (21-32) mmol/L BUN 18 (6-23) mg/dl Creatinine 0.61 (0.6-1.2) mg/dl Glucose 138 H (70-99(Fasting)) mg/dl Calcium 7.2 L (8.6-10.3) mg/dl Intake and Output 01/11/25 01/12/25 01/12/25 22:59 06:59 14:59 Intake Total 175 / 2255.5 1250 / 2255.5 Output Total 225 / 228 Balance -2026.5 1249 / 7.5 Intake: IV 1000 / 1050.5 D5w and Nss 1,000 ml @ 80 mls/ 1000 / 1000 hr IV .[id number] Rx#:[id number] Oral 175 / 1205 250 / 1205 Output: Urine Amount (Catheter) 225 / 225 External 225 / 225 # Bowel Movements 1 / 3 Other: # Unmeasured Voids 1 Weight 63.5 kg Coding [place] [address] SUB INP/OBS CARE 3/50MIN Patient Type Established Diagnoses Atrial fibrillation with rapid ventricular response I48.91 Closed loop obstruction of intestine K56.699 S/P small bowel resection Z90.49 Septic shock A41.9; R65.21 Time Spent (min) 50 Comment 30 minutes by Maryellen Montelongo, [address] Donnelly
--- NOTE | 2025-01-12 10:02 | Surgery Progress Note ---
Date of Service January 12, 2025 Assessment & Plan (1) S/P small bowel resection: Plan: POD # 10 ex lap , small bowel resection for ischemic bowel afebrile, tachycardic leukocytosis down to 11k today (16k yesterday) Abdominal incision looks great with no signs of infection, abdomen soft with tenderness in lower abdomen bilaterally Plan: Continue pain management as needed continue low fiber diet boost supplementation continue antiemetic as needed follow labs continue medical management continue PT/OT SCds and incentive spirometry Discussed with Dr. Gilbert who agrees with above. Admission and Anticipated Discharge Date Admission Date: January 02, 2025 Subjective feeling better but still fatigued and tired eating a bit more today but still getting full quickly abdominal soreness, no change passing gas liquid bowel movements no severe abdominal pain no n,v Physical Exam Constitutional: WD/WN, vitals as above + frail appearing, cooperative and comfortable; no acute distress and not ill appearing Neck: left IJ central line present Respiratory: normal respiratory effort and + cough; no respiratory distress Gastrointestinal (Abdomen): Inspection/Auscultation: abdomen normal to inspection, + abdomen distended (mild), + abdominal surgical incision (c/d/i with alireza) and + hypoactive bowel sounds; + abnormal bowel sounds Percussion/Palpation: + abdomen tender (generalized and at midline incision) and abdomen soft; no guarding, abdomen not rigid and abdomen not firm Skin: no rashes, warm and dry Psychiatric: Orientation: alert and oriented x 3 Results & Data Vital Signs (Past 12 Hours) Vital Signs Temp Pulse Pulse Resp BP BP Pulse Ox 01/12/25 07:25 36.5 C 112 H 18 133/86 97 01/12/25 02:57 36.3 C L 97 H 20 121/72 94 01/12/25 00:00 100 H 01/11/25 22:30 36.5 C 105 H 21 114/86 96 O2 Del Method 01/12/25 07:25 Room Air 01/12/25 02:57 Room Air 01/12/25 00:00 01/11/25 22:30 Room Air Laboratory Results 01/12/25 01/11/25 01/11/25 Range/Units 05:24 11:03 05:48 WBC 11.51 H (4.8-10.8) K/ul RBC 3.17 L (4.20-5.40) M/uL Hgb 9.5 L (12.0-16.0) g/dl Hct 30.0 L (37.0-47.0) % MCV 94.6 (80.0-100.0) fL MCH 30.0 (25.0-34.0) pg MCHC 31.7 L (32.0-36.0) g/dL RDW Std Deviation 57.5 H (36.4-46.3) fL RDW Coeff of Zee 16.8 H (11.5-14.5) % Plt Count 240 (130-400) K/uL MPV 12.8 H (9.4-12.4) fL Immature Gran % (Auto) 1.0 % Neut % (Auto) 87.6 % Lymph % (Auto) 7.4 % [place] % (Auto) 3.8 % Eos % (Auto) 0.0 % Baso % (Auto) 0.2 % Neut # (Auto) 10.08 H (1.40-6.50) K/uL Lymph # (Auto) 0.85 L (1.20-3.40) K/uL [place] # (Auto) 0.44 (0.11-0.59) K/uL Eos # (Auto) 0.00 (0.00-0.50) K/uL Baso # (Auto) 0.02 (0.00-0.20) K/uL Immature Gran # (Auto) 0.12 (0.01-0.20) K/uL Sodium 138 (136-145) mmol/L Potassium 3.8 (3.5-5.1) mmol/L Chloride 107 (98-107) mmol/L Carbon Dioxide 25 (21-32) mmol/L Anion Gap 6 (3-11) BUN 18 (6-23) mg/dl Creatinine 0.61 (0.6-1.2) mg/dl Est Cr Clr Drug Dosing 55.5 ml/min eGFR 87.56 BUN/Creatinine Ratio 29.5 H (10-20) Glucose 138 H (70-99(Fasting)) mg/dl POC Glucose 91 (70-99) mg/dl Calcium 7.2 L (8.6-10.3) mg/dl Random Cortisol 13.43 mcg/dl
--- NOTE | 2025-01-12 11:18 | Hospitalist Progress Note ---
Date of Service January 12, 2025 Assessment & Plan (1) Septic shock: Plan: 84-year-old female with past medical history significant for SIADH, dyslipidemia, hypothyroidism, COPD, peripheral vascular disease, paroxysmal atrial fibrillation, hypertension, moderate mitral regurgitation, moderate aortic insufficiency, paroxysmal supraventricular tachycardia, GERD, CKD stage III, compression fraction of T12 vertebra, chronic pain of both shoulders, impingement syndrome of both shoulders, severe osteoporosis, history of pelvic fracture, migraine, anemia of chronic disease, rheumatoid arthritis, history of lung cancer, elevated liver enzymes, lives at home and ambulates with a walker and lives with her grand child was brought in because of nausea vomiting and abdominal pain. Found to have SBO #Septic shock -Secondary to intraabdominal infection/gut translocation, possible peritonitis -Off pressors -Transferred out of ICU 01/05 -Blood culture 05/07 on 01/02 grew Strep mitis, likely contamination since all others are negative -Completed Merrem 01/06 -Completed linezolid 01/09 #Closed loop bowel obstruction with ischemic bowel -Found to be in septic shock and found to have small bowel obstruction -S/p Exploratory laparotomy, lysis of adhesions, small bowel resection and reanastomosis on 01/02/25 -Multiple BM on 01/06 -NG removed 01/06 and started on CLD Plan -Diet advanced to solids, tolerating -Appreciate surgical management -continue PT/OT #Atrial Fibrillation With RVR Currently on metoprolol tartrate 50 mg twice daily; given digoxin Monitor on telemetry #Acute Hypoxic Resp Failure -Requiring intubation -Management per ICU -Resolved. extubated 01/04 -CXR reviewed 01/07, pulm edema s/p IV lasix -Now back on room air #Acute kidney injury Baseline creatinine 0.8-1 Presented with creatinine of 2.3 Cr Improving YAHIR resolved Rheumatoid arthritis Chronic steroid use Relative adrenal insufficiency As per patient's prescription history; she has been prescribed prednisone 5 mg once a day for rheumatoid arthritis for several months. Patient had period of hypoglycemia on 01/11, has nausea; random cortisol was 13.43 mcg per DL. Continue on hydrocortisone 50 mg Q6; plan to taper down to prednisone 5 mg at discharge. 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 It may contain grammatical, syntax or spelling errors. Any formal questions or concerns about the content, text or information contained within the body of this dictation should be directly addressed to the provider for clarification Admission and Anticipated Discharge Date Admission Date: January 02, 2025 Subjective Patient seen and examined at bedside. She reports that she is feeling better compared to previous day. Reports her appetite has slightly improved compared to yesterday. No significant events overnight Review of Systems Review of Systems: All systems reviewed & are unremarkable except as noted in Subjective Physical Exam Physical Exam: Constitutional: Alert oriented x 3; not in distress. Respiratory: normal respiratory effort, lungs clear to auscultation, no wheeze, rales, rhonchi. Normal insp/exp effort, no accessory muscle use Cardiovascular: Irregular, no murmur, no edema Vessels: no JVD or carotid bruit Chest: normal inspection of chest Abdomen: Incision intact; no soakage. Musculoskeletal: no cyanosis or clubbing, extremities motor strength 5/5 Skin: no rashes, warm and dry normal turgor Neurologic: PERRL, EOMI, accommodation nl, no face palsy, no dysarthria CN's II- XI intact bilaterally and moves all extremities Psychiatric: A+Ox3, euthymic affect Results & Data Results & Data Vital Signs (Past 12 Hours) Vital Signs Temp Pulse Pulse Resp BP BP Pulse Ox 01/12/25 09:00 01/12/25 08:00 100 H 01/12/25 07:25 36.5 C 112 H 18 133/86 97 01/12/25 02:57 36.3 C L 97 H 20 121/72 94 01/12/25 00:00 100 H O2 Del Method 01/12/25 09:00 Room Air 01/12/25 08:00 01/12/25 07:25 Room Air 01/12/25 02:57 Room Air 01/12/25 00:00
[2025-01-12] MEDS: FUROSEMIDE INJ 20 MG/2 ML VIAL IV ONE (12:13)
[2025-01-12] MEDS: DIGOXIN 0.125 MG TAB PO SCH (16:46)
[2025-01-12] MEDS: METOPROLOL SUCC 25MG EXT REL TAB PO SCH (20:21)
[2025-01-13 07:07] LABS: Anion Gap 5.0 (3-11); Blood Urea Nitrogen 20.0 mg/dl (6-23); Calcium 7.1 mg/dl (8.6-10.3); Carbon Dioxide 29.0 mmol/L (21-32); Chloride 106.0 mmol/L (98-107); Creatinine Clr Calc Pharmacy 47.8 ml/min; Glucose 115.0 mg/dl (70-99(Fasting)); Potassium 3.2 mmol/L (3.5-5.1); Sodium 140.0 mmol/L (136-145)
[2025-01-13] MEDS: POTASSIUM CHLORIDE / WTR 10 MEQ/100 ML PLCT IV SCH (09:10)
[2025-01-13] MEDS: FUROSEMIDE INJ 20 MG/2 ML VIAL IV SCH (09:11)
--- NOTE | 2025-01-13 09:28 | Cardiology Progress Note ---
Date of Service January 13, 2025 Assessment & Plan (1) Atrial fibrillation with rapid ventricular response: (2) Closed loop obstruction of intestine: (3) S/P small bowel resection: (4) Septic shock: Plan Assessment: 84 year old female admitted for 3 days of N/V and abd pain. Found to have a small bowel obstruction, septic shock and was taken emergently to the OR for surgical intervention. Patient with known P. A-fib, found in rapid A-fib at time of admission. Cardiology consulted for further assessment and recommendations. Plan: 01/13/2025: -patient demonstrates clinical improvement from a cardiac perspective. -Volume status improved. Continue with IV lasix today, likely ready to transition to Furosemide 20mg PO starting tomorrow. -Review of telemetry shows improvement in heart rates. Continue Lopressor 75mg PO BID and Digoxin 125mcg PO daily at 1600. -Continue to monitor serum digoxin level. Patient will need OP labs including BMP and serum Dig within one week of discharge. -Maintain strict I&O and daily weights. Close monitoring of renal function and serum electrolytes. Goal serum K > 4.0 and Serum mag > 2.0 -BP stable. -Patient is not on oral AC therapy due to high falls risk with recent fractures. Risk outweighs benefit. Patient is aware of this. -When patient is appropriate for discharge from a primary care/surgical standpoint, she will need OP cardiology follow in in 3-5weeks. Case has been discussed with Dr. Bernard. Further recommendations regarding plan of care as per his assessment. I spent a total of 30 minutes on the date of service in preparation, delivery, documentation of the care provided to the patient excluding any time spent in the performance of separately billed services. ARGELIA Gallego [facility] Cardiology [facility] Admission and Anticipated Discharge Date Admission Date: January 02, 2025 Supervising Physician Co-Signing Physician Notes I have personally performed a history and physical examination on the patient. I have reviewed the advance practitioner's documentation, and I agree with, and take responsibility for the plan of care. 84-year-old female with small bowel obstructions status post resection and atrial fibrillation with rapid ventricular response. Heart rates improved with titration of beta-arlin and addition of digoxin. Continue rate control strategy. Risk of anticoagulation outweighs benefit. Outpatient lab studies and follow-up as noted above. Cardiology will sign off. Please call with additional concerns/questions. Dewayne Bernard DO, [facility] I spent a total of 25 minutes on the date of service in preparation, delivery, and documentation of the care provided to this patient, excluding any time spent in the performance of separately billed services. Subjective 01/13/2025: Patient seen and examined in follow up today. Feeling well from a cardiac perspective. Resting comfortably OOB in chair today. She continues with a moist, non-productive cough feels relief from nebulizer treatments. Labs, vitals, diagnostics, telemetry and documentation reviewed. Telemetry reviewed showing A-fib rates 80-110bpm. No acute events overnight. Dig level 1.0 Review of Systems Review of Systems: All systems reviewed & are unremarkable except as noted in HPI & below Physical Exam Constitutional: well developed and well nourished; no acute distress and not ill appearing Neck: normal visual inspection and trachea midline Respiratory: normal respiratory effort, lungs clear to auscultation normal respiratory effort and + cough; no respiratory distress and no labored breathing Auscultation: + diminished lung sounds (bilateral bases ); no crackles, no rales, no rhonchi and no wheezes Cardiovascular: Rate/Rhythm: + tachycardic and + irregularly irregular Heart Sounds: normal S1 and normal S2 Vessels: dorsalis pedis pulses present; no JVD Extremities: + edema (+Trace BLE) Skin: no rashes, warm and dry Psychiatric: A+Ox3, euthymic affect Results & Data Vital Signs (Past 12 Hours) Vital Signs Temp Pulse Resp BP Pulse Ox O2 Del Method FiO2 01/13/25 09:06 83 15 97 Room Air 21 01/13/25 08:07 36.5 C 87 20 141/109 H 94 Room Air 01/13/25 03:10 36.9 C 96 H 16 134/70 95 Room Air 01/12/25 22:31 36.5 C 97 H 20 119/90 96 Room Air Laboratory Results Comprehensive Metabolic Panel 01/13/25 Range/Units 05:57 Sodium 140 (136-145) mmol/L Potassium 3.2 L (3.5-5.1) mmol/L Chloride 106 (98-107) mmol/L Carbon Dioxide 29 (21-32) mmol/L BUN 20 (6-23) mg/dl Creatinine 0.72 (0.6-1.2) mg/dl Glucose 115 H (70-99(Fasting)) mg/dl Calcium 7.1 L (8.6-10.3) mg/dl Intake and Output 01/12/25 01/13/25 01/13/25 22:59 06:59 14:59 Intake Total 266.666 / 266.666 Output Total 100 / 900 300 / 900 Balance -100 / -660 -300 / -660 266.666 / 266.666 Intake: IV 266.666 / 266.666 Potassium Chloride / Wtr 10 meq 266.666 / 266.666 In 100 ml @ 100 mls/hr IV Q1H [facility] Rx#:[id number] Output: Urine Amount (Catheter) 100 / 900 300 / 900 External 100 / 900 300 / 900 Other: Other Intake Source Sips Weight 64.4 kg 64.4 kg Patient Weight 01/14/25 06:59 Weight 64.4 kg PG Care Time/CCT Total # of Minutes Spent Total Time Spent with Patient: Total time spent is greater than 50% in coordination of care (as documented) at patient's floor/unit and/or counseling patient: Coding [place] [address] SUB INP/OBS CARE 3/50MIN Patient Type Established Diagnoses Atrial fibrillation with rapid ventricular response I48.91 Closed loop obstruction of intestine K56.699 S/P small bowel resection Z90.49 Septic shock A41.9; R65.21 Time Spent (min) 30
--- NOTE | 2025-01-13 09:29 | Surgery Progress Note ---
Date of Service January 13, 2025 Assessment & Plan (1) S/P small bowel resection: Plan: POD # 11 ex lap , small bowel resection for ischemic bowel afebrile leukocytosis down to 11k yesterday, not repeated today Abdominal incision looks great with no signs of infection, abdomen soft with tenderness in lower abdomen bilaterally Plan: Continue pain management as needed continue low fiber diet boost supplementation continue antiemetic as needed follow labs continue medical management SCds and incentive spirometry pulmonary toilet needs aggressive PT/OT, increase activity OOB to chair (per PT notes she refuses therapy) Can remove alireza prior to discharge (Thursday will be two weeks postop) Discussed with Dr. Gilbert who agrees with above. Admission and Anticipated Discharge Date Admission Date: January 02, 2025 Subjective feeling a bit short of breath, waiting for breathing treatment since 6 am has not ate breakfast yet as waiting for breathing treatment eating about 25-50% of the tray, able to increase intake as each meal comes no n,v feels full quickly no change in abdominal pain, soreness still present Physical Exam Constitutional: + frail appearing and cooperative; no ac [place] distress, not in distress and not diaphoretic Neck: normal visual inspection left IJ central line present with dressing intact Respiratory: no respiratory distress, no labored breathing and no retractions Gastrointestinal (Abdomen): Inspection/Auscultation: abdomen normal to inspection and + abdominal surgical incision (c/d/i with alireza, no erythema); abdomen not distended Percussion/Palpation: + abdomen tender (lower abdomen bilaterally, at midline incision) and abdomen soft; no guarding, abdomen not rigid and abdomen not firm Skin: no rashes, warm and dry Psychiatric: Orientation: alert and oriented x 3 Results & Data Vital Signs (Past 12 Hours) Vital Signs Temp Pulse Resp BP Pulse Ox O2 Del Method FiO2 01/13/25 09:06 83 15 97 Room Air 21 01/13/25 08:07 36.5 C 87 20 141/109 H 94 Room Air 01/13/25 03:10 36.9 C 96 H 16 134/70 95 Room Air 01/12/25 22:31 36.5 C 97 H 20 119/90 96 Room Air Laboratory Results 01/13/25 Range/Units 05:57 Sodium 140 (136-145) mmol/L Potassium 3.2 L (3.5-5.1) mmol/L Chloride 106 (98-107) mmol/L Carbon Dioxide 29 (21-32) mmol/L Anion Gap 5 (3-11) BUN 20 (6-23) mg/dl Creatinine 0.72 (0.6-1.2) mg/dl Est Cr Clr Drug Dosing 47.8 ml/min eGFR 81.89 BUN/Creatinine Ratio 27.8 H (10-20) Glucose 115 H (70-99(Fasting)) mg/dl Calcium 7.1 L (8.6-10.3) mg/dl Digoxin 1.0 (0.8-2.0) ng/ml
--- NOTE | 2025-01-13 11:36 | Hospitalist Progress Note ---
Date of Service January 13, 2025 Assessment & Plan (1) Septic shock: Plan: 84-year-old female with past medical history significant for SIADH, dyslipidemia, hypothyroidism, COPD, peripheral vascular disease, paroxysmal atrial fibrillation, hypertension, moderate mitral regurgitation, moderate aortic insufficiency, paroxysmal supraventricular tachycardia, GERD, CKD stage III, compression fraction of T12 vertebra, chronic pain of both shoulders, impingement syndrome of both shoulders, severe osteoporosis, history of pelvic fracture, migraine, anemia of chronic disease, rheumatoid arthritis, history of lung cancer, elevated liver enzymes, lives at home and ambulates with a walker and lives with her grand child was brought in because of nausea vomiting and abdominal pain. Found to have SBO #Septic shock -Secondary to intraabdominal infection/gut translocation, possible peritonitis -Off pressors -Transferred out of ICU 01/05 -Blood culture 05/07 on 01/02 grew Strep mitis, likely contamination since all others are negative -Completed Merrem 01/06 -Completed linezolid 01/09 #Closed loop bowel obstruction with ischemic bowel -Found to be in septic shock and found to have small bowel obstruction -S/p Exploratory laparotomy, lysis of adhesions, small bowel resection and reanastomosis on 01/02/25 -Multiple BM on 01/06 -NG removed 01/06 and started on CLD Plan -Diet advanced to solids, tolerating -Appreciate surgical management -continue PT/OT #Atrial Fibrillation With RVR Currently on metoprolol tartrate 50 mg twice daily And digoxin 0.125 mcg Monitor on telemetry #Acute on chronic diastolic heart failure being given IV Lasix; monitor input and output. She takes Lasix 20 mg twice daily at home. #Acute Hypoxic Resp Failure -Requiring intubation -Management per ICU -Resolved. extubated 01/04 -CXR reviewed 01/07, pulm edema s/p IV lasix -Now back on room air;Chest x-ray from 01/11 reviewed; pulm edema improved #Acute kidney injury Baseline creatinine 0.8-1 Presented with creatinine of 2.3 Cr Improving YAHIR resolved Rheumatoid arthritis Chronic steroid use Relative adrenal insufficiency As per patient's prescription history; she has been prescribed prednisone 5 mg once a day for rheumatoid arthritis for several months. Patient had period of hypoglycemia on 01/11, has nausea; random cortisol was 13.43 mcg per DL. Currently on stress dose steroid with hydrocortisone 50 mg Q8; plan to taper down to 5 mg prednisone at discharge. 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 It may contain grammatical, syntax or spelling errors. Any formal questions or concerns about the content, text or information contained within the body of this dictation should be directly addressed to the provider for clarification Admission and Anticipated Discharge Date Admission Date: January 02, 2025 Subjective Patient seen and examined at bedside. She is comfortable; not in distress. Reports that she has more energy compared to at baseline. Appetite is improving as well. No significant events overnight Review of Systems Review of Systems: All systems reviewed & are unremarkable except as noted in Subjective Physical Exam Physical Exam: Constitutional: Alert oriented x 3; not in distress. Respiratory: normal respiratory effort, lungs clear to auscultation, no wheeze, rales, rhonchi. Normal insp/exp effort, no accessory muscle use Cardiovascular: Irregular, no murmur, no edema Vessels: no JVD or carotid bruit Chest: normal inspection of chest Abdomen: Incision intact; no soakage. Musculoskeletal: no cyanosis or clubbing, extremities motor strength 5/5 Skin: no rashes, warm and dry normal turgor Neurologic: PERRL, EOMI, accommodation nl, no face palsy, no dysarthria CN's II- XI intact bilaterally and moves all extremities Psychiatric: A+Ox3, euthymic affect Results & Data Results & Data Vital Signs (Past 12 Hours) Vital Signs Temp Pulse Resp BP BP Pulse Ox O2 Del Method 01/13/25 11:26 Room Air 01/13/25 10:53 36.3 C L 97 H 20 132/101 H 135/83 94 Room Air 01/13/25 09:06 83 15 97 Room Air 01/13/25 08:07 36.5 C 87 20 141/109 H 94 Room Air 01/13/25 03:10 36.9 C 96 H 16 134/70 95 Room Air FiO2 01/13/25 11:26 01/13/25 10:53 01/13/25 09:06 21 01/13/25 08:07 01/13/25 03:10
[2025-01-13] MEDS: HYDROCORTISONE SOD 50 MG in SYRINGE 0 ML IV SCH (14:37)
--- NOTE | 2025-01-14 06:37 | Electrocardiogram Report ---
Test Reason : Blood Pressure : */* mmHG Vent. Rate : 143 BPM Atrial Rate : * BPM P-R Int : * ms QRS Dur : 88 ms QT Int : 322 ms P-R-T Axes : * 64 0 degrees QTcB Int : 496 ms Atrial fibrillation with rapid ventricular response Low voltage QRS Anterior infarct (cited on or before 30-Mar-2024) Nonspecific ST abnormality Abnormal ECG When compared with ECG of 02-Jan-2025 16:59, QRS duration has increased Confirmed by Bennett Tate ([id number] on 01/14/2025 6:37:04 AM Referred By: REFERRED SELF Confirmed By: Bennett Tate
[2025-01-14 06:43] LABS: Hematocrit (blood only) 29.9 % (37.0-47.0); Hemoglobin 9.5 g/dl (12.0-16.0); Immature Granulocytes # (auto) 0.13 K/uL (0.01-0.20); Immature Granulocytes % (auto) 0.8 %; Mean Corpuscular Hemoglobin 30.4 pg (25.0-34.0); Mean Corpuscular Volume 95.5 fL (80.0-100.0); Platelet Count 290 K/uL (130-400); RDW Standard Deviation 56.7 fL (36.4-46.3); Red Blood Count 3.13 M/uL (4.20-5.40); White Blood Count 16.11 K/ul (4.8-10.8)
[2025-01-14 07:14] LABS: Anion Gap 5.0 (3-11); Blood Urea Nitrogen 18.0 mg/dl (6-23); Calcium 7.3 mg/dl (8.6-10.3); Carbon Dioxide 29.0 mmol/L (21-32); Chloride 105.0 mmol/L (98-107); Creatinine Clr Calc Pharmacy 56.3 ml/min; Glucose 103.0 mg/dl (70-99(Fasting)); Potassium 3.7 mmol/L (3.5-5.1); Sodium 139.0 mmol/L (136-145)
--- NOTE | 2025-01-14 09:48 | Surgery Progress Note ---
Date of Service January 14, 2025 Assessment & Plan (1) S/P small bowel resection: Plan: pt is s/p exlap with small bowel resection with dr. spear wbc is 16 she is on steroids for her RA vitals are stable some upper abd pain after eating but improves with time she otherwise is tolerating a diet without n/v and she continues to have bowel function her midline incision looks well and is c/d/i with alireza and no signs of infection continue to encourage OOB ambulating and pulm toilet Admission and Anticipated Discharge Date Admission Date: January 02, 2025 Subjective Patient overall doing well. Had some upper abdominal discomfort while eating but improves after 30 minutes or change of position. Otherwise she is tolerating food without n/v and she continues to have + bowel function. Physical Exam Physical Exam: awake, no distress Gastrointestinal (Abdomen): Inspection/Auscultation: + abdominal surgical incision (c/d/i with midline alireza, no signs of infection) Percussion/Palpation: + abdomen tender (some discomfort in left upper abd after eating) and abdomen soft Results & Data Vital Signs (Past 12 Hours) Vital Signs Temp Pulse Pulse Resp BP Pulse Ox O2 Del Method 01/14/25 07:47 81 01/14/25 07:16 97.2 F L 86 18 146/80 H 98 Room Air 01/14/25 04:17 98.1 F 93 H 20 177/96 H 96 Room Air 01/14/25 00:24 97.2 F L 92 H 20 163/89 H 95 Room Air 01/14/25 00:00 98 H 01/13/25 22:57 98 H 01/13/25 22:46 Room Air PG Care Time/CCT Total # of Minutes Spent Total Time Spent with Patient: Total time spent is greater than 50% in coordination of care (as documented) at patient's floor/unit and/or counseling patient: Coding Level of Care Code 05393 SUB INP/OBS CARE 05/28MIN Diagnoses S/P small bowel resection Z90.49
--- NOTE | 2025-01-14 12:14 | Hospitalist Progress Note ---
Date of Service January 14, 2025 Assessment & Plan (1) Septic shock: Plan: 84-year-old female with past medical history significant for SIADH, dyslipidemia, hypothyroidism, COPD, peripheral vascular disease, paroxysmal atrial fibrillation, hypertension, moderate mitral regurgitation, moderate aortic insufficiency, paroxysmal supraventricular tachycardia, GERD, CKD stage III, compression fraction of T12 vertebra, chronic pain of both shoulders, impingement syndrome of both shoulders, severe osteoporosis, history of pelvic fracture, migraine, anemia of chronic disease, rheumatoid arthritis, history of lung cancer, elevated liver enzymes, lives at home and ambulates with a walker and lives with her grand child was brought in because of nausea vomiting and abdominal pain. Found to have SBO #Septic shock -Secondary to intraabdominal infection/gut translocation, possible peritonitis -Off pressors -Transferred out of ICU 01/05 -Blood culture 05/07 on 01/02 grew Strep mitis, likely contamination since all others are negative -Completed Merrem 01/06 -Completed linezolid 01/09 #Closed loop bowel obstruction with ischemic bowel -Found to be in septic shock and found to have small bowel obstruction -S/p Exploratory laparotomy, lysis of adhesions, small bowel resection and reanastomosis on 01/02/25 -Multiple BM on 01/06 -NG removed 01/06 and started on CLD Plan -Diet advanced to solids, tolerating -Appreciate surgical management -continue PT/OT #Atrial Fibrillation With RVR Currently on metoprolol tartrate 50 mg twice daily And digoxin 0.125 mcg Monitor on telemetry #Acute on chronic diastolic heart failure being given IV Lasix; monitor input and output. She takes Lasix 20 mg twice daily at home. #Acute Hypoxic Resp Failure -Requiring intubation -Management per ICU -Resolved. extubated 01/04 -CXR reviewed 01/07, pulm edema s/p IV lasix -Now back on room air;Chest x-ray from 01/11 reviewed; pulm edema improved #Acute kidney injury Baseline creatinine 0.8-1 Presented with creatinine of 2.3 Cr Improving YAHIR resolved Rheumatoid arthritis Chronic steroid use Relative adrenal insufficiency As per patient's prescription history; she has been prescribed prednisone 5 mg once a day for rheumatoid arthritis for several months. Patient had period of hypoglycemia on 01/11, has nausea; random cortisol was 13.43 mcg per DL. Currently on stress dose steroid with hydrocortisone 50 mg Q8;plan to start prednisone 10 mg tomorrow morning and taper down to [address]. 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 It may contain grammatical, syntax or spelling errors. Any formal questions or concerns about the content, text or information contained within the body of this dictation should be directly addressed to the provider for clarification Admission and Anticipated Discharge Date Admission Date: January 02, 2025 Subjective Patient seen and examined at bedside. She is comfortable; not in distress. She has been tolerating low fiber diet without any issues. Vital signs appear stable. Review of Systems Review of Systems: All systems reviewed & are unremarkable except as noted in Subjective Physical Exam Physical Exam: Constitutional: Alert oriented x 3; not in distress. Respiratory: normal respiratory effort, lungs clear to auscultation, no wheeze, rales, rhonchi. Normal insp/exp effort, no accessory muscle use Cardiovascular: Irregular, no murmur, no edema Vessels: no JVD or carotid bruit Chest: normal inspection of chest Abdomen: Incision intact; no soakage. Musculoskeletal: no cyanosis or clubbing, extremities motor strength 5/5 Skin: no rashes, warm and dry normal turgor Neurologic: PERRL, EOMI, accommodation nl, no face palsy, no dysarthria CN's II- XI intact bilaterally and moves all extremities Psychiatric: A+Ox3, euthymic affect Results & Data Results & Data Vital Signs (Past 12 Hours) Vital Signs Temp Pulse Pulse Resp BP Pulse Ox O2 Del Method 01/14/25 11:17 36.6 C 83 18 143/88 H 99 Room Air 01/14/25 10:30 Room Air 01/14/25 07:47 81 01/14/25 07:16 36.2 C L 86 18 146/80 H 98 Room Air 01/14/25 04:17 36.7 C 93 H 20 177/96 H 96 Room Air 01/14/25 00:24 36.2 C L 92 H 20 163/89 H 95 Room Air
[2025-01-15 06:35] LABS: Hematocrit (blood only) 29.9 % (37.0-47.0); Hemoglobin 9.8 g/dl (12.0-16.0); Immature Granulocytes # (auto) 0.16 K/uL (0.01-0.20); Immature Granulocytes % (auto) 0.9 %; Mean Corpuscular Hemoglobin 31.0 pg (25.0-34.0); Mean Corpuscular Volume 94.6 fL (80.0-100.0); Platelet Count 281 K/uL (130-400); RDW Standard Deviation 55.3 fL (36.4-46.3); Red Blood Count 3.16 M/uL (4.20-5.40); White Blood Count 18.07 K/ul (4.8-10.8)
[2025-01-15 07:31] LABS: Anion Gap 6.0 (3-11); Blood Urea Nitrogen 15.0 mg/dl (6-23); Calcium 7.2 mg/dl (8.6-10.3); Carbon Dioxide 33.0 mmol/L (21-32); Chloride 102.0 mmol/L (98-107); Creatinine Clr Calc Pharmacy 63.4 ml/min; Glucose 106.0 mg/dl (70-99(Fasting)); Potassium 2.9 mmol/L (3.5-5.1); Sodium 141.0 mmol/L (136-145)
[2025-01-15] MEDS: POTASSIUM CHLORIDE / WTR 10 MEQ/100 ML PLCT IV SCH (08:10)
[2025-01-15] MEDS: POTASSIUM CHLORIDE CRTAB 20 MEQ TABCR PO SCH (08:13)
--- NOTE | 2025-01-15 09:52 | Surgery Progress Note ---
Date of Service January 15, 2025 Assessment & Plan (1) S/P small bowel resection: Plan: Patient is s/p Ex Lap with small bowel resection with Dr. Means on 01/02/2025 -wbc again elevated to 18 today, she is afebrile, however is on steroids for her RA. -Tolerating diet, no complaints, and having bowel function. -Midline incision with alireza in place, healing appropriately, no signs of infection. Will plan to D/C alireza tomorrow morning on AM rounds as it will be 2 weeks from her surgery. -Continue aggressive pulmonary toileting and encourage OOB and IS -Pain control as needed -PT/OT -Continue medical management per primary team, surgery will continue to follow Admission and Anticipated Discharge Date Admission Date: January 02, 2025 Subjective Patient seen and evaluated this morning, states she is feeling well, no complaints Tolerating diet, no complaints of abdominal pain, denies N/V, having bowel function VSS, WBC has increased to 18 today however has remained afebrile and incision is healing appropriately without signs of infection Physical Exam Constitutional: WD/WN, vitals as above Respiratory: no respiratory distress and no labored breathing Cardiovascular: Rate/Rhythm: regular rate Gastrointestinal (Abdomen): Abdomen soft, nondistended, nontender to palpation +Midline incision with alireza in place. C/D/I without any overlying signs of infection present Skin: no rashes, warm and dry Results & Data Vital Signs (Past 12 Hours) Vital Signs Temp Pulse Pulse Resp BP Pulse Ox O2 Del Method 01/15/25 07:53 36.7 C 73 16 154/77 H 96 Room Air 01/15/25 06:04 92 H 19 94 Room Air 01/15/25 03:49 36.8 C 93 H 20 146/88 H 92 Room Air 01/15/25 00:23 36.8 C 92 H 20 139/72 96 Room Air 01/15/25 00:00 78 01/14/25 23:23 78 01/14/25 23:16 Room Air PG Care Time/CCT Total # of Minutes Spent Total Time Spent with Patient: Total time spent is greater than 50% in coordination of care (as documented) at patient's floor/unit and/or counseling patient: Coding [place] [address] Post Operative Follow-Up Patient Type Established History Problem Focused Exam Problem Focused Medical Decision Making Straight Forward Diagnoses S/P small bowel resection Z90.49
--- NOTE | 2025-01-15 13:24 | Hospitalist Progress Note ---
Date of Service January 15, 2025 Assessment & Plan (1) Septic shock: Plan: 84-year-old female with past medical history significant for SIADH, dyslipidemia, hypothyroidism, COPD, peripheral vascular disease, paroxysmal atrial fibrillation, hypertension, moderate mitral regurgitation, moderate aortic insufficiency, paroxysmal supraventricular tachycardia, GERD, CKD stage III, compression fraction of T12 vertebra, chronic pain of both shoulders, impingement syndrome of both shoulders, severe osteoporosis, history of pelvic fracture, migraine, anemia of chronic disease, rheumatoid arthritis, history of lung cancer, elevated liver enzymes, lives at home and ambulates with a walker and lives with her grand child was brought in because of nausea vomiting and abdominal pain. Found to have SBO #Septic shock -Secondary to intraabdominal infection/gut translocation, possible peritonitis -Off pressors -Transferred out of ICU 01/05 -Blood culture 05/07 on 01/02 grew Strep mitis, likely contamination since all others are negative -Completed Merrem 01/06 -Completed linezolid 01/09 #Closed loop bowel obstruction with ischemic bowel -Found to be in septic shock and found to have small bowel obstruction -S/p Exploratory laparotomy, lysis of adhesions, small bowel resection and reanastomosis on 01/02/25 -Multiple BM on 01/06 -NG removed 01/06 and started on CLD Plan -Diet advanced to solids, tolerating -Appreciate surgical management -continue PT/OT #Atrial Fibrillation With RVR Currently on metoprolol tartrate 50 mg twice daily And digoxin 0.125 mcg Monitor on telemetry #Acute on chronic diastolic heart failure iv lasix changed to oral #Acute Hypoxic Resp Failure -Requiring intubation -Management per ICU -Resolved. extubated 01/04 -CXR reviewed 01/07, pulm edema s/p IV lasix -Now back on room air;Chest x-ray from 01/11 reviewed; pulm edema improved #Acute kidney injury Baseline creatinine 0.8-1 Presented with creatinine of 2.3 Cr Improving YAHIR resolved Rheumatoid arthritis Chronic steroid use Relative adrenal insufficiency As per patient's prescription history; she has been prescribed prednisone 5 mg once a day for rheumatoid arthritis for several months. Patient had period of hypoglycemia on 01/11, has nausea; random cortisol was 13.43 mcg per DL. on prednisone 10mg, plan to change to 5mg at discharge. Hypothyroidism Resume home PO synthroid Hypertension Holding amlodipine, losartan Peripheral vascular disease Status post bilateral femoral stents On aspirin History of lung cancer Left lower lobe squamous cell carcinoma Status post left lower lobe lobectomy in 2008 History of SIADH DVT prophylaxis- sq heparin Full code Please note the above document was generated using voice recognition software. It may contain grammatical, syntax or spelling errors. Any formal questions or concerns about the content, text or information contained within the body of this dictation should be directly addressed to the provider for clarification Admission and Anticipated Discharge Date Admission Date: January 02, 2025 Subjective Patient seen and examined at bedside. Comfortable; not in distress. Denies fever, chills, chest pain, shortness of breath, abdominal pain or urinary symptoms. No significant overnight events Review of Systems Review of Systems: All systems reviewed & are unremarkable except as noted in Subjective Physical Exam Physical Exam: Constitutional: Alert oriented x 3; not in distress. Respiratory: normal respiratory effort, lungs clear to auscultation, no wheeze, rales, rhonchi. Normal insp/exp effort, no accessory muscle use Cardiovascular: Irregular, no murmur, no edema Vessels: no JVD or carotid bruit Chest: normal inspection of chest Abdomen: Incision intact; no soakage. Musculoskeletal: no cyanosis or clubbing, extremities motor strength 5/5 Skin: no rashes, warm and dry normal turgor Neurologic: PERRL, EOMI, accommodation nl, no face palsy, no dysarthria CN's II- XI intact bilaterally and moves all extremities Psychiatric: A+Ox3, euthymic affect Results & Data Results & Data Vital Signs (Past 12 Hours) Vital Signs Temp Pulse Resp BP Pulse Ox O2 Del Method 01/15/25 11:22 36.5 C 16 148/81 H 92 Room Air 01/15/25 10:11 Room Air 01/15/25 07:53 36.7 C 73 16 154/77 H 96 Room Air 01/15/25 06:04 92 H 19 94 Room Air 01/15/25 03:49 36.8 C 93 H 20 146/88 H 92 Room Air
--- NOTE | 2025-01-15 18:50 | XRay Report ---
Exam: Portable chest Reason for exam: Shortness of breath. Previous study: Chest x-ray 01/11/2025 FINDINGS: Since the previous study, there is now markedly increased opacification in the left hemithorax which may indicate further collapse/atelectasis along and/or developing pleural effusion. Increasing perihilar congestion and volume of effusion is present as well. Cardiac size remains enlarged. IMPRESSION: 1. Increasing opacification of essentially the entire left hemithorax may represent underlying lung atelectasis and/or enlarging pleural effusion. 2. Similar but less severe increased effusion and consolidation in the right lung. Electronically signed by Cali Aviles 01-15-2025 6:49 PM
[2025-01-15] MEDS: ALBUT/IPRATROP 3MG/0.5MG NEB 3 ML VIAL NEB SCH (23:37)
[2025-01-15] MEDS: SODIUM CHLOR 7% 4 ML NEB NEB SCH (23:37)
[2025-01-16] MEDS: FUROSEMIDE 20 MG TAB PO SCH (07:43)
[2025-01-16] MEDS: FUROSEMIDE INJ 20 MG/2 ML VIAL IV SCH ×2 (08:02→14:34)
[2025-01-16] MEDS: SODIUM CHLOR 7% 4 ML NEB NEB SCH (08:07)
--- NOTE | 2025-01-16 08:07 | XRay Report ---
EXAM: XR chest 1V portable CLINICAL HISTORY: Hypoxia TECHNIQUE: An X-ray image of the chest is obtained in AP projection. COMPARISON: CR 01/15/2025. FINDINGS: Pulmonary Parenchyma: Marked interval regression of the prior total left hemithorax opacification, now there is obliteration of the left costophrenic angle and left lower lung zone opacity, possibly mild pleural effusion, and atelectasis or infiltrates. Unchanged blunting of the right costophrenic angle with right lower lung zone opacity, possibly mild pleural effusion, and atelectasis or infiltrates. Please correlate clinically to rule out pneumonia. Status post pleural drainage tube with the tip at the left lung apex. Heart and Mediastinum: Heart size and shape are normal. No mediastinal widening or masses. No hilar or mediastinal lymphadenopathy. Aortic atherosclerotic calcifications. Bony Thorax: Bony thorax appears intact without fractures or deformities. Soft Tissues: Soft tissues overlying the chest wall are unremarkable. IMPRESSION: Compared to CR 01/15/2025: 1. Marked interval regression of the prior total left hemithorax opacification, now there is obliteration of the left costophrenic angle and left lower lung zone opacity, possibly mild pleural effusion, and atelectasis or infiltrates. 2. Unchanged blunting of the right costophrenic angle with right lower lung zone opacity, possibly mild pleural effusion, and atelectasis or infiltrates. 3. Please correlate clinically to rule out pneumonia. 4. Status post pleural drainage tube with the tip at the left lung apex. Electronically signed by Radhames Burch 01-16-2025 08:07 AM
[2025-01-16 09:39] LABS: Hematocrit (blood only) 28.4 % (37.0-47.0); Hemoglobin 9.4 g/dl (12.0-16.0); Immature Granulocytes # (auto) 0.25 K/uL (0.01-0.20); Immature Granulocytes % (auto) 1.5 %; Mean Corpuscular Hemoglobin 31.4 pg (25.0-34.0); Mean Corpuscular Volume 95.0 fL (80.0-100.0); Platelet Count 295 K/uL (130-400); RDW Standard Deviation 56.4 fL (36.4-46.3); Red Blood Count 2.99 M/uL (4.20-5.40); White Blood Count 17.17 K/ul (4.8-10.8)
[2025-01-16 09:58] LABS: Anion Gap 6.0 (3-11); Blood Urea Nitrogen 19.0 mg/dl (6-23); Calcium 7.4 mg/dl (8.6-10.3); Carbon Dioxide 29.0 mmol/L (21-32); Chloride 103.0 mmol/L (98-107); Creatinine Clr Calc Pharmacy 45.9 ml/min; Glucose 117.0 mg/dl (70-99(Fasting)); Potassium 4.3 mmol/L (3.5-5.1); Sodium 138.0 mmol/L (136-145)
[2025-01-16] MEDS ORDERED: ALBUT/IPRATROP 3MG/0.5MG NEB 3 ML VIAL NEB SCH (11:00)
--- NOTE | 2025-01-16 11:52 | Surgery Progress Note ---
Date of Service January 16, 2025 Assessment & Plan (1) S/P small bowel resection: Plan: Patient is s/p Ex Lap with small bowel resection with Dr. Means on 01/02/2025 -wbc 17 today, she is afebrile, continues on steroids for RA. -Tolerating diet, no complaints, and having bowel function. -Midline incision with alireza in place, healing appropriately, no signs of infection. Will remove alireza this afternoon since patient is now 2 weeks post- op. -Continue aggressive pulmonary toileting and encourage OOB and IS -Pain control as needed -PT/OT -Continue medical management per primary team, surgery will follow peripherally at this time. Please call with any questions or concerns. Patient to follow-up with Dr. Means in the outpatient setting. Admission and Anticipated Discharge Date Admission Date: January 02, 2025 Subjective Doing well, no complaints this morning Tolerating diet, no complaints of abdominal pain, denies N/V, states she is passing gas and had a small BM this morning VSS, WBC 17 today, afebrile, and incision is healing appropriately Physical Exam Constitutional: WD/WN, vitals as above Respiratory: no respiratory distress and no labored breathing Cardiovascular: Rate/Rhythm: regular rate Gastrointestinal (Abdomen): Abdomen soft, nondistended, nontender to palpation +Midline incision with alireza in place. C/D/I without any overlying signs of infection present Skin: no rashes, warm and dry Results & Data Vital Signs (Past 12 Hours) Vital Signs Temp Pulse Pulse Resp BP Pulse Ox O2 Del Method 01/16/25 11:27 36.8 C 115 H 20 116/72 97 Nasal Cannula 01/16/25 10:54 Nasal Cannula 01/16/25 08:16 37.0 C 129 H 20 138/89 100 Nasal Cannula 01/16/25 07:27 119 H 17 98 Nasal Cannula 01/16/25 07:19 117 H 01/16/25 04:40 37.5 C 115 H 20 115/72 94 CPAP 01/16/25 02:40 24 01/16/25 00:14 117 H 28 H 96 01/16/25 00:00 95 H O2 Flow Rate 01/16/25 11:27 2 01/16/25 10:54 2 01/16/25 08:16 2 01/16/25 07:27 2 01/16/25 07:19 01/16/25 04:40 01/16/25 02:40 4 01/16/25 00:14 4 01/16/25 00:00 PG Care Time/CCT Total # of Minutes Spent Total Time Spent with Patient: Total time spent is greater than 50% in coordination of care (as documented) at patient's floor/unit and/or counseling patient: C[place] [address] Post Operative Follow-Up Patient Type Established History Problem Focused Exam Problem Focused Medical Decision Making Straight Forward Diagnoses S/P small bowel resection Z90.49
--- NOTE | 2025-01-16 12:08 | Pulmonary Consultation ---
Date of Consultation January 16, 2025 Assessment & Plan (1) Atelectasis of left lung: (2) Volume overload: (3) Pleural effusion: (4) Pulmonary edema due to fluid overload: Plan Patient is an 84-year-old female who was admitted to the hospital 01/02/2025 with septic shock and bowel obstruction. The patient underwent ex lap with 60 cm of necrotic bowel removed. The patient required a stay in the ICU and was ventilated for approximately 48 hours. She was in shock and was volume resuscitated and required vasopressor support. The patient has been recovering well in the hospital. On 01/15/2025 the patient developed worsening respiratory failure, chest x-ray showed left lung atelectasis with pleural effusion. Pulmonary was consulted for this reason. Problems: Left lung atelectasis, resolved, likely secondary to mucous plug Volume overload state with pulmonary edema and small pleural effusions Recent abdominal surgery Recommendations/plan: The patient appears to have cleared her mucous plug, repeat x-ray this morning is much improved. Bedside ultrasound does show that she has bilateral pleural effusion that are small, B-lines are present. The patient also has 2-3+ pitting edema in her hips. The patient required aggressive volume resuscitation given her shock state and need for extensive abdominal surgery on admission. Does have some valvular heart disease on her most recent echo. At this point I would recommend aggressive pulmonary toilet with Mucomyst nebuli zers, flutter valve, incentive spirometer. Please try to get the patient out of bed is much as possible and in the upright sitting position. The patient needs to be de resuscitated with IV Lasix. No indication for thoracentesis. Case was discussed with bedside RN and hospitalist service. Thank you for this consult. We will sign off at this time. Please call us directly with any questions. History of Present Illness Reason for Consultation: Left lung atelectasis and pleural effusion Requesting Physician: Tony Jones MD Attending Physician: Tony Jones MD History of Present Illness Patient is a 84-year-old female with a past medical history that is significant for SIADH, dyslipidemia, hypothyroidism, COPD, PVD, paroxysmal atrial fibrillation, hypertension, mitral regurgitation, aortic insufficiency, CKD 3, chronic pain and compression fractures of T12 vertebrae, rheumatoid arthritis and history of lung cancer. The patient presented to the hospital 01/02/2025 with the chief complaint of nausea, vomiting and abdominal pain. The patient was found to have a small bowel obstruction on imaging and was found to be in shock state. The patient was critically ill and was aggressively fluid resuscitated. General surgery was consulted. The patient was taken to the operating room the day of admission and was found to have 60 cm of bowel ischemia and necrosis with obstruction secondary to internal hernia and omental adhesions. After the operating room the patient was transferred to the ICU where she was treated with broad-spectrum antibiotics and volume resuscitation in addition to vasopressor support. She remained intubated on mechanical ventilation. The patient was successfully extubated 01/04/2025 and transferred out of the ICU 01/05/2025. Initia l blood cultures did grow strep mitis however this was thought to be likely contamination and antibiotics were discontinued on 01/09/2025. The patient's diet was slowly advanced. General surgery continue to follow. On 01/15/2025 the patient had worsening hypoxia and difficulty breathing. And imaging of the chest with x-ray was obtained which showed complete atelectasis of the left lung, pulmonary vascular congestion was apparent in the right with some pleural effusion. The patient required CPAP overnight. This morning repeat imaging showed improved aeration on the left with some bilateral pleural effusions and pulmonary vascular congestion. Pulmonary was consulted for left lung atelectasis and pleural effusion. I examined the patient this morning she is resting comfortably in bed. She is on nasal cannula, nontachypneic. She cannot remember if she has coughed up much sputum overnight. She says that overall she feels like her breathing is much better compared to yesterday. She feels as though she is weak but is being pushed too hard to do things in the hospital. Son is at bedside this morning. I performed a acoef-py-[id number] ultrasound of bilateral lung bases. There are small pleural effusions present bilaterally and B-lines. No large effusions that would indicate a thoracentesis at this time. She has good air movement bilaterally to auscultation. No wheezing. Mild rhonchi at the bases. I reviewed the imaging since her arrival to the hospital. When she came into the hospital on 01/02/2025 she did not have fusions or evidence of pulmonary edema. She did have significant left lung atelectasis on 01/15/2025 however she seems to have cleared this mucous plug on her own. On examination she has extensive 2-3+ pitting edema of her lower extremities. As above there is small pleural effusions noted bilaterally on ultrasound. Allergies Allergy/AdvReac Type Severity Reaction Status Date / Time tetracycline Allergy Severe COULDN'T Verified 03/31/24 00:22 BREATHE Cephalosporins Allergy Intermediate HIVES Verified 03/31/24 00:22 clindamycin Allergy Mild RASH Verified 03/31/24 00:22 Penicillins Allergy Mild HIVES Verified 03/31/24 00:22 Sulfa (Sulfonamide Allergy Mild RED AND Verified 03/31/24 00:22 Antibiotics) SWEATING SILVIA Inhibitors Allergy Unknown Unknown Verified 03/31/24 00:22 aspartame Allergy Unknown Unknown Verified 03/31/24 00:22 cefazolin Allergy Unknown Unknown Verified 03/31/24 00:22 cephalexin Allergy Unknown Unknown Verified 03/31/24 00:22 doxycycline Allergy Unknown Unknown Verified 03/31/24 00:22 hydrochlorothiazide Allergy Unknown Unknown Unverified 03/31/24 00:22 lidocaine Allergy Unknown Unknown Verified 03/31/24 00:22 lisinopril Allergy Unknown Unknown Unverified 03/31/24 00:22 yellow dye Allergy Unknown Unknown Verified 03/31/24 00:22 prednisone AdvReac Mild HIGH BP Verified 03/31/24 00:22 Home Medications Medication Instructions Recorded Confirmed Type acetaminophen 500 mg tablet 500 mg PO Q6H PRN Pain 03/29/18 01/02/25 History (Tylenol Extra Strength) albuterol sulfate 90 mcg/actuation 2 puff inhalation Q4H PRN 03/29/18 01/02/25 History aerosol inhaler (Ventolin HFA) Shortness Of Breath aspirin 81 mg tablet,delayed 81 mg PO QAM 03/29/18 01/02/25 History release (Bernie Low Dose Aspirin) folic acid 1 mg tablet 2 mg PO QAM 03/29/18 01/02/25 History furosemide 20 mg tablet 20 mg PO AMPM PRN swelling 03/29/18 01/02/25 History famotidine 20 mg tablet 20 mg PO AMPM 10/17/19 01/02/25 History levothyroxine 50 mcg tablet 25 mcg PO DAILYBB 10/17/19 01/02/25 History methotrexate sodium 2.5 mg tablet 10 mg PO WK 10/17/19 01/02/25 History risedronate 150 mg tablet 150 mg PO MONTHLY 08/14/20 01/02/25 History losartan 100 mg tablet 100 mg PO QAM 03/31/24 01/02/25 History metoprolol succinate 25 mg 25 mg PO QAM 03/31/24 01/02/25 History tablet,extended release 24 hr fqjndgiy-jghq-cfcf 8 mg-folic 400 1 tab PO QAM 03/31/24 01/02/25 History mcg-K 50 mcg-lutein 300 mcg tablet (Centrum Silver Women) prednisone 5 mg tablet 5 mg PO UD PRN arthritis pain 03/31/24 01/02/25 History L.acidop,casei,lactis,rham-B.lact,caroline 1 cap PO DAILY #10 caps 04/07/24 01/02/25 Rx 625 mg (10 billion cell) capsule (Advanced Probiotic) amlodipine 5 mg tablet (Norvasc) 2.5 mg (1/2 x 5 mg) PO QAM #10 tabs 04/07/24 01/02/25 Rx Patient History Medical History Paroxysmal atrial fibrillation with rapid ventricular response Peripheral vascular disease Acute on chronic renal insufficiency Chronic renal insufficiency Anemia Closed loop obstruction of intestine Rheumatoid arthritis Pulmonary nodules Lung cancer, lower lobe Surgical History S/P lobectomy of lung LLL H/O: hysterectomy Family History Other Family history non-contributory Social History Smoking Status: Former smoker Hx Alcohol Use: No Hx Substance Use: No Preferred Language: Burkinan Communication Ability: Impaired Belt Sewer Required: No Beliefs That Will Affect Care: None Current Living Situation: Family Current Living Situation Comment: lives with granddaughter Feels Safe at Home: Yes Assistive Devices: Walker and Wheelchair Review of Systems Review of Systems: A 12 point review of systems was obtained in detail. Negative except as noted in HPI. Physical Exam Physical Exam: Physical examination: General: Elderly female, resting in bed, appears comfortable and not in distress. HEENT: Normocephalic, atraumatic. Extraocular movements intact. Sclera are nonicteric. No JVD appreciated. Skin: Warm and dry. No rashes appreciated. Abdominal surgical incision is clean dry and intact. No erythema or oozing. Cardiovascular: Heart is a regular rate and rhythm, no murmurs appreciated on my exam. 2-3+ pitting edema of lower extremities, predominantly in the hips. Lungs: Good air movement bilaterally. No wheezing. Mild rhonchi at bases. On nasal cannula. Nontachypneic. POCUS with small bilateral pleural effusions and B-lines suggesting pulmonary edema. Abdomen: Nondistended. Abdominal surgical incision is clean dry and intact without oozing or erythema. Musculoskeletal: Normal muscle mass and tone. No gross joint deformity abnormalities. Neurologic: Awake and alert, oriented. CN II through XII are grossly intact. Speech is fluent. Nonfocal exam. Psychiatric: Appropriate cooperative during my exam. Results & Data Results & Data Vital Signs (Past 12 Hours) Vital Signs Temp Pulse Pulse Resp BP Pulse Ox O2 Del Method 01/16/25 11:27 36.8 C 115 H 20 116/72 97 Nasal Cannula 01/16/25 10:54 Nasal Cannula 01/16/25 08:16 37.0 C 129 H 20 138/89 100 Nasal Cannula 01/16/25 07:27 119 H 17 98 Nasal Cannula 01/16/25 07:19 117 H 01/16/25 04:40 37.5 C 115 H 20 115/72 94 CPAP 01/16/25 02:40 24 01/16/25 00:14 117 H 28 H 96 01/16/25 00:00 95 H O2 Flow Rate 01/16/25 11:27 2 01/16/25 10:54 2 01/16/25 08:16 2 01/16/25 07:27 2 01/16/25 07:19 01/16/25 04:40 01/16/25 02:40 4 01/16/25 00:14 4 01/16/25 00:00 Diagnostic Findings Nyvfu-za-jdov ultrasound performed. Bilateral small pleural effusions with adjacent atelectasis lung. B-lines present indicative of pulmonary edema. PG Care Time/CCT Total # of Minutes Spent Total Time Spent with Patient: Total time spent is greater than 50% in coordination of care (as documented) at patient's floor/unit and/or counseling patient: [place] [address] IN/OBS CONSULT LVL 4,60M Patient Type New History Detailed Exam Detailed Medical Decision Making Moderate Complexity Diagnoses Atelectasis of left lung J98.11 Volume overload E87.70 Pleural effusion J90 Pulmonary edema due to fluid overload J81.1
--- NOTE | 2025-01-16 13:38 | Hospitalist Progress Note ---
Date of Service January 16, 2025 Assessment & Plan (1) Septic shock: Plan: 84-year-old female with past medical history significant for SIADH, dyslipidemia, hypothyroidism, COPD, peripheral vascular disease, paroxysmal atrial fibrillation, hypertension, moderate mitral regurgitation, moderate aortic insufficiency, paroxysmal supraventricular tachycardia, GERD, CKD stage III, compression fraction of T12 vertebra, chronic pain of both shoulders, impingement syndrome of both shoulders, severe osteoporosis, history of pelvic fracture, migraine, anemia of chronic disease, rheumatoid arthritis, history of lung cancer, elevated liver enzymes, lives at home and ambulates with a walker and lives with her grand child was brought in because of nausea vomiting and abdominal pain. Found to have SBO #Septic shock -Secondary to intraabdominal infection/gut translocation, possible peritonitis -Off pressors -Transferred out of ICU 01/05 -Blood culture 05/07 on 01/02 grew Strep mitis, likely contamination since all others are negative -Completed Merrem 01/06 -Completed linezolid 01/09 Acute hypoxic respiratory failure Acute on chronic diastolic heart failure Atelectasis of left lung Patient was intubated after the surgery; was extubated on 01/04 Chest x-ray done on 01/15 showed old opacification of the entire left hemithorax representing lung atelectasis. Improvement noted on the chest x-ray on 01/16 Pulmonology consulted for comanagement Patient currently on IV Lasix 3 times daily. Hypertonic saline, DuoNebs for pulmonary toileting. Flutter valve #Closed loop bowel obstruction with ischemic bowel -Found to be in septic shock and found to have small bowel obstruction -S/p Exploratory laparotomy, lysis of adhesions, small bowel resection and jenni nastomosis on 01/02/25 -Multiple BM on 01/06 -NG removed 01/06 and started on CLD Plan -Diet advanced to solids, tolerating -Appreciate surgical management -continue PT/OT #Atrial Fibrillation With RVR Currently on metoprolol tartrate 75 mg twice daily And digoxin 0.125 mcg Monitor on telemetry #Acute kidney injury Baseline creatinine 0.8-1 Presented with creatinine of 2.3 Cr Improving YAHIR resolved Rheumatoid arthritis Chronic steroid use Relative adrenal insufficiency As per patient's prescription history; she has been prescribed prednisone 5 mg once a day for rheumatoid arthritis for several months. Patient had period of hypoglycemia on 01/11, has nausea; random cortisol was 13.43 mcg per DL. on prednisone 10mg, plan to change to 5mg at discharge. Hypothyroidism Resume home PO synthroid Hypertension Holding amlodipine, losartan Peripheral vascular disease Status post bilateral femoral stents On aspirin History of lung cancer Left lower lobe squamous cell carcinoma Status post left lower lobe lobectomy in 2007 History of SIADH DVT prophylaxis- sq heparin Full code Time spent evaluating patient, direct bedside care, chart review, placing orders, interpretation of diagnostic studies, discussion with consultants, patient, and family members, as well as other required patient management activities is 50 minutes Please note the above document was generated using voice recognition software. It may contain grammatical, syntax or spelling errors. Any formal questions or concerns about the content, text or information contained within the body of this dictation should be directly addressed to the provider for clarification Admission and Anticipated Discharge Date Admission Date: January 02, 2025 Subjective Overnight, patient had respiratory distress requiring CPAP. Chest x-ray showed collapse of left lung likely secondary to mucous plug which improved. Currently on 2 L of oxygen by nasal cannula Review of Systems Review of Systems: All systems reviewed & are unremarkable except as noted in Subjective Physical Exam Physical Exam: Constitutional: Alert oriented x 3; not in distress. Respiratory: Bilateral decreased breath sound at bases Cardiovascular: Irregular, no murmur, no edema Vessels: no JVD or carotid bruit Chest: normal inspection of chest Abdomen: Incision intact; no soakage. Musculoskeletal: no cyanosis or clubbing, extremities motor strength 5/5 Skin: no rashes, warm and dry normal turgor Neurologic: PERRL, EOMI, accommodation nl, no face palsy, no dysarthria CN's II- XI intact bilaterally and moves all extremities Psychiatric: A+Ox3, euthymic affect Results & Data Results & Data Vital Signs (Past 12 Hours) Vital Signs Temp Pulse Pulse Resp BP Pulse Ox O2 Del Method 01/16/25 11:27 36.8 C 115 H 20 116/72 97 Nasal Cannula 01/16/25 10:54 Nasal Cannula 01/16/25 08:16 37.0 C 129 H 20 138/89 100 Nasal Cannula 01/16/25 07:27 119 H 17 98 Nasal Cannula 01/16/25 07:19 117 H 01/16/25 04:40 37.5 C 115 H 20 115/72 94 CPAP 01/16/25 02:40 24 O2 Flow Rate 01/16/25 11:27 2 01/16/25 10:54 2 01/16/25 08:16 2 01/16/25 07:27 2 01/16/25 07:19 01/16/25 04:40 01/16/25 02:40 4
[2025-01-16] MEDS: POTASSIUM CHLORIDE / WTR 10 MEQ/100 ML PLCT IV SCH (14:34)
[2025-01-16] MEDS: FUROSEMIDE 40 MG/4 ML VIAL IV SCH (20:02)
[2025-01-16] MEDS: LEVALBUTEROL 0.31MG/3 ML VIAL NEB SCH (20:40)
[2025-01-17 06:56] LABS: Hematocrit (blood only) 28.8 % (37.0-47.0); Hemoglobin 9.2 g/dl (12.0-16.0); Immature Granulocytes # (auto) 0.20 K/uL (0.01-0.20); Immature Granulocytes % (auto) 1.4 %; Mean Corpuscular Hemoglobin 30.3 pg (25.0-34.0); Mean Corpuscular Volume 94.7 fL (80.0-100.0); Platelet Count 260 K/uL (130-400); RDW Standard Deviation 56.1 fL (36.4-46.3); Red Blood Count 3.04 M/uL (4.20-5.40); White Blood Count 14.19 K/ul (4.8-10.8)
[2025-01-17 07:17] LABS: Anion Gap 8 (3-11); Calcium 7.5 mg/dl (8.6-10.3); Carbon Dioxide 30 mmol/L (21-32); Chloride 100 mmol/L (98-107); Sodium 138 mmol/L (136-145)
[2025-01-17 07:24] LABS: Blood Urea Nitrogen 17 mg/dl (6-23); Creatinine Clr Calc Pharmacy 44.7 ml/min; Glucose 76 mg/dl (70-99(Fasting))
--- NOTE | 2025-01-17 13:53 | Hospitalist Progress Note ---
Date of Service January 17, 2025 Assessment & Plan (1) Septic shock: Plan: 84-year-old female with past medical history significant for SIADH, dyslipidemia, hypothyroidism, COPD, peripheral vascular disease, paroxysmal atrial fibrillation, hypertension, moderate mitral regurgitation, moderate aortic insufficiency, paroxysmal supraventricular tachycardia, GERD, CKD stage III, compression fraction of T12 vertebra, chronic pain of both shoulders, impingement syndrome of both shoulders, severe osteoporosis, history of pelvic fracture, migraine, anemia of chronic disease, rheumatoid arthritis, history of lung cancer, elevated liver enzymes, lives at home and ambulates with a walker and lives with her grand child was brought in because of nausea vomiting and abdominal pain. Found to have SBO #Septic shock -Secondary to intraabdominal infection/gut translocation, possible peritonitis -Off pressors -Transferred out of ICU 01/05 -Blood culture 05/07 on 01/02 grew Strep mitis, likely contamination since all others are negative -Completed Merrem 01/06 -Completed linezolid 01/09 Acute hypoxic respiratory failure Acute on chronic diastolic heart failure Atelectasis of left lung Patient was intubated after the surgery; was extubated on 01/04 Chest x-ray done on 01/15 showed old opacification of the entire left hemithorax representing lung atelectasis. Improvement noted on the chest x-ray on 01/16 With pulmonology on 01/16; they suspect mucous plug resulted in the atelectasis of the left lung which has now since improved. They recommend continuing pulmonary toileting and IV diuresis Patient currently on IV Lasix 3 times daily-continue Hypertonic saline, DuoNebs for pulmonary toileting. Flutter valve #Closed loop bowel obstruction with ischemic bowel -Found to be in septic shock and found to have small bowel obstruction -S/p Exploratory laparotomy, lysis of adhesions, small bowel resection and reanastomosis on 01/02/25 -Multiple BM on 01/06 -NG removed 01/06 and started on CLD Plan -Diet advanced to solids, tolerating -Appreciate surgical management -continue PT/OT #Atrial Fibrillation With RVR Currently on metoprolol tartrate 75 mg twice daily And digoxin 0.125 mcg Monitor on telemetry #Acute kidney injury Baseline creatinine 0.8-1 Presented with creatinine of 2.3 Cr Improving YAHIR resolved Rheumatoid arthritis Chronic steroid use Relative adrenal insufficiency As per patient's prescription history; she has been prescribed prednisone 5 mg once a day for rheumatoid arthritis for several months. Patient had period of hypoglycemia on 01/11, has nausea; random cortisol was 13.43 mcg per DL. was given stress dose steroids on prednisone 10mg, plan to change to 5mg at discharge. Hypothyroidism Resume home PO synthroid Hypertension Holding amlodipine, losartan Peripheral vascular disease Status post bilateral femoral stents On aspirin History of lung cancer Left lower lobe squamous cell carcinoma Status post left lower lobe lobectomy in 2007 History of SIADH DVT prophylaxis- sq heparin Full code Time spent evaluating patient, direct bedside care, chart review, placing orders, interpretation of diagnostic studies, discussion with consultants, patient, and family members, as well as other required patient management activities is 50 minutes Please note the above document was generated using voice recognition software. It may contain grammatical, syntax or spelling errors. Any formal questions or concerns about the content, text or information contained within the body of this dictation should be directly addressed to the provider for clarification Admission and Anticipated Discharge Date Admission Date: January 02, 2025 Subjective Patient seen and examined at bedside. She reports that she is feeling better overall compared to previous day. Her appetite continues to be low No significant events overnight Oxygen requirement improving Review of Systems Review of Systems: All systems reviewed & are unremarkable except as noted in Subjective Physical Exam Physical Exam: Constitutional: Alert oriented x 3; not in distress. Respiratory: Bilateral decreased breath sound at bases Cardiovascular: Irregular, no murmur, no edema Vessels: no JVD or carotid bruit Chest: normal inspection of chest Abdomen: Incision intact; no soakage. Musculoskeletal: no cyanosis or clubbing, extremities motor strength 5/5 Skin: no rashes, warm and dry normal turgor Neurologic: PERRL, EOMI, accommodation nl, no face palsy, no dysarthria CN's II- XI intact bilaterally and moves all extremities Psychiatric: A+Ox3, euthymic affect Results & Data Results & Data Vital Signs (Past 12 Hours) Vital Signs Temp Pulse Pulse Resp BP Pulse Ox O2 Del Method 01/17/25 11:33 36.9 C 106 H 18 118/71 100 Nasal Cannula 01/17/25 09:06 Nasal Cannula 01/17/25 07:34 115 H 18 95 Nasal Cannula 01/17/25 07:27 36.7 C 117 H 18 134/83 95 Nasal Cannula 01/17/25 05:29 126 H 01/17/25 02:54 92 H 18 132/84 93 Room Air, CPAP 01/17/25 02:41 117 H 20 94 O2 Flow Rate 01/17/25 11:33 2 01/17/25 09:06 2 01/17/25 07:34 3 01/17/25 07:27 3 01/17/25 05:29 01/17/25 02:54 01/17/25 02:41
[2025-01-18 07:28] LABS: Hematocrit (blood only) 26.7 % (37.0-47.0); Hemoglobin 8.5 g/dl (12.0-16.0); Immature Granulocytes # (auto) 0.13 K/uL (0.01-0.20); Immature Granulocytes % (auto) 1.1 %; Mean Corpuscular Hemoglobin 29.8 pg (25.0-34.0); Mean Corpuscular Volume 93.7 fL (80.0-100.0); Platelet Count 208 K/uL (130-400); RDW Standard Deviation 56.1 fL (36.4-46.3); Red Blood Count 2.85 M/uL (4.20-5.40); White Blood Count 11.45 K/ul (4.8-10.8)
[2025-01-18 07:42] LABS: Anion Gap 6.0 (3-11); Blood Urea Nitrogen 16.0 mg/dl (6-23); Calcium 7.2 mg/dl (8.6-10.3); Carbon Dioxide 33.0 mmol/L (21-32); Chloride 98.0 mmol/L (98-107); Creatinine Clr Calc Pharmacy 40.7 ml/min; Glucose 84.0 mg/dl (70-99(Fasting)); Potassium 3.1 mmol/L (3.5-5.1); Sodium 137.0 mmol/L (136-145)
[2025-01-18] MEDS: POTASSIUM CHLORIDE / WTR 10 MEQ/100 ML PLCT IV SCH (09:51)
--- NOTE | 2025-01-18 10:45 | Hospitalist Progress Note ---
Date of Service January 18, 2025 Assessment & Plan (1) Septic shock: Plan: 84-year-old female with past medical history significant for SIADH, dyslipidemia, hypothyroidism, COPD, peripheral vascular disease, paroxysmal atrial fibrillation, hypertension, moderate mitral regurgitation, moderate aortic insufficiency, paroxysmal supraventricular tachycardia, GERD, CKD stage III, compression fraction of T12 vertebra, chronic pain of both shoulders, impingement syndrome of both shoulders, severe osteoporosis, history of pelvic fracture, migraine, anemia of chronic disease, rheumatoid arthritis, history of lung cancer, elevated liver enzymes, lives at home and ambulates with a walker and lives with her grand child was brought in because of nausea vomiting and abdominal pain. Found to have SBO Acute hypoxic respiratory failure Acute on chronic diastolic heart failure Atelectasis of left lung Patient was intubated after the surgery; was extubated on 01/04 Chest x-ray done on 01/15 showed opacification of the entire left hemithorax representing lung atelectasis. Improvement noted on the chest x-ray on 01/16 Discussed With pulmonology on 01/16; they suspect mucous plug resulted in the atelectasis of the left lung which has now since improved. They recommend continuing pulmonary toileting and IV diuresis Patient was diuresed with IV Lasix with good urinary output, and decreasing oxygen requirement. She is now switched over to p.o. Lasix from 01/19 Continue airway clearance therapy with hypertonic saline, DuoNebs and flutter valve. Wean off oxygen as tolerated #Septic shock -Secondary to intraabdominal infection/gut translocation, possible peritonitis -Transferred out of ICU 01/05 -Blood culture 05/07 on 01/02 grew Strep mitis, likely contamination since all others are negative -Completed Merrem 01/06 -Completed linezolid 01/09 #Closed loop bowel obstruction with ischemic bowel -Found to be in septic shock and found to have small bowel obstruction -S/p Exploratory laparotomy, lysis of adhesions, small bowel resection and reanastomosis on 01/02/25 -Multiple BM on 01/06 -NG removed 01/06 and started on CLD Plan -Diet advanced to solids, tolerating -Appreciate surgical management -continue PT/OT #Atrial Fibrillation With RVR Currently on metoprolol tartrate 75 mg twice daily And digoxin 0.125 mcg Monitor on telemetry #Acute kidney injury Baseline creatinine 0.8-1 Presented with creatinine of 2.3 Cr Improving YAHIR resolved Rheumatoid arthritis Chronic steroid use Relative adrenal insufficiency As per patient's prescription history; she has been prescribed prednisone 5 mg once a day for rheumatoid arthritis for several months. Patient had period of h ypoglycemia on 01/11, has nausea; random cortisol was 13.43 mcg per DL. was given stress dose steroids Dose of steroid decrease back down to 5 mg once a day Hypothyroidism Resume home PO synthroid Hypertension Holding amlodipine, losartan Peripheral vascular disease Status post bilateral femoral stents On aspirin History of lung cancer Left lower lobe squamous cell carcinoma Status post left lower lobe lobectomy in 2007 History of SIADH DVT prophylaxis- sq heparin Full code Dispositionpatient shows signs of improvement with improvement in oxygenation, mentation. Possible DC in next few days if she remains clinically stable to rehab. Time spent evaluating patient, direct bedside care, chart review, placing orders, interpretation of diagnostic studies, discussion with consultants, patient, and family members, as well as other required patient management activities is 50 minutes Please note the above document was generated using voice recognition software. It may contain grammatical, syntax or spelling errors. Any formal questions or concerns about the content, text or information contained within the body of this dictation should be directly addressed to the provider for clarification Admission and Anticipated Discharge Date Admission Date: January 02, 2025 Subjective Patient seen and examined at bedside. She reports that she is feeling better compared to previous day. Denies any shortness of breath. No significant events overnight Review of Systems Review of Systems: All systems reviewed & are unremarkable except as noted in Subjective Physical Exam Physical Exam: Constitutional: Alert oriented x 3; not in distress. Respiratory: Bilateral decreased breath sound at bases Cardiovascular: Irregular, no murmur, no edema Vessels: no JVD or carotid bruit Chest: normal inspection of chest Abdomen: Incision intact; no soakage. Musculoskeletal: no cyanosis or clubbing, extremities motor strength 5/5 Skin: no rashes, warm and dry normal turgor Neurologic: PERRL, EOMI, accommodation nl, no face palsy, no dysarthria CN's II- XI intact bilaterally and moves all extremities Psychiatric: A+Ox3, euthymic affect Results & Data Results & Data Vital Signs (Past 12 Hours) Vital Signs Temp Pulse Pulse Resp BP Pulse Ox O2 Del Method 01/18/25 08:02 36.4 C 97 H 18 131/80 100 Nasal Cannula 01/18/25 07:33 101 H 20 97 Nasal Cannula 01/18/25 07:28 93 H 01/18/25 03:43 37.2 C 98 H 20 117/69 99 Nasal Cannula 01/18/25 00:59 36.1 C L 98 H 20 119/79 96 Nasal Cannula O2 Flow Rate 01/18/25 08:02 2 01/18/25 07:33 3 01/18/25 07:28 01/18/25 03:43 3 01/18/25 00:59 3
[2025-01-19 07:02] LABS: Hematocrit (blood only) 27.8 % (37.0-47.0); Hemoglobin 8.7 g/dl (12.0-16.0); Immature Granulocytes # (auto) 0.12 K/uL (0.01-0.20); Immature Granulocytes % (auto) 1.0 %; Mean Corpuscular Hemoglobin 29.8 pg (25.0-34.0); Mean Corpuscular Volume 95.2 fL (80.0-100.0); Platelet Count 223 K/uL (130-400); RDW Standard Deviation 55.8 fL (36.4-46.3); Red Blood Count 2.92 M/uL (4.20-5.40); White Blood Count 11.47 K/ul (4.8-10.8)
[2025-01-19 07:25] LABS: Anion Gap 5.0 (3-11); Blood Urea Nitrogen 13.0 mg/dl (6-23); Calcium 7.9 mg/dl (8.6-10.3); Carbon Dioxide 33.0 mmol/L (21-32); Chloride 99.0 mmol/L (98-107); Creatinine Clr Calc Pharmacy 52.5 ml/min; Glucose 79.0 mg/dl (70-99(Fasting)); Potassium 3.9 mmol/L (3.5-5.1); Sodium 137.0 mmol/L (136-145)
[2025-01-19] MEDS: FUROSEMIDE 20 MG TAB PO SCH (07:37)
--- NOTE | 2025-01-19 14:50 | Hospitalist Progress Note ---
Date of Service January 19, 2025 Assessment & Plan (1) Septic shock: Plan: 84-year-old female with past medical history significant for SIADH, dyslipidemia, hypothyroidism, COPD, peripheral vascular disease, paroxysmal atrial fibrillation, hypertension, moderate mitral regurgitation, moderate aortic insufficiency, paroxysmal supraventricular tachycardia, GERD, CKD stage III, compression fraction of T12 vertebra, chronic pain of both shoulders, impingement syndrome of both shoulders, severe osteoporosis, history of pelvic fracture, migraine, anemia of chronic disease, rheumatoid arthritis, history of lung cancer, elevated liver enzymes, lives at home and ambulates with a walker and lives with her grand child was brought in because of nausea vomiting and abdominal pain. Found to have SBO Acute hypoxic respiratory failure Acute on chronic diastolic heart failure Atelectasis of left lung Patient was intubated after the surgery; was extubated on 01/04 Chest x-ray done on 01/15 showed opacification of the entire left hemithorax representing lung atelectasis. Improvement noted on the chest x-ray on 01/16 Discussed With pulmonology on 01/16; they suspect mucous plug resulted in the atelectasis of the left lung which has now since improved. They recommend continuing pulmonary toileting and IV diuresis Patient was diuresed with IV Lasix with good urinary output, and decreasing oxygen requirement. She is now switched over to p.o. Lasix from 01/19, continue. Continue airway clearance therapy with hypertonic saline, DuoNebs and flutter valve. Wean off oxygen as tolerated #Septic shock -Secondary to intraabdominal infection/gut translocation, possible peritonitis -Transferred out of ICU 01/05 -Blood culture 05/07 on 01/02 grew Strep mitis, likely contamination since all others are negative -Completed Merrem 01/06 -Completed linezolid 01/09 #Closed loop bowel obstruction with ischemic bowel -Found to be in septic shock and found to have small bowel obstruction -S/p Exploratory laparotomy, lysis of adhesions, small bowel resection and reanastomosis on 01/02/25 -Multiple BM on 01/06 -NG removed 01/06 and started on CLD Plan -Diet advanced to solids, tolerating -Appreciate surgical management -continue PT/OT #Atrial Fibrillation With RVR: Currently on metoprolol tartrate 75 mg twice daily And digoxin 0.125 mcg. Monitor on telemetry #Acute kidney injury: Baseline creatinine 0.8-1. Presented with creatinine of 2.3. Resolved. Rheumatoid arthritis Chronic steroid use Relative adrenal insufficiency As per patient's prescription history; she has been prescribed prednisone 5 mg once a day for rheumatoid arthritis for several months. Patient had period of hypoglycemia on 01/11, has nausea; random cortisol was 13.43 mcg per DL. was given stress dose steroids Dose of steroid decrease back down to 5 mg once a day Hypothyroidism: c/w home PO synthroid Hypertension: Holding amlodipine, losartan Peripheral vascular disease: Status post bilateral femoral stents. On aspirin History of lung cancer Left lower lobe squamous cell carcinoma Status post left lower lobe lobectomy in 2007 History of SIADH DVT prophylaxis- sq heparin Full code Dispositionpatient shows signs of improvement with improvement in oxygenation, mentation. Possible DC in next few days if she remains clinically stable to rehab. Admission and Anticipated Discharge Date Admission Date: January 02, 2025 Subjective Patient seen and examined at bedside. She reports that she is feeling about the same as yesterday. Denies any shortness of breath. Reports eating ok and moving bowels ok, reports feeling weak. Physical Exam Physical Exam: Constitutional: Alert oriented x 3; not in distress. Respiratory: Bilateral decreased breath sound at bases Cardiovascular: Irregular, no murmur, no edema Vessels: no JVD or carotid bruit Chest: normal inspection of chest Abdomen: Incision intact; no soakage. Musculoskeletal: no cyanosis or clubbing, extremities motor strength 5/5 Skin: no rashes, warm and dry normal turgor Neurologic: PERRL, EOMI, accommodation nl, no face palsy, no dysarthria CN's II- XI intact bilaterally and moves all extremities Psychiatric: A+Ox3, euthymic affect Results & Data Results & Data Vital Signs (Past 12 Hours) Vital Signs Temp Pulse Resp BP Pulse Ox O2 Del Method O2 Flow Rate 01/19/25 12:20 36.6 C 74 20 108/70 93 Room Air 01/19/25 11:52 75 18 91 Room Air 01/19/25 07:40 36.6 C 95 H 20 125/74 97 Room Air 01/19/25 07:30 Room Air 01/19/25 07:29 85 18 91 Room Air 01/19/25 05:35 88 96 Room Air 01/19/25 03:38 36.6 C 112 H 20 123/86 90 Nasal Cannula 0.5
[2025-01-20 06:20] LABS: Hematocrit (blood only) 28.6 % (37.0-47.0); Hemoglobin 9.0 g/dl (12.0-16.0); Mean Corpuscular Hemoglobin 29.3 pg (25.0-34.0); Mean Corpuscular Volume 93.2 fL (80.0-100.0); Platelet Count 213 K/uL (130-400); RDW Standard Deviation 53.7 fL (36.4-46.3); Red Blood Count 3.07 M/uL (4.20-5.40); White Blood Count 11.71 K/ul (4.8-10.8)
[2025-01-20 06:45] LABS: Anion Gap 6.0 (3-11); Blood Urea Nitrogen 12.0 mg/dl (6-23); Calcium 8.0 mg/dl (8.6-10.3); Carbon Dioxide 32.0 mmol/L (21-32); Chloride 99.0 mmol/L (98-107); Creatinine Clr Calc Pharmacy 44.6 ml/min; Glucose 90.0 mg/dl (70-99(Fasting)); Magnesium 1.6 mg/dl (1.7-2.4); Potassium 3.5 mmol/L (3.5-5.1); Sodium 137.0 mmol/L (136-145)
[2025-01-20] MEDS: MAGNESIUM SULFATE / D5W 1 GM/100 ML BAG IV SCH (10:15)
--- NOTE | 2025-01-20 16:31 | Hospitalist Progress Note ---
Date of Service January 20, 2025 Assessment & Plan (1) Septic shock: Plan: 84-year-old female with past medical history significant for SIADH, dyslipidemia, hypothyroidism, COPD, peripheral vascular disease, paroxysmal atrial fibrillation, hypertension, moderate mitral regurgitation, moderate aortic insufficiency, paroxysmal supraventricular tachycardia, GERD, CKD stage III, compression fraction of T12 vertebra, chronic pain of both shoulders, impingement syndrome of both shoulders, severe osteoporosis, history of pelvic fracture, migraine, anemia of chronic disease, rheumatoid arthritis, history of lung cancer, elevated liver enzymes, lives at home and ambulates with a walker and lives with her grand child was brought in because of nausea vomiting and abdominal pain. Found to have SBO Acute hypoxic respiratory failure Acute on chronic diastolic heart failure Atelectasis of left lung Patient was intubated after the surgery; was extubated on 01/04 Chest x-ray done on 01/15 showed opacification of the entire left hemithorax representing lung atelectasis. Improvement noted on the chest x-ray on 01/16 Discussed With pulmonology on 01/16; they suspect mucous plug resulted in the atelectasis of the left lung which has now since improved. They recommend continuing pulmonary toileting and IV diuresis Patient was diuresed with IV Lasix with good urinary output, and decreasing oxygen requirement. She is now switched over to p.o. Lasix from 01/19, continue. Continue airway clearance therapy with hypertonic saline, DuoNebs and flutter valve. Wean off oxygen as tolerated, now on RA #Septic shock -Secondary to intraabdominal infection/gut translocation, possible peritonitis -Transferred out of ICU 01/05 -Blood culture 05/07 on 01/02 grew Strep mitis, likely contamination since all others are negative -Completed Merrem 01/06 -Completed linezolid 01/09 #Closed loop bowel obstruction with ischemic bowel -Found to be in septic shock and found to have small bowel obstruction -S/p Exploratory laparotomy, lysis of adhesions, small bowel resection and reanastomosis on 01/02/25 -Multiple BM on 01/06 -NG removed 01/06 and started on CLD Plan -Diet advanced to solids, tolerating -Appreciate surgical management -continue PT/OT - pt moving bowels. #Atrial Fibrillation With RVR: Currently on metoprolol tartrate 75 mg twice daily And digoxin 0.125 mcg. Monitor on telemetry #Acute kidney injury: Baseline creatinine 0.8-1. Presented with creatinine of 2.3. Resolved. Rheumatoid arthritis Chronic steroid use Relative adrenal insufficiency As per patient's prescription history; she has been prescribed prednisone 5 mg once a day for rheumatoid arthritis for several months. Patient had period of hypoglycemia on 01/11, has nausea; random cortisol was 13.43 mcg per DL. was given stress dose steroids Dose of steroid decrease back down to 5 mg once a day Hypothyroidism: c/w home PO synthroid Hypertension: Holding amlodipine, losartan Peripheral vascular disease: Status post bilateral femoral stents. On aspirin History of lung cancer Left lower lobe squamous cell carcinoma Status post left lower lobe lobectomy in 2007 History of SIADH DVT prophylaxis- sq heparin Full code Dispositionpatient shows signs of improvement with improvement in oxygenation, mentation. can dc to rehab. Admission and Anticipated Discharge Date Admission Date: January 02, 2025 Subjective Patient seen and examined at bedside. She reports that she is feeling about the same as yesterday. Denies any shortness of breath. Reports eating ok and moving bowels ok, reports feeling weak. Physical Exam Physical Exam: Constitutional: Alert oriented x 3; not in distress. Respiratory: Bilateral decreased breath sound at bases Cardiovascular: Irregular, no murmur, no edema Vessels: no JVD or carotid bruit Chest: normal inspection of chest Abdomen: Incision intact; no soakage. Musculoskeletal: no cyanosis or clubbing, extremities motor strength 5/5 Skin: no rashes, warm and dry normal turgor Neurologic: PERRL, EOMI, accommodation nl, no face palsy, no dysarthria CN's II- XI intact bilaterally and moves all extremities Psychiatric: A+Ox3, euthymic affect Results & Data Results & Data Vital Signs (Past 12 Hours) Vital Signs Temp Pulse Pulse Resp BP Pulse Ox O2 Del Method 01/20/25 16:15 36.6 C 86 16 117/70 86 L Room Air 01/20/25 16:03 120 H 01/20/25 15:51 79 01/20/25 11:10 Room Air 01/20/25 08:17 92 H 18 92 Room Air 01/20/25 07:55 36.5 C 83 16 121/77 92 Room Air 01/20/25 07:21 77
[2025-01-21 07:07] LABS: Anion Gap 5.0 (3-11); Blood Urea Nitrogen 10.0 mg/dl (6-23); Calcium 7.8 mg/dl (8.6-10.3); Carbon Dioxide 31.0 mmol/L (21-32); Chloride 99.0 mmol/L (98-107); Creatinine Clr Calc Pharmacy 46.9 ml/min; Glucose 96.0 mg/dl (70-99(Fasting)); Magnesium 2.1 mg/dl (1.7-2.4); Potassium 3.4 mmol/L (3.5-5.1); Sodium 135.0 mmol/L (136-145)
[2025-01-21] MEDS: POTASSIUM CHLORIDE CRTAB 20 MEQ TABCR PO STA (08:40)
--- NOTE | 2025-01-21 13:18 | Hospitalist Progress Note ---
Date of Service January 21, 2025 Assessment & Plan (1) Septic shock: Plan: 84-year-old female with past medical history significant for SIADH, dyslipidemia, hypothyroidism, COPD, peripheral vascular disease, paroxysmal atrial fibrillation, hypertension, moderate mitral regurgitation, moderate aortic insufficiency, paroxysmal supraventricular tachycardia, GERD, CKD stage III, compression fraction of T12 vertebra, chronic pain of both shoulders, impingement syndrome of both shoulders, severe osteoporosis, history of pelvic fracture, migraine, anemia of chronic disease, rheumatoid arthritis, history of lung cancer, elevated liver enzymes, lives at home and ambulates with a walker and lives with her grand child was brought in because of nausea vomiting and abdominal pain. Found to have SBO Acute hypoxic respiratory failure Acute on chronic diastolic heart failure Atelectasis of left lung Patient was intubated after the surgery; was extubated on 01/04 Chest x-ray done on 01/15 showed opacification of the entire left hemithorax representing lung atelectasis. Improvement noted on the chest x-ray on 01/16 Discussed With pulmonology on 01/16; they suspect mucous plug resulted in the atelectasis of the left lung which has now since improved. They recommend continuing pulmonary toileting and IV diuresis Patient was diuresed with IV Lasix with good urinary output, and decreasing oxygen requirement. She is now switched over to p.o. Lasix from 01/19, continue. Continue airway clearance therapy with hypertonic saline, DuoNebs and flutter valve. Wean off oxygen as tolerated, now on RA #Septic shock -Secondary to intraabdominal infection/gut translocation, possible peritonitis -Transferred out of ICU 01/05 -Blood culture 05/07 on 01/02 grew Strep mitis, likely contamination since all others are negative -Completed Merrem 01/06 -Completed linezolid 01/09 #Closed loop bowel obstruction with ischemic bowel -Found to be in septic shock and found to have small bowel obstruction -S/p Exploratory laparotomy, lysis of adhesions, small bowel resection and reanastomosis on 01/02/25 -Multiple BM on 01/06 -NG removed 01/06 and started on CLD Plan -Diet advanced to solids, tolerating -Appreciate surgical management -continue PT/OT - pt moving bowels. #Atrial Fibrillation With RVR: Currently on metoprolol tartrate 75 mg twice daily And digoxin 0.125 mcg. Monitor on telemetry #Acute kidney injury: Baseline creatinine 0.8-1. Presented with creatinine of 2.3. Resolved. Rheumatoid arthritis Chronic steroid use Relative adrenal insufficiency As per patient's prescription history; she has been prescribed prednisone 5 mg once a day for rheumatoid arthritis for several months. Patient had period of hypoglycemia on 01/11, has nausea; random cortisol was 13.43 mcg per DL. was given stress dose steroids Dose of steroid decrease back down to 5 mg once a day Hypothyroidism: c/w home PO synthroid Hypertension: Holding amlodipine, losartan Peripheral vascular disease: Status post bilateral femoral stents. 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 Admission and Anticipated Discharge Date Admission Date: January 02, 2025 Subjective Patient seen and examined at bedside. She reports that she is feeling better. Denies any shortness of breath. Reports eating ok and moving bowels ok, reports feeling weak. Physical Exam Physical Exam: Constitutional: Alert oriented x 3; not in distress. Respiratory: Bilateral decreased breath sound at bases Cardiovascular: Irregular, no murmur, no edema Vessels: no JVD or carotid bruit Chest: normal inspection of chest Abdomen: Incision intact; no soakage. Musculoskeletal: no cyanosis or clubbing, extremities motor strength 5/5 Skin: no rashes, warm and dry normal turgor Neurologic: PERRL, EOMI, accommodation nl, no face palsy, no dysarthria CN's II- XI intact bilaterally and moves all extremities Psychiatric: A+Ox3, euthymic affect Results & Data Results & Data Vital Signs (Past 12 Hours) Vital Signs Temp Pulse Pulse Resp BP BP Pulse Ox 01/21/25 11:31 36.7 C 77 16 121/75 92 01/21/25 10:12 01/21/25 08:11 36.7 C 77 16 127/80 92 01/21/25 07:31 73 18 93 01/21/25 07:15 68 01/21/25 03:41 36.7 C 77 16 131/85 92 O2 Del Method 01/21/25 11:31 Room Air 01/21/25 10:12 Room Air 01/21/25 08:11 Room Air 01/21/25 07:31 Room Air 01/21/25 07:15 01/21/25 03:41 Room Air
[2025-01-22 07:20] LABS: Anion Gap 7.0 (3-11); Blood Urea Nitrogen 11.0 mg/dl (6-23); Calcium 8.2 mg/dl (8.6-10.3); Carbon Dioxide 29.0 mmol/L (21-32); Chloride 99.0 mmol/L (98-107); Creatinine Clr Calc Pharmacy 39.4 ml/min; Glucose 81.0 mg/dl (70-99(Fasting)); Potassium 4.1 mmol/L (3.5-5.1); Sodium 135.0 mmol/L (136-145)
--- NOTE | 2025-01-22 11:05 | Hospitalist Progress Note ---
Date of Service January 22, 2025 Assessment & Plan (1) Septic shock: Plan: 84-year-old female with past medical history significant for SIADH, dyslipidemia, hypothyroidism, COPD, peripheral vascular disease, paroxysmal atrial fibrillation, hypertension, moderate mitral regurgitation, moderate aortic insufficiency, paroxysmal supraventricular tachycardia, GERD, CKD stage III, compression fraction of T12 vertebra, chronic pain of both shoulders, impingement syndrome of both shoulders, severe osteoporosis, history of pelvic fracture, migraine, anemia of chronic disease, rheumatoid arthritis, history of lung cancer, elevated liver enzymes, lives at home and ambulates with a walker and lives with her grand child was brought in because of nausea vomiting and abdominal pain. Found to have SBO Acute hypoxic respiratory failure Acute on chronic diastolic heart failure Atelectasis of left lung Patient was intubated after the surgery; was extubated on 01/04 Chest x-ray done on 01/15 showed opacification of the entire left hemithorax representing lung atelectasis. Improvement noted on the chest x-ray on 01/16 Discussed With pulmonology on 01/16; they suspect mucous plug resulted in the atelectasis of the left lung which has now since improved. They recommend continuing pulmonary toileting and IV diuresis Patient was diuresed with IV Lasix with good urinary output, and decreasing oxygen requirement. She is now switched over to p.o. Lasix from 01/19, continue. Continue airway clearance therapy with hypertonic saline, DuoNebs and flutter valve. Wean off oxygen as tolerated, now on RA #Septic shock -Secondary to intraabdominal infection/gut translocation, possible peritonitis -Transferred out of ICU 01/05 -Blood culture 05/07 on 01/02 grew Strep mitis, likely contamination since all others are negative -Completed Merrem 01/06 -Completed linezolid 01/09 #Closed loop bowel obstruction with ischemic bowel -Found to be in septic shock and found to have small bowel obstruction -S/p Exploratory laparotomy, lysis of adhesions, small bowel resection and reanastomosis on 01/02/25 -Multiple BM on 01/06 -NG removed 01/06 and started on CLD Plan -Diet advanced to solids, tolerating -Appreciate surgical management -continue PT/OT - pt moving bowels. #Atrial Fibrillation With RVR: Currently on metoprolol tartrate 75 mg twice daily And digoxin 0.125 mcg. Monitor on telemetry #Acute kidney injury: Baseline creatinine 0.8-1. Presented with creatinine of 2.3. Resolved. Rheumatoid arthritis Chronic steroid use Relative adrenal insufficiency As per patient's prescription history; she has been prescribed prednisone 5 mg once a day for rheumatoid arthritis for several months. Patient had period of hypoglycemia on 01/11, has nausea; random cortisol was 13.43 mcg per DL. was given stress dose steroids Dose of steroid decrease back down to 5 mg once a day Hypothyroidism: c/w home PO synthroid Hypertension: Holding amlodipine, losartan Peripheral vascular disease: Status post bilateral femoral stents. 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 Admission and Anticipated Discharge Date Admission Date: January 02, 2025 Subjective Patient seen and examined at bedside. She reports that she is feeling better. Denies any shortness of breath. Reports eating ok and moving bowels ok. Physical Exam Physical Exam: Constitutional: Alert oriented x 3; not in distress. Respiratory: Bilateral decreased breath sound at bases Cardiovascular: Irregular, no murmur, no edema Vessels: no JVD or carotid bruit Chest: normal inspection of chest Abdomen: Incision intact; no soakage. Musculoskeletal: no cyanosis or clubbing, extremities motor strength 5/5 Skin: no rashes, warm and dry normal turgor Neurologic: PERRL, EOMI, accommodation nl, no face palsy, no dysarthria CN's II- XI intact bilaterally and moves all extremities Psychiatric: A+Ox3, euthymic affect Results & Data Results & Data Vital Signs (Past 12 Hours) Vital Signs Temp Pulse Resp BP Pulse Ox O2 Del Method 01/22/25 07:59 36.6 C 89 16 115/75 93 Room Air 01/22/25 07:34 94 H 18 92 Room Air
--- NOTE | 2025-01-23 14:19 | Hospitalist Progress Note ---
Date of Service January 23, 2025 Assessment & Plan (1) Septic shock: Plan: 84-year-old female with past medical history significant for SIADH, dyslipidemia, hypothyroidism, COPD, peripheral vascular disease, paroxysmal atrial fibrillation, hypertension, moderate mitral regurgitation, moderate aortic insufficiency, paroxysmal supraventricular tachycardia, GERD, CKD stage III, compression fraction of T12 vertebra, chronic pain of both shoulders, impingement syndrome of both shoulders, severe osteoporosis, history of pelvic fracture, migraine, anemia of chronic disease, rheumatoid arthritis, history of lung cancer, elevated liver enzymes, lives at home and ambulates with a walker and lives with her grand child was brought in because of nausea vomiting and abdominal pain. Found to have SBO Acute hypoxic respiratory failure Acute on chronic diastolic heart failure Atelectasis of left lung Patient was intubated after the surgery; was extubated on 01/04 Chest x-ray done on 01/15 showed opacification of the entire left hemithorax representing lung atelectasis. Improvement noted on the chest x-ray on 01/16 Discussed With pulmonology on 01/16; they suspect mucous plug resulted in the atelectasis of the left lung which has now since improved. They recommend continuing pulmonary toileting and IV diuresis Patient was diuresed with IV Lasix with good urinary output, and decreasing oxygen requirement. She is now switched over to p.o. Lasix from 01/19, continue. Continue airway clearance therapy with hypertonic saline, DuoNebs and flutter valve. Wean off oxygen as tolerated, now on RA #Septic shock -Secondary to intraabdominal infection/gut translocation, possible peritonitis -Transferred out of ICU 01/05 -Blood culture 05/07 on 01/02 grew Strep mitis, likely contamination since all others are negative -Completed Merrem 01/06 -Completed linezolid 01/09 #Closed loop bowel obstruction with ischemic bowel -Found to be in septic shock and found to have small bowel obstruction -S/p Exploratory laparotomy, lysis of adhesions, small bowel resection and reanastomosis on 01/02/25 -Multiple BM on 01/06 -NG removed 01/06 and started on CLD Plan -Diet advanced to solids, tolerating -Appreciate surgical management -continue PT/OT - pt moving bowels. #Atrial Fibrillation With RVR: Currently on metoprolol tartrate 75 mg twice daily And digoxin 0.125 mcg. Monitor on telemetry #Acute kidney injury: Baseline creatinine 0.8-1. Presented with creatinine of 2.3. Resolved. Rheumatoid arthritis Chronic steroid use Relative adrenal insufficiency As per patient's prescription history; she has been prescribed prednisone 5 mg once a day for rheumatoid arthritis for several months. Patient had period of hypoglycemia on 01/11, has nausea; random cortisol was 13.43 mcg per DL. was given stress dose steroids Dose of steroid decrease back down to 5 mg once a day Hypothyroidism: c/w home PO synthroid Hypertension: Holding amlodipine, losartan Peripheral vascular disease: Status post bilateral femoral stents. 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 awaiting placmeent Admission and Anticipated Discharge Date Admission Date: January 02, 2025 Subjective Patient seen and examined at bedside. She reports that she is feeling better. Denies any shortness of breath. Reports eating ok and moving bowels ok. Physical Exam Physical Exam: Constitutional: Alert oriented x 3; not in distress. Respiratory: Bilateral decreased breath sound at bases Cardiovascular: Irregular, no murmur, no edema Vessels: no JVD or carotid bruit Chest: normal inspection of chest Abdomen: Incision intact; no soakage. Musculoskeletal: no cyanosis or clubbing, extremities motor strength 5/5 Skin: no rashes, warm and dry normal turgor Neurologic: PERRL, EOMI, accommodation nl, no face palsy, no dysarthria CN's II- XI intact bilaterally and moves all extremities Psychiatric: A+Ox3, euthymic affect Results & Data Results & Data Vital Signs (Past 12 Hours) Vital Signs Temp Pulse Resp BP BP Pulse Ox O2 Del Method 01/23/25 09:07 74 16 108/69 96 Room Air 01/23/25 07:31 36.3 C L 86 18 96/67 L 95 Room Air
--- NOTE | 2025-01-24 12:36 | Hospitalist Progress Note ---
Date of Service January 24, 2025 Assessment & Plan (1) Septic shock: Plan: 84-year-old female with past medical history significant for SIADH, dyslipidemia, hypothyroidism, COPD, peripheral vascular disease, paroxysmal atrial fibrillation, hypertension, moderate mitral regurgitation, moderate aortic insufficiency, paroxysmal supraventricular tachycardia, GERD, CKD stage III, compression fraction of T12 vertebra, chronic pain of both shoulders, impingement syndrome of both shoulders, severe osteoporosis, history of pelvic fracture, migraine, anemia of chronic disease, rheumatoid arthritis, history of lung cancer, elevated liver enzymes, lives at home and ambulates with a walker and lives with her grand child was brought in because of nausea vomiting and abdominal pain. Found to have SBO Acute hypoxic respiratory failure Acute on chronic diastolic heart failure Atelectasis of left lung Patient was intubated after the surgery; was extubated on 01/04 Chest x-ray done on 01/15 showed opacification of the entire left hemithorax representing lung atelectasis. Improvement noted on the chest x-ray on 01/16 Discussed With pulmonology on 01/16; they suspect mucous plug resulted in the atelectasis of the left lung which has now since improved. They recommend continuing pulmonary toileting and IV diuresis Patient was diuresed with IV Lasix with good urinary output, and decreasing oxygen requirement. She is now switched over to p.o. Lasix from 01/19, continue. Continue airway clearance therapy with hypertonic saline, DuoNebs and flutter valve. Wean off oxygen as tolerated, now on RA #Septic shock -Secondary to intraabdominal infection/gut translocation, possible peritonitis -Transferred out of ICU 01/05 -Blood culture 05/07 on 01/02 grew Strep mitis, likely contamination since all others are negative -Completed Merrem 01/06 -Completed linezolid 01/09 #Closed loop bowel obstruction with ischemic bowel -Found to be in septic shock and found to have small bowel obstruction -S/p Exploratory laparotomy, lysis of adhesions, small bowel resection and reanastomosis on 01/02/25 -Multiple BM on 01/06 -NG removed 01/06 and started on CLD Plan -Diet advanced to solids, tolerating -Appreciate surgical management -continue PT/OT - pt moving bowels. #Atrial Fibrillation With RVR: Currently on metoprolol tartrate 75 mg twice daily And digoxin 0.125 mcg. Monitor on telemetry #Acute kidney injury: Baseline creatinine 0.8-1. Presented with creatinine of 2.3. Resolved. Rheumatoid arthritis Chronic steroid use Relative adrenal insufficiency As per patient's prescription history; she has been prescribed prednisone 5 mg once a day for rheumatoid arthritis for several months. Patient had period of hypoglycemia on 01/11, has nausea; random cortisol was 13.43 mcg per DL. was given stress dose steroids Dose of steroid decrease back down to 5 mg once a day Hypothyroidism: c/w home PO synthroid Hypertension: Holding amlodipine, losartan, resume after PCP eval in a week time as appropriate, such was communicated to pt's son omer. Peripheral vascular disease: Status post bilateral femoral stents. 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 awaiting placmeent likely will get placed [facility] pt's son omer was given phone call and given general update. Admission and Anticipated Discharge Date Admission Date: January 02, 2025 Subjective Patient seen and examined at bedside. She reports that she is feeling better. Denies any shortness of breath. Reports eating ok and moving bowels ok. Physical Exam Physical Exam: Constitutional: Alert oriented x 3; not in distress. Respiratory: Bilateral decreased breath sound at bases Cardiovascular: Irregular, no murmur, no edema Vessels: no JVD or carotid bruit Chest: normal inspection of chest Abdomen: Incision intact; no soakage. Musculoskeletal: no cyanosis or clubbing, extremities motor strength 5/5 Skin: no rashes, warm and dry normal turgor Neurologic: PERRL, EOMI, accommodation nl, no face palsy, no dysarthria CN's II- XI intact bilaterally and moves all extremities Psychiatric: A+Ox3, euthymic affect Results & Data Results & Data Vital Signs (Past 12 Hours) Vital Signs Temp Pulse Resp BP Pulse Ox O2 Del Method 01/24/25 07:30 36.4 C L 80 16 108/67 95 Room Air
[2025-01-25 07:07] VITALS: BP 102/66; PULSE 67; RESP 15; TEMP 97.5; O2SAT 98
[2025-01-25 08:56] LABS: Hematocrit (blood only) 30.9 % (37.0-47.0); Hemoglobin 9.8 g/dl (12.0-16.0); Immature Granulocytes # (auto) 0.40 K/uL (0.01-0.20); Immature Granulocytes % (auto) 3.0 %; Mean Corpuscular Hemoglobin 29.3 pg (25.0-34.0); Mean Corpuscular Volume 92.2 fL (80.0-100.0); Platelet Count 303 K/uL (130-400); RDW Standard Deviation 54.0 fL (36.4-46.3); Red Blood Count 3.35 M/uL (4.20-5.40); White Blood Count 13.44 K/ul (4.8-10.8)
--- NOTE | 2025-01-25 09:44 | Hospitalist Progress Note ---
Date of Service January 25, 2025 Assessment & Plan (1) Septic shock: Plan: 84-year-old female with past medical history significant for SIADH, dyslipidemia, hypothyroidism, COPD, peripheral vascular disease, paroxysmal atrial fibrillation, hypertension, moderate mitral regurgitation, moderate aortic insufficiency, paroxysmal supraventricular tachycardia, GERD, CKD stage III, compression fraction of T12 vertebra, chronic pain of both shoulders, impingement syndrome of both shoulders, severe osteoporosis, history of pelvic fracture, migraine, anemia of chronic disease, rheumatoid arthritis, history of lung cancer, elevated liver enzymes, lives at home and ambulates with a walker and lives with her grand child was brought in because of nausea vomiting and abdominal pain. Found to have SBO Presented with Septic shock and noted to have following these morning medical conditions: Patient acute hypoxic respiratory failure Acute on chronic diastolic heart failure Atelectasis of left lung Patient was intubated after the surgery; was extubated on 01/04 Chest x-ray done on 01/15 showed opacification of the entire left hemithorax representing lung atelectasis. Improvement noted on the chest x-ray on 01/16 Discussed With pulmonology on 01/16; they suspect mucous plug resulted in the atelectasis of the left lung which has now since improved. They recommend continuing pulmonary toileting and IV diuresis Patient was diuresed with IV Lasix with good urinary output, and decreasing oxygen requirement. She is now switched over to p.o. Lasix from 01/19, continue. Continue airway clearance therapy with hypertonic saline, DuoNebs and flutter valve. Wean off oxygen as tolerated, now on RA Appropriately managed for above conditions and the patient is now free from any significant symptoms and has been saturating normally on room air, remains hemodynamically stable She will be going to [facility] today for continued rehab #Septic shock #Closed loop bowel obstruction with ischemic bowel -Secondary to intraabdominal infection/gut translocation, possible peritonitis -Transferred out of ICU 01/05 -Blood culture 05/07 on 01/02 grew Strep mitis, likely contamination since all others are negative -Completed Merrem 01/06 -Completed linezolid 01/09 -Found to be in septic shock and found to have small bowel obstruction -S/p Exploratory laparotomy, lysis of adhesions, small bowel resection and reanastomosis on 01/02/25 -Multiple BM on 01/06 -NG removed 01/06 and started on CLD - She has been stable since fifth of this month and has been tolerating diet and moving her bowels regularly Denies any abdominal pain, nausea or vomiting today and she is ready to be discharged Has a PT and OT evaluation and recommended rehab #Atrial Fibrillation With RVR: Currently on metoprolol tartrate 75 mg twice daily And digoxin 0.125 mcg. Monitor on telemetry Heart rate is controlled and without any cardiac symptoms #Acute kidney injury: Baseline creatinine 0.8-1. Presented with creatinine of 2.3. Resolved. Her kidney function remains stable Rheumatoid arthritis Chronic steroid use Relative adrenal insufficiency As per patient's prescription history; she has been prescribed prednisone 5 mg once a day for rheumatoid arthritis for several months. Patient had period of hypoglycemia on 01/11, has nausea; random cortisol was 13.43 mcg per DL. was given stress dose steroids Dose of steroid decrease back down to 5 mg once a day Her rheumatoid arthritis remains stable on current dose of prednisone Mild elevation of white count likely secondary to prednisone and doubt any infection Hypothyroidism: c/w home PO synthroid Hypertension: Holding amlodipine, losartan, resume after PCP eval in a week time as appropriate, such was communicated to pt's son omer. Her blood pressure remains on the lower side at 102/66 She has been on beta-arlin but as per prior recommendation amlodipine and losartan will not be started now Peripheral vascular disease: Status post bilateral femoral stents. On aspirin History of lung cancer Left lower lobe squamous cell carcinoma Status post left lower lobe lobectomy in 2007 History of SIADH DVT prophylaxis- sq heparin Full code She will be discharged to [facility] today As per the chart the son is aware Admission and Anticipated Discharge Date Admission Date: January 02, 2025 Subjective The patient was seen and examined medical floor She has been feeling fine without significant symptoms She feels that she is ready to go to rehab today and she is going to get dates for graduate Denies any fever and chills, any abdominal pain nausea or vomiting and any shortness of breath or chest pain He will be discharged this afternoon Review of Systems Review of Systems: All systems reviewed and are unremarkable except as noted below Physical Exam Physical Exam: Sitting on a chair without any acute distress Constitutional: + ill appearing and average body habitus Eyes: PERRL, conjunctivae normal, anicteric sclerae ENMT: external ear and nose normal, oropharynx normal Neck: trachea midline, no thyromegaly Respiratory: no respiratory distress Auscultation: lungs clear to auscultation bilaterally and + crackles (Minimal crackles at the bases) Cardiovascular: Rate/Rhythm: regular rate and regular rhythm; not tachycardic Heart Sounds: normal S1, normal S2 and + murmur Extremities: no edema Chronic ischemic changes both the lower legs Gastrointestinal (Abdomen): Inspection/Auscultation: normal bowel sounds; abdomen not distended Percussion/Palpation: abdomen soft; abdomen nontender Surgical wound and stitches are clean Musculoskeletal: Has minimal bradycardias but no acute arthritis involving any of the joint please Neurologic: normal touch/pain/proprioception and moves all extremities; no fo julio motor deficits Remains generally weak Lymphatic: no cervical or axillary lymphadenopathy Results & Data Results & Data Vital Signs (Past 12 Hours) Vital Signs Temp Pulse Resp BP Pulse Ox O2 Del Method 01/25/25 07:04 36.4 C L 67 15 102/66 98 Room Air Laboratory Results Short CBC 01/25/25 Range/Units 08:42 WBC 13.44 H (4.8-10.8) K/ul Hgb 9.8 L (12.0-16.0) g/dl Hct 30.9 L (37.0-47.0) % Plt Count 303 (130-400) K/uL Medications Administered Current Inpatient Medications Acetaminophen (Acetaminophen 500 Mg Tab) 500 mg PO Q6H PRN PRN Reason: Pain Stop: 02/04/25 18:16 Last Admin: 01/25/25 06:05 Dose: 500 mg Albuterol (Albuterol Hfa 8 Gm Inhaler) 2 puffs INH Q4H PRN PRN Reason: Shortness Of Breath Stop: 02/01/25 23:15 Last Admin: 01/25/25 07:15 Dose: 2 puffs Digoxin (Digoxin 0.125 Mg Tab) 0.125 mg PO DAILY@1600 [facility] Stop: 02/11/25 15:59 Last Admin: 01/24/25 17:13 Dose: 0.125 mg Furosemide (Furosemide 20 Mg Tab) 20 mg PO [id number] NAWAF Stop: 02/18/25 08:59 Last Admin: 01/25/25 07:17 Dose: 20 mg Glucagon (Glucagon For Inj 1 Mg Vial) 1 mg SQ UD PRN; Protocol PRN Reason: Hypoglycemia Protocol Stop: 02/01/25 23:17 Glucose (Glucose 40% Gel 15 Gm Tube) 15 - 30 gm PO UD PRN; Protocol PRN Reason: Hypoglycemia Protocol Stop: 02/01/25 23:17 Glucose (Glucose 10 Tab/Tube) 4 - 8 tab PO UD PRN; Protocol PRN Reason: Hypoglycemia Protocol Stop: 02/01/25 23:17 Heparin Sodium (Beef Lung) (Heparin 10 Unit/Ml 5 Ml Flush) 5 ml FLUSH PRN PRN PRN Reason: Flush Stop: 02/06/25 06:57 Last Admin: 01/08/25 08:15 Dose: 10 ml Heparin Sodium (Porcine) (Heparin Sod 5,000 Unit/0.5 Ml Vial) 5,000 units SQ Q12 NAWAF Stop: 02/03/25 08:59 Last Admin: 01/25/25 07:24 Dose: 5,000 units Levothyroxine Sodium (Levothyroxine Sodium 50 Mcg Tablet) 50 mcg PO DAILYBB NAWAF Stop: 02/06/25 06:29 Last Admin: 01/25/25 06:06 Dose: 50 mcg Metoprolol Succinate (Metoprolol Succ 25mg Ext Rel Tab) 75 mg PO BID NAWAF Stop: 02/11/25 20:59 Last Admin: 01/25/25 07:17 Dose: 75 mg Miscellaneous (Carbohydrates For Hypoglycemia ) 15 - 30 gm PO UD PRN PRN Reason: Hypoglycemia Protocol Stop: 02/01/25 23:17 Pantoprazole Sodium (Pantoprazole 40 Mg Tab) 40 mg PO QAM NAWAF Stop: 02/06/25 08:59 Last Admin: 01/25/25 07:18 Dose: 40 mg Phenol (Chloraseptic (Phenol) 1.4% Soln 180 Ml Btl) 1 sprays MT Q6H PRN PRN Reason: Sore Throat Stop: 02/06/25 15:11 Last Admin: 01/07/25 17:24 Dose: 1 sprays Prednisone (Prednisone 5 Mg Tab) 5 mg PO DAILY NAWAF Stop: 02/17/25 08:59 Last Admin: 01/25/25 07:17 Dose: 5 mg
--- NOTE | 2025-01-25 18:17 | Discharge Summary ---
Date of Service January 25, 2025 Admission HPI Per Admitting Provider 84-year-old female with past medical history significant for SIADH, dyslipidemia, hypothyroidism, COPD, peripheral vascular disease, paroxysmal atrial fibrillation, hypertension, moderate mitral regurgitation, moderate aortic insufficiency, paroxysmal supraventricular tachycardia, GERD, CKD stage III, compression fraction of T12 vertebra, chronic pain of both shoulders, impingement syndrome of both shoulders, severe osteoporosis, history of pelvic fracture, migraine, anemia of chronic disease, rheumatoid arthritis, history of lung cancer, elevated liver enzymes, lives at home and ambulates with a walker and lives with her grand child was brought in because of nausea vomiting and abdominal pain and found to be in septic shock and found to have small bowel obstruction closed-loop. Patient having abdominal pain in the left lower quadrant with nausea and vomiting for last few days. Patient thought could be the diverticulitis. Abdomen is swollen. States last bowel movement was couple of days ago. Patient denies any chest pain. Afebrile. States micturating okay. No cough. No shortness of breath. No headache. In the ER when she came in she was hypotensive and tachycardic. WBC was 18. Creatinine was 2.3. Initial lactic was 4.3 and repeat was 2.9. Procalcitonin 15. UA was positive. MRSA screen was positive. CT abdomen pelvis showed small bowel obstruction with high suspicion for closed-loop bowel obstruction. After the fluid boluses blood pressure improved. Patient is alert and awake and oriented and able to give her history. Family in the room. Past medical history. As mentioned above Past surgical history. Colonoscopy with biopsy. Bilateral femoral stent placement 2011. Radical hysterectomy. Left lower lobe single lobectomy in 2007. Social history. Quit smoking 2006. Smoked 1 pack a day for 30 years. No alcohol despite no drug use. Family history. Brother alcoholism. Skin cancer. Father had liver cancer. Mother had endometrial cancer. Brother had diabetes. Maternal grandfather had heart disorder. Maternal grandmother had heart disorder. Admission Exam Per Admitting Provider Physical Exam: General- Not in distress Head- atraumatic Eyes- PERRL. ENT- oropharynx clear Neck- supple, no JVD. Lungs- clear to auscultation no wheezing or crackles Heart- irregular rhythm;tachycardia no murmur, no gallop. Abdomen- absent bowel sounds, tense , diffuse tender, distended Extremities- b/l lower extremity edema present with some chronic skin changes Neuro- alert, oriented PERRL, no facial palsy; no dysarthria; moves extremities Principal Diagnosis Septic shock, acute hypoxic respiratory failure, acute on chronic diastolic heart failure, rheumatoid arthritis on chronic steroid Discharge Exam Sitting on a chair without any acute distress Constitutional + ill appearing and average body habitus Eyes PERRL, conjunctivae normal, anicteric sclerae ENMT external ear and nose normal, oropharynx normal Neck trachea midline, no thyromegaly Respiratory no respiratory distress Auscultation: lungs clear to auscultation bilaterally and + crackles (Minimal crackles at the bases) Cardiovascular Rate/Rhythm: regular rate and regular rhythm; not tachycardic Heart Sounds: normal S1, normal S2 and + murmur Extremities: no edema Gastrointestinal (Abdomen) Inspection/Auscultation: normal bowel sounds; abdomen not distended Percussion/Palpation: abdomen soft; abdomen nontender Neurologic normal touch/pain/proprioception and moves all extremities; no focal motor deficits Lymphatic no cervical or axillary lymphadenopathy Discharge Data Allergies Allergy/AdvReac Type Severity Reaction Status Date / Time tetracycline Allergy Severe COULDN'T Verified 03/31/24 00:22 BREATHE Cephalosporins Allergy Intermediate HIVES Verified 03/31/24 00:22 clindamycin Allergy Mild RASH Verified 03/31/24 00:22 Penicillins Allergy Mild HIVES Verified 03/31/24 00:22 Sulfa (Sulfonamide Allergy Mild RED AND Verified 03/31/24 00:22 Antibiotics) SWEATING SILVIA Inhibitors Allergy Unknown Unknown Verified 03/31/24 00:22 aspartame Allergy Unknown Unknown Verified 03/31/24 00:22 cefazolin Allergy Unknown Unknown Verified 03/31/24 00:22 cephalexin Allergy Unknown Unknown Verified 03/31/24 00:22 doxycycline Allergy Unknown Unknown Verified 03/31/24 00:22 hydrochlorothiazide Allergy Unknown Unknown Unverified 03/31/24 00:22 lidocaine Allergy Unknown Unknown Verified 03/31/24 00:22 lisinopril Allergy Unknown Unknown Unverified 03/31/24 00:22 yellow dye Allergy Unknown Unknown Verified 03/31/24 00:22 prednisone AdvReac Mild HIGH BP Verified 03/31/24 00:22 Consultations 01/02/25 19:35 ED Decision to Admit Stat 01/02/25 23:16 Consult General Surgery Routine 01/07/25 15:16 Consult Cardiology Routine 01/16/25 07:29 Consult Pulmonology Routine Procedures Performed Operation Date: 01/02/25 08:30 Actual Procedures p Exploratory Laparotomy, Small bowel resection (60cm)(Not Applicable) - Luis Daniel Means MD Ordered Studies 01/02/25 16:58 CT abd pelvis wo con Stat 01/16/25 08:18 US point of care ultrasound Urgent Hospital Course (1) Septic shock: 84-year-old female with past medical history significant for SIADH, dyslipidemia, hypothyroidism, COPD, peripheral vascular disease, paroxysmal atrial fibrillation, hypertension, moderate mitral regurgitation, moderate aortic insufficiency, paroxysmal supraventricular tachycardia, GERD, CKD stage III, compression fraction of T12 vertebra, chronic pain of both shoulders, impingement syndrome of both shoulders, severe osteoporosis, history of pelvic fracture, migraine, anemia of chronic disease, rheumatoid arthritis, history of lung cancer, elevated liver enzymes, lives at home and ambulates with a walker and lives with her grand child was brought in because of nausea vomiting and abdominal pain. Found to have SBO Presented with Septic shock and noted to have following these morning medical conditions: Patient acute hypoxic respiratory failure Acute on chronic diastolic heart failure Atelectasis of left lung Patient was intubated after the surgery; was extubated on 01/04 Chest x-ray done on 01/15 showed opacification of the entire left hemithorax representing lung atelectasis. Improvement noted on the chest x-ray on 01/16 Discussed With pulmonology on 01/16; they suspect mucous plug resulted in the atelectasis of the left lung which has now since improved. They recommend continuing pulmonary toileting and IV diuresis Patient was diuresed with IV Lasix with good urinary output, and decreasing oxygen requirement. She is now switched over to p.o. Lasix from 01/19, continue. Continue airway clearance therapy with hypertonic saline, DuoNebs and flutter valve. Wean off oxygen as tolerated, now on RA Appropriately managed for above conditions and the patient is now free from any significant symptoms and has been saturating normally on room air, remains hemodynamically stable She will be going to [facility] today for continued rehab #Septic shock #Closed loop bowel obstruction with ischemic bowel -Secondary to intraabdominal infection/gut translocation, possible peritonitis -Transferred out of ICU 01/05 -Blood culture 05/07 on 01/02 grew Strep mitis, likely contamination since all others are negative -Completed Merrem 01/06 -Completed linezolid 01/09 -Found to be in septic shock and found to have small bowel obstruction -S/p Exploratory laparotomy, lysis of adhesions, small bowel resection and reanastomosis on 01/02/25 -Multiple BM on 01/06 -NG removed 01/06 and started on CLD - She has been stable since fifth of this month and has been tolerating diet and moving her bowels regularly Denies any abdominal pain, nausea or vomiting today and she is ready to be discharged Has a PT and OT evaluation and recommended rehab #Atrial Fibrillation With RVR: Currently on metoprolol tartrate 75 mg twice daily And digoxin 0.125 mcg. Monitor on telemetry Heart rate is controlled and without any cardiac symptoms #Acute kidney injury: Baseline creatinine 0.8-1. Presented with creatinine of 2.3. Resolved. Her kidney function remains stable Rheumatoid arthritis Chronic steroid use Relative adrenal insufficiency As per patient's prescription history; she has been prescribed prednisone 5 mg once a day for rheumatoid arthritis for several months. Patient had period of hypoglycemia on 01/11, has nausea; random cortisol was 13.43 mcg per DL. was given stress dose steroids Dose of steroid decrease back down to 5 mg once a day Her rheumatoid arthritis remains stable on current dose of prednisone Mild elevation of white count likely secondary to prednisone and doubt any infection Hypothyroidism: c/w home PO synthroid Hypertension: Holding amlodipine, losartan, resume after PCP eval in a week time as appropriate, such was communicated to pt's son omer. Her blood pressure remains on the lower side at 102/66 She has been on beta-arlin but as per prior recommendation amlodipine and losartan will not be started now Peripheral vascular disease: Status post bilateral femoral stents. On aspirin History of lung cancer Left lower lobe squamous cell carcinoma Status post left lower lobe lobectomy in 2007 History of SIADH DVT prophylaxis- sq heparin Full code She will be discharged to [facility] today As per the chart the son is aware Total Time Total Time Spent Total Time Spent (In Minutes): 40 minutes Discharge Plan Discharge Items Patient Disposition: Transfer [facility] Reason For Visit: SEPTIC SHOCK, BOWEL OBSTRUCTION, YAHIR, U Discharge Diagnosis: Septic shock, acute hypoxic respiratory failure, acute on chronic diastolic heart failure, rheumatoid arthritis on chronic steroid Condition on Discharge: Fair Activity: Resume your previous activity Activity Comment: Continue PT and OT Non-emergency contact: Primary Care Provider Call non-emergency contact if: you have any medication questions and your symptoms worsen Follow-up/Referrals: Edna Neal MD [Primary Care Provider] - (Please make an appointment with your PCP within 7 days following discharge from the facility) Diet: Low Fiber Diet Texture: Easy to Chew Addtl Attending Provider Instructions: Please take precautions to avoid falls Take your medications as advisedyour amlodipine and losartan are on hold which can be restarted if needed after follow-up with your PCP Continue PT and OT as advised Please keep appointments with your healthcare providers Addtl Client Experience Administrator Provider Instructions: Post-Surgical ~Discharge Instructions Activity Recommendations: - lifting limitation: (10 pounds for 6 weeks), - exercise/sex/sports limit: (nonstrenuous for 6 weeks), - driving or machine use limit: (none for 1 week), - Shower/bathe limit: (may shower ) Diet: - Resume previous diet SPECIAL CARE INSTRUCTIONS: - May shower. Let water run over area and pat dry. - Call the surgeon's office with any questions or concerns - - (ex. temperature higher than 101 degrees F, excessive bleeding or pain). MEDICATIONS: - Resume previous medications unless instructed otherwise by your surgeon. - May take extra strength Tylenol as needed for mild to moderate pain -500 mg every 6 hours as needed FOLLOW UP VISIT: - If not already scheduled, please call the office to schedule a one-two week follow-up appointment. Office number Pending Studies at Discharge: No Stand-Alone Forms: My [facility] [employer] Skilled Items Patient informed of condition?: Yes DNR: No Discharge Level of Care: Skilled Communicable Disease: No Discharge Prognosis: Stable Lines: None Urinary Catheter: Yes Medications and DC Order Prescriptions: New levothyroxine [Synthroid] 50 mcg Tablet 50 mcg PO DAILYBB Qty: 30 0RF furosemide 20 mg Tablet 20 mg PO BID17 Qty: 60 0RF metoprolol succinate [Toprol XL] 50 mg tablet extended release 24 hr 75 mg PO BID Qty: 90 0RF digoxin [Digitek] 125 mcg (0.125 mg) Tablet 0.125 mg PO DAILY@1600 Qty: 30 0RF Continued famotidine 20 mg tablet 20 mg PO AMPM methotrexate sodium 2.5 mg tablet 10 mg PO WK Rx Instructions: fridays aspirin [Bernie Low Dose Aspirin] 81 mg Tablet,Delayed Release (Dr/Ec) 81 mg PO QAM acetaminophen [Tylenol Extra Strength] 500 mg Tablet 500 mg PO Q6H PRN (Reason: Pain) folic acid 1 mg tablet 2 mg PO QAM albuterol sulfate [Ventolin HFA] 90 mcg/actuation Hfa Aerosol Inhaler 2 puff INHALATION Q4H PRN (Reason: Shortness Of Breath) risedronate 150 mg tablet 150 mg PO MONTHLY prednisone 5 mg tablet 5 mg PO UD PRN (Reason: arthritis pain) Centrum Silver Women 8 mg iron-400 mcg-50 mcg Tablet 1 tab PO QAM Advanced Probiotic 625 mg (10 billion cell) Capsule 1 cap PO DAILY Qty: 10 0RF Discontinued levothyroxine 50 mcg tablet 25 mcg PO DAILYBB furosemide 20 mg tablet 20 mg PO AMPM PRN (Reason: swelling) losartan 100 mg tablet 100 mg PO QAM metoprolol succinate 25 mg tablet extended release 24 hr 25 mg PO QAM amlodipine [Norvasc] 5 mg Tablet 2.5 mg PO QAM Qty: 10 0RF Discharge Orders: Discharge Order (Routine); Ordered 01/25/25 Ordered By: Jim Mcclelland Admission Data Admit Date/Time: 01/02/25 20:28 Attending Provider: Jim Mcclelland Admit Provider: Ruben Chun Primary Care Provider: Edna Neal Other Providers: Elias Romo [facility]; [place]; Ruben Chun; Luis Daniel Means; Mita Cantrell Rishikesh Other Interventions: Discharge Summary Assessment (RN) Last Done: 01/25/25 12:20
== END 2025-01-25 13:33 | DRG 853 ==
LOC: ED 16:46 → 1E 20:18 → OR 20:18 → 1E 20:28 → SUATTDRO 20:28 → 2E 01-06 06:25 → 2W 01-13 16:36 → 3E 01-21 22:21